=== PATIENT | male | born 1975 | race Caucasian/White ===

== ENCOUNTER 2017-06-15 19:20 | Emergency (ER) | payer MEDICARE, MEDICAID, SELFPAY ==
[2017-06-15 19:54] VITALS: BP 139/97; PULSE 128; RESP 20; TEMP 36.7; O2SAT 98; BMI 26.6
--- NOTE | 2017-06-15 20:10 | HMH.EDUTC ---
[facility] [place] Disposition Clinical Impression: Gastroenteritis Disposition: Home, Self-Care Condition on Discharge: Good Instructions: Viral Gastroenteritis, DI for Viral Gastroenteritis -- Adult Additional Instructions: Take prescribed medication for nausea Make sure to drink plenty of fluids Follow up with family doctor if symptoms persist Return if needed Prescriptions: Ondansetron [Zofran 4mg ODT] 4 mg PO Q8H PRN #20 tab.rapdis PRN Reason: Nausea Referrals: Angie Beach [Primary Care Provider] - Forms: Work/School Release Time of Disposition: 20:35 Medical Decision Making - Medical Records Medical records reviewed: Yes: I reviewed the patient's medical records. Vital Signs: 06/15/17 19:54 Temperature 98.1 F Temperature Source Temporal Artery Scan Pulse Rate [Right Brachial] 128 H Respiratory Rate 20 Blood Pressure [Right Arm] 139/97 Blood Pressure Mean [Right Arm] 111 Blood Pressure Source [Right Arm] Automatic Cuff Blood Pressure Position [Right Arm] Sitting 02 Sat by Pulse Oximetry 98 Oxygen Delivery Method Room Air - Dave Inquiry Pt receiving controlled substance: No Dave was queried for this patient: No - Reevaluation(s) Time: 20:32 (Patient state that he feel much better after zofran, no further vomiting and now sitting on exam table drinking water) [facility] [place] HPI - General Stated complaint: vomiting, chills, body aches Mode of Arrival: Ambulatory Source of Information: Patient Limitations: No Limitations Description of Symptoms (Recalled from Triage Doc. by RN): C/O possible flu HEENT Symptoms (Recalled from RN notes): No Resp Symptoms (Recalled from RN notes): Yes (possible flu) Skin Symptoms (Recalled from RN notes): No MS Symptoms (Recalled from RN notes): No Functional Status (Recalled from RN notes): n/a - History of Present Illness Provider Complaint: State that his son was sick the middle of the week with a stomach virus and he thinks he may have it now State that he has been having vomiting and diarrhea all day that has not improved State that he hasn't been able to keep much food or drink down State that tried to take nausea medication by mouth earlier today but was unable to keep it down so he came in to get checked out because he was told that he may have the flu - Related Data Previous Rx's Medication Instructions Recorded Ondansetron [Zofran 4mg ODT] 4 mg PO Q8H PRN #20 tab.rapdis 06/15/17 Allergies Allergy/AdvReac Type Severity Reaction Status Date / Time tree nut [TREE NUT] Allergy Intermediate Verified 06/15/17 20:31 latex [LATEX] Allergy Unknown Verified 06/15/17 20:31 - Worker's Comp Is this a Worker's Comp case?: No H History I have reviewed the patient's past medical history: Yes Medical History: Denies:: Cancer, Diabetes Mellitus Type 1, Diabetes Mellitus Type 2, MRSA Amputation: No Fractures: No - *Social History Smoking Status: Current every day smoker Tobacco Type: cigarettes Alcohol Intake: never - Psychiatric History Expresses thoughts of harming self/others: None Suicide Plan Description: No Plan ROS Obtained: Yes All systems reviewed & no additional complaints - Gastrointestinal Gastrointestingal: Reports: diarrhea, nausea, vomiting Physical Exam - General General appearance: alert, in no apparent distress - ENT ENT exam: Present: normal exam, normal oropharynx, mucous membranes moist, TM's normal bilaterally, normal external ear exam - Respiratory Respiratory exam: Present: normal lung sounds bilaterally. Absent: respiratory distress - Cardiovascular Cardiovascular exam: Present: regular rate, normal rhythm. Absent: JVD - Abdominal Exam Abdominal exam: Present: soft. Absent: distention, tenderness, guarding, rebound, rigidity Comment: Patient vomited x 1 in UTC and had one eppisode of diarrhea, denies abdominal pain state that he feels sick at his stomach - Neurological Exam Neurological exam:
--- NOTE | 2017-06-15 20:13 | ED_ITS ---
[facility] [place] Disposition Clinical Impression: Gastroenteritis Disposition: Home, Self-Care Condition on Discharge: Good Instructions: Viral Gastroenteritis, DI for Viral Gastroenteritis -- Adult Additional Instructions: Take prescribed medication for nausea Make sure to drink plenty of fluids Follow up with family doctor if symptoms persist Return if needed Prescriptions: Ondansetron [Zofran 4mg ODT] 4 mg PO Q8H PRN #20 tab.rapdis PRN Reason: Nausea Referrals: Angie Beach [Primary Care Provider] - Forms: Work/School Release Time of Disposition: 20:35 Medical Decision Making - Medical Records Medical records reviewed: Yes: I reviewed the patient's medical records. Vital Signs: 06/15/17 19:54 Temperature 98.1 F Temperature Source Temporal Artery Scan Pulse Rate [Right Brachial] 128 H Respiratory Rate 20 Blood Pressure [Right Arm] 139/97 Blood Pressure Mean [Right Arm] 111 Blood Pressure Source [Right Arm] Automatic Cuff Blood Pressure Position [Right Arm] Sitting 02 Sat by Pulse Oximetry 98 Oxygen Delivery Method Room Air - Dave Inquiry Pt receiving controlled substance: No Dave was queried for this patient: No - Reevaluation(s) Time: 20:32 (Patient state that he feel much better after zofran, no further vomiting and now sitting on exam table drinking water) [facility] [place] HPI - General Stated complaint: vomiting, chills, body aches Mode of Arrival: Ambulatory Source of Information: Patient Limitations: No Limitations Description of Symptoms (Recalled from Triage Doc. by RN): C/O possible flu HEENT Symptoms (Recalled from RN notes): No Resp Symptoms (Recalled from RN notes): Yes (possible flu) Skin Symptoms (Recalled from RN notes): No MS Symptoms (Recalled from RN notes): No Functional Status (Recalled from RN notes): n/a - History of Present Illness Provider Complaint: State that his son was sick the middle of the week with a stomach virus and he thinks he may have it now State that he has been having vomiting and diarrhea all day that has not improved State that he hasn't been able to keep much food or drink down State that tried to take nausea medication by mouth earlier today but was unable to keep it down so he came in to get checked out because he was told that he may have the flu - Related Data Previous Rx's Medication Instructions Recorded Ondansetron [Zofran 4mg ODT] 4 mg PO Q8H PRN #20 tab.rapdis 06/15/17 Allergies Allergy/AdvReac Type Severity Reaction Status Date / Time tree nut [TREE NUT] Allergy Intermediate Verified 06/15/17 20:31 latex [LATEX] Allergy Unknown Verified 06/15/17 20:31 - Worker's Comp Is this a Worker's Comp case?: No [facility] History I have reviewed the patient's past medical history: Yes Medical History: Denies:: Cancer, Diabetes Mellitus Type 1, Diabetes Mellitus Type 2, MRSA Amputation: No Fractures: No - *Social History Smoking Status: Current every day smoker Tobacco Type: cigarettes Alcohol Intake: never - Psychiatric History Expresses thoughts of harming self/others: None Suicide Plan Description: No Plan ROS Obtained: Yes All systems reviewed & no additional complaints - Gastrointestinal Gastrointestingal: Reports: diarrhea, nausea, vomiting Physical Exam - General General appearance: alert, in no apparent distress - E
[2017-06-15 20:17] LABS: UTC Influenza A Antigen Negative (Negative); UTC Influenza B Antigen Negative (Negative)
[2017-06-15 20:42] VITALS: BP 139/97; PULSE 128; RESP 20; TEMP 36.7; O2SAT 98
== END 2017-06-15 20:43 | disposition home or self-care (01) ==
PROVIDERS: Emergency Provider Nurse Practitioner; PCP Pediatrics
DX: K52.9 Noninfective gastroenteritis and colitis, unspecified (principal); Z91.040 Latex allergy status
CPT/HCPCS: G0463; 87804; 96372; 99203; J2405

== ENCOUNTER 2017-06-18 14:58 | Emergency (ER) | payer MEDICARE, MEDICAID, SELFPAY ==
[2017-06-18 15:13] VITALS: BP 147/98; PULSE 68; RESP 28; TEMP 37.1; O2SAT 98; BMI 26.6
[2017-06-18 15:23] LABS: UTC Strep Screen (Rapid) Negative (Negative)
--- NOTE | 2017-06-18 15:42 | HMH.EDUTC ---
[facility] [place] Disposition Clinical Impression: Upper respiratory infection Qualifiers: URI type: unspecified URI Qualified Code(s): J06.9 - Acute upper respiratory infection, unspecified Disposition: Home, Self-Care Condition on Discharge: Good Instructions: Sore Throat Additional Instructions: * Monitor Temp. Tylenol and/or Ibuprofen as needed. ER if fever is no less than 101 despite alternating Tylenol and Ibuprofen * Encourage fluids, water, Gatorade, powerade, pedialyte if /toddler/or child * Warm salt water gargles for throat irritation *Warm fluids *Sore throat lozenges *Sleep elevated *humidifier or vaporizer Lots of rest Increase fluids, water, Gatorade, powerade *Your throat swab was sent to lab for culture. Those results area typically sent to your primary care physician. Be sure to follow up in 2-3 days if no improvement so they can review those results and treat if necessary If you dont have primary care I recommend you get one, but in the mean time you will have to return to a walk in clinic Follow up IMMEDIATELY for new or worsening of symptoms OR no noticeable improvement over the next 48-72 hours. 911 immediately for any life threatening symptoms such as chest pain or difficulty breathing Prescriptions: Azithromycin [Zithromax 250mg tab] 250 mg PO DIRECTED #6 tab predniSONE [Prednisone 5mg Tab Dose-Pack] 5 mg PO UD DOSE PK #1 pack Referrals: Angie Beach [Primary Care Provider] - Time of Disposition: 15:56 Medical Decision Making - Medical Records Medical records reviewed: Yes: I reviewed the patient's medical records. Vital Signs: 06/18/17 15:13 Temperature 98.8 F Temperature Source Temporal Artery Scan Pulse Rate [Right] 68 Respiratory Rate 28 H Blood Pressure [Right Arm] 147/98 Blood Pressure Mean [Right Arm] 114 Blood Pressure Source [Right Arm] Automatic Cuff Blood Pressure Position [Right Arm] Sitting 02 Sat by Pulse Oximetry 98 Oxygen Delivery Method Room Air - Lab Data Lab Results 06/18/17 15:21: Strep Scn Rapid Clinic Negative Orders (Tests/Meds): ORDERS Category Date Time Status Strep Screen Confirmation Stat Micro 06/18/17 15:21 Received - Dave Inquiry Pt receiving controlled substance: No Dave was queried for this patient: No [facility] [place] HPI - General Stated complaint: sore throat Mode of Arrival: Ambulatory Source of Information: Patient Limitations: No Limitations Description of Symptoms (Recalled from Triage Doc. by RN): SORE THROAT 2 DAYS HEENT Symptoms (Recalled from RN notes): Yes Resp Symptoms (Recalled from RN notes): No Skin Symptoms (Recalled from RN notes): No MS Symptoms (Recalled from RN notes): No Functional Status (Recalled from RN notes): N - History of Present Illness Provider Complaint: Patient states that his child was diagnosed with strep throat yesterday State that his child was drinking from his cup States that now he is having sore throat cough and sinus congestion State that he was worried that he may have the strep throat too - Related Data Previous Rx's Medication Instructions Recorded Ondansetron [Zofran 4mg ODT] 4 mg PO Q8H PRN #20 tab.rapdis 06/15/17 Azithromycin [Zithromax 250mg 250 mg PO DIRECTED #6 tab 06/18/17 tab] predniSONE [Prednisone 5mg Tab 5 mg PO UD DOSE PK #1 pack 06/18/17 Dose-Pack] Allergies Allergy/AdvReac Type Severity Reaction Status Date / Time tree nut [TREE NUT] Allergy Intermediate Verified 06/15/17 20:31 latex [LATEX] Allergy Unknown Verified 06/15/17 20:31 - Worker's Comp Is this a Worker's Comp case?: No [facility] History I have reviewed the patient's past medical history: Yes Medical History: Denies:: Cancer, Diabetes Mellitus Type 1, Diabetes Mellitus Type 2, MRSA Amputation: No Fractures: No - *Social History Smoking Status: Current every day smoker Tobacco Type: cigarettes Alcohol Intake: never - Psychiatric History Expresses thoughts
--- NOTE | 2017-06-18 15:49 | ED_ITS ---
[facility] [place] Clinical Impression: Upper respiratory infection Qualifiers: URI type: unspecified URI Qualified Code(s): J06.9 - Acute upper respiratory infection, unspecified Disposition: Home, Self-Care Condition on Discharge: Good Instructions: Sore Throat Additional Instructions: * Monitor Temp. Tylenol and/or Ibuprofen as needed. ER if fever is no less than 101 despite alternating Tylenol and Ibuprofen * Encourage fluids, water, Gatorade, powerade, pedialyte if /toddler/or child * Warm salt water gargles for throat irritation *Warm fluids *Sore throat lozenges *Sleep elevated *humidifier or vaporizer Lots of rest Increase fluids, water, Gatorade, powerade *Your throat swab was sent to lab for culture. Those results area typically sent to your primary care physician. Be sure to follow up in 2-3 days if no improvement so they can review those results and treat if necessary If you don? t have primary care I recommend you get one, but in the mean time you will have to return to a walk in clinic Follow up IMMEDIATELY for new or worsening of symptoms OR no noticeable improvement over the next 48-72 hours. 911 immediately for any life threatening symptoms such as chest pain or difficulty breathing Prescriptions: Azithromycin [Zithromax 250mg tab] 250 mg PO DIRECTED #6 tab predniSONE [Prednisone 5mg Tab Dose-Pack] 5 mg PO UD DOSE PK #1 pack Referrals: Angie Beach [Primary Care Provider] - Time of Disposition: 15:56 Medical Decision Making - Medical Records Medical records reviewed: Yes: I reviewed the patient's medical records. Vital Signs: 06/18/17 15:13 Temperature 98.8 F Temperature Source Temporal Artery Scan Pulse Rate [Right] 68 Respiratory Rate 28 H Blood Pressure [Right Arm] 147/98 Blood Pressure Mean [Right Arm] 114 Blood Pressure Source [Right Arm] Automatic Cuff Blood Pressure Position [Right Arm] Sitting 02 Sat by Pulse Oximetry 98 Oxygen Delivery Method Room Air - Lab Data Lab Results 06/18/17 15:21: Strep Scn Rapid Clinic Negative Orders (Tests/Meds): ORDERS Category Date Time Status Strep Screen Confirmation Stat Micro 06/18/17 15:21 Received - Dave Inquiry Pt receiving controlled substance: No Dave was queried for this patient: No [facility] [place] HPI - General Stated complaint: sore throat Mode of Arrival: Ambulatory Source of Information: Patient Limitations: No Limitations Description of Symptoms (Recalled from Triage Doc. by RN): SORE THROAT 2 DAYS HEENT Symptoms (Recalled from RN notes): Yes Resp Symptoms (Recalled from RN notes): No Skin Symptoms (Recalled from RN notes): No MS Symptoms (Recalled from RN notes): No Functional Status (Recalled from RN notes): N - History of Present Illness Provider Complaint: Patient states that his child was diagnosed with strep throat yesterday State that his child was drinking from his cup States that now he is having sore throat cough and sinus congestion State that he was worried that he may have the strep throat too - Related Data Previous Rx's Medication Instructions Recorded Ondansetron [Zofran 4mg ODT] 4 mg PO Q8H PRN #20 tab.rapdis 06/15/17 Azithromycin [Zithromax 250mg 250 mg PO DIRECTED #6 tab 06/18/17 tab] predniSONE [Prednisone 5mg Tab 5 mg PO UD DOSE PK #1 pack 06/18/17 Dose-Pack]
== END 2017-06-18 16:01 | disposition home or self-care (01) ==
PROVIDERS: Emergency Provider Nurse Practitioner; PCP Pediatrics
DX: J06.9 Acute upper respiratory infection, unspecified (principal); Z91.040 Latex allergy status; F17.210 Nicotine dependence, cigarettes, uncomplicated
CPT/HCPCS: G0463; 87880; 99201

== ENCOUNTER 2017-08-07 11:24 | Emergency (ER) | payer MEDICARE, MEDICAID, SELFPAY ==
[2017-08-07 11:38] VITALS: BP 126/85; PULSE 85; RESP 20; TEMP 36.8; O2SAT 98; BMI 27.0
--- NOTE | 2017-08-07 11:45 | HMH.EDUTC ---
[facility] [place] Disposition Clinical Impression: Tobacco abuse, Acute sinusitis with symptoms > 10 days Acute bronchitis Qualifiers: Bronchitis organism: unspecified organism Qualified Code(s): J20.9 - Acute bronchitis, unspecified Disposition: Home, Self-Care Condition on Discharge: Good Instructions: DI for Sinusitis, DI for Acute Bronchitis Additional Instructions: * Start antibiotic and be sure to take as ordered for the FULL length of time even if you feel better. Sinus infections do not get better overnight. It may take 2-3 days to notice much improvement so be sure to use conservative measures as discussed for symptoms. * augmentin can cause GI side effects. Probiotics help prevent these symptoms * Continue your flonase, zyrtec D and singulair * Lots of fluids * Sleep elevated * STOP SMOKING!!!! * Monitor Temp. Follow up if fever develops * humidifier/vaporizer/hot steamy shower * Inhaler every 4-6 hours as needed like we discussed. Should help open airways and improve cough, wheezing, shortness of breath. * Mucinex during the day for your cough and cough suppressant only at night. Be sure to drink lots of water. Insurance may not cover a prescription of mucinex. Might be cheaper to get 400mg tablets and take 2 tablets morning, midday and evening all with lots of water. * Start steroid today. Helps with inflammation therefore, cough and wheezing. Follow directions on package. Rvwd side effects. Pt reports they have taken them before. Prescriptions: Amoxicillin/Potassium Clav [Augmentin 875-125 Tablet] 1 tab PO Q12H #20 tab predniSONE [Prednisone 10mg Tab Dose-Pack] 10 mg PO UD DOSE PK 6 Days #1 pack Referrals: Angie Beach [Primary Care Provider] - (Follow up IMMEDIATELY for new or worsening symptoms OR no noticeable improvement over the next 72 hours. You will need a CXR if not improving or getting worse. 911 for difficulty breathing) Time of Disposition: 12:01 Medical Decision Making - Dave Inquiry Pt receiving controlled substance: No Vital Signs: 08/07/17 11:38 Temperature 98.2 F Temperature Source Temporal Artery Scan Pulse Rate [Brachial] 85 Respiratory Rate 20 Blood Pressure [Right Arm] 126/85 Blood Pressure Mean [Right Arm] 98 Blood Pressure Position [Right Arm] Sitting 02 Sat by Pulse Oximetry 98 - Reevaluation(s) Reevaluation #1: Recommended CXR to rule out possible differentials. Pt declined. States he will if no improvement or getting worse but doesn't want one today. [facility] [place] HPI - General Stated complaint: cough X 2 weeks Time Seen by Provider: 08/07/17 11:45 Mode of Arrival: Ambulatory Source of Information: Patient Limitations: No Limitations Description of Symptoms (Recalled from Triage Doc. by RN): COUGH X 2 WEEKS HEENT Symptoms (Recalled from RN notes): No Resp Symptoms (Recalled from RN notes): Yes Skin Symptoms (Recalled from RN notes): No MS Symptoms (Recalled from RN notes): No Functional Status (Recalled from RN notes): NA - History of Present Illness Provider Complaint: c/o productive cough x 2 weeks. Started w/ head cold. Everyone in the house has had it recently . No fever, aches, chills. Sinus pressure and now pain limited to right cheek. Hx of allergies. singulair and flonase with PRN albuterol and zyrtec D. Albuterol inhaler and bromfed at bedtime seems to help throughout the night but not daytime symptoms. Doesn't want to take bromfed more because causes drowsiness and stays at home w/ 2 year old son. No SOA. Wheezing at times during night. + tobacco use - Related Data Home Medications Medication Instructions Recorded Confirmed Cetirizine HCl/Pseudoephedrine 1 mg PO DAILY 08/07/17 08/07/17 [Zyrtec-D Tablet] Citalopram Hydrobromide [Celexa 20 mg PO DAILY 08/07/17 08/07/17 20mg Tablet] Montelukast Sodium [Singulair 10mg 10 mg PO PM 08/07/17 08/07/17 tablet] Simvastatin [Simvastatin] 20 mg PO DAILY 08/07/17 08/07/17 Previous Rx's Medication Instructi
--- NOTE | 2017-08-07 11:57 | ED_ITS ---
[facility] [place] Disposition Clinical Impression: Tobacco abuse, Acute sinusitis with symptoms > 10 days Acute bronchitis Qualifiers: Bronchitis organism: unspecified organism Qualified Code(s): J20.9 - Acute bronchitis, unspecified Disposition: Home, Self-Care Condition on Discharge: Good Instructions: DI for Sinusitis, DI for Acute Bronchitis Additional Instructions: * Start antibiotic and be sure to take as ordered for the FULL length of time even if you feel better. Sinus infections do not get better overnight. It may take 2-3 days to notice much improvement so be sure to use conservative measures as discussed for symptoms. * augmentin can cause GI side effects. Probiotics help prevent these symptoms * Continue your flonase, zyrtec D and singulair * Lots of fluids * Sleep elevated * STOP SMOKING!!!! * Monitor Temp. Follow up if fever develops * humidifier/vaporizer/hot steamy shower * Inhaler every 4-6 hours as needed like we discussed. Should help open airways and improve cough, wheezing, shortness of breath. * Mucinex during the day for your cough and cough suppressant only at night. Be sure to drink lots of water. Insurance may not cover a prescription of mucinex. Might be cheaper to get 400mg tablets and take 2 tablets morning, midday and evening all with lots of water. * Start steroid today. Helps with inflammation therefore, cough and wheezing. Follow directions on package. Rvwd side effects. Pt reports they have taken them before. Prescriptions: Amoxicillin/Potassium Clav [Augmentin 875-125 Tablet] 1 tab PO Q12H #20 tab predniSONE [Prednisone 10mg Tab Dose-Pack] 10 mg PO UD DOSE PK 6 Days #1 pack Referrals: Angie Beach [Primary Care Provider] - (Follow up IMMEDIATELY for new or worsening symptoms OR no noticeable improvement over the next 72 hours. You will need a CXR if not improving or getting worse. 911 for difficulty breathing) Time of Disposition: 12:01 Medical Decision Making - Dave Inquiry Pt receiving controlled substance: No Vital Signs: 08/07/17 11:38 Temperature 98.2 F Temperature Source Temporal Artery Scan Pulse Rate [Brachial] 85 Respiratory Rate 20 Blood Pressure [Right Arm] 126/85 Blood Pressure Mean [Right Arm] 98 Blood Pressure Position [Right Arm] Sitting 02 Sat by Pulse Oximetry 98 - Reevaluation(s) Reevaluation #1: Recommended CXR to rule out possible differentials. Pt declined. States he will if no improvement or getting worse but doesn't want one today. [facility] [place] HPI - General Stated complaint: cough X 2 weeks Time Seen by Provider: 08/07/17 11:45 Mode of Arrival: Ambulatory Source of Information: Patient Limitations: No Limitations Description of Symptoms (Recalled from Triage Doc. by RN): COUGH X 2 WEEKS HEENT Symptoms (Recalled from RN notes): No Resp Symptoms (Recalled from RN notes): Yes Skin Symptoms (Recalled from RN notes): No MS Symptoms (Recalled from RN notes): No Functional Status (Recalled from RN notes): NA - History of Present Illness Provider Complaint: c/o productive cough x 2 weeks. Started w/ head cold. Everyone in the house has had it recently . No fever, aches, chills. Sinus pressure and now pain limited to right cheek. Hx of allergies. singulair and flonase with PRN albuterol and zyrtec D. Albuterol inhaler and bromfed at bedtime seems to help throughout the night but not daytime symptoms. Doesn't want to take bromfed more because causes drowsiness and stays at home w/ 2 year old son. No SOA. Wheezing at times during night. + tobacco use
[2017-08-07 12:08] VITALS: BP 126/85; PULSE 85; RESP 20; TEMP 36.8; O2SAT 98
== END 2017-08-07 12:09 | disposition home or self-care (01) ==
PROVIDERS: Emergency Provider Nurse Practitioner Family; PCP Pediatrics
DX: J20.9 Acute bronchitis, unspecified (principal); J01.90 Acute sinusitis, unspecified; E78.5 Hyperlipidemia, unspecified; F17.210 Nicotine dependence, cigarettes, uncomplicated
CPT/HCPCS: G0463; 99201

== ENCOUNTER 2018-10-31 14:19 | Emergency (ER) | payer MEDICARE, MEDICAID, SELFPAY ==
[2018-10-31 14:48] VITALS: BP 120/83; PULSE 90; RESP 16; TEMP 36.6; O2SAT 98; BMI 27.3
--- NOTE | 2018-10-31 15:35 | HMH.EDUTC ---
[facility] [place] Disposition Clinical Impression: Sinusitis Qualifiers: Sinusitis location: unspecified location Chronicity: unspecified Qualified Code(s): J32.9 - Chronic sinusitis, unspecified Disposition: Home, Self-Care Condition on Discharge: Good Instructions: Sinusitis, Sinus Headache, DI for Sinusitis Additional Instructions: Start antibiotic. Sinus infections may take 2-3 days to notice much improvement so be sure to use conservative measures as discussed for symptoms Flonase 2 spray in each nostril daily to help with nasal congestion, sinus an ear pressure/inflammation Lots of Fluids Sleep elevated Humidifer/vaporizer Augmentin can cause GI effects. Probiotics may help to prevent these symptoms Follow up with family doctor if no improvement or any worsening of symptoms Return if needed Prescriptions: Amoxicillin/Potassium Clav [Augmentin 875-125 Tablet] 1 tab PO Q12H #14 tab predniSONE [Prednisone 20mg Tab] 20 mg PO BID 5 Days #10 tab Referrals: Angie Beach [Primary Care Provider] - As needed Time of Disposition: 15:41 Medical Decision Making - Dave Inquiry Pt receiving controlled substance: No Dave was queried for this patient: No Vital Signs: 10/31/18 14:48 Temperature 97.9 F Temperature Source Oral Pulse Rate [Right Brachial] 90 Respiratory Rate 16 Blood Pressure [Right Arm] 120/83 Blood Pressure Mean [Right Arm] 95 Blood Pressure Source [Right Arm] Automatic Cuff Blood Pressure Position [Right Arm] Sitting 02 Sat by Pulse Oximetry 98 Oxygen Delivery Method Room Air [facility] [place] HPI - General Stated complaint: possibe sinus infection Time Seen by Provider: 10/31/18 15:36 Mode of Arrival: Family Vehicle Source of Information: Patient Limitations: No Limitations Description of Symptoms (Recalled from Triage Doc. by RN): C/O SINUS INFECTION SINCE YESTERDAY HEENT Symptoms (Recalled from RN notes): Yes Resp Symptoms (Recalled from RN notes): No Skin Symptoms (Recalled from RN notes): No MS Symptoms (Recalled from RN notes): No Functional Status (Recalled from RN notes): N/A - History of Present Illness Provider Complaint: Patient state that he gets sinus infections frequently this time of year States that he started about 2 weeks ago and has been trying to fight it off State that yesterday it got worse and then today he woke up and feeling the pressure under his eyes and having pain in his right upper teeth so he came in to get it checked out Location: face - Related Data Home Medications Medication Instructions Recorded Confirmed Citalopram Hydrobromide [Celexa 20 mg PO DAILY 08/07/17 08/07/17 20mg Tablet] Montelukast Sodium [Singulair 10mg 10 mg PO PM 08/07/17 08/07/17 tablet] Simvastatin 20 mg PO DAILY 08/07/17 08/07/17 atorvastatin 10 mg tablet 10 mg PO DAILY 10/06/18 10/06/18 fenofibrate nanocrystallized 48 mg 48 mg PO DAILY 10/06/18 10/06/18 tablet Previous Rx's Medication Instructions Recorded Amoxicillin/Potassium Clav 1 tab PO Q12H #14 tab 10/31/18 [Augmentin 875-125 Tablet] predniSONE [Prednisone 20mg 20 mg PO BID 5 Days #10 tab 10/31/18 Tab] Allergies Allergy/AdvReac Type Severity Reaction Status Date / Time tree nut [TREE NUT] Allergy Intermediate Verified 10/06/18 14:27 latex [LATEX] Allergy Unknown Verified 10/06/18 14:27 - Worker's Comp Is this a Worker's Comp case?: No [facility] History - Hepatitis A Screen Drug use history?: No High risk sexual behaviors?: No History of sexually transmitted infection?: No Currently employed?: No Childcare worker?: No Do you have indoor plumbing?: Yes Do you have electricity?: Yes Attestation statement:: This patient has been screened for Hepatitis A risk factors. I have reviewed the patient's past medical history: Yes Medical History: Reports:: Anxiety, Hyperlipidemia Denies:: Cancer, Diabetes Mellitus Type 1, Diabetes Mellitus Type 2, Hypertension, MRSA Other Medical History: Reports: Other L
--- NOTE | 2018-10-31 15:39 | ED_ITS ---
[facility] [place] Disposition Clinical Impression: Sinusitis Qualifiers: Sinusitis location: unspecified location Chronicity: unspecified Qualified Code(s): J32.9 - Chronic sinusitis, unspecified Disposition: Home, Self-Care Condition on Discharge: Good Instructions: Sinusitis, Sinus Headache, DI for Sinusitis Additional Instructions: Start antibiotic. Sinus infections may take 2-3 days to notice much improvement so be sure to use conservative measures as discussed for symptoms Flonase 2 spray in each nostril daily to help with nasal congestion, sinus an ear pressure/inflammation Lots of Fluids Sleep elevated Humidifer/vaporizer Augmentin can cause GI effects. Probiotics may help to prevent these symptoms Follow up with family doctor if no improvement or any worsening of symptoms Return if needed Prescriptions: Amoxicillin/Potassium Clav [Augmentin 875-125 Tablet] 1 tab PO Q12H #14 tab predniSONE [Prednisone 20mg Tab] 20 mg PO BID 5 Days #10 tab Referrals: Angie Beach [Primary Care Provider] - As needed Time of Disposition: 15:41 Medical Decision Making - Dave Inquiry Pt receiving controlled substance: No Dave was queried for this patient: No Vital Signs: 10/31/18 14:48 Temperature 97.9 F Temperature Source Oral Pulse Rate [Right Brachial] 90 Respiratory Rate 16 Blood Pressure [Right Arm] 120/83 Blood Pressure Mean [Right Arm] 95 Blood Pressure Source [Right Arm] Automatic Cuff Blood Pressure Position [Right Arm] Sitting 02 Sat by Pulse Oximetry 98 Oxygen Delivery Method Room Air [facility] [place] HPI - General Stated complaint: possibe sinus infection Time Seen by Provider: 10/31/18 15:36 Mode of Arrival: Family Vehicle Source of Information: Patient Limitations: No Limitations Description of Symptoms (Recalled from Triage Doc. by RN): C/O SINUS INFECTION SINCE YESTERDAY HEENT Symptoms (Recalled from RN notes): Yes Resp Symptoms (Recalled from RN notes): No Skin Symptoms (Recalled from RN notes): No MS Symptoms (Recalled from RN notes): No Functional Status (Recalled from RN notes): N/A - History of Present Illness Provider Complaint: Patient state that he gets sinus infections frequently this time of year States that he started about 2 weeks ago and has been trying to fight it off State that yesterday it got worse and then today he woke up and feeling the pressure under his eyes and having pain in his right upper teeth so he came in to get it checked out Location: face - Related Data Home Medications Medication Instructions Recorded Confirmed Citalopram Hydrobromide [Celexa 20 mg PO DAILY 08/07/17 08/07/17 20mg Tablet] Montelukast Sodium [Singulair 10mg 10 mg PO PM 08/07/17 08/07/17 tablet] Simvastatin 20 mg PO DAILY 08/07/17 08/07/17 atorvastatin 10 mg tablet 10 mg PO DAILY 10/06/18 10/06/18 fenofibrate nanocrystallized 48 mg 48 mg PO DAILY 10/06/18 10/06/18 tablet Previous Rx's Medication Instructions Recorded Amoxicillin/Potassium Clav 1 tab PO Q12H #14 tab 10/31/18 [Augmentin 875-125 Tablet] predniSONE [Prednisone 20mg 20 mg PO BID 5 Days #10 tab 10/31/18 Tab] Allergies Allergy/AdvReac Type Severity Reaction Status Date / Time
[2018-10-31 15:43] VITALS: BP 120/83; PULSE 90; RESP 16; TEMP 36.6; O2SAT 98
== END 2018-10-31 15:46 | disposition home or self-care (01) ==
PROVIDERS: Emergency Provider Nurse Practitioner; PCP Pediatrics
DX: J01.90 Acute sinusitis, unspecified (principal); F41.9 Anxiety disorder, unspecified; E78.5 Hyperlipidemia, unspecified; F17.210 Nicotine dependence, cigarettes, uncomplicated
CPT/HCPCS: G0463; 99201

== ENCOUNTER → 2019-12-13 11:20 | Outpatient (CLI) | payer MEDICARE, MEDICAID, SELFPAY ==
--- NOTE | 2019-12-13 11:33 | XR_ITS ---
PROCEDURE: XR LUMBAR SPINE MIN 4V CLINICAL INDICATION: Pain in mid back and left knee. No recent injury. COMPARISON: No exams were available for comparison FINDINGS: Alignment: Normal alignment. Bony structures: No fracture or dislocation. No lytic or blastic change. Disc spaces: No significant degenerative change. The disc spaces are preserved. Additional findings: No spondylolisthesis. Normal-appearing visualized sacrum. A small metallic clip is seen in the right upper quadrant. IMPRESSION: Unremarkable radiographs of the lumbosacral spine. Dictated by: Agueda Tabares 12/13/2019 12:26 Electronically signed by Agueda Tabares in [facility] 12/13/2019 12:26
== END ==
PROVIDERS: PCP Pediatrics; Visit Provider Pain Medicine Interventional Pain Medicine
DX: Z79.899 Other long term (current) drug therapy (principal)
CPT/HCPCS: 72110

== ENCOUNTER 2020-08-13 17:38 | Emergency (ER) | payer MEDICARE, MEDICAID, SELFPAY ==
--- NOTE | 2020-08-13 17:44 | XR_ITS ---
PROCEDURE: XR CHEST 2V CLINICAL HISTORY: FALL Anterior chest pain after fall COMPARISON: CR CXR1 CHEST-PORTABLE from 08/13/2016 FINDINGS: The cardiomediastinal silhouette and pulmonary vascularity are within normal limits. The lungs are clear without infiltrates, suspicious nodules, or pleural effusions. There is minimal right basilar atelectasis versus postinflammatory scarring. There is no obvious rib fracture and there is no pneumothorax. There has been previous anterior cervical fusion incompletely visualized but including C7 and T1. No acute bony abnormalities. IMPRESSION: Minimal right basilar atelectasis versus scarring otherwise centrally negative chest. Dictated by: Dr. Sterling Alejandro MD 08/13/2020 18:44 Dr. Sterling Alejandro MD in [facility] 08/13/2020 18:44
[2020-08-13 17:47] VITALS: BP 139/89; PULSE 76; RESP 14; TEMP 36.3; O2SAT 97; BMI 27.8
--- NOTE | 2020-08-13 18:11 | HMH.EDUTC ---
[facility] [place] Disposition Clinical Impression: Muscle strain Disposition: Home, Self-Care Condition on Discharge: Good Instructions: Muscle Strain Additional Instructions: if symptoms worsens return or be seen in ed follow up with pcp tylenol or motrin as needed for pain rest Referrals: Angie Beach [Primary Care Provider] - Time of Disposition: 18:17 Medical Decision Making - Dave Inquiry Pt receiving controlled substance: No Vital Signs: 08/13/20 17:47 Temperature 97.3 F L Temperature Source Tympanic Pulse Rate [Right] 76 Respiratory Rate 14 Blood Pressure [Right Arm] 139/89 Blood Pressure Mean [Right Arm] 105 Blood Pressure Source [Right Arm] Automatic Cuff Blood Pressure Position [Right Arm] Sitting 02 Sat by Pulse Oximetry 97 Orders (Tests/Meds): ORDERS Category Date Time Status XR chest 2V Stat Exams 08/13/20 17:44 Taken [facility] [place] HPI - General Chief complaint: Urgent [facility] Stated complaint: AO [id number]@1500 fell on ground,injured upper chest Time Seen by Provider: 08/13/20 18:11 Mode of Arrival: Ambulatory Source of Information: Patient Limitations: No Limitations Description of Symptoms (Recalled from Triage Doc. by RN): pt fell and landed on his chest hitting the ground. pt is now having center chest pain that worsens when he moves and breathes. pt is breathing shallow due to pain. HEENT Symptoms (Recalled from RN notes): No Resp Symptoms (Recalled from RN notes): No Skin Symptoms (Recalled from RN notes): No MS Symptoms (Recalled from RN notes): Yes (upper chest pain from fall) Functional Status (Recalled from RN notes): na - History of Present Illness Provider Complaint: 45-year-old male presented for pain in his chest with moving or taking a deep breath. Pt states he fell and landed on his chest hitting the ground while playing ball. pt is now having center chest pain that worsens when he moves and breathes. Patient states chest is tender to touch. - Related Data Home Medications Medication Instructions Recorded Confirmed Cetirizine HCl/Pseudoephedrine 1 tab PO DAILY 12/25/18 07/07/19 [Zyrtec-D Tablet] Citalopram Hydrobromide 30 mg PO DAILY 12/25/18 07/07/19 [Citalopram HBr] Montelukast Sodium [Singulair 10mg 10 mg PO PM 12/25/18 07/07/19 tablet] Simvastatin 40 mg PO HS 12/25/18 07/07/19 Tramadol HCl [Tramadol 50mg 1 tab PO TIDP PRN 07/07/19 07/07/19 Tab] Allergies Allergy/AdvReac Type Severity Reaction Status Date / Time tree nut [TREE NUT] Allergy Intermediate Verified 10/06/18 14:27 latex [LATEX] Allergy Unknown Verified 10/06/18 14:27 - Worker's Comp Is this a Worker's Comp case?: No [facility] History - Hepatitis A Screen Drug use history?: No High risk sexual behaviors?: No History of sexually transmitted infection?: No Currently employed?: No Childcare worker?: No Do you have indoor plumbing?: Yes Do you have electricity?: Yes Attestation statement:: This patient has been screened for Hepatitis A risk factors. I have reviewed the patient's past medical history: Yes Medical History: Reports:: Anxiety, Hyperlipidemia Denies:: Cancer, Diabetes Mellitus Type 1, Diabetes Mellitus Type 2, Hypertension, MRSA Other Medical History: Reports: Other Laterality Cases: Left: Other Other Surgeries: Yes: Other Amputation: No Fractures: No - Social History Smoking Status: Never smoker Tobacco Type: cigarettes # Packs/Day (cigarettes): 1 Alcohol Intake: never Substance Use Type: denies use Occupational Status: employed Household Members: family - Psychiatric History Pschychiatric History:: Reports:: Anxiety ROS Obtained: Yes Systems reviewed as appropriate & no additional complaints - Constitutional Constitutional: Reports system reviewed and no additional complaints, except as docu, Reports body ache, Denies daytime sleepiness - Eyes Eyes: Reports system reviewed and no additional complaints, except as docu, Denies dry eyes
[2020-08-13 18:26] VITALS: BP 133/90; PULSE 81; RESP 16; TEMP 36.6
== END 2020-08-13 18:26 | disposition home or self-care (01) ==
PROVIDERS: Emergency Provider Nurse Practitioner Family; PCP Pediatrics
DX: S23.41XA Sprain of ribs, initial encounter (principal); W01.0XXA Fall on same level from slipping, tripping and stumbling without subsequent striking against object, initial encounter; F41.9 Anxiety disorder, unspecified; E78.5 Hyperlipidemia, unspecified
CPT/HCPCS: G0463; 71046; 99202

== ENCOUNTER 2020-10-05 18:34 | Emergency (ER) | payer MEDICARE, MEDICAID, SELFPAY ==
[2020-10-05 18:56] VITALS: BP 111/70; PULSE 87; RESP 19; TEMP 37.2; O2SAT 100; BMI 31.6
--- NOTE | 2020-10-05 19:12 | HMH.EDUTC ---
[facility] [place] Disposition Clinical Impression: Sinusitis Qualifiers: Sinusitis location: unspecified location Chronicity: unspecified Qualified Code(s): J32.9 - Chronic sinusitis, unspecified Disposition: Home, Self-Care Condition on Discharge: Good Instructions: Sinusitis, DI for Sinusitis, Prednisone, Azithromycin Additional Instructions: *Monitor Temp, Over the counter Motrin or Tylenol as directed/as needed Tylenol every 4 hours and Motrin every 6 hours (as long as your family doctor has told you that you can take it) for fever or pain. and straight to ER if unable to lower temp less than 101.0 after medication given *Warm salt water gargles may help to soothe the throat *Throat Lozenges *Warm fluids like tea with honey may help to soothe the throat *Sleep elevated *Humidifier/Vaporizer Start antibiotic. Sinus infections may take 2-3 days to notice much improvement so be sure to use conservative measures as discussed for symptoms Lots of Fluids Follow up IMMEDIATELY for new or worsening symptoms or no Noticeable improvement over the next 48-72 hours. 911 for difficulty breathing or swallowing Prescriptions: predniSONE [Deltasone 10mg tablet] 10 mg PO BID 5 Days #10 tab Transmission Status: Pending to [id number] Azithromycin [Z-Emilio 250mg Tab] 250 mg PO DIRECTED #6 tab Transmission Status: Pending to [id number] Referrals: Angie Beach [Primary Care Provider] - As needed Time of Disposition: 19:20 Medical Decision Making - Dave Inquiry Pt receiving controlled substance: No Dave was queried for this patient: No Vital Signs: 10/05/20 18:56 Temperature 98.9 F Temperature Source Oral Pulse Rate [Right Brachial] 87 Respiratory Rate 19 Blood Pressure [Right Arm] 111/70 Blood Pressure Mean [Right Arm] 83 Blood Pressure Source [Right Arm] Automatic Cuff Blood Pressure Position [Right Arm] Sitting 02 Sat by Pulse Oximetry 100 Oxygen Delivery Method Room Air Medical Decision Narrative: patient states that he has taken azithromycin and prednisone in the past without reaction or complications [facility] [place] HPI - General Stated complaint: poss sinus inf Time Seen by Provider: 10/05/20 19:12 Mode of Arrival: Ambulatory Source of Information: Patient Limitations: No Limitations Description of Symptoms (Recalled from Triage Doc. by RN): PATIENT C/O POSSIBLE SINUS INFECTION X 2 WEEKS HEENT Symptoms (Recalled from RN notes): Yes Resp Symptoms (Recalled from RN notes): No Skin Symptoms (Recalled from RN notes): No MS Symptoms (Recalled from RN notes): No Functional Status (Recalled from RN notes): WNL - History of Present Illness Provider Complaint: Patient states that he has been fighting a sinus infection for about 2 weeks States that he has been having pressure behind his eyes and feels achy in his teeth States that he thought it was allergies at first but now he is having yellowish green drainage so he came in to get checked - Related Data Home Medications Medication Instructions Recorded Confirmed Cetirizine HCl/Pseudoephedrine 1 tab PO DAILY 12/25/18 10/05/20 [Zyrtec-D Tablet] Citalopram Hydrobromide 30 mg PO DAILY 12/25/18 10/05/20 [Citalopram HBr] Montelukast Sodium [Singulair 10mg 10 mg PO PM 12/25/18 10/05/20 tablet] Simvastatin 40 mg PO HS 12/25/18 10/05/20 Tramadol HCl [Tramadol 50mg 1 tab PO TIDP PRN 07/07/19 10/05/20 Tab] Previous Rx's Medication Instructions Recorded Azithromycin [Z-Emilio 250mg Tab] 250 mg PO DIRECTED #6 tab 10/05/20 predniSONE [Deltasone 10mg tablet] 10 mg PO BID 5 Days #10 tab 10/05/20 Allergies Allergy/AdvReac Type Severity Reaction Status Date / Time tree nut [TREE NUT] Allergy Intermediate Verified 10/06/18 14:27 latex [LATEX] Allergy Unknown Verified 10/06/18 14:27 - Worker's Comp Is this a Worker's Comp case?: No [facility] History - Hepatitis A Screen Drug use history?: No High risk sexual behaviors?: No H
[2020-10-05 19:21] VITALS: BP 111/70; PULSE 87; RESP 19; TEMP 37.2; O2SAT 100
== END 2020-10-05 19:25 | disposition home or self-care (01) ==
PROVIDERS: Emergency Provider Nurse Practitioner; PCP Pediatrics
DX: J32.9 Chronic sinusitis, unspecified (principal); E78.5 Hyperlipidemia, unspecified; F41.9 Anxiety disorder, unspecified; F17.210 Nicotine dependence, cigarettes, uncomplicated
CPT/HCPCS: G0463; 99202

== ENCOUNTER 2021-04-21 10:55 | Emergency (ER) | payer MEDICARE, MEDICAID, SELFPAY ==
[2021-04-21 11:32] VITALS: BP 126/86; PULSE 77; RESP 19; TEMP 36.6; O2SAT 97; BMI 26.1
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
[2021-04-21 12:23] VITALS: BP 126/86; PULSE 77; RESP 19; TEMP 36.6
== END 2021-04-21 12:37 | disposition home or self-care (01) ==
PROVIDERS: Emergency Provider Nurse Practitioner Family; PCP Pediatrics
DX: H66.002 Acute suppurative otitis media without spontaneous rupture of ear drum, left ear (principal); J01.90 Acute sinusitis, unspecified; E78.5 Hyperlipidemia, unspecified; F41.9 Anxiety disorder, unspecified; F17.210 Nicotine dependence, cigarettes, uncomplicated
CPT/HCPCS: 99202; G0463

== ENCOUNTER 2021-07-21 15:23 | Emergency (ER) | payer MEDICARE, MEDICAID, SELFPAY ==
[2021-07-21 15:30] VITALS: BP 129/88; PULSE 86; RESP 19; TEMP 36.9; O2SAT 97; BMI 26.1
--- NOTE | 2021-07-21 15:41 | HMH.EDUTC ---
[facility] [place] Clinical Impression: Sinusitis Qualifiers: Sinusitis location: maxillary Chronicity: acute Recurrence: non-recurrent Qualified Code(s): J01.00 - Acute maxillary sinusitis, unspecified Disposition: Home, Self-Care Condition on Discharge: Good Instructions: DI for Sinusitis Additional Instructions: Start antibiotic patient to take as ordered for a full length of time even if you feel better. Sinus infections do not get better overnight. It may take 2-3 days to notice much improvement so be sure to use conservative measures as discussed for symptoms. Increase fluids Humidifier/vaporizer as needed Tylenol and ibuprofen as needed for fever or pain. If symptoms do not improve or get worse return or be seen in the ER Follow-up with primary care this week Prescriptions: predniSONE [Prednisone 20mg Tab] 20 mg PO BID #10 tab Transmission Status: Pending to [facility] Azithromycin [Zithromax 250mg tab] 250 mg PO DIRECTED #6 tab Transmission Status: Pending to [facility] Referrals: Angie Beach [Primary Care Provider] - Time of Disposition: 16:01 Medical Decision Making - Dave Inquiry Pt receiving controlled substance: No [facility] [place] - General Chief complaint: Urgent [facility] Stated complaint: sinus pressure Time Seen by Provider: 07/21/21 15:41 Mode of Arrival: Ambulatory Source of Information: Patient Limitations: No Limitations - History of Present Illness Provider Complaint: 45 yr old male presents for sinus pressure,congestion, yellow drainage,sore throat and pain in behind eyes for 1 week - Related Data Home Medications Medication Instructions Recorded Confirmed Cetirizine HCl/Pseudoephedrine 1 tab PO DAILY 12/25/18 10/05/20 [Zyrtec-D Tablet] Citalopram Hydrobromide 30 mg PO DAILY 12/25/18 10/05/20 [Citalopram HBr] Montelukast Sodium [Singulair 10mg 10 mg PO PM 12/25/18 10/05/20 tablet] Simvastatin 40 mg PO HS 12/25/18 10/05/20 Tramadol HCl [Tramadol 50mg 1 tab PO TIDP PRN 07/07/19 10/05/20 Tab] Previous Rx's Medication Instructions Recorded Azithromycin [Z-Emilio 250mg Tab] 250 mg PO DIRECTED #6 tab 10/05/20 predniSONE [Deltasone 10mg tablet] 10 mg PO BID 5 Days #10 tab 10/05/20 Amoxicillin/Potassium Clav 1 tab PO Q12H 10 Days #20 tab 04/21/21 [Augmentin 875-125 Tablet] Benzonatate [Benzonatate 100mg 100 mg PO TIDP PRN #30 cap 04/21/21 cap] guaiFENesin [Mucinex 600mg tablet] 1 - 2 tab PO BIDP PRN #30 tab 04/21/21 methylPREDNISolone [Medrol] 4 mg PO DIRECTED 6 Days #21 04/21/21 packet Azithromycin [Zithromax 250mg 250 mg PO DIRECTED #6 tab 07/21/21 tab] predniSONE [Prednisone 20mg 20 mg PO BID #10 tab 07/21/21 Tab] Allergies Allergy/AdvReac Type Severity Reaction Status Date / Time tree nut [TREE NUT] Allergy Intermediate Verified 10/06/18 14:27 latex [LATEX] Allergy Unknown Verified 10/06/18 14:27 [facility] History - Hepatitis A Screen Attestation statement:: This patient has been screened for Hepatitis A risk factors. I have reviewed the patient's past medical history: Yes Medical History: Reports:: Anxiety, Hyperlipidemia Denies:: Cancer, Diabetes Mellitus Type 1, Diabetes Mellitus Type 2, Hypertension, MRSA Other Medical History: Reports: Other Laterality Cases: Left: Other Other Surgeries: Yes: Other Amputation: No Fractures: No - Social History Smoking Status: Current every day smoker Tobacco Type: cigarettes # Packs/Day (cigarettes): 1 Alcohol Intake: never Substance Use Type: denies use Occupational Status: other Household Members: family - Psychiatric History Pschychiatric History:: Reports:: Anxiety ROS Obtained: Yes Systems reviewed as appropriate & no additional complaints - Constitutional Constitutional: Reports system reviewed and no additional complaints, except as docu, Denies fever(s) - Eyes Eyes: Reports system reviewed and no additional comp
[2021-07-21 15:42] VITALS: BP 129/88; PULSE 86; RESP 19; TEMP 36.9; O2SAT 97
== END 2021-07-21 16:03 | disposition home or self-care (01) ==
PROVIDERS: Emergency Provider Nurse Practitioner Family; PCP Pediatrics
DX: J01.00 Acute maxillary sinusitis, unspecified (principal); E78.5 Hyperlipidemia, unspecified; F41.9 Anxiety disorder, unspecified; F17.210 Nicotine dependence, cigarettes, uncomplicated; Z79.52 Long term (current) use of systemic steroids; Z79.899 Other long term (current) drug therapy; Z91.040 Latex allergy status; Z91.018 Allergy to other foods
CPT/HCPCS: 99213; G0463

== ENCOUNTER 2021-08-04 19:23 | Emergency (ER) | payer MEDICARE, MEDICAID, SELFPAY ==
[2021-08-04 19:30] VITALS: BP 130/70; PULSE 89; RESP 19; TEMP 37.1; O2SAT 99; BMI 25.5
--- NOTE | 2021-08-04 19:34 | HMH.EDUTC ---
[facility] [place] Disposition Clinical Impression: Vomiting and diarrhea Disposition: Home, Self-Care Condition on Discharge: Good Instructions: Diarrhea, Nausea and Vomiting-Adult Additional Instructions: Drink extra fluids with and between meals. If you have difficulty drinking, try very small amounts of water or suck on ice chips. ? Avoid fruit juices, as these do not replace minerals and can actually increase diarrhea. ? Children and adults can use sports drinks to replenish electrolytes. Younger children and infants should use products formulated for children, like oral rehydration solutions. ? Eat food in small amounts and let your stomach recover. ? Get lots of rest. You may feel tired or weak. ? No greasy or fried foods for the next 24-48 hours BRAT diet Bananas Rice Apples and [place] ? Make sure to drink plenty of liquids ? Return if needed ? Straight to ER if any life threatening symptoms ? Zofran as prescribed ? Follow up with family doctor in the next 48-72 hours if no improvement or any worsening of symptoms Prescriptions: Dicyclomine HCl [Bentyl 10mg capsule] 10 mg PO TID PRN #15 cap PRN Reason: Cramping Transmission Status: Pending to [facility] Ondansetron [Zofran 4mg ODT] 4 mg PO TIDP PRN #6 tab PRN Reason: Vomiting Transmission Status: Pending to [facility] Referrals: Angie Beach [Primary Care Provider] - As needed Time of Disposition: 19:56 Medical Decision Making - Dave Inquiry Pt receiving controlled substance: No Dave was queried for this patient: No Vital Signs: 08/04/21 19:30 08/04/21 19:44 Temperature 98.8 F 98.8 F Temperature Source Oral Pulse Rate 89 Pulse Rate [Right Brachial] 89 Respiratory Rate 19 19 Blood Pressure 130/70 Blood Pressure [Right Arm] 130/70 Blood Pressure Mean [Right Arm] 90 Blood Pressure Source [Right Arm] Automatic Cuff Blood Pressure Position [Right Arm] Sitting 02 Sat by Pulse Oximetry 99 - Lab Data Lab results reviewed: Yes: I reviewed the patient's lab results. Lab Results 08/04/21 19:34: Influenza Type A Ag Negative, Influenza Type B Ag Negative Orders (Tests/Meds): ED MEDICATIONS Discontinued Medications Generic Name Dose Route Start Last Admin Trade Name Freq PRN Reason Stop Dose Admin Dicyclomine HCl 10 mg 08/04/21 19:40 08/04/21 19:42 Dicyclomine 10mg Capsule PO 08/04/21 19:41 10 mg ONCE ONE Administration Ondansetron HCl 4 mg 08/04/21 19:40 08/04/21 19:43 Ondansetron 4mg Odt SL 08/04/21 19:41 4 mg ONCE ONE Administration Medical Decision Narrative: Patient states that he has taken zofran in the past without reactions or complications No vomiting or diarrhea in UTC after medication patient reports that he is feeling much better [facility] [place] HPI - General Stated complaint: Stomach issues Time Seen by Provider: 08/04/21 19:34 Source of Information: Patient Description of Symptoms (Recalled from Triage Doc. by RN): PT STATES HE HAS HAD VOMITING, DIARRHEA, BODY ACHES, AND CHILLS X'S 3 DAYS HEENT Symptoms (Recalled from RN notes): No Resp Symptoms (Recalled from RN notes): Yes Skin Symptoms (Recalled from RN notes): No MS Symptoms (Recalled from RN notes): No Functional Status (Recalled from RN notes): WNL - History of Present Illness Provider Complaint: Patient states that he thinks he may have a bug States that he has been having vomiting and diarrhea for about 3 days States no vomiting since yesterday but still having cramping and nausea States that aunt told him he may have flu or something so he came in to get checked out - Related Data Home Medications Medication Instructions Recorded Confirmed Cetirizine HCl/Pseudoephedrine 1 tab PO DAILY 12/25/18 10/05/20 [Zyrtec-D Tablet] Citalopram Hydrobromide 30 mg PO DAILY 12/25/18 10/05/20 [Citalopram HBr] Montelukast Sodium [Singulair 10mg 10 mg PO PM 12/25/18 10/05/20 tablet] Simvastatin 40 mg PO HS 12/25/18 0
[2021-08-04 19:44] VITALS: BP 130/70; PULSE 89; RESP 19; TEMP 37.1; O2SAT 99
[2021-08-04 19:44] LABS: UTC Influenza A Antigen Negative (Negative); UTC Influenza B Antigen Negative (Negative)
[2021-08-04 20:28] LABS: Adenovirus F 40/41, stool Not Detected (NotDetected); Astrovirus Not Detected (NotDetected); Campylobacter Not Detected (NotDetected); Clostridium Difficile A/B, PCR Not Detected (NotDetected); Cryptosporidium Not Detected (NotDetected); Cyclospora Cayetanesis Not Detected (NotDetected); Entamoeba histolytica Not Detected (NotDetected); Enteroaggregative E coli Not Detected (NotDetected); Enteropathogenic E coli Not Detected (NotDetected); Enterotoxigenic E coli Not Detected (NotDetected); Giardia lamblia Not Detected (NotDetected); Norovirus Not Detected (NotDetected); Plesimonas Shigalloides, PCR Not Detected (NotDetected); Salmonella, PCR Not Detected (NotDetected); Sapovirus Not Detected (NotDetected); Shiga-like toxin E coli Not Detected (NotDetected); Shigella Enterovasive E coli Not Detected (NotDetected); Vibrio Cholerae Not Detected (NotDetected); Vibrio, PCR Not Detected (NotDetected); Yersinia Entercolitica, PCR Not Detected (NotDetected)
[2021-08-04 22:54] LABS: Rotavirus A Detected (NotDetected)
== END 2021-08-04 20:11 | disposition home or self-care (01) ==
PROVIDERS: Emergency Provider Nurse Practitioner; PCP Pediatrics
DX: R11.10 Vomiting, unspecified (principal); R19.7 Diarrhea, unspecified; F41.8 Other specified anxiety disorders; E78.5 Hyperlipidemia, unspecified
CPT/HCPCS: 87507; 87804; 99213; G0463

== ENCOUNTER 2021-09-10 14:30 | Emergency (ER) | payer MEDICARE, MEDICAID, SELFPAY ==
[2021-09-10 15:59] VITALS: BP 130/85; PULSE 81; RESP 20; TEMP 36.7; O2SAT 99; BMI 26.7
[2021-09-10 16:06] LABS: Adenovirus,PCR Not Detected (NotDetected); Bordetella Pertussis Not Detected (NotDetected); Chlamydophila Pneumoniae, PCR Not Detected (NotDetected); Coronavirus 19, PCR Not Detected (NotDetected); Coronavirus 229E Not Detected (NotDetected); Coronavirus NL63 Not Detected (NotDetected); Coronavirus OC43 Not Detected (NotDetected); Coronovirus HKU1,PCR Not Detected (NotDetected); Human Metapneumovirus Not Detected (NotDetected); Influenza A, PCR Not Detected (NotDetected); Influenza AH1, 2009 Not Detected (NotDetected); Influenza AH1, PCR Not Detected (NotDetected); Influenza AH3,PCR Not Detected (NotDetected); Influenza B, PCR Not Detected (NotDetected); Mycoplasma Pneumoniae, PCR Not Detected (NotDetected); Parainfluenza 1, PCR Not Detected (NotDetected); Parainfluenza 2, PCR Not Detected (NotDetected); Parainfluenza 3, PCR Not Detected (NotDetected); Parainfluenza 4, PCR Not Detected (NotDetected); Respiratory Syncytial Virus Not Detected (NotDetected); Rhinovirus/Enterovirus Not Detected (NotDetected)
--- NOTE | 2021-09-10 16:11 | HMH.EDUTC ---
[facility] [place]: Exposure to COVID-19 virus, Viral syndrome Disposition: Home, Self-Care Condition on Discharge: Good Instructions: DI for Viral Syndrome, DI for COVID-19 (Suspected or Confirmed ) Additional Instructions: Quarantine for at least 5 days Stay home Stay home and quarantine for at least 5 full days. Wear a well-fitting mask if you must be around others in your home. Do not travel. Get tested Even if you don?t develop symptoms, get tested at least 5 days after you last had close contact with someone with COVID-19. After quarantine Watch for symptoms Watch for symptoms until 10 days after you last had close contact with someone with COVID-19. Avoid travel It is best to avoid travel until a full 10 days after you last had close contact with someone with COVID-19. If you develop symptoms Isolate immediately and get tested. Continue to stay home until you know the results. Wear a well-fitting mask around others. Take precautions until day 10 Wear a well-fitting mask Wear a well-fitting mask for 10 full days any time you are around others inside your home or in public. Do not go to places where you are unable to wear a well-fitting mask. If you must travel during days 6-10, take precautions. Avoid being around people who are more likely to get very sick from COVID-19. You may check your results on the [facility] My Health Portal Return if needed Straight to ER if any life threatening symptoms Referrals: Angie Beach [Primary Care Provider] - As needed Forms: Work/School Release Time of Disposition: 16:19 Medical Decision Making - Dave Inquiry Pt receiving controlled substance: No Dave was queried for this patient: No Vital Signs: 09/10/21 15:59 Temperature 98.1 F Temperature Source Oral Pulse Rate [Right Radial] 81 Respiratory Rate 20 Blood Pressure [Right Arm] 130/85 Blood Pressure Mean [Right Arm] 100 Blood Pressure Source [Right Arm] Automatic Cuff Blood Pressure Position [Right Arm] Sitting 02 Sat by Pulse Oximetry 99 Oxygen Delivery Method Room Air Orders (Tests/Meds): ORDERS Category Date Time Status Full Resp Panel w/COVID ([facility]) Routine Lab 09/10/21 15:56 [place] [facility] [place] Stated complaint: fatigue, sore throat Time Seen by Provider: 09/10/21 16:11 Mode of Arrival: Ambulatory Source of Information: Patient Limitations: No Limitations Description of Symptoms (Recalled from Triage Doc. by RN): Pt has been exposed to covid. Pt stated sore throat, stomach, and sinus. HEENT Symptoms (Recalled from RN notes): Yes Resp Symptoms (Recalled from RN notes): No Skin Symptoms (Recalled from RN notes): No MS Symptoms (Recalled from RN notes): No Functional Status (Recalled from RN notes): n/a - History of Present Illness Provider Complaint: Patient states that son tested positive for COVID States that he has been having nasal congestion, drainage in he back of his throat, scratchy throat and upset stomach States that after his son tested positive today he came on in to get tested - Related Data Home Medications Medication Instructions Recorded Confirmed Citalopram Hydrobromide 30 mg PO DAILY 12/25/18 10/05/20 [Citalopram HBr] Montelukast Sodium [Singulair 10mg 10 mg PO PM 12/25/18 10/05/20 tablet] Simvastatin 40 mg PO HS 12/25/18 10/05/20 Tramadol HCl [Tramadol 50mg 1 tab PO TIDP PRN 07/07/19 10/05/20 Tab] Previous Rx's Medication Instructions Recorded Dicyclomine HCl [Bentyl 10mg 10 mg PO TID PRN #15 cap 08/04/21 capsule] Allergies Allergy/AdvReac Type Severity Reaction Status Date / Time tree nut [TREE NUT] Allergy Intermediate Verified 10/06/18 14:27 latex [LATEX] Allergy Unknown Verified 10/06/18 14:27 - Worker's Comp Is this a Worker's Comp case?: No [facility] History - Hepatitis A Screen Drug use history?: No High risk sexual behaviors?: No History of sexually transmitted infection?: No Currently emplo
[2021-09-10 16:31] VITALS: BP 130/85; PULSE 81; RESP 20; TEMP 36.7; O2SAT 99
== END 2021-09-10 16:31 | disposition home or self-care (01) ==
PROVIDERS: Emergency Provider Nurse Practitioner; PCP Pediatrics
DX: Z20.822 Contact with and (suspected) exposure to COVID-19 (principal); B34.9 Viral infection, unspecified; F41.9 Anxiety disorder, unspecified; E78.5 Hyperlipidemia, unspecified
CPT/HCPCS: 87581; 87632; 87798; 99212; C9803; G0463; U0003; U0005

== ENCOUNTER 2021-09-14 17:47 | Emergency (ER) | payer MEDICARE, MEDICAID, SELFPAY ==
[2021-09-14 17:50] VITALS: BP 134/86; PULSE 72; RESP 19; TEMP 36.8; O2SAT 97; BMI 22.8
[2021-09-14 18:07] LABS: UTC Influenza A Antigen Negative (Negative); UTC Influenza B Antigen Negative (Negative)
--- NOTE | 2021-09-14 18:13 | HMH.EDUTC ---
[facility] [place] Dis[place] Clinical Impression: Flu-like symptoms, Encounter for laboratory testing for COVID-19 virus Disposition: Home, Self-Care Condition on Discharge: Good Instructions: DI for COVID-19 (Suspected or Confirmed ), Preventing the Spread of Coronavirus Discharge Instructions Additional Instructions: *Monitor Temp, Over the counter Motrin or Tylenol as directed/as needed Tylenol every 4 hours and Motrin every 6 hours (as long as your family doctor has told you that you can take it) for fever or pain. and straight to ER if unable to lower temp less than 101.0 after medication given *Warm salt water gargles may help to soothe the throat *Throat Lozenges *Warm fluids like tea with honey may help to soothe the throat *Sleep elevated *Humidifier/Vaporizer Follow up IMMEDIATELY for new or worsening symptoms or no Noticeable improvement over the next 48-72 hours. 911 for difficulty breathing or swallowing Your Results from you COVID test should be back in the next 24-48 hours you must quarantine until your results are back and negative and per CDC guidelines You may check your results on the [facility] My Health Portal Referrals: Angie Beach [Primary Care Provider] - As needed Forms: Work/School Release Time of Disposition: 18:18 Medical Decision Making - Dave Inquiry Pt receiving controlled substance: No Dave was queried for this patient: No Vital Signs: 09/14/21 17:50 Temperature 98.3 F Temperature Source Oral Pulse Rate [Right Brachial] 72 Respiratory Rate 19 Blood Pressure [Right Arm] 134/86 Blood Pressure Mean [Right Arm] 102 Blood Pressure Source [Right Arm] Automatic Cuff Blood Pressure Position [Right Arm] Sitting 02 Sat by Pulse Oximetry 97 Oxygen Delivery Method Room Air - Lab Data Lab results reviewed: Yes: I reviewed the patient's lab results. Lab Results 09/14/21 17:58: Influenza Type A Ag Negative, Influenza Type B Ag Negative Orders (Tests/Meds): ORDERS Category Date Time Status Full Resp Panel w/COVID ([facility]) Routine Lab 09/14/21 18:07 Ordered [facility] [place] HPI - General Stated complaint: fever body pain, SOB Time Seen by Provider: 09/14/21 18:13 Mode of Arrival: Ambulatory Source of Information: Patient Limitations: No Limitations Description of Symptoms (Recalled from Triage Doc. by RN): PATIENT C/O FEVER AND BODY ACHES SINCE YESTERDAY. RECENTLY EXPOSED TO COVID HEENT Symptoms (Recalled from RN notes): No Resp Symptoms (Recalled from RN notes): No Skin Symptoms (Recalled from RN notes): No MS Symptoms (Recalled from RN notes): No Functional Status (Recalled from RN notes): WNL - History of Present Illness Provider Complaint: Patient states that he was recently around his son that was positive for COVID States that he has been having body aches, chills, fever and noticed he couldnt taste or smell his mountain dew so he came in to get tested again for COVID - Related Data Home Medications Medication Instructions Recorded Confirmed Citalopram Hydrobromide 30 mg PO DAILY 12/25/18 10/05/20 [Citalopram HBr] Montelukast Sodium [Singulair 10mg 10 mg PO PM 12/25/18 10/05/20 tablet] Simvastatin 40 mg PO HS 12/25/18 10/05/20 Tramadol HCl [Tramadol 50mg 1 tab PO TIDP PRN 07/07/19 10/05/20 Tab] Previous Rx's Medication Instructions Recorded Dicyclomine HCl [Bentyl 10mg 10 mg PO TID PRN #15 cap 08/04/21 capsule] Allergies Allergy/AdvReac Type Severity Reaction Status Date / Time tree nut [TREE NUT] Allergy Intermediate Verified 10/06/18 14:27 latex [LATEX] Allergy Unknown Verified 10/06/18 14:27 - Worker's Comp Is this a Worker's Comp case?: No [facility] History - Hepatitis A Screen Attestation statement:: This patient has been screened for Hepatitis A risk factors. I have reviewed the patient's past medical history: Yes Medical History: Reports:: Anxiety, Hyperlipidemia Denies:: Cancer, Diabetes Mellitus Type 1, Diabetes Melli
[2021-09-14 18:15] LABS: Adenovirus,PCR Not Detected (NotDetected); Bordetella Pertussis Not Detected (NotDetected); Chlamydophila Pneumoniae, PCR Not Detected (NotDetected); Coronavirus 229E Not Detected (NotDetected); Coronavirus NL63 Not Detected (NotDetected); Coronavirus OC43 Not Detected (NotDetected); Coronovirus HKU1,PCR Not Detected (NotDetected); Human Metapneumovirus Not Detected (NotDetected); Influenza A, PCR Not Detected (NotDetected); Influenza AH1, 2009 Not Detected (NotDetected); Influenza AH1, PCR Not Detected (NotDetected); Influenza AH3,PCR Not Detected (NotDetected); Influenza B, PCR Not Detected (NotDetected); Mycoplasma Pneumoniae, PCR Not Detected (NotDetected); Parainfluenza 1, PCR Not Detected (NotDetected); Parainfluenza 2, PCR Not Detected (NotDetected); Parainfluenza 3, PCR Not Detected (NotDetected); Parainfluenza 4, PCR Not Detected (NotDetected); Respiratory Syncytial Virus Not Detected (NotDetected); Rhinovirus/Enterovirus Not Detected (NotDetected)
[2021-09-14 18:21] VITALS: BP 134/86; PULSE 72; RESP 19; TEMP 36.8; O2SAT 97
[2021-09-14 19:40] LABS: Coronavirus 19, PCR Detected (NotDetected)
== END 2021-09-14 18:25 | disposition home or self-care (01) ==
PROVIDERS: Emergency Provider Nurse Practitioner; PCP Pediatrics
DX: U07.1 COVID-19 (principal)
CPT/HCPCS: 87581; 87632; 87798; 87804; 99213; C9803; G0463; U0003; U0005

== ENCOUNTER 2021-10-03 12:21 | Emergency (ER) | payer MEDICARE, MEDICAID, SELFPAY ==
[2021-10-03 12:50] VITALS: BP 117/87; PULSE 86; RESP 16; TEMP 36.7; O2SAT 98; BMI 25.8
[2021-10-03 13:19] VITALS: BP 117/87; PULSE 86; RESP 16; TEMP 36.7; O2SAT 98
--- NOTE | 2021-10-03 13:26 | HMH.EDUTC ---
[facility] [place] Impression: Sinusitis Qualifiers: Sinusitis location: unspecified location Chronicity: unspecified Qualified Code(s): J32.9 - Chronic sinusitis, unspecified Disposition: Home, Self-Care Condition on Discharge: Good Instructions: Sinusitis, DI for Sinusitis Additional Instructions: *Monitor Temp, Over the counter Motrin or Tylenol as directed/as needed Tylenol every 4 hours and Motrin every 6 hours (as long as your family doctor has told you that you can take it) for fever or pain. and straight to ER if unable to lower temp less than 101.0 after medication given *Warm salt water gargles may help to soothe the throat *Throat Lozenges *Warm fluids like tea with honey may help to soothe the throat *Sleep elevated *Humidifier/Vaporizer Take medication as prescribed Follow up IMMEDIATELY for new or worsening symptoms or no Noticeable improvement over the next 48-72 hours. 911 for difficulty breathing or swallowing Prescriptions: predniSONE [Prednisone 20mg Tab] 20 mg PO BID 5 Days #10 tab Transmission Status: Pending to [facility] Azithromycin [Z-Emilio 250mg Tab] 250 mg PO DIRECTED #6 tab Transmission Status: Pending to [facility] Referrals: Yemi Chappell [Primary Care Provider] - As needed Forms: Work/School Release Medical Decision Making - Dave Inquiry Pt receiving controlled substance: No Dave was queried for this patient: No Vital Signs: 10/03/21 12:50 10/03/21 13:19 Temperature 98.0 F 98.0 F Temperature Source Oral Pulse Rate 86 Pulse Rate [Right Brachial] 86 Respiratory Rate 16 16 Blood Pressure 117/87 Blood Pressure [Right Arm] 117/87 Blood Pressure Mean [Right Arm] 97 Blood Pressure Source [Right Arm] Automatic Cuff Blood Pressure Position [Right Arm] Sitting 02 Sat by Pulse Oximetry 98 Oxygen Delivery Method Room Air Medical Decision Narrative: Patient states he has taken azithromycin and prednisone in the past without complications [facility] [place] - General Stated complaint: sore throat, [place], fatigue Time Seen by Provider: 10/03/21 13:28 Mode of Arrival: Ambulatory Source of Information: Patient Limitations: No Limitations Description of Symptoms (Recalled from Triage Doc. by RN): PATIENT C/O SORE THROAT, SINUS PRESSURE AND HEADACHE X 3 DAYS HEENT Symptoms (Recalled from RN notes): Yes Resp Symptoms (Recalled from RN notes): No Skin Symptoms (Recalled from RN notes): No MS Symptoms (Recalled from RN notes): No Functional Status (Recalled from RN notes): WNL - History of Present Illness Provider Complaint: Patient states that he has been having sore throat and sinus congestion and pressure for several days State that today he was having pressure behind his eyes so he came in to get something to help clear it up - Related Data Home Medications Medication Instructions Recorded Confirmed Citalopram Hydrobromide 30 mg PO DAILY 12/25/18 10/05/20 [Citalopram HBr] Montelukast Sodium [Singulair 10mg 10 mg PO PM 12/25/18 10/05/20 tablet] Simvastatin 40 mg PO HS 12/25/18 10/05/20 Tramadol HCl [Tramadol 50mg 1 tab PO TIDP PRN 07/07/19 10/05/20 Tab] Previous Rx's Medication Instructions Recorded Dicyclomine HCl [Bentyl 10mg 10 mg PO TID PRN #15 cap 08/04/21 capsule] Azithromycin [Z-Emilio 250mg Tab] 250 mg PO DIRECTED #6 tab 10/03/21 predniSONE [Prednisone 20mg 20 mg PO BID 5 Days #10 tab 10/03/21 Tab] Allergies Allergy/AdvReac Type Severity Reaction Status Date / Time tree nut [TREE NUT] Allergy Intermediate Verified 10/06/18 14:27 latex [LATEX] Allergy Unknown Verified 10/06/18 14:27 - Worker's Comp Is this a Worker's Comp case?: No [facility] History - Hepatitis A Screen Attestation statement:: This patient has been screened for Hepatitis A risk factors. I have reviewed the patient's past medical history: Yes Medical History: Reports:: Anxiety, Hyperlipidemia Denies::
== END 2021-10-03 13:50 | disposition home or self-care (01) ==
PROVIDERS: Emergency Provider Nurse Practitioner; PCP Pediatrics
DX: J32.9 Chronic sinusitis, unspecified (principal); F41.9 Anxiety disorder, unspecified; E78.5 Hyperlipidemia, unspecified; F17.210 Nicotine dependence, cigarettes, uncomplicated
CPT/HCPCS: 99212; G0463

== ENCOUNTER 2021-11-25 18:53 | Emergency (ER) | payer MEDICARE, MEDICAID, SELFPAY ==
[2021-11-25 18:55] VITALS: BP 123/88; PULSE 87; RESP 19; TEMP 36.7; O2SAT 98; BMI 24.3
--- NOTE | 2021-11-25 19:05 | HMH.EDUTC ---
[facility] [place]: Sinusitis Qualifiers: Sinusitis location: maxillary Chronicity: acute Recurrence: non-recurrent Qualified Code(s): J01.00 - Acute maxillary sinusitis, unspecified Disposition: Home, Self-Care Condition on Discharge: Good Instructions: DI for Sinusitis Additional Instructions: Start antibiotic patient to take as ordered for a full length of time even if you feel better. Sinus infections do not get better overnight. It may take 2-3 days to notice much improvement so be sure to use conservative measures as discussed for symptoms. Flonase 1 spray each nostril daily to help with nasal congestion, sinus and ear pressure/information Increase fluids Humidifier/vaporizer as needed Tylenol and ibuprofen as needed for fever or pain. If symptoms do not improve or get worse return or be seen in the ER Follow-up with primary care this week Prescriptions: predniSONE [Prednisone 20mg Tab] 20 mg PO BID #10 tab Transmission Status: Pending to [facility] Azithromycin [Zithromax 250mg tab] 250 mg PO DIRECTED #4 tab Transmission Status: [facility] Referrals: Yemi Chappell [Primary Care Provider] - Time of Disposition: 19:08 Medical Decision Making - Dave Inquiry Pt receiving controlled substance: No [facility] [place] - General Chief complaint: Urgent [facility] Center Stated complaint: poss sinus inf Time Seen by Provider: 11/25/21 19:05 Mode of Arrival: Ambulatory Source of Information: Patient Limitations: No Limitations - History of Present Illness Provider Complaint: 46 yr old male presents for sinus congestion,sinus pressure and pain worse on the rt side, and dark yellow drainage. - Related Data Home Medications Medication Instructions Recorded Confirmed Citalopram Hydrobromide 30 mg PO DAILY 12/25/18 10/05/20 [Citalopram HBr] Montelukast Sodium [Singulair 10mg 10 mg PO PM 12/25/18 10/05/20 tablet] Simvastatin 40 mg PO HS 12/25/18 10/05/20 Tramadol HCl [Tramadol 50mg 1 tab PO TIDP PRN 07/07/19 10/05/20 Tab] Previous Rx's Medication Instructions Recorded Dicyclomine HCl [Bentyl 10mg 10 mg PO TID PRN #15 cap 08/04/21 capsule] Azithromycin [Z-Emilio 250mg Tab] 250 mg PO DIRECTED #6 tab 10/03/21 predniSONE [Prednisone 20mg 20 mg PO BID 5 Days #10 tab 10/03/21 Tab] Azithromycin [Zithromax 250mg 250 mg PO DIRECTED #4 tab 11/25/21 tab] predniSONE [Prednisone 20mg 20 mg PO BID #10 tab 11/25/21 Tab] Allergies Allergy/AdvReac Type Severity Reaction Status Date / Time tree nut [TREE NUT] Allergy Intermediate Verified 10/06/18 14:27 latex [LATEX] Allergy Unknown Verified 10/06/18 14:27 [facility] History - Hepatitis A Screen Attestation statement:: This patient has been screened for Hepatitis A risk factors. I have reviewed the patient's past medical history: Yes Medical History: Reports:: Anxiety, Hyperlipidemia Denies:: Cancer, Diabetes Mellitus Type 1, Diabetes Mellitus Type 2, Hypertension, MRSA Other Medical History: Reports: Other Laterality Cases: Left: Other Other Surgeries: Yes: Other Amputation: No Fractures: No - Social History Smoking Status: Current every day smoker Tobacco Type: cigarettes # Packs/Day (cigarettes): 1 Alcohol Intake: never Substance Use Type: denies use Occupational Status: other Household Members: family - Psychiatric History Pschychiatric History:: Reports:: Anxiety ROS Obtained: Yes Systems reviewed as appropriate & no additional complaints - Constitutional Constitutional: Reports system reviewed and no additional complaints, except as docu, Denies fever(s) - Eyes Eyes: Reports system reviewed and no additional complaints, except as docu, Denies dry eyes - ENT Ears, Nose, Mouth, and Throat: Reports system reviewed and no additional complaints, except as docu, Reports nasal congestion, Reports nasal discharge, Reports sinus pain, Reports sin
[2021-11-25 19:10] VITALS: BP 123/88; PULSE 87; RESP 19; TEMP 36.7; O2SAT 98
== END 2021-11-25 19:15 | disposition home or self-care (01) ==
PROVIDERS: Emergency Provider Nurse Practitioner Family; PCP Pediatrics
DX: J01.00 Acute maxillary sinusitis, unspecified (principal)
CPT/HCPCS: 99212; G0463

== ENCOUNTER 2021-12-29 18:56 | Emergency (ER) | payer MEDICARE, MEDICAID, SELFPAY ==
[2021-12-29 19:27] VITALS: BP 117/77; PULSE 77; RESP 19; TEMP 36.4; O2SAT 99; BMI 23.6
--- NOTE | 2021-12-29 19:28 | HMH.EDUTC ---
[facility] – [place], [place] Disposition Clinical Impression: Left arm cellulitis Disposition: Home, Self-Care Condition on Discharge: Good Instructions: Cellulitis Additional Instructions: Keep the affected area clean and dry. Follow up with your regular doctor. Take the antibiotics as directed. Apply warm wet compresses to the affected area three or four times per day. GO TO THE ER FOR ANY WORSENING SYMPTOMS Prescriptions: Sulfamethoxazole/Trimethoprim [Bactrim DS tablet] 1 each PO BID 10 Days #20 tab Transmission Status: Received by [id number] cephALEXin [cephALEXin 500mg capsule] 500 mg PO Q6H 10 Days #40 cap [facility]: [id number] Triamcinolone Acetonide 1 applicatio TP TIDP PRN 7 Days #1 gm PRN Reason: Itching Transmission Status: Received by [id number] Referrals: Yemi Chappell [Primary Care Provider] - Forms: Work/School Release Time of Disposition: 20:00 Medical Decision Making - Medical Records Medical records reviewed: No: I reviewed the patient's medical records. - Dave Inquiry Pt receiving controlled substance: No Vital Signs: 12/29/21 19:27 12/29/21 20:06 Temperature 97.6 F 97.6 F Temperature Source Oral Pulse Rate 77 Pulse Rate [Left] 77 Respiratory Rate 19 19 Blood Pressure 117/77 Blood Pressure [Right Arm] 117/77 Blood Pressure Mean [Right Arm] 90 02 Sat by Pulse Oximetry 99 [facility] – [place], [place] HPI - General Stated complaint: Spider bite left arm Time Seen by Provider: 12/29/21 19:28 - History of Present Illness Provider Complaint: He has a tender area that is warm to the touch and red that has been present on his left forearm for the past 2 days. - Related Data Previous Rx's Medication Instructions Recorded Sulfamethoxazole/Trimethoprim 1 each PO BID 10 Days #20 tab 12/29/21 [Bactrim DS tablet] Triamcinolone Acetonide 1 applicatio TP TIDP PRN 7 Days #1 12/29/21 gm cephALEXin [cephALEXin 500mg 500 mg PO Q6H 10 Days #40 cap 12/29/21 capsule] Allergies Allergy/AdvReac Type Severity Reaction Status Date / Time tree nut [TREE NUT] Allergy Intermediate Verified 12/29/21 19:29 latex [LATEX] Allergy Unknown Verified 12/29/21 19:29 [facility] History - Hepatitis A Screen Attestation statement:: This patient has been screened for Hepatitis A risk factors. I have reviewed the patient's past medical history: Yes Medical History: Reports:: Anxiety, Hyperlipidemia Denies:: Cancer, Diabetes Mellitus Type 1, Diabetes Mellitus Type 2, Hypertension, MRSA Other Medical History: Reports: Other Laterality Cases: Left: Other Other Surgeries: Yes: Other Amputation: No Fractures: No - Social History Smoking Status: Current every day smoker Tobacco Type: cigarettes # Packs/Day (cigarettes): 1 Alcohol Intake: never Substance Use Type: denies use Occupational Status: other Household Members: family - Psychiatric History Pschychiatric History:: Reports:: Anxiety ROS Obtained: Yes All systems reviewed & no additional complaints - Constitutional Constitutional: Reports as per HPI, Denies chills, Denies fever(s) - Eyes Eyes: Denies eye discharge - ENT Ears, Nose, Mouth, and Throat: Denies dizziness, Denies otalgia, Denies sore throat - Cardiovascular Cardiovascular: Denies chest pain - Musculoskeletal Musculoskeletal: Denies joint pain - Integumentary/Breasts Skin/Breast: Reports redness Physical Exam - General General appearance: alert, in no apparent distress - Head Head exam: atraumatic, normocephalic, normal inspection - Eye Eye exam: Present: normal appearance, PERRL, EOMI - ENT ENT exam: Present: normal exam, normal oropharynx, mucous membranes moist, TM's normal bilaterally, normal external ear exam - Neck Neck exam: Present: normal inspection, full ROM, trachea midline. Absent: meningismus, lymphadenopathy - Chest Chest inspection: Present: normal inspection, symmetric chest wall ris
[2021-12-29 20:06] VITALS: BP 117/77; PULSE 77; RESP 19; TEMP 36.4
== END 2021-12-29 20:13 | disposition home or self-care (01) ==
PROVIDERS: Emergency Provider Nurse Practitioner Family; PCP Pediatrics
DX: L03.114 Cellulitis of left upper limb (principal)
CPT/HCPCS: 99212; G0463

== ENCOUNTER 2022-04-30 16:25 | Emergency (ER) | payer MEDICARE, MEDICAID, SELFPAY ==
[2022-04-30 17:57] VITALS: BP 118/78; PULSE 65; RESP 16; TEMP 36.7; O2SAT 99; BMI 25.1
--- NOTE | 2022-04-30 17:57 | EXP.UTC ---
Discharge Plan Disposition Patient Disposition: Home, Self-Care Condition: Good Prescriptions Prescriptions: No Action sulfamethoxazole-trimethoprim 1 EACH tablet 1 each PO BID 10 Days Qty: 20 0RF cephalexin 500 MG capsule 500 mg PO Q6H 10 Days Qty: 40 0RF triamcinolone acetonide 15 GM cream 1 applicatio TP TIDP PRN (Reason: Itching) 7 Days Qty: 1 0RF Rx Instructions: 0.025% Referrals Follow up/Referrals: Yemi Chappell [Primary Care Provider] - See instructions Activity Restrictions/Add. Instructions Additional Instructions/Restrictions: flu/ covid swab was sent to lab, call tomorrow for results. self isolate until test results are known to be negative No sign of a bacterial infection. Likely viral. Viruses can take 7-14 days to run their course. Nasal saline and bulb syringe or nose Marilee to remove nasal drainage to help with nasal congestion. Hard to eat, drink, sleep with nasal congestion so important to keep this cleaned out. Monitor temp. Tylenol or Motrin as needed for pain or fever Encourage fluids, water, Gatorade, Powerade, Pedialyte if infant/toddler/child Warm salt water gargles Warm fluids Sore throat lozenges Sleep elevated Humidifier/vaporizer Follow-up immediately for new or worsening symptoms or no noticeable improvement over the next 48-72 hours. Clinical Impressions Clinical Impression: Upper respiratory infection Stand Alone Forms Stand Alone Forms: Work/School Release Instructions Patient Instructions: DI for Viral Upper Respiratory Infection -- Adult Discharge ED Provider: Christina ([facility])Vini [facility] [place] HPI General Stated complaint: fatigue, NA,sore throat, A[place], Body aches Mode of Arrival: Ambulatory Source of Information: Patient Limitations: No Limitations Time Seen by Provider: 04/30/22 17:57 HEENT Symptoms (Recalled from RN notes): Yes Resp Symptoms (Recalled from RN notes): Yes Skin Symptoms (Recalled from RN notes): No GI/ Symptoms (Recalled from RN notes): No MS Symptoms (Recalled from RN notes): No Card Symptoms (Recalled from RN notes): No Other (Recalled from RN notes): No History of Present Illness Provider Complaint: 46 yr old male presents for cough, body aches, chills, fever and fatigue for 2 days. lucas has covid Related Data Previous Rx's Medication Instructions Recorded cephalexin 500 mg capsule 500 mg PO Q6H 10 days #40 caps 12/29/21 sulfamethoxazole 800 1 each PO BID 10 days #20 tabs 12/29/21 mg-trimethoprim 160 mg tablet triamcinolone acetonide 0.025 % 1 applicatio topical TIDP PRN 12/29/21 topical cream Itching 7 days #1 g Allergies Allergy/AdvReac Type Severity Reaction Status Date / Time tree nut [TREE NUT] Allergy Intermediate Verified 04/30/22 17:59 latex [LATEX] Allergy Unknown Verified 04/30/22 17:59 [facility] Disclaimer: The information contained in this section may have been updated after the patient was seen, as this information can be updated by other users. Social History , [employer]) Smoking Status: Current every day smoker tobacco type: cigarettes packs per day: 1 alcohol intake: never substance use type: denies use current occupational status: other Travel in the last 8 weeks: None household members: family ROS Obtained: Yes All systems reviewed & no additional complaints except as documented Constitutional Constitutional: Reports system reviewed and no additional complaints, except as documented, Reports as per HPI, Reports chills, Reports fever(s) and Reports weakness Eyes Eyes: Reports system reviewed and no additional complaints, except as documented and Reports as per HPI ENT Ears, Nose, Mouth, and Throat: Reports system reviewed and no additional complaints, except as documented, Reports as per HPI, Reports otalgia, Reports nasal congestion and Reports sore throat Cardiovascular Cardiovascular: Reports system reviewed and no additional compla
[2022-04-30 18:01] VITALS: BP 118/78; PULSE 65; RESP 16; TEMP 36.7
[2022-04-30 18:02] LABS: Coronavirus 19, PCR Not Detected (NotDetected); Influenza A, PCR Not Detected (NotDetected); Influenza B, PCR Not Detected (NotDetected)
== END 2022-04-30 18:03 | disposition home or self-care (01) ==
PROVIDERS: Emergency Provider Nurse Practitioner Family; PCP Pediatrics
DX: J06.9 Acute upper respiratory infection, unspecified (principal)
CPT/HCPCS: 99212; C9803; G0463; U0003; U0005

== ENCOUNTER 2022-05-13 10:45 | Emergency (ER) | payer MEDICARE, MEDICAID, SELFPAY ==
[2022-05-13 12:16] VITALS: BP 0/0; PULSE 0; RESP 0; TEMP -17.7; TEMP 0
== END 2022-05-13 12:17 | disposition left against medical advice (07) ==
LOC: UTC 10:50
PROVIDERS: Emergency Provider Nurse Practitioner Family; PCP Pediatrics
DX: Z53.21 Procedure and treatment not carried out due to patient leaving prior to being seen by health care provider (principal)
CPT/HCPCS: 99212; G0463

== ENCOUNTER 2022-05-26 12:25 | Emergency (ER) | payer MEDICARE, MEDICAID, SELFPAY ==
[2022-05-26 12:50] VITALS: BP 121/81; PULSE 91; RESP 18; TEMP 36.9; O2SAT 99; BMI 28.5
[2022-05-26 13:10] VITALS: BP 121/81; PULSE 91; RESP 18; TEMP 36.9; O2SAT 99
--- NOTE | 2022-05-26 13:17 | EXP.UTC ---
Discharge Plan Disposition Patient Disposition: Home, Self-Care Condition: Good Prescriptions Prescriptions: New azithromycin [Zithromax Z-Emilio] 250 mg tablet See Rx Instructions .ROUTE .COMPLEX 5 Days Qty: 6 0RF Rx Instructions: For 250 mg dose pack: take 500 mg today (day 1), then 250 mg for 4 days (days 2-5) prednisone [prednisone] 20 mg tablet 20 mg PO BID 5 Days Qty: 10 0RF guaifenesin [Mucinex] 600 mg tablet extended release 12hr 1,200 mg PO BID PRN (Reason: cough/congestion) Qty: 20 0RF No Action [id number]-[id number] [Bromfed DM] 2-30-10 mg/5 mL syrup 7.5 ml PO Q4-6H PRN (Reason: cold symptoms) Qty: 200 0RF oseltamivir 75 mg capsule 75 mg PO BID 5 Days Qty: 10 0RF Referrals Follow up/Referrals: Paula Bustillo PA [Primary Care Provider] - See instructions Activity Restrictions/Add. Instructions Additional Instructions/Restrictions: Start antibiotic today. Be sure to complete entire prescription even if feeling better Monitor temp. Tylenol every 4 hours as needed and / or ibuprofen every 6 hours as needed ( As long as your primary care physician has told you that it ok to take both. For fever/aches/pains ER if no less than 101 despite Tylenol or Motrin Humidifier/vaporizer or hot steamy shower Mucinex for your cough and congestion. Be sure to drink lots of water. *Start steroid today. Helps with inflammation therefore, cough and wheezing. Follow directions on the package. Reviewed side effects. Patient reports taking them before. Follow up IMMEDIATELY for new or worsening of symptoms OR no noticeable improvement over the next 48-72 hours. 911 immediately for any life threatening symptoms such as chest pain or difficulty breathing Clinical Impressions Clinical Impression: Sinusitis Stand Alone Forms Stand Alone Forms: Work/School Release Instructions Patient Instructions: DI for Sinusitis, Sinusitis, Acute Bronchitis Discharge ED Provider: Ann Dia [facility] [place] HPI General Stated complaint: Congestion, drainage, sore throat, headache Mode of Arrival: Ambulatory Source of Information: Patient Limitations: No Limitations Time Seen by Provider: 05/26/22 13:17 Description of Symptoms (Recalled from Triage Doc. by RN): PATIENT C/O SINUS PRESSURE, HEADACHE, AND PRODUCTIVE COUGH WITH DARK GREEN SPUTUM X 3 DAYS HEENT Symptoms (Recalled from RN notes): Yes Resp Symptoms (Recalled from RN notes): Yes Skin Symptoms (Recalled from RN notes): No MS Symptoms (Recalled from RN notes): No Functional Status (Recalled from RN notes): WNL History of Present Illness Provider Complaint: Patient states that he had the flu a couple weeks ago and now thinks he may have a sinus infection trying to turn into bronchitis States he has been having sinus pain and pressure with drainage in the back of his throat and coughing up the drainage at times and it is a dark greenish yellow color States that today the pressure behind his eyes was getting worse so he came in to get something to help Related Data Previous Rx's Medication Instructions Recorded hcdfscxrltwfujx-yiyympcgwmiyhiv-BT 7.5 ml PO Q4-6H PRN cold symptoms 05/13/22 2 mg-30 mg-10 mg/5 mL oral syrup #200 mL (Bromfed DM) oseltamivir 75 mg capsule 75 mg PO BID 5 days #10 caps 05/13/22 azithromycin 250 mg tablet See Rx Instructions PO .COMPLEX 5 05/26/22 (Zithromax Z-Emilio) days #6 tabs guaifenesin 600 mg tablet, 1,200 mg PO BID PRN 05/26/22 extended release 12 hr (Mucinex) cough/congestion #20 tabs prednisone 20 mg tablet 20 mg PO BID 5 days #10 tabs 05/26/22 Allergies Allergy/AdvReac Type Severity Reaction Status Date / Time tree nut [TREE NUT] Allergy Intermediate Verified 05/13/22 11:43 latex [LATEX] Allergy Unknown Verified 05/13/22 11:43 Worker's Comp Is this a Worker's Comp case?: No [facility] Disclaimer: The information contained in this section may have been update
== END 2022-05-26 13:33 | disposition home or self-care (01) ==
PROVIDERS: Emergency Provider Nurse Practitioner; PCP Student in an Organized Health Care Education/Training Program
DX: J32.9 Chronic sinusitis, unspecified (principal)
CPT/HCPCS: 99212; 99213; G0463

== ENCOUNTER → 2022-06-04 08:49 | Outpatient (CLI) | payer MEDICARE, MEDICAID, SELFPAY | PROVIDERS: PCP Student in an Organized Health Care Education/Training Program; Visit Provider Student in an Organized Health Care Education/Training Program | DX: J02.9 Acute pharyngitis, unspecified (principal) | CPT/HCPCS: 87070; C9803; U0003; U0005 ==

== ENCOUNTER → 2022-06-28 21:39 | Outpatient (CLI) | payer MEDICARE, MEDICAID, SELFPAY | PROVIDERS: PCP Student in an Organized Health Care Education/Training Program; Visit Provider Student in an Organized Health Care Education/Training Program | DX: J02.9 Acute pharyngitis, unspecified (principal); B95.7 Other staphylococcus as the cause of diseases classified elsewhere | CPT/HCPCS: 87070; 87077; 87186 ==

== ENCOUNTER → 2022-07-29 23:40 | Outpatient (CLI) | payer MEDICARE, MEDICAID, SELFPAY | PROVIDERS: PCP Student in an Organized Health Care Education/Training Program; Visit Provider Student in an Organized Health Care Education/Training Program | DX: J02.9 Acute pharyngitis, unspecified (principal) | CPT/HCPCS: 87070 ==

== ENCOUNTER 2023-04-26 13:46 | Emergency (ER) | payer MEDICARE, MEDICAID, SELFPAY ==
[2023-04-26 14:05] VITALS: BP 134/91; PULSE 80; RESP 20; TEMP 37; O2SAT 97; BMI 26.6
[2023-04-26 14:20] VITALS: BP 134/91; PULSE 80; RESP 20; TEMP 37; O2SAT 97
--- NOTE | 2023-04-26 14:38 | EXP.UTC ---
Discharge Plan Disposition Patient Disposition: Home, Self-Care Condition: Good Prescriptions Prescriptions: New methylprednisolone [Medrol (Emilio)] 4 mg tablets,dose pack 4 mg PO DIRECTED 6 Days Qty: 6 0RF Rx Instructions: 4 mg orally ;Medrol dose taper emilio amoxicillin 875 mg tablet 875 mg PO BID 10 Days Qty: 20 0RF No Action citalopram [Celexa] 20 mg tablet 20 mg PO DAILY simvastatin [Zocor] 40 mg tablet 40 mg PO DAILY fenofibrate nanocrystallized [Tricor] 145 mg tablet 145 mg PO DAILY montelukast [Singulair] 10 mg tablet 10 mg PO DAILY cetirizine-pseudoephedrine [Zyrtec-D] 5-120 mg Tablet Extended Release 12 Hr 1 tab PO BID Referrals Follow up/Referrals: Yemi Chappell [Primary Care Provider] - See instructions Clinical Impressions Clinical Impression: Sinusitis Qualifiers: Sinusitis location: maxillary Chronicity: acute Recurrence: not specified as recurrent Qualified Code(s): J01.00 - Acute maxillary sinusitis, unspecified Instructions Patient Instructions: DI for Sinusitis Discharge ED Provider: [facility] General Stated complaint: sinus pressure, munoz, congestion Mode of Arrival: Ambulatory Source of Information: Patient Limitations: No Limitations Time Seen by Provider: 04/26/23 14:38 Description of Symptoms (Recalled from Triage Doc. by RN): PATIENT C/O SINUS PRESSURE AND HEADACHE SINCE YESTERDAY HEENT Symptoms (Recalled from RN notes): Yes Resp Symptoms (Recalled from RN notes): No Skin Symptoms (Recalled from RN notes): No MS Symptoms (Recalled from RN notes): No Functional Status (Recalled from RN notes): WNL History of Present Illness Provider Complaint: Pt relates that he has a metal plate in his face and when he starts getting sinus issues he will get a sinus infection. He reports that he has not been able to get anything of of his nose, but his face and teeth hurt. He states that he had drainage come out of the other side and that was ok, but the right side is hurting. He reports taking Zyrtec D and steroid nasal spray daily. Related Data Home Medications Medication Instructions Recorded Confirmed citalopram 20 mg tablet (Celexa) 20 mg PO DAILY 06/04/22 04/26/23 fenofibrate nanocrystallized 145 145 mg PO DAILY 06/04/22 04/26/23 mg tablet (Tricor) montelukast 10 mg tablet 10 mg PO DAILY 06/04/22 04/26/23 (Singulair) simvastatin 40 mg tablet (Zocor) 40 mg PO DAILY 06/04/22 04/26/23 cetirizine 5 mg-pseudoephedrine ER 1 tab PO BID 04/26/23 04/26/23 120 mg tablet,extended release,12hr (Zyrtec-D) Previous Rx's Medication Instructions Recorded amoxicillin 875 mg tablet 875 mg PO BID 10 days #20 tabs 04/26/23 methylprednisolone 4 mg tablets in 4 mg PO DIRECTED 6 days #6 tabs 04/26/23 a dose pack (Medrol (Emilio)) Allergies Allergy/AdvReac Type Severity Reaction Status Date / Time tree nut [TREE NUT] Allergy Intermediate Verified 12/12/22 11:54 latex [LATEX] Allergy Unknown Verified 12/12/22 11:54 Worker's Comp Is this a Worker's Comp case?: No [facility] Disclaimer: The information contained in this section may have been updated after the patient was seen, as this information can be updated by other users. Medical History Anxiety Hyperlipidemia Social History Smoking Status: Current every day smoker tobacco type: cigarettes packs per day: 1 alcohol intake: never substance use type: denies use current occupational status: other Travel in the last 8 weeks: None household members: family ROS Obtained: Yes All systems reviewed & no additional complaints except as documented Constitutional Constitutional: Reports system reviewed and no additional complaints, except as documented and Reports headache(s) Eyes Eyes: Reports system reviewed and no additional complaints, exce
== END 2023-04-26 14:55 | disposition home or self-care (01) ==
PROVIDERS: Emergency Provider Nurse Practitioner Family; PCP Pediatrics
DX: J01.00 Acute maxillary sinusitis, unspecified (principal); R51.9 Headache, unspecified; R09.81 Nasal congestion; F17.210 Nicotine dependence, cigarettes, uncomplicated; E78.5 Hyperlipidemia, unspecified
CPT/HCPCS: 99212; 99214; G0463

== ENCOUNTER 2023-07-03 12:02 | Outpatient (CLI) | payer MEDICARE, MEDICAID, SELFPAY ==
--- NOTE | 2023-07-03 12:10 | XR_ITS ---
FINAL REPORT CLINICAL HISTORY: Right foot Pain COMPARISON: None FINDINGS: RIGHT FOOT: Three views of the right foot were obtained. There is no acute fracture or dislocation. The joint spaces are intact. There is a small posterior calcaneal spur. There is no soft tissue abnormality. IMPRESSION: No acute bony abnormality. Reviewed, Interpreted and Dictated by Cortez Guy III, MD Transcribed by Arpita Rowland Authenticated and [facility]
--- NOTE | 2023-07-03 12:10 | XR_ITS ---
FINAL REPORT CLINICAL HISTORY: L foot pain COMPARISON: None FINDINGS: LEFT FOOT: Three views of the left foot were obtained. There is no acute fracture or dislocation. The joint spaces are intact. There is a small posterior calcaneal spur. There is no soft tissue abnormality. IMPRESSION: No acute bony abnormality. Reviewed, Interpreted and Dictated by Cortez Guy III, MD Transcribed by Arpita Rowland Authenticated and . [facility]
== END 2023-07-03 23:59 ==
LOC: RAD 12:03
PROVIDERS: PCP Pediatrics; Visit Provider Student in an Organized Health Care Education/Training Program
DX: M79.672 Pain in left foot (principal); M79.671 Pain in right foot
CPT/HCPCS: 73630

== ENCOUNTER 2023-11-13 09:58 | Outpatient (CLI) | payer MEDICARE, MEDICAID, SELFPAY | END 2023-11-13 23:59 | disposition home or self-care (01) | LOC: LAB.DROPOF 11-14 09:59 | PROVIDERS: PCP Student in an Organized Health Care Education/Training Program; Visit Provider Student in an Organized Health Care Education/Training Program | DX: J02.9 Acute pharyngitis, unspecified (principal) | CPT/HCPCS: 87070 ==

== ENCOUNTER 2023-12-16 09:45 | Outpatient (CLI) | payer MEDICARE, MEDICAID, SELFPAY ==
--- NOTE | 2023-12-16 09:48 | XR_ITS ---
FINAL REPORT CLINICAL HISTORY: Foot pain COMPARISON: 07/03/2023 FINDINGS: LEFT FOOT Three views of the left foot demonstrate no acute fracture or dislocation. The visualized joint spaces are normally aligned. The soft tissues are unremarkable. IMPRESSION: No acute bony abnormality. Reviewed, Interpreted and Dictated by Ritchie Hobbs MD Transcribed by Arpita Rowland Authenticated and [facility]
--- NOTE | 2023-12-16 09:48 | XR_ITS ---
FINAL REPORT CLINICAL HISTORY: Foot pain COMPARISON: 07/03/2023 FINDINGS: RIGHT FOOT 3 views of the right foot were obtained. There is no acute fracture or dislocation. Visualized joint spaces are normally aligned. Soft tissues are unremarkable. IMPRESSION: No acute bony abnormality. Reviewed, Interpreted and Dictated by Ritchie Hobbs MD Transcribed by Arpita Rowland Authenticated and [facility]
== END 2023-12-16 23:59 | disposition home or self-care (01) ==
LOC: RAD 09:46
PROVIDERS: PCP Pediatrics; Visit Provider Nurse Practitioner
DX: M79.671 Pain in right foot (principal); M79.672 Pain in left foot
CPT/HCPCS: 73630

== ENCOUNTER 2024-02-27 18:01 | Emergency (ER) | payer MEDICARE, MEDICAID, SELFPAY ==
[2024-02-27 18:30] VITALS: BP 146/98; PULSE 79; RESP 19; TEMP 36.6; O2SAT 97; BMI 27.2
--- NOTE | 2024-02-27 18:46 | ED_ITS ---
Discharge Plan Disposition Patient Disposition: Home, Self-Care Condition: Good Prescriptions Prescriptions: New methylprednisolone [Medrol (Emilio)] 4 mg tablets,dose pack See Rx Instructions .Route .COMPLEX 6 Days Qty: 21 0RF Rx Instructions: taper pack; amoxicillin-pot clavulanate 875-125 mg Tablet 1 tab PO Q12H Qty: 20 0RF No Action simvastatin 40 mg tablet 40 mg PO DAILY Patient Comments: TAKE ONE TABLET BY MOUTH EVERY DAY meloxicam 7.5 mg tablet 7.5 mg PO DAILY Patient Comments: TAKE ONE TABLET BY MOUTH EVERY DAY --TAKE WITH FOOD-- citalopram 20 mg tablet 30 mg PO DAILY Patient Comments: TAKE 1 & 1/2 (ONE & ONE-HALF) TABLETS BY MOUTH ONCE DAILY cyanocobalamin (vitamin B-12) 1,000 mcg/mL solution 1,000 mcg IM WEEKLY Patient Comments: INJECT 1 ML INTRAMUSCULARLY EVERY TWO WEEKS DIRECTED montelukast 10 mg tablet 10 mg PO DAILY Patient Comments: TAKE 1 TABLET BY MOUTH ONCE DAILY AT NIGHT azelastine 137 mcg (0.1 %) spray,non-aerosol 1 - 2 spray INTRANASAL BID Patient Comments: USE 1 TO 2 SPRAY(S) IN EACH NOSTRIL TWICE DAILY timolol maleate 0.5 % drops 1 drp Eye-Both AM Patient Comments: instill 1 DROP IN EACH EYE EVERY MORNING fluticasone propionate 50 mcg/actuation spray,suspension 2 spray INTRANASAL DAILY Patient Comments: USE 2 SPRAY(S) IN EACH NOSTRIL ONCE DAILY tadalafil 5 mg tablet 5 mg PO DAILY Patient Comments: TAKE 1 TABLET BY MOUTH ONCE DAILY fenofibrate nanocrystallized 145 mg tablet 145 mg PO DAILY Patient Comments: TAKE ONE TABLET BY MOUTH EVERY DAY Referrals Follow up/Referrals: Yemi Chappell [Primary Care Provider] - See instructions Activity Restrictions/Add. Instructions Additional Instructions/Restrictions: *Monitor Temp, Over the counter Motrin or Tylenol as directed/as needed Tylenol every 4 hours and Motrin every 6 hours (as long as your family doctor has told you that you can take it) for fever or pain. and straight to ER if unable to lower temp less than 101.0 after medication given *Warm salt water gargles may help to soothe the throat *Throat Lozenges? *Warm fluids like tea with honey may help to soothe the throat? *Sleep elevated *Humidifier/Vaporizer Take medication as prescribed Follow up IMMEDIATELY for new or worsening symptoms or no Noticeable improvement over the next 48-72 hours. 911 for difficulty breathing or swallowing Clinical Impressions Clinical Impression: Sinusitis Instructions Patient Instructions: DI for Sinusitis, Sinusitis Print Language Print Language: Citizen Of [place] Discharge ED Provider[place] D[place] [facility] [place] General Stated complaint: face hurting,sore throat,fever Mode of Arrival: Ambulatory Source of Information: Patient Limitations: No Limitations Time Seen by Provider: 02/27/24 18:46 Description of Symptoms (Recalled from Triage Doc. by RN): PATIENT C/O SINUS PRESSURE/PAIN X 2 DAYS HEENT Symptoms (Recalled from RN notes): Yes Resp Symptoms (Recalled from RN notes): No Skin Symptoms (Recalled from RN notes): No MS Symptoms (Recalled from RN notes): No Functional Status (Recalled from RN notes): WNL History of Present Illness Provider Complaint: Patient states that he has been having sinus pain and pressure, pain in his right ear that has got worse over the last 3-4 days states today his sinus pain and pressure was worse so he came in to get it checked Related Data Home Medications ?Medication ?Instructions ?Recorded ?Confirmed azelastine 137 mcg (0.1 %) nasal 1 - 2 spray intranasal BID 02/27/24 02/27/24 spray citalopram 20 mg tablet 30 mg PO DAILY 02/27/24 02/27/24 cyanocobalamin (vitamin B-12) 1,000 mcg IM WEEKLY 02/27/24 02/27/24 1,000 mcg/mL injection solution fenofibrate nanocrystallized 145 145 mg PO DAILY 02/27/24 02/27/24 mg tablet fluticasone propionate 50 2 spray intranasal DAILY 02/27/24 02/27/24 mcg/actuation nasal spray,suspension meloxicam 7.5 mg tablet 7.5 mg PO DAILY 02/27/24 02/27/24 montelukast 10 mg tablet 10 mg PO DAILY 02/27/24 02/27/24 simvastatin 40 mg tablet 40 mg PO DAILY 02/27/24 02/27/24 tadalafil 5 mg tablet 5 mg PO DAILY 02/27/24 02/27/24 timolol maleate 0.5 % eye drops 1 drp Eye-Both AM 02/27/24 02/27/24 Previous Rx's ?Medication ?Instructions ?Recorded amoxicillin 875 mg-potassium 1 tab PO Q12H #20 tabs 02/27/24 clavulanate 125 mg tablet methylprednisolone 4 mg tablets in See Rx Instructions .Route 02/27/24 a dose pack (Medrol (Emilio)) .COMPLEX 6 days #21 tabs Allergies Allergy/AdvReac Type Severity Reaction Status Date / Time tree nut [TREE NUT] Allergy Intermediate Verified 12/16/23 10:21 latex [LATEX] Allergy Unknown Verified 12/16/23 10:21 Worker's Comp Is this a Worker's Comp case?: No [facility] Disclaimer: The information contained in this section may have been updated after the patient was seen, as this information can be updated by other users. Medical History Allergic rhinitis Anxiety Hyperlipidemia Tobacco abuse Surgical History No significant past surgical history Family History Other No significant family history Social History Smoking Status: Current every day smoker tobacco type: cigarettes packs per day: 1 alcohol intake: never substance use type: denies use current occupational status: other Travel in the last 8 weeks: None household members: family ROS Obtained: Yes All systems reviewed & no additional complaints except as documented and Yes Systems reviewed as appropriate & no additional complaints except as documented Constitutional Constitutional: Reports system reviewed and no additional complaints, except as documented and Reports as per HPI ENT Ears, Nose, Mouth, and Throat: Reports system reviewed and no additional complaints, except as documented, Reports as per HPI, Reports otalgia, Reports sinus pain and Reports sinus pressure Cardiovascular Cardiovascular: Reports system reviewed and no additional complaints, except as documented and Reports as per HPI Respiratory Respiratory: Reports system reviewed and no additional complaints, except as documented and Reports as per HPI Gastrointestinal Gastrointestingal: Reports system reviewed and no additional complaints, except as documented and as per HPI Physical Exam General General appearance: alert and in no apparent distress ENT ENT exam: Present mucous membranes moist Expanded ENT Exam TM/Canal exam: Right TM: erythema and bulging Nose exam: Present sinus tenderness Respiratory Respiratory exam: Present normal lung sounds bilaterally; Absent respiratory distress or wheezes Cardiovascular Cardiovascular exam: Present regular rate, normal rhythm and normal heart sounds Neurological Exam Neurological exam: Present alert, oriented X3 and normal gait Medical Decision Making Medical Records Screening: Per USPSTF and CDC recommendations, given the prevalence of disease in our region, it is our hospital?s policy to screen for HIV and viral Hepatitis for all patients aged 18 and over and those with ongoing risk factors. Dave Inquiry Pt receiving controlled substance: No Dave was queried for this patient: No Vital Signs: 02/27/24 18:30 Temperature 97.9 F Temperature Source Oral Pulse Rate [Left Brachial] 79 Respiratory Rate 19 Blood Pressure [Left Arm] 146/98 H Blood Pressure Mean [Left Arm] 114 Blood Pressure Source [Left Arm] Automatic Cuff Blood Pressure Position [Left Arm] Sitting 02 Sat by Pulse Oximetry 97 Oxygen Delivery Method Room Air
[2024-02-27 18:59] VITALS: BP 146/98; PULSE 79; RESP 19; TEMP 36.6; O2SAT 97
== END 2024-02-27 19:03 | disposition home or self-care (01) ==
PROVIDERS: Emergency Provider Nurse Practitioner; PCP Pediatrics
DX: J01.90 Acute sinusitis, unspecified (principal)
CPT/HCPCS: 99213; G0381

== ENCOUNTER 2024-04-05 17:25 | Emergency (ER) | payer MEDICARE, MEDICAID, SELFPAY ==
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
[2024-04-05 17:41] VITALS: BP 142/92; PULSE 75; RESP 18; TEMP 36.9; O2SAT 99; BMI 27.3
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
--- NOTE | 2024-04-05 17:47 | XR_ITS ---
PROCEDURE INFORMATION: Exam: XR Left Elbow Exam date and time: 04/05/2024 5:53 PM Age: 48 years old Clinical indication: Injury or trauma; Fall; Blunt trauma (contusions or hematomas); Elbow; Left; Additional info: Fall off of a 4 cid TECHNIQUE: Imaging protocol: Radiologic exam of the left elbow. Views: 3 or more views. COMPARISON: CR Forearm L 04/05/2024 5:52 PM FINDINGS: Bones/joints: No acute fracture. Old fracture fragment probably within the anterior joint recess. Soft tissues: Normal. IMPRESSION: 1. No evidence for acute fracture. 2. Old fracture fragment probably within the anterior joint recess. 3. Old posttraumatic ossicle near the lateral epicondylar region near the expected location of the radial collateral ligament origin.
--- NOTE | 2024-04-05 17:47 | XR_ITS ---
PROCEDURE INFORMATION: Exam: XR Left Hand Exam date and time: 04/05/2024 5:48 PM Age: 48 years old Clinical indication: Injury or trauma; Fall; Blunt trauma (contusions or hematomas); Hand; Left; Additional info: Fall off of a 4 cid TECHNIQUE: Imaging protocol: Radiologic exam of the left hand. Views: 3 or more views. COMPARISON: CR XR WRIST LT MIN 3V 07/07/2019 11:58 PM FINDINGS: Bones/joints: Old posttraumatic ossicle ulnar styloid tip region. No acute fracture. Soft tissues: Normal. IMPRESSION: No evidence for acute fracture.
--- NOTE | 2024-04-05 17:47 | XR_ITS ---
PROCEDURE INFORMATION: Exam: XR Left Forearm Exam date and time: 04/05/2024 5:52 PM Age: 48 years old Clinical indication: Injury or trauma; Fall; Blunt trauma (contusions or hematomas); Arm, lower; Left; Additional info: Fall off of a 4 cid TECHNIQUE: Imaging protocol: Radiologic exam of the left forearm. Views: 2 views. COMPARISON: CR XR HAND LT MIN 3V 04/05/2024 5:48 PM FINDINGS: Bones/joints: Old healed fracture deformity distal radius with volar plate and screws. No definite acute fracture. Old posttraumatic ossicle within the coronoid fossa region. Soft tissues: Normal. IMPRESSION: No definite acute fracture.
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
--- OUTSIDE RECORDS SUMMARY | 2024-04-05 17:47 | XMS_ITS | Encounter Summary ---
Author Organization [facility] Address [address] [place] [address] Care Team Providers Care Pit Furnace Melter Name Role Phone Angie Beach MD Primary Care Provider [phone] Reason for Visit * Reason Comments Med Refill Encounter Details Date Type Department Care Team (Late st Contact Info) Description 12/29/2021 Refill [facility] [address] [place] [address] Jennifer Young MD [address] [address] Social History Tobacco Use Types Packs/Day Years Used Date Smoking Tobacco: Every Day Sex and Gender Information Value Date Recorded Sex Assigned at Not on file Legal Sex Male 8:41 PM EDT Gender Identity Not on file Sexual Orientation Not on file documented as of this encounter Plan of Treatment Not on file documented as of this encounter Visit Diagnoses Not on filedocumented in this encounter Care Teams Pit Furnace Melter Relationship Specialty Start Date End Date Angie Beach MD [address] [place] [address] PCP - General 09/29/20 documented as of this encounter
--- OUTSIDE RECORDS SUMMARY | 2024-04-05 17:47 | XMS_ITS | Encounter Summary ---
Author Organization [facility] Address [address] [place] [address] Care Team Providers Care Offal Trimmer Name Role Phone Angie Beach MD Primary Care Provider [phone] Encounter Details Date Type Department Care Team (Late st Contact Info) Description 10/26/2020 [facility] [address] [place] [address] Dental, Provider, DDS [address] [place] [address] Social History Tobacco Use Types Packs/Day Years [...] Procedure Name Priority Date/Time Associated Diagnosis Comments 11 MIFL COMP-4/MORE SURFACE ANTERIOR Routine 07/05/1999 12:00 AM EST 11 ROOT CANAL-ANTERIOR Routine 0 12:00 AM EST 8 ROOT CANAL-ANTERIOR Routine 05/25/1999 12:00 AM EST 8 DIFL COMP-4/MORE SURFACE ANTERIOR Routine 05/25/1999 12:00 AM EST 11 ADDITIONAL X-RAY Routine 03/27/1999 1 2:00 AM EST 7 SINGLE X-RAY Routine 03/27/1999 12:00 AM EST COMPREHENSIVE ORAL EVALUATION - NEW OR ESTABLISHED PATIENT IN PROCESS A Routine 03/27/1999 12:00 AM EST PANORAMIC RADIOGRAPHIC IMAGE IN PROCESS A Routine 03/27/1999 12:00 AM EST [facility] CALL Routine 03/09/1999 12:00 AM EDT documented in this encounter Visit Diagnoses Not on filedocumented in this encounter Care Teams Offal Trimmer Relationship Specialty Start Date End Date Angie Beach MD [address] [place] [address] PCP - General 09/29/20 documented as of this encounter
--- OUTSIDE RECORDS SUMMARY | 2024-04-05 17:47 | XMS_ITS | Encounter Summary ---
Author Organization [facility] Address [address] [place] [address] Care Team Providers Care Mechanical Oxidizer Name Role Phone Angie Beach MD Primary Care Provider [phone] Reason for Visit * Reason Comments Med Refill Encounter Details Date Type Department Care Team (Late st Contact Info) Description 11/18/2020 Refill [facility] [address] [place] [address] Jennifer Young MD [address] [address] Social History Tobacco Use Types Packs/Day Years Used Date Smoking Tobacco: Every Day Sex and Gender Information Value Date Recorded Sex Assigned at Not on file Legal Sex Male 8:41 PM EDT Gender Identity Not on file Sexual Orientation Not on file documented as of this encounter Miscellaneous Notes * Telephone Encounter - Jennifer Young MD - 11/24/2020 5:31 AM EDT It's okay. I've taken care of him since he's a teenager. He comes in if there's an issue. documented in this encounter Plan of Treatment Not on file documented as of this encounter Visit Diagnoses Not on filedocumented in this encounter Care Teams Mechanical Oxidizer Relationship Specialty Start Date End Date Angie Beach MD [address] [place] [address] PCP - General 09/29/20 documented as of this encounter
--- OUTSIDE RECORDS SUMMARY | 2024-04-05 17:47 | XMS_ITS | Encounter Summary ---
Author Organization [facility] Address [address] [place] [address] Care Team Providers Care Medical Apparatus Model Maker Name Role Phone Angie Beach MD Primary Care Provider [phone] Encounter Details Date Type Department Care Team (Latest Contact Info) Description 02/04/2022 Travel Social History Tobacco Use Types Packs/Day Years Used Date Smoking Tobacco: Every Day Cigarettes 0.5 34 Smokeless Tobacco: Never Sex and Gender Information Value Date Recorded [...] PM EDT documented as of this encounter Plan of Treatment Not on file documented as of this encounter Visit Diagnoses Not on filedocumented in this encounter Additional Health Concerns Assessment Noted Time A fall risk assessment has been complete d for the patient 02/04/2022 3:53 PM EDT documented as of this encounter Care Teams Medical Apparatus Model Maker Relationship Specialty Start Date End Date Angie Beach MD [address] [place] [id number] PCP - General 09/29/20 documented as of this encounter
--- OUTSIDE RECORDS SUMMARY | 2024-04-05 17:47 | XMS_ITS | Clinical Summary ---
Author Organization [facility] Address [address] [place] [address] Care Team Providers Care Mutual Funds Agent Name Role Phone Angie Beach MD Primary Care Provider [phone] Allergies Active Allergy Reactions Criticality Noted Date Comments Latex Rash Low 02/04/2022 Tree Nuts Unknown - Patient st ates they do not know rxn details Low 06/01/2015 Medications aspirin 81 MG EC tablet 1 (one) time each day. Active azelastine (Astelin) 0.1 % nasal spray 09/03/19 18 Active cetirizine (ZyrTEC) 10 MG tablet Take 10 mg by mouth 1 (one) time each day. 10/01/19 22 Active citalopram (CeleXA) 20 MG tablet TAKE 1 AND 1/2 TABLETS DAILY. 11/28/19 16 Active cyanocobalamin (Vitamin B-12) 1000 MCG/ML injection INJECT 1 ML INTRAMUSCULARLY TWICE A MONTH 01/26/20 16 Active cyclobenzaprine (Flexeril) 5 MG tablet cyclobenzaprine 5 mg tablet 1 to 2 tabs q8hr, prn Active fenofibrate (Tricor) 145 MG tablet Take 145 mg by mouth 1 (one) time each day. 01/02/20 22 Active fluticasone (Flonase) 50 MCG/ACT nasal spray 02/24/20 15 Active ketoconazole (NIZOral) 2 % shampoo APPLY 3 TIMES A WEEK TO BODY A WASH IN THE SHOWER. LET SIT FOR 5 MINUTES THEN RINSE. 12/13/19 22 Active montelukast (Singulair) 10 MG tablet TAKE 1 TABLET BY MOUTH ONCE DAILY AT NIGHT 11/21/19 22 Active ondansetron ODT (Zofran-ODT) 4 MG disintegrating tablet DISSOLVE 1 TABLET IN MOUTH THREE TIMES DAILY NEEDED FOR VOMITING 08/06/19 Active simvastatin (Zocor) 40 MG tablet Take 40 mg by mouth 1 (one) time each day. 01/19/20 22 Active tadalafil (Cialis) 5 MG tablet Take 5 mg by mouth 1 (one) time each day. 11/04/19 22 Active traMADol (Ultram) 50 MG tablet TAKE ONE TABLET BY MOUTH FOUR TIMES DAILY MAY CAUSE DROWSINESS 01/24/20 22 Active timolol (Timoptic) 0.5 % ophthalmic solution instill 1 DROP IN THE RIGHT EYE EVERY MORNING 5 mL 11 01/05/20 23 Active Active Problems No known active problems Family History Medical History Relation Name Comments Cataracts Maternal Grandfather Heart disease Maternal Grandfather Heart disease Maternal Grandmother Relation Name Status Comments Maternal Grandfather Maternal Grandmother Social History Tobacco Use Types Packs/Day Years Used Date Smoking Tobacco: Every Day Cigarettes 0.5 34 Smokeless Tobacco: Never Tobacco Cessation:Ready to Q uit: Not Asked; Counseling Given: Not Answered Sex and Gender Information Value Date Recorded Sex Assigned at Not on file Legal Sex Male 8:41 PM EDT Gender Identity Not on file Sexual Orientation Not on file Plan of Treatment Health Maintenance Due Date Last Done Comments Dental Oral Exam 1975 Dental Prophylaxis 1975 Dental X-Ray: Bitewings 1975 Dental X-Ray: Full Mouth 1975 [facility]-Depression Screening 1975 [facility]-HIV Screening 1975 [facility]-Hepatitis C Screening 1975 [facility]-Medicare Annual Wellness (AWV) 1975 [facility]-/Child/Adol SDOH Screenings 1975 [facility]- SDOH Screenings 08/05/1993 [facility]-Adult SDOH Screenings 08/05/1993 [facility]-Hepatitis B Vaccines (1 of 3 - 19+ 3-dose series) 08/05/1994 CT Colonography 08/05/2020 Colonoscopy 08/05/2020 FIT-DNA 08/05/2020 FIT 08/05/2020 FOBT 08/05/2020 Sigmoidoscopy 08/05/2020 [facility]-Colorectal Cancer Screening 08/05/2020 [id number] Vaccine ( - season) 2024 04/18/2021, 08/30/2020, 08/03/2020, Additional history exists [facility]-Influenza Vaccine (#1) 01/18/202403/06, 02/10/2021, 02/17/2020, Additional history exists [facility]-Zoster Vaccines (1 of 2) 08/05/2025 [facility]-DTaP,Tdap,and Td Vaccines (2 - Td or Tdap) 02/16/2030 02/17/2020 [facility]-RSV Vaccine: 60+ Years or (1 - 1-dose 75+ series) 08/05/2050 [facility]-HIB Vaccines Aged Out No longer e ligible based on patient's age to complete this topic [facility]-HPV Vaccines Aged Out No longer e ligible based on patient's age to complete this topic [facility]-Hepatitis A Vaccines Aged Out No longer eligible based on patient's age to complete this topic [facility]-IPV Vaccines Aged Out No longer e ligible based on patient's age to complete this topic [facility]-Pneumococcal Vaccine: Pediatrics (0 to 5 Years) and At-Risk Patients (6 to 64 Years) Aged Out No longer eligible based on patient's age to complete this topic [facility]-Rotavirus Vaccines Aged Out No lo nger eligible based on patient's age to complete this topic Insurance [facility] MEDICARE MEDICAID-[place] Care Teams Mutual Funds Agent Relationship Specialty Start Date End Date Angie Beach MD [address] [place] [address] PCP - General 09/29/20
--- OUTSIDE RECORDS SUMMARY | 2024-04-05 17:47 | XMS_ITS | Encounter Summary ---
Author Organization [facility] Address [address] [place] [address] Care Team Providers Care Process Safety Engineer Name Role Phone Angie Beach MD Primary Care Provider Reason for Visit * Reason Onset Date Comments HCN - Patient Message 01/01/2022 Encounter Details Date Type Department Care Team (Late st Contact Info) Description 01/01/2022 Telephone [facility] [address] [place] [address] None, None [address] [place] [address] HCN - Patient Message Social History Tobacco Use Types Packs/Day Years Used Date Smoking Tobacco: Every Day Sex and Gender Information Value Date Recorded Sex Assigned at Not on file Legal Sex Male 8:41 PM EDT Gender Identity Not on file Sexual Orientation Not on file documented as of this encounter Miscellaneous Notes * Telephone Encounter - Christy Gilliladn - 01/01/2022 10:33 AM EDT Medication Refill Request Medication Name & Dosage: timalol Preferred Pharmacy & Location: [facility] [place] Days of medication remaining (if under 3 days please lit as urgent): 0 Best contact number and optimal time of day to reach caller: [phone] Additional comments/information from caller: Note: Please do not reply to this message. Follow-up communication and further actions as a result of this message need to be communicated with the patient directly, if the patient is not active onMyChart. If the patient is active on MyChart, they will receive notification of the communication/outcome via MyChart. documented in this encounter Plan of Treatment Not on file documented as of this encounter Visit Diagnoses Not on filedocumented in this encounter Care Teams Process Safety Engineer Relationship Specialty Start Date End Date Angie Beach MD [address] [place] [id number] PCP - General 09/29/20 documented as of this encounter
--- OUTSIDE RECORDS SUMMARY | 2024-04-05 17:47 | XMS_ITS | Encounter Summary ---
Author Organization [facility] Address [address] [place] [address] Care Team Providers Care Sales Agent Fire Insurance Name Role Phone Angie Beach MD Primary Care Provider Reason for Visit * Reason Comments Med Refill Encounter Details Date Type Department Care Team (Late st Contact Info) Description 01/04/2023 Refill [facility] [address] [place] [address] Jennifer Young MD [address] [address] Social History Tobacco Use Types [...] documented as of this encounter Care Teams Sales Agent Fire Insurance Relationship Specialty Start Date End Date Angie Beach MD [address] [place] [address] PCP - General 09/29/20 documented as of this encounter
--- OUTSIDE RECORDS SUMMARY | 2024-04-05 17:47 | XMS_ITS | Encounter Summary ---
Author Organization [facility] Address [address] [place] [address] Care Team Providers Care Building Equipment Operator Name Role Phone Angie Beach MD Primary Care Provider [phone] Reason for Visit * Reason Onset Date Comments HCN - Patient Message 01/24/2022 Encounter Details Date Type Department Care Team (Late st Contact Info) Description 01/24/2022 Telephone [facility] [address] [place] [address] Jennifer Young MD [address] [address] HCN - Patient Message Social History Tobacco [...] encounter Miscellaneous Notes * Telephone Encounter - Che Prado - 01/25/2022 2:25 PM EDT Tried to return phone call to patient but voicemail is full and cant receive messages at this time * Telephone Encounter - Christy Gilliland - 01/24/2022 3:01 PM EDT Patient Phone Message Reason for Call: Danyel Young patient Patient calling to schedule appointment. Was told to call when he needed to. Best contact number and optimal time of day to reach caller: [phone] Note: Please do not reply to this message. Follow-up communication and further actions as a result of this message need to be communicated with the patient directly, if the patient is not active onMyChart. If the patient is active on MyChart, they will receive notification of the communication/outcome via [employer]. documented in this encounter Plan of Treatment Not on file documented as of this encounter Visit Diagnoses Not on filedocumented in this encounter Care Teams Building Equipment Operator Relationship Specialty Start Date End Date Angie Beach MD [address] [place] [address] PCP - General 09/29/20 documented as of this encounter
--- NOTE | 2024-04-05 18:45 | PC.NURSE ---
Called [facility] to speak with [facility] about this Left wrist fracture and [facility] said they would call us back
[2024-04-05] MEDS: ACETAMINOPHEN 500MG TAB 1000 MG PO (18:50)
[2024-04-05] MEDS: IBUPROFEN 400 MG TABLET 800 MG PO (18:50)
[2024-04-05] MEDS: OXYCODONE 5MG IMMEDIATE RELEASE TABLET 5 MG PO (18:51)
[2024-04-05 19:46] VITALS: BP 128/74; PULSE 80; RESP 16; TEMP 36.8; O2SAT 99
== END 2024-04-05 19:48 | disposition short-term general hospital (02) ==
PROVIDERS: Emergency Provider Emergency Medicine; PCP Pediatrics
DX: S69.92XA Unspecified injury of left wrist, hand and finger(s), initial encounter (principal); M25.532 Pain in left wrist; W17.89XA Other fall from one level to another, initial encounter; Y93.89 Activity, other specified; Y92.89 Other specified places as the place of occurrence of the external cause
CPT/HCPCS: 73080; 73090; 73110; 73130; 99283

== ENCOUNTER 2024-04-12 12:27 | Emergency (ER) | payer MEDICARE, MEDICAID, SELFPAY ==
[2024-04-12 12:39] VITALS: BP 136/95; PULSE 75; RESP 18; TEMP 36.6; O2SAT 96; BMI 27.3
--- OUTSIDE RECORDS SUMMARY | 2024-04-12 12:45 | XMS_ITS | Encounter Summary ---
Author Organization Healthcare Address [address] [place] [address] Care Team Providers Care Doll Repairer Name Role Phone Angie Beach MD Primary Care Provider [phone] Encounter Details Date Type Department Care Team (Late Contact Info) Description 04/06/2024 Orders Only [facility] [address] [place] [address] Yogesh Noyola MD [address] [place] [phone] Social History Tobacco Use Types Packs/Day Years Used Date Smoking Tobacco: Every Day Cigarettes 0.5 35.9 Started: 1988 Smokeless Tobacco: Never Alcohol Use Standard Drinks/Week Comments Never 0 (1 standard drink = 0.6 oz pur e alcohol) Sex and Gender Information Value Date Recorded Sex Assigned at Not on file Legal Sex Male 8:41 PM EDT Gender Identity Not on file Sexual Orientation Not on file documented as of this encounter Plan of Treatment Upcoming Encounters Date Type Department Care Team (Late st Contact Info) Description 04/14/2024 8:00 AM [facility] Hospital Encounter [facility] Operating Room [address] [place] [address] Yogesh Noyola MD [address] [place] [phone] 04/14/2024 8:00 AM EST - 04/14/2024 10:55 AM EST Surgery [facility] Operating Room [address] [place] [address] Yogesh Noyola MD [address] [place] [phone] HARDWARE REMOVAL AND ORIF DISTAL RADIUS [96415 (CPT??) +1 more] 04/29/2024 8:30 AM EST Office Visit [facility] [address] [place] [phone] Yogesh Noyola MD [address] [place] [phone] Scheduled Procedures Name Priority Associated Diagnoses Date/Ti me ORIF, FRACTURE, RADIUS, DISTAL Other closed intra-articular fracture of distal end of left radius, initial encounter Presence of retained hardware 04/14/2024 8:00 AM EST documented as of this encounter Visit Diagnoses Not on filedocumented in this encounter Additional Health Concerns Assessment Noted Time A fall risk assessment has been complete d for the patient 02/04/2022 3:53 PM EDT documented as of this encounter Care Teams Doll Repairer Relationship Specialty Start Date End Date Angie Beach MD [address] [place] [address] PCP - General 09/29/20 documented as of this encounter
--- OUTSIDE RECORDS SUMMARY | 2024-04-12 12:45 | XMS_ITS | Encounter Summary ---
Author Organization Healthcare Address [address] [place] [address] Care Team Providers Care Nurses Medical Assistants Phlebotomists Name Role Phone Angie Beach MD Primary Care Provider [phone] Encounter Details Date Type Department Care Team (Latest Contact Info) Description 04/05/2024 Travel Social History Tobacco Use Types Packs/Day [...] st Contact Info) Description 04/14/2024 8:00 AM [facility] Hospital Encounter [facility] S Operating Room [address] [place] [phone] Yogesh Noyola MD [address] [place] [phone] 04/14/2024 8:00 AM EST - 04/14/2024 10:55 AM EST Surgery [facility] Operating Room [address] [place] [address] Yogesh Noyola MD [address] [place] [phone] HARDWARE REMOVAL AND ORIF DISTAL RADIUS [ (CPT??) +1 more] 04/29/2024 8:30 AM EST Office Visit [facility] [address] [place] [phone] Yogesh Noyola MD [address] [place] [phone] Scheduled Procedures Name Priority Associated Diagnoses Date/Ti [...] documented as of this encounter Care Teams Nurses Medical Assistants Phlebotomists Relationship Specialty Start Date End Date Angie Beach MD [address] [place] [address] PCP - General 09/29/20 documented as of this encounter
--- OUTSIDE RECORDS SUMMARY | 2024-04-12 12:45 | XMS_ITS | Encounter Summary ---
Author Organization Healthcare Address [address] [place] [address] Care Team Providers Care Rn Mds Name Role Phone Angie Beach MD Primary Care Provider [phone] Encounter Details Date Type Department Care Team (Late st Contact Info) Description 04/05/2024 Orders Only External Location [address] [place] [address] Provider, External Social History Tobacco Use Types Packs/Day Years [...] Encounters Date Type Department Care Team (Late Contact Info) Description 04/14/2024 8:00 AM [facility] Hospital Encounter [facility] S Operating Room [address] [place] [phone] Yogesh Noyola MD [address] [place] [phone] 04/14/2024 8:00 AM EST - 04/14/2024 10:55 AM EST Surgery [facility] Operating Room [address] [place] [phone] Yogesh Noyola MD [address] [place] [phone] HARDWARE REMOVAL AND ORIF DISTAL RADIUS [76120 (CPT??) +1 more] 04/29/2024 8:30 AM EST Office Visit [facility] [address] [place] [phone] Yogesh Noyola MD [address] [phone] Scheduled Procedures Name Priority Associated Diagnoses Date/Ti me ORIF, FRACTURE, RADIUS, DISTAL Other closed intra-articular fracture of distal end of left radius, initial encounter Presence of retained hardware 04/14/2024 8:00 AM EST documented as of this encounter Procedures Procedure Name Priority Date/Time Associated Diagnosis Comments XR OUTSIDE IMAGES 04/05/2024 5:52 PM EST documented in this encounter Results * XR OUTSIDE IMAGES (04/05/2024 5:52 PM EST) Anatomical Region Laterality Modality Radiographic Cherry ging 04/05/2024 5:52 PM EST us External Provider IMG XR PROCEDURES Final Result documented in this encounter Visit Diagnoses Not on filedocumented in this encounter Additional Health Concerns Assessment Noted Time A fall risk assessment has been complete d for the patient 02/04/2022 3:53 PM EDT documented as of this encounter Care Teams Rn Mds Relationship Specialty Start Date End Date Angie Beach MD [address] [place] [address] PCP - General 09/29/20 documented as of this encounter
--- OUTSIDE RECORDS SUMMARY | 2024-04-12 12:45 | XMS_ITS | Encounter Summary ---
Author Organization [facility] Address [address] [place] [address] Care Team Providers Care Maintenance Mechanic Telephone Name Role Phone Angie Beach MD Primary Care Provider [phone] Reason for Visit * Reason Onset Date Comments Med Refill 04/09/2024 Encounter Details Date Type Department Care Team (Late Contact Info) Description 04/09/2024 Refill [facility] [address] [place] [address] Yogesh Noyola MD [address] [place] [phone] Social History Tobacco Use Types Packs/Day [...] (Late Contact Info) Description 04/14/2024 8:00 AM EST Hospital Encounter [facility] Operating Room [address] [place] [address] Yogesh Noyola MD [address] [place] [phone] 04/14/2024 8:00 AM EST - 04/14/2024 10:55 AM EST Surgery [facility] Operating Room [address] [place] [phone] Yogesh Noyola MD [address] [phone] HARDWARE REMOVAL AND ORIF DISTAL RADIUS [27075 (CPT??) +1 more] 04/29/2024 8:30 AM EST Office Visit [facility] [address] [place] [address] Yogesh Noyola MD [address] [phone] Scheduled Procedures Name Priority Associated [...] documented as of this encounter Care Teams Maintenance Mechanic Telephone Relationship Specialty Start Date End Date Angie Beach MD [address] [facility] [place] [address] PCP - General 09/29/20 documented as of this encounter
--- OUTSIDE RECORDS SUMMARY | 2024-04-12 12:45 | XMS_ITS | Encounter Summary ---
Author Organization Healthcare Address [address] [place] [address] Care Team Providers Care Planner/Scheduler Name Role Phone Angie Beach MD Primary Care Provider [phone] Encounter Details Date Type Department Care Team [...] st Contact Info) Description 04/14/2024 8:00 AM [facility] Hospital Encounter [facility] Operating Room [address] [place] [address] Yogesh Noyola MD [address] [phone] 04/14/2024 8:00 AM EST - 04/14/2024 10:55 AM EST Surgery [facility] Operating Room [address] [place] [phone] Yogesh Noyola MD [address] [place] [phone] HARDWARE REMOVAL AND ORIF DISTAL RADIUS [02966 (CPT??) +1 more] 04/29/2024 8:30 AM EST Office Visit [facility] [address] [place] [phone] Yogesh Noyola MD [address] [place] [phone] Scheduled Procedures Name Priority Associated Diagnoses Date/Ti [...] documented as of this encounter Care Teams Planner/Scheduler Relationship Specialty Start Date End Date Angie Beach MD [address] [place] [address] PCP - General 09/29/20 documented as of this encounter
--- OUTSIDE RECORDS SUMMARY | 2024-04-12 12:45 | XMS_ITS | Encounter Summary ---
Author Organization Healthcare Address [address] [place] [address] Care Team Providers Care Director Of Operations Support Name Role Phone Angie Beach MD Primary Care Provider [phone] Encounter Details Date Type Department Care Team (Latest Contact Info) Description 04/06/2024 Travel Social History Tobacco Use Types Packs/Day [...] st Contact Info) Description 04/14/2024 8:[address] [facility] Hospital Encounter [facility] Operating Room [address] [place] [phone] Yogesh Noyola MD [address] [place] [phone] 04/14/2024 8:00 AM EST - 04/14/2024 10:55 AM EST Surgery [facility] Operating Room [address] [place] [phone] Yogesh Noyola MD [address] [place] [phone] HARDWARE REMOVAL AND ORIF DISTAL RADIUS [49693 (CPT??) +1 more] 04/29/2024 8:30 AM EST Office Visit [facility] [address] [place] [address] Yogesh Noyola MD [address] [phone] Scheduled Procedures Name Priority Associated [...] documented as of this encounter Care Teams Director Of Operations Support Relationship Specialty Start Date End Date Angie Beach MD [address] [place] [address] PCP - General 09/29/20 documented as of this encounter
--- OUTSIDE RECORDS SUMMARY | 2024-04-12 12:45 | XMS_ITS | Encounter Summary ---
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 04/06/2024 2:48 AM Final report signed by Cyril Mireles MD on 04/06/2024 2:57 AM Narrative 04/06/2024 2:57 AM EST CLINICAL INDICATION: L wrist fx TECHNIQUE: XR ELBOW LEFT 3+ VIEWS COMPARISON: None. FINDINGS: No fracture or dislocation Procedure Note Cyril Mireles MD - 04/06/2024 CLINICAL INDICATION: L wrist fx TECHNIQUE: XR ELBOW LEFT 3+ VIEWS COMPARISON: None. FINDINGS: No fracture or dislocation IMPRESSION: No fracture or dislocation CRITICAL RESULT: No. COMMUNICATION: Per this written report. Preliminary report signed by Nestor Francis MD on 04/06/2024 2:49 AM By electronically signing this report, I, the attending physician, attestthat I have personally reviewed the images/data for the aboveexamination(s) and agree with the final edited report. Drafted by Nestor Francis MD on 04/06/2024 2:48 AM Final report signed by Cyril Mireles MD on 04/06/2024 2:57 AM Daniel Parsons MD IMG XR PROCEDURES Final Result * XR Hand Left 3+ Views (04/05/2024 10:45 PM EST) Anatomical Region Laterality Modality Upper Extremities, Hand Left Digital Radiography Impressions 04/05/2024 11:12 PM EST Prior plate and screw ORIF of distal radius. Acute displaced intra-articular periprosthetic fracture of the distal radius. CRITICAL RESULT: ?? No. COMMUNICATION: Per this written report. Preliminary report signed by Nestor Francis MD on 04/05/2024 11:08 PM By electronically signing this report, I, the attending physician, attest that I have personally reviewed the images/data for the above examination(s) and agree with the final edited report. Drafted by Nestor Francis MD on 04/05/2024 11:06 PM Final report signed by Danuta Brewster MD on 04/05/2024 11:12 PM Narrative 04/05/2024 11:12 PM EST CLINICAL INDICATION: trauma TECHNIQUE: XR FOREARM LEFT 2 VIEWS, XR HAND LEFT 3+ VIEWS, XR WRIST LEFT 3+ VIEWS COMPARISON: None. FINDINGS: Left forearm: Plate and screw fixation of the distal radius, with cortical irregularity extending into the intra-articular surface, compatible with minimally displaced fracture. Overlying soft tissue edema compatible with clinical history trauma. Left wrist: Cortical irregularity of the distal radial metadiaphysis, with intra-articular involvement described above, compatible with acute fracture. No evidence of hardware failure or loosening. Scapholunate is intact. Left hand: Carpal rows are intact. Scapholunate interval is within normal limits. No acute fracture or malalignment. Procedure Note Danuta Brewster MD - 04/05/2024 CLINICAL INDICATION: trauma TECHNIQUE: XR FOREARM LEFT 2 VIEWS, XR HAND LEFT 3+ VIEWS, XR WRIST LEFT 3+ VIEWS COMPARISON: None. FINDINGS: Left forearm: Plate and screw fixation of the distal radius, with corticalirregularity extending into the intra-articular surface, compatible withminimally displaced fracture. Overlying soft tissue edema compatible withclinical history trauma. Left wrist: Cortical irregularity of the distal radial metadiaphysis, withintra-articular involvement described above, compatible with acutefracture. No evidence of hardware failure or loosening. Scapholunate isintact. Left hand: Carpal rows are intact. Scapholunate interval is within normallimits. No acute fracture or malalignment. IMPRESSION: Prior plate and screw ORIF of distal radius. Acute displacedintra-articular periprosthetic fracture of the distal radius. CRITICAL RESULT: No. COMMUNICATION: Per this written report. Preliminary report signed by Nestor Francis MD on 04/05/2024 11:08 PM By electronically signing this report, I, the attending physician, attestthat I have personally reviewed the images/data for the aboveexamination(s) and agree with the final edited report. Drafted by Nestor Francis MD on 04/05/2024 11:06 PM Final report signed by Danuta Brewster MD on 04/05/2024 11:12 PM us Shane Gilbert MD IMG XR PROCEDURES Final Resul t * XR Wrist Left 3+ Views (04/05/2024 10:45 PM EST) Anatomical Region Laterality Modality Upper Extremities, Wrist Left Digital Radiography Impressions 04/05/2024 11:12 PM EST Prior plate and screw ORIF of distal radius. Acute displaced intra-articular periprosthetic fracture of the distal radius. CRITICAL RESULT: ?? No. COMMUNICATION: Per this written report. Preliminary report signed by Nestor Francis MD on 04/05/2024 11:08 PM By electronically signing this report, I, the attending physician, attest that I have personally reviewed the images/data for the above examination(s) and agree with the final edited report. Drafted by Nestor Francis MD on 04/05/2024 11:06 PM Final report signed by Danuta Brewster MD on 04/05/2024 11:12 PM Narrative 04/05/2024 11:12 PM EST CLINICAL INDICATION: trauma TECHNIQUE: XR FOREARM LEFT 2 VIEWS, XR HAND LEFT 3+ VIEWS, XR WRIST LEFT 3+ VIEWS COMPARISON: None. FINDINGS: Left forearm: Plate and screw fixation of the distal radius, with cortical irregularity extending into the intra-articular surface, compatible with minimally displaced fracture. Overlying soft tissue edema compatible with clinical history trauma. Left wrist: Cortical irregularity of the distal radial metadiaphysis, with intra-articular involvement described above, compatible with acute fracture. No evidence of hardware failure or loosening. Scapholunate is intact. Left hand: Carpal rows are intact. Scapholunate interval is within normal limits. No acute fracture or malalignment. Procedure Note Danuta Brewster MD - 04/05/2024 CLINICAL INDICATION: trauma TECHNIQUE: XR FOREARM LEFT 2 VIEWS, XR HAND LEFT 3+ VIEWS, XR WRIST LEFT 3+ VIEWS COMPARISON: None. FINDINGS: Left forearm: Plate and screw fixation of the distal radius, with corticalirregularity extending into the intra-articular surface, compatible withminimally displaced fracture. Overlying soft tissue edema compatible withclinical history trauma. Left wrist: Cortical irregularity of the distal radial metadiaphysis, withintra-articular involvement described above, compatible with acutefracture. No evidence of hardware failure or loosening. Scapholunate isintact. Left hand: Carpal rows are intact. Scapholunate interval is within normallimits. No acute fracture or malalignment. IMPRESSION: Prior plate and screw ORIF of distal radius. Acute displacedintra-articular periprosthetic fracture of the distal radius. CRITICAL RESULT: No. COMMUNICATION: Per this written report. Preliminary report signed by Nestor Francis MD on 04/05/2024 11:08 PM By electronically signing this report, I, the attending physician, attestthat I have personally reviewed the images/data for the aboveexamination(s) and agree with the final edited report. Drafted by Nestor Francis MD on 04/05/2024 11:06 PM Final report signed by Danuta Brewster MD on 04/05/2024 11:12 PM us Shane Gilbert MD IMG XR PROCEDURES Final Resul t * XR Forearm Left 2 Views (04/05/2024 10:45 PM EST) Anatomical Region Laterality Modality Upper Extremities, Forearm Left Digit al Radiography Impressions 04/05/2024 11:12 PM EST Prior plate and screw ORIF of distal radius. Acute displaced intra-articular periprosthetic fracture of the distal radius. CRITICAL RESULT: ?? No. COMMUNICATION: Per this written report. Preliminary report signed by Nestor Francis MD on 04/05/2024 11:08 PM By electronically signing this report, I, the attending physician, attest that I have personally reviewed the images/data for the above examination(s) and agree with the final edited report. Drafted by Nestor Francis MD on 04/05/2024 11:06 PM Final report signed by Danuta Brewster MD on 04/05/2024 11:12 PM Narrative 04/05/2024 11:12 PM EST CLINICAL INDICATION: trauma TECHNIQUE: XR FOREARM LEFT 2 VIEWS, XR HAND LEFT 3+ VIEWS, XR WRIST LEFT 3+ VIEWS COMPARISON: None. FINDINGS: Left forearm: Plate and screw fixation of the distal radius, with cortical irregularity extending into the intra-articular surface, compatible with minimally displaced fracture. Overlying soft tissue edema compatible with clinical history trauma. Left wrist: Cortical irregularity of the distal radial metadiaphysis, with intra-articular involvement described above, compatible with acute fracture. No evidence of hardware failure or loosening. Scapholunate is intact. Left hand: Carpal rows are intact. Scapholunate interval is within normal limits. No acute fracture or malalignment. Procedure Note Danuta Brewster MD - 04/05/2024 CLINICAL INDICATION: trauma TECHNIQUE: XR FOREARM LEFT 2 VIEWS, XR HAND LEFT 3+ VIEWS, XR WRIST LEFT 3+ VIEWS COMPARISON: None. FINDINGS: Left forearm: Plate and screw fixation of the distal radius, with corticalirregularity extending into the intra-articular surface, compatible withminimally displaced fracture. Overlying soft tissue edema compatible withclinical history trauma. Left wrist: Cortical irregularity of the distal radial metadiaphysis, withintra-articular involvement described above, compatible with acutefracture. No evidence of hardware failure or loosening. Scapholunate isintact. Left hand: Carpal rows are intact. Scapholunate interval is within normallimits. No acute fracture or malalignment. IMPRESSION: Prior plate and screw ORIF of distal radius. Acute displacedintra-articular periprosthetic fracture of the distal radius. CRITICAL RESULT: No. COMMUNICATION: Per this written report. Preliminary report signed by Nesotr Francis MD on 04/05/2024 11:08 PM By electronically signing this report, I, the attending physician, danay I have personally reviewed the images/data for the aboveexamination(s) and agree with the final edited report. Drafted by Nestor Francis MD on 04/05/2024 11:06 PM Final report signed by Danuta Brewster MD on 04/05/2024 11:12 PM Shane Gilbert MD IMG XR PROCEDURES Final Resul t documented in this encounter Visit Diagnoses Diagnosis Other closed intra-articular fracture of distal end of left radius, initial encounter- Primary Acute pain due to injury Acute pain due to trauma Other closed intra-articular fracture of distal end of left radius, initial encounter Presence of retained hardware documented in this encounter Administered Medications Inactive Administered Medications - up to 3 most recent administrations Medication Order MAR Action Action Date Dose Rate Site acetaminophen (Tylenol) tablet 650 mg 650 mg, Oral, Every 4 hours PRN, Starting on Fri04/05/24 at 2209, Until Fri04/06/24 at 1004, Routine, mild pain, moderate pain fentaNYL (Sublimaze) injection 50 mcg 50 mcg, Intravenous, Once, 1 dose, On Fri04/06/24 at 0305, Routine Given 04/06/2024 4:30 AM EST 50 mcg ibuprofen tablet 600 mg 600 mg, Oral, Every 6 hours PRN, Starting on Fri04/05/24 at 2209, Until Fri04/06/24 at 1004, Routine, mild pain ondansetron ODT (Zofran-ODT) disintegrating tablet 4 mg 4 mg, Oral, Once, 1 dose, On Fri04/05/24 at 2340, STAT Given 04/05/2024 11:45 PM EST 4 mg oxyCODONE (Roxicodone) immediate release tablet 5 mg 5 mg, Oral, Once, 1 dose, On Fri04/05/24 at 2340, STAT Given 04/05/2024 11:46 PM EST 5 mg documented in this encounter Active and Recently Administered Medications Times are shown in EST. Scheduled Medication Order 04/04/2024 04/05/2024 04/06/2024 fentaNYL (Sublimaze) injection 50 mcg (COMPLETED) 50 mcg, Intravenous, Once, 1 dose, On Fri04/06/24 at 0305, Routine 0430 (Given - Provid er: Nano Leong RN) ondansetron ODT (Zofran-ODT) disintegrating tablet 4 mg (COMPLETED) 4 mg, Oral, Once, 1 dose, On Fri04/05/24 at 2340, STAT 2345 (Given - Provider: Nano Leong RN) oxyCODONE (Roxicodone) immediate release tablet 5 mg (COMPLETED) 5 mg, Oral, Once, 1 dose, On Fri04/05/24 at 2340, STAT 2346 (Given - Provider: Nano Leong RN) PRN Medication Order 04/04/2024 04/05/2024 04/06/2024 acetaminophen (Tylenol) tablet 650 mg 650 mg, Oral, Every 4 hours PRN, Starting on Fri04/05/24 at 2209, Until Fri04/06/24 at 1004, Routine, mild pain, moderate pain ibuprofen tablet 600 mg 600 mg, Oral, Every 6 hours PRN, Starting on Fri04/05/24 at 2209, Until Fri04/06/24 at 1004, Routine, mild pain documented in this encounter Additional Health Concerns Assessment Noted Time A fall risk assessment has been complete d for the patient 02/04/2022 3:53 PM EDT documented as of this encounter Care Teams Sql Developer Relationship Specialty Start Date End Date Angie Beach MD [address] [place] [address] PCP - General 09/29/20 documented as of this encounter
--- OUTSIDE RECORDS SUMMARY | 2024-04-12 12:45 | XMS_ITS | Encounter Summary ---
Author Organization [facility] Address [address] [place] [address] Care Team Providers Care Manufacturing Planner Name Role Phone Angie Beach MD Primary Care Provider [phone] Reason for Visit * Reason Comments Med Refill Encounter Details Date Type Department Care Team (Late st Contact Info) Description 01/04/2023 Refill [facility] [address] [place] [address] Jennifer Young MD [address] [address] Social History Tobacco Use Types [...] Hospital Encounter [facility] Operating Room [address] [place] [phone] Yogesh Noyola MD [address] [place] [phone] 04/14/2024 8:00 AM EST - 04/14/2024 10:55 AM EST Surgery [facility] Operating Room [address] [place] [address] Yogesh Noyola MD [address] [place] [phone] HARDWARE REMOVAL AND ORIF DISTAL RADIUS [30791 (CPT??) +1 more] 04/29/2024 8:30 AM EST Office Visit [facility] [address] [place] [address] Yogesh Noyola MD [address] [place] [phone] Scheduled Procedures Name Priority Associated Diagnoses [...] documented as of this encounter Care Teams Manufacturing Planner Relationship Specialty Start Date End Date Angie Beach MD [address] [place] [address] PCP - General 09/29/20 documented as of this encounter
--- OUTSIDE RECORDS SUMMARY | 2024-04-12 12:45 | XMS_ITS | Clinical Summary ---
Author Organization [facility] Address [address] [place] [address] Care Team Providers Care Truck Switcher Name Role Phone Angie Beach MD Primary Care Provider [phone] Allergies Active Allergy Reactions Criticality Noted Date Comments Latex Rash Low 02/04/2022 Tree Nuts Unknown - Patient st ates they do not know rxn details Low 06/01/2015 Medications aspirin 81 MG EC tablet 1 (one) time each day. Active azelastine (Astelin) 0.1 % nasal spray Administer 2 sprays into each nostril 1 (one) time each day. 09/03/19 18 Active cetirizine (ZyrTEC) 10 MG tablet Take 1 tablet (10 mg) by mouth 1 (one) time each day. 10/01/19 22 Active citalopram (CeleXA) 20 MG tablet Take 1.5 tablets (30 mg) by mouth every night. 11/28/19 16 Active cyanocobalamin (Vitamin B-12) 1000 MCG/ML injection INJECT 1 ML INTRAMUSCULARLY TWICE A MONTH 01/26/20 16 Active cyclobenzaprine (Flexeril) 5 MG tablet Take by mouth every 8 (eight) hours if needed. Active fenofibrate (Tricor) 145 MG tablet Take 1 tablet (145 mg) by mouth 1 (one) time each day. 01/02/20 22 Active fluticasone (Flonase) 50 MCG/ACT nasal spray Administer 2 sprays into each nostril 1 (one) time each day. 02/24/20 15 Active ketoconazole (NIZOral) 2 % [...] THREE TIMES DAILY NEEDED FOR VOMITING 08/06/19 22 Active simvastatin (Zocor) 40 MG tablet Take 1 tablet (40 mg) by mouth 1 (one) time each day. 01/19/20 22 Active tadalafil (Cialis) 5 MG tablet Take 1 tablet (5 mg) by mouth every night. 11/04/19 22 Active traMADol (Ultram) 50 MG tablet TAKE ONE TABLET BY MOUTH FOUR TIMES DAILY MAY CAUSE DROWSINESS 01/24/20 22 Active timolol (Timoptic) 0.5 % ophthalmic solution instill 1 DROP IN THE RIGHT EYE EVERY MORNING 5 mL 11 01/05/20 23 Active naloxone (Narcan) 4 mg/0.1 mL nasal spray 1. Give 1 spray in nostril for no/slow breathing or cannot wake after opioid use 2. Call 911 3. Repeat in other nostril if symptoms continue 1 each 04/06/20 24 Active lisinopril 10 MG tablet Take 1 tablet (10 mg) by mouth 1 (one) time each day. Active oxyCODONE (Roxicodone) 5 MG immediate release tablet Take 1 tablet (5 mg) by mouth every 6 (six) hours if needed (pain) for up to 3 days. 12 tablet 04/09/20 24 2023 Active oxyCODONE (Roxicodone) 5 MG immediate release tablet Take 1 tablet (5 mg) by mouth every 6 (six) hours if needed (pain) for up to 3 days. 12 tablet 04/06/20 24 2023 Disconti nued(Reo rder) Active Problems Problem Noted Date Diagnosed Date Closed fracture of left distal radius 04/06/2024 Presence of retained hardware 04/06/2024 Encounters Date Type Department Care Team Description 04/09/2024 Refill [facility] [address] [place] [address] Yogesh Noyola MD 04/06/2024 Orders Only [facility] [address] [address] Yogesh Noyola MD 04/06/2024 Travel 04/05/2024 10:22 PM EST - 04/06/2024 8:03 AM EST Emergency [facility] [address] [place] [phone] Melquiades Gilbert MD Sweeney, Michael T, MD Other closed intra-articular fracture of distal end of left radius, initial encounter (Primary Dx); Acute pain due to injury Discharge Disposition: Home or Self Care 04/05/2024 Orders Only External Location [address] [place] [address] Provider, External 04/05/2024 Travel from Last 3 Months Family History Medical History Relation Name Comments Cataracts Maternal Grandfather Heart disease Maternal Grandfather Heart disease Maternal Grandmother Relation Name Status Comments Maternal Grandfather Maternal Grandmother Social History Tobacco Use Types Packs/Day Years Used Date Smoking Tobacco: Every Day Cigarettes 0.5 35.9 Started: 1988 Smokeless Tobacco: Never Tobacco Cessation:Ready to Q uit: Not Asked; Counseling Given: Not Answered Alcohol Use Standard Drinks/Week Comments Never 0 (1 standard drink = 0.6 oz pur e alcohol) Sex and Gender Information Value Date Recorded Sex Assigned at Not on file Legal Sex Male 8:41 PM EDT Gender Identity Not on file Sexual Orientation Not on file Last Filed Vital Signs Vital Sign Reading [...] Mass Index 27.32 04/05/2024 9:11 PM EST Plan of Treatment Upcoming Encounters Date Type Department Care Team (Late st Contact Info) Description 04/14/2024 8:00 AM EST Hospital Encounter [facility] Room [address] [place] [address] Yogesh Noyola MD [address] [address] 04/14/2024 8:00 AM EST - 04/14/2024 10:55 AM EST Surgery [facility] Operating Room [address] [place] [address] Yogesh Noyola MD [address] [place] [phone] HARDWARE REMOVAL AND ORIF DISTAL RADIUS [42443 (CPT??) +1 more] 04/29/2024 8:30 AM EST Office Visit [facility] [address] [place] [phone] Yogesh Noyola MD [address] [place] [phone] Scheduled Procedures Name Priority Associated Diagnoses Date/Ti me ORIF, FRACTURE, RADIUS, DISTAL Other closed intra-articular fracture of distal end of left radius, initial encounter Presence of retained hardware 04/14/2024 8:00 AM EST Health Maintenance Due Date Last Done Comments Dental Oral Exam 1975 Dental Prophylaxis 1975 Dental X-Ray: Bitewings 1975 Dental X-Ray: Full Mouth 1975 [facility]-Depression Screening 1975 [facility]-HIV Screening 1975 [facility]-Hepatitis C Screening 1975 [facility]-Medicare Annual Wellness (AWV) 1975 [facility]-Infant/Child/Adol SDOH Screenings 1975 [facility]-Obesity Intervention 08/05/1981 [facility]-Pneumococcal Vaccine: Pediatrics (0 to 5 Years) and At-Risk Patients (6 to 64 Years) (1 of 2 - PCV) 08/05/1981 [facility]- SDOH Screenings 08/05/1993 [facility]-Adult SDOH Screenings 08/05/1993 [facility]-Hepatitis B Vaccines (1 of 3 - 19+ 3-dose series) 08/05/1994 CT Colonography 08/05/2020 Colonoscopy 08/05/2020 FIT-DNA 08/05/2020 FIT 08/05/2020 FOBT 08/05/2020 Sigmoidoscopy 08/05/2020 [facility]-Colorectal Cancer Screening 08/05/2020 [id number] Vaccine ( season) 2024 03/20/2022, 04/18/2021, 08/30/2020, Additional history exists [facility]-Influenza Vaccine (#1) 01/18/202403/26, 03/20/2022, 03/06/2022, Additional history exists [facility]-Zoster Vaccines (1 of 2) 08/05/2025 [facility]-DTaP,Tdap,and Td Vaccines (3 - Td or Tdap) 07/16/2032 07/16/2022, 02/17/2020 [facility]-RSV Vaccine: 60+ Years or (1 [...] on patient's age to complete this topic Procedures Procedure Name Priority Date/Time Associated Diagnosis [...] 2 VIEWS STAT 04/05/2024 10:45 PM EST XR OUTSIDE IMAGES 04/05/2024 5:5 2 PM EST from Last 3 Months Results * XR Wrist Left 3+ Views (04/06/2024 4:53 AM EST) Only the most recent of3 resultswithin the time period is included. Anatomical Region Laterality Modality Upper Extremities, Wrist [...] Brewster MD on 04/05/2024 11:12 PM us Melquiades Gilbert MD IMG XR PROCEDURES Final Resul [...] Brewster MD on 04/05/2024 11:12 PM us Melquiades Gilbert MD IMG XR PROCEDURES Final Resul t * XR OUTSIDE IMAGES (04/05/2024 5:52 PM EST) Anatomical Region Laterality Modality Radiographic Cherry ging 04/05/2024 5:52 PM EST External Provider IMG XR PROCEDURES Final Result from Last 3 Months Insurance [employer] MEDICARE [place] Care Teams Truck Switcher Relationship Specialty Start Date End Date Angie Beach MD [facility] [place] [address] [place] [address] PCP - General 09/29/20
--- OUTSIDE RECORDS SUMMARY | 2024-04-12 12:46 | XMS_ITS | Encounter Summary ---
Author Organization [facility] Address [address] [place] [address] Care Team Providers Care Denture Contour Wire Specialist Name Role Phone Angie Beach MD Primary Care Provider [phone] Reason for Visit * Reason Onset Date Comments HCN - Patient Message 01/01/2022 Encounter Details Date Type Department Care Team (Late st Contact Info) Description 01/01/2022 Telephone [facility] [address] [place] [address] None, None [address] [place] [address] HCN - Patient Message Social History Tobacco Use Types Packs/Day Years Used Date Smoking Tobacco: Every Day Sex and Gender Information Value Date Recorded Sex Assigned at Not on file Legal Sex Male 8:41 PM EDT Gender Identity Not on file Sexual Orientation Not on file documented as of this encounter Miscellaneous Notes * Telephone Encounter - Christy Gillliand - 01/01/2022 10:33 AM EDT Medication Refill Request Medication Name & Dosage: timalol Preferred Pharmacy & Location: [facility] [place] Days of medication remaining (if under 3 days please lit as urgent): 0 Best contact number and optimal time of day to reach caller: [phone] Additional comments/information from caller: Note: Please do [...] Description 04/14/2024 8:00 AM EST Hospital Encounter [facility] S Operating Room [address] [place] [address] Yogesh Noyola MD [address] [phone] 04/14/2024 8:00 AM EST - 04/14/2024 10:55 AM EST Surgery [facility] S Operating Room [address] [place] [address] Yogesh Noyola MD [address] [phone] HARDWARE REMOVAL AND ORIF DISTAL RADIUS [93500 (CPT??) +1 more] 04/29/2024 8:30 AM EST Office Visit Tre Gilliland [address] [place] [phone] Yogesh Noyola MD [address] [phone] Scheduled Procedures Name Priority Associated Diagnoses Date/Ti me ORIF, FRACTURE, RADIUS, DISTAL Other closed intra-articular fracture of distal end of left radius, initial encounter Presence of retained hardware 04/14/2024 8:00 AM EST documented as of this encounter Visit Diagnoses Not on filedocumented in this encounter Care Teams Denture Contour Wire Specialist Relationship Specialty Start Date End Date Angie Beach MD [address] [facility] [place] [address] PCP - General 09/29/20 documented as of this encounter
--- OUTSIDE RECORDS SUMMARY | 2024-04-12 12:46 | XMS_ITS | Encounter Summary ---
Author Organization [facility] Address [address] [place] [address] Care Team Providers Care Retanner Name Role Phone Angie Beach MD Primary Care Provider [phone] Reason for Visit * Reason Comments Med Refill Encounter Details Date Type Department Care Team (Late st Contact Info) Description 12/29/2021 Refill [facility] [address] [place] [address] Jennifer Young MD [address] [address] Social History Tobacco Use Types [...] Hospital Encounter [facility] Operating [address] [place] [address] Yogesh Noyola MD [address] [phone] 04/14/2024 8:00 AM EST - 04/14/2024 10:55 AM EST Surgery [facility] Operating [facility] [address] [place] [address] Yogesh Noyola MD [address] [phone] HARDWARE REMOVAL AND ORIF DISTAL RADIUS [88996 (CPT??) +1 more] 04/29/2024 8:30 AM EST Office Visit [facility] [address] [place] [phone] Yogesh Noyola MD [address] [phone] Scheduled Procedures Name Priority Associated Diagnoses Date/Ti me ORIF, FRACTURE, RADIUS, DISTAL Other closed intra-articular fracture of distal end of left radius, initial encounter Presence of retained hardware 04/14/2024 8:00 AM EST documented as of this encounter Visit Diagnoses Not on filedocumented in this encounter Care Teams Retanner Relationship Specialty Start Date End Date Angie Beach MD [address] [place] [address] PCP - General 09/29/20 documented as of this encounter
--- OUTSIDE RECORDS SUMMARY | 2024-04-12 12:46 | XMS_ITS | Encounter Summary ---
Author Organization [facility] Address [address] [place] [address] Care Team Providers Care Rn Intensive Care Unit Name Role Phone Angie Beach MD Primary Care Provider [phone] Reason for Visit * Reason Onset Date Comments HCN - Patient Message 01/24/2022 Encounter Details Date Type Department Care Team (Late st Contact Info) Description 01/24/2022 Telephone [facility] [address] [place] [address] Jennifer Young MD [address] [address] HCN - Patient Message Social [...] optimal time of day to reach caller: [phone] Note: Please do not reply to this message. Follow-up communication and further actions as a result of this message need to be communicated with the patient directly, if the patient is not active onMyChart. If the patient is active on MyChart, they will receive notification of the communication/outcome via [employer]. documented in this encounter Plan of Treatment Upcoming Encounters Date Type Department Care Team (Late st Contact Info) Description 04/14/2024 8:00 AM EST Hospital Encounter [facility] S Operating Room [address] [place] [address] Yogesh Noyola MD [address] [place] [phone] 04/14/2024 8:00 AM EST - 04/14/2024 10:55 AM EST Surgery [facility] Operating Room [address] [place] [address] Yogesh Noyola MD [address] [place] [phone] HARDWARE REMOVAL AND ORIF DISTAL RADIUS [54932 (CPT??) +1 more] 04/29/2024 8:30 AM EST Office Visit [facility] [address] [place] [phone] Yogesh Noyola MD [address] [place] [phone] Scheduled Procedures Name Priority Associated Diagnoses Date/Ti me ORIF, FRACTURE, RADIUS, DISTAL Other closed intra-articular fracture of distal end of left radius, initial encounter Presence of retained hardware 04/14/2024 8:00 AM EST documented as of this encounter Visit Diagnoses Not on filedocumented in this encounter Care Teams Rn Intensive Care Unit Relationship Specialty Start Date End Date Angie Beach MD [address] [place] [address] PCP - General 09/29/20 documented as of this encounter
--- OUTSIDE RECORDS SUMMARY | 2024-04-12 12:46 | XMS_ITS | Encounter Summary ---
Author Organization [facility] Address [address] [place] [address] Care Team Providers Care Printing Plate Clerk Name Role Phone Angie Beach MD Primary Care Provider [phone] Reason for Visit * Reason Comments Med Refill Encounter Details Date Type Department Care Team (Late st Contact Info) Description [facility] [address] [place] [address] Jennifer Young MD [address] [address] Social History Tobacco Use Types [...] st Contact Info) Description 04/14/2024 8:00 AM [facility] Hospital Encounter [facility] Operating Room [address] [place] [address] Yogesh Noyola MD [address] [phone] 04/14/2024 8:00 AM EST - 04/14/2024 10:55 AM EST Surgery [facility] Operating Room [address] [place] [address] Yogesh Noyola MD [address] [phone] HARDWARE REMOVAL AND ORIF DISTAL RADIUS [84100 (CPT??) +1 more] 04/29/2024 8:30 AM EST Office Visit [facility] [address] [place] [phone] Yogesh Noyola MD [address] [phone] Scheduled Procedures Name Priority Associated Diagnoses Date/Ti me ORIF, FRACTURE, RADIUS, DISTAL Other closed intra-articular fracture of distal end of left radius, initial encounter Presence of retained hardware 04/14/2024 8:00 AM EST documented as of this encounter Visit Diagnoses Not on filedocumented in this encounter Care Teams Printing Plate Clerk Relationship Specialty Start Date End Date Angie Beach MD [address] [place] [address] PCP - General 09/29/20 documented as of this encounter
--- OUTSIDE RECORDS SUMMARY | 2024-04-12 12:46 | XMS_ITS | Data Portability ---
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 Assessment Encounter Date Assessment Date Assessment LastModified by Organization Details LastModified Time 11/13/2022 11/13/2022 PERSONALIZED HEALTH PLAN (COPY PROVIDED TO PATIENT) 1) Vaccines: (a) Pneumococcal Vaccine - Type: Last Service: Plan: not needed yet (b) Influenza vaccine - Last Service: Plan: Recommended: yearly (c) Hepatitis B vaccine - Last Service: Plan: Not Applicable to patient (d) Shingrix Vaccine - Last Service: Plan: Not Applicable to patient (e) COVID - Last Service: Plan: completed (f) COVID vaccine booster - Last Service: Plan: completed (g) Tetanus Vaccine - Last Service: Plan: Recommended:to d/w pharmacy 2) Colorectal Cancer Screening for aged 45 ? 75 years: Last service: Finding: Plan: cologuard today 3) Bone Mass Measurements: Last Service: Recommendation: Not Applicable to Patient Many older people benefit from taking calcium and vitamin D supplements. Talk to your doctor about supplements. 4) Glaucoma screening Last service: Plan: Routine eye exams yearly 5) Cardiovascular Disease Screening Tests (Lipid Panel): Last service: Plan: LDL today Cholesterol, serum, total: HDL: Triglycerides: LDL: 6) Lung Screening & Counseling w/low dose CT Last service: Recommendation: not needed Plan: 7) Pre-diabetes screening: Recommendation: CMP today Last service: Finding: Plan: 8) Diabetes self-management training (diagnosed with diabetes) Last service: Recommendation: Plan: FEMALE ONLY 9) Breast cancer screening Last service: Recommendation: Plan: FEMALE ONLY 10) Screening Pap Tests Last service: Recommendation: Plan: FEMALE ONLY 11) Screening Pelvic Exam (include clinical breast exam Last service: Recommendation: Plan: 12) Medical Nutritional therapy Diet recommendations may include: -Lots of vegetables and fruits -Fewer simple carbohydrates, fats and cholesterol -A moderate amount of protein and dairy Avoid: Artificial sweeteners, Soda, & Processed food. 13) Exercise counseling You should do 30 minutes of aerobic exercise for at least 5 days per week. Regular exercise can help: -Lower heart disease risk -Delay the onset of diabetes -Improve blood pressure, functional status and performance -Reduce the risk of falls and osteoporosis -Enhance mental health and cognitive function 14) Abdominal Aortic Aneurysm screening: not indicated. MALE ONLY 15) Prostate Cancer Screening Last service: Recommendation: Aged 55-69 years, once per year (based on patient? s preference for screening) Plan: 16) Hepatitis C Screening Last service: Recommendation: ordered today Plan: 17) Advance Directive discussed with patient. Patient verbalizes understanding and questions answered Plan: This exam was performed under the supervision of: Further consultation: All recommendations have been discussed thoroughly with the patient. Next Medicare Annual Wellness Visit will be due in 1 year. [email or web address] Not available 11/13/2022 21:35:51 11/14/2023 11/14/2023 PERSONALIZED HEALTH PLAN (COPY PROVIDED TO PATIENT) 1) Vaccines: (a) Pneumococcal Vaccine - not needed (b) Influenza vaccine - Get yearly flu shot (c) Hepatitis B vaccine - Not needed (d) Shingrix Vaccine - Not needed until ge 50 (e) COVID -Recommended yearly (f) Tetanus Vaccine - Every 10 years 2) Colorectal Cancer Screening for aged 45 ? 75 years: Last service: Due 2025 Plan: Cologuard every 1 - 3 years 3) Bone Mass Measurements: NA Many older people benefit from taking calcium and vitamin D supplements. Talk to your doctor about supplements. 4) Glaucoma screening Last service: Known glaucoma and seen every 6 mos 5) Cardiovascular Disease Screening Tests (Lipid Panel): Last service: LDL Today Cholesterol, serum, total: HDL: Triglycerides: LDL: 6) Lung Screening & Counseling w/low dose CT Last service: NA Plan: 7) Pre-diabetes screening: Recommendation: Aged 35- 70 years who have been diagnosed with overweight or obesity, once every 3 years Last service: CMP Today 8) Medical Nutritional therapy Diet recommendations may include: -Lots of vegetables and fruits -Fewer simple carbohydrates, fats and cholesterol -A moderate amount of protein and dairy Avoid: Artificial sweeteners, Soda, & Processed food. 9) Exercise counseling You should do 30 minutes of aerobic exercise for at least 5 days per week. Regular exercise can help: -Lower heart disease risk -Delay the onset of diabetes -Improve blood pressure, functional status and performance -Reduce the risk of falls and osteoporosis -Enhance mental health and cognitive function 10) Abdominal Aortic Aneurysm screening: not indicated. MALE ONLY 11) Prostate Cancer Screening Last service: Due today known BPH 12) Hepatitis C Screening Recommendation: Pt had screening for HCV and is no longer eligible for this benefit. 13) Advance Directive discussed with patient. Patient verbalizes understanding and questions answered Plan: This exam was performed under the supervision of: Ta Further consultation: All recommendations have been discussed thoroughly with the patient. Next Medicare Annual Wellness Visit will be due in 1 year. [email or web address] Not available 11/14/2023 13:41:23 Plan of Treatment Reminders Order Date Submit Date Provider Last Modified By Organization Details Last Modified Time Details Appointments None recorded. Lab lipid panel, serum 2022 023 [facility], [address], [address], [place], [address], 3 09:39:14 CMP, serum or plasma 2022 023 [facility], [address], [address], [place], [address], 3 09:39:13 CBC w/ auto diff 2022 023 [facility], [address], [address], [place], [address], 3 09:39:12 noninvasive colorectal cancer DNA + occult blood screening, QL, stool 2022 023 [facility] (Cologuard Orders Only), [address], [address], [place], [address], 3 14:36:53 Hepatitis C IgG Ab, qual, serum 2022 023 [facility], [address], [address], [place], [address], 3 09:39:17 PSA, total, serum or plasma 2022 023 [facility], [address], [address], [place], [address], 3 09:39:18 vitamin B12 + folate, serum or blood 2022 023 [facility], [address], [address], [place], [address], 3 09:39:16 HIV 1 + 2, meaningful use set 2022 023 [facility], [address], [address], [place], [address], 3 09:39:19 lipid panel, serum 2023 024 [facility], [address], [address], [place], [address], 4 16:11:19 CMP, serum or plasma 2023 024 [facility], [address], [address], [place], [address], 4 16:11:18 CBC w/ auto diff 2023 024 [facility], [address], [address], [place], [address], 4 16:11:18 PSA, serum or plasma 2023 024 [facility], [address], [address], [place], [address], 4 16:11:20 vitamin B12 + folate, serum or blood 2023 024 [facility], [address], [address], [place], [address], 4 16:11:19 CBC w/ auto diff 2023 024 [facility], [address], [address], [place], [address], 4 06:38:09 Referral None recorded. Procedures None recorded. Surgeries None recorded. Imaging None recorded. Medication Orders Augmentin 875 mg-125 mg tablet 2022 023 [email or web address] Not available 13:08:22 amoxicillin 875 mg-potassiu m clavulanate 125 mg tablet 2023 024 [email or web address] 7 [facility], [address], [address], 13:48:05 Patient TargetsNo targets recorded. Patient Instructions Encounter Date Encounter Id Patient Instructions Last Modified By Organization Details Last Modified Time 07/16/2022 [id number] Patients hand wa s copiously irrigated with hibiclens and sterile water. antibiotic ointmnet was applied and nonstick dressing. patient educated on aftercare and signs/symptoms of infection. If condition worsens will return to clinic for further eval. Patient given tetanus shot today in clinic. [email or web address] Not available 07/16/2022 15:27:33 11/13/2022 [id number] advance directives: care instructions [email or web address] Not available 11/13/2022 21:35:52 well visit, over 65: care instructions Not available 11/13/2022 21:35:52 Health Maintenance Recommendations: (5-10 year screening/prevent ion plan) [email or web address] Not available 11/13/2022 14:06:30 11/14/2023 [id number] advance directives: care instructions [email or web address] Not available 11/14/2023 13:48:06 well visit, over 65: care instructions [email or web address] Not available 11/14/2023 13:48:05 Health Maintenance Recommendations: (5-10 year screening/prevent ion plan) [email or web address] Not available 11/14/2023 13:07:58 Reason for Referral None Reported. Results Created Date Observation Date Name Description Value Unit Range Abnormal Flag Note LastModifiedBy Organization Detail LastModifiedTime 11/14/1911/14/2022 CBC WITH DIFFE RENTI AL/PL ATELE T WBC 11.3 x10e3 /uL 3.4-10 .8 above high normal Not Available [facility] ([facility]) [address] [place], [address], 11/14/2022 09:39:11 11/14/1911/14/2022 CBC WITH DIFFE RENTI AL/PL ATELE T RBC 4.86 x10e6 /uL 4.14-5 .80 Not Available [facility] ([facility]) [address] [place], [address], 11/14/2022 09:39:11 11/14/1911/14/2022 CBC WITH DIFFE RENTI AL/PL ATELE T hemoglobin 14.8 g/dL 13.0-1 7.7 Not Available [facility] ([facility]) [address] [place], [address], 11/14/2022 09:39:11 11/14/1911/14/2022 CBC WITH DIFFE RENTI AL/PL ATELE T hematocrit 44.9 % 37.5-5 1.0 Not Available [facility] ([facility]) [address] [place], [address], 11/14/2022 09:39:11 11/14/19 23 11/14/2022 CBC WITH DIFFE RENTI AL/PL ATELE T MCV 92 fL 79-97 Not Available [facility] ([facility]) [address] [facility], [place], [address], 11/14/2022 09:39:11 11/14/1911/14/2022 CBC WITH DIFFE RENTI AL/PL ATELE T MCH 30.5 pg 26.6-3 3.0 Not Available [facility] ([facility]) [address] [facility], [place], [address], 11/14/2022 09:39:11 11/14/19 23 11/14/2022 CBC WITH DIFFE RENTI AL/PL ATELE T MCHC 33.0 g/dL 31.5-3 5.7 Not Available [facility] ([facility]) [address] [facility], [place], [address], 11/14/2022 09:39:11 11/14/19 23 11/14/2022 CBC WITH DIFFE RENTI AL/PL ATELE T RDW 13.9 % 11.6-1 5.4 Not Available [facility] ([facility]) [address] [facility], [place], [address], 11/14/2022 09:39:11 11/14/1911/14/2022 CBC WITH DIFFE RENTI AL/PL ATELE T platelets 410 x10e3 /uL 150-45 0 Not Available [facility] ([facility]) [address] [facility], [place], [address], 11/14/2022 09:39:11 11/14/1911/14/2022 CBC WITH DIFFE RENTI AL/PL ATELE T neutrophils 52 % not estab. Not Available [facility] ([facility]) [address] [facility], [place], [address], 11/14/2022 09:39:11 11/14/19 23 11/14/2022 CBC WITH DIFFE RENTI AL/PL ATELE T lymphs 34 % not estab. Not Available [facility] ([facility]) [address] [facility], [place], [address], 11/14/2022 09:39:11 11/14/19 23 11/14/2022 CBC WITH DIFFE RENTI AL/PL ATELE T monocytes 10 % not estab. Not Available [facility] ([facility]) [address] [facility], [place], [address], 11/14/2022 09:39:11 11/14/19 23 11/14/2022 CBC WITH DIFFE RENTI AL/PL ATELE T eos 3 % not estab. Not Available [facility] ([facility]) [address] [place], [address], 11/14/2022 09:39:11 11/14/19 23 11/14/2022 CBC WITH DIFFE RENTI AL/PL ATELE T basos 1 % not estab. Not Available [facility] ([facility]) [address] [place], [address], 11/14/2022 09:39:11 11/14/19 23 11/14/2022 CBC WITH DIFFE RENTI AL/PL ATELE T immature cells CLASS B DRIVER Not Available [facility] ([facility]) [address] [place], [address], 11/14/2022 09:39:11 11/14/19 23 11/14/2022 CBC WITH DIFFE RENTI AL/PL ATELE T neutrophils (absolute) 6.0 x10e3 /uL 1.4-7. 0 Not Available [facility] ([facility]) [address] [place], [address], 11/14/2022 09:39:11 11/14/1911/14/2022 CBC WITH DIFFE RENTI AL/PL ATELE T lymphs (absolute) 3.8 x10e3 /uL 0.7-3. 1 above high normal Not Available [facility] ([facility]) [address] [place], [address], 11/14/2022 09:39:11 11/14/1911/14/2022 CBC WITH DIFFE RENTI AL/PL ATELE T monocytes(ab solute) 1.1 x10e3 /uL 0.1-0. 9 above high normal Not Available [facility] ([facility]) [address] [facility], [place], [address], 11/14/2022 09:39:11 11/14/1911/14/2022 CBC WITH DIFFE RENTI AL/PL ATELE T eos (absolute) 0.3 x10e3 /uL 0.0-0. 4 Not Available [facility] ([facility]) [address] [facility], [place], [address], 11/14/2022 09:39:11 11/14/1911/14/2022 CBC WITH DIFFE RENTI AL/PL ATELE T baso (absolute) 0.1 x10e3 /uL 0.0-0. 2 Not Available [facility] ([facility]) [address] [facility], [place], [address], 11/14/2022 09:39:11 11/14/1911/14/2022 CBC WITH DIFFE RENTI AL/PL ATELE T immature granulocytes 0 % not estab. Not Available [facility] ([facility]) [address] [facility], [place], [address], 11/14/2022 09:39:11 11/14/1911/14/2022 CBC WITH DIFFE RENTI AL/PL ATELE T immature grans (abs) 0.0 x10e3 /uL 0.0-0. 1 Not Available [facility] ([facility]) [address] [place], [address], 11/14/2022 09:39:11 11/14/1911/14/2022 CBC WITH DIFFE RENTI AL/PL ATELE T NRBC CLASS B DRIVER Not Available [facility] ([facility]) [address] [place], [address], 11/14/2022 09:39:11 11/14/19 23 11/14/2022 CBC WITH DIFFE LULU AL/FARNAZ [facility] hematology comments: CLASS B DRIVER Not Available [facility] ([facility]) [address] [facility], [place], [address], 11/14/2022 09:39:11 11/14/19 23 11/14/2022 COMP. METAB OLIC PANEL (14) glucose 80 mg/dL 70-99 Not Available [facility] ([facility]) [address] [facility], [place], [address], 11/14/2022 09:39:13 11/14/19 23 11/14/2022 COMP. METAB OLIC PANEL (14) BUN 10 mg/dL 6-24 Not Available [facility] ([facility]) [address] [facility], [place], [address], 11/14/2022 09:39:13 11/14/19 23 11/14/2022 COMP. METAB OLIC PANEL (14) creatinine 0.91 mg/dL 0.76-1 .27 Not Available [facility] ([facility]) [address] [facility], [place], [address], 11/14/2022 09:39:13 11/14/19 23 11/14/2022 COMP. METAB OLIC PANEL (14) BUN/creatini ne ratio 11 9-20 Not Available [facility] ([facility]) [address] [facility], [place], [address], 11/14/2022 09:39:13 11/14/19 23 11/14/2022 COMP. METAB OLIC PANEL (14) sodium 141 mmol/ L 134-14 4 Not Available [facility] ([facility]) [address] [facility], [place], [address], 11/14/2022 09:39:13 11/14/19 23 11/14/2022 COMP. METAB OLIC PANEL (14) potassium 4.1 mmol/ L 3.5-5. 2 Not Available [facility] ([facility]) [address] [place], [address], 11/14/2022 09:39:13 11/14/19 23 11/14/2022 COMP. METAB OLIC PANEL (14) chloride 107 mmol/ L 96-106 above high normal Not Available [facility] ([facility]) [address] [place], [address], 11/14/2022 09:39:13 11/14/19 23 11/14/2022 COMP. METAB OLIC PANEL (14) carbon dioxide, total 22 mmol/ L Not Available [facility] ([facility]) [address] [place], [address], 11/14/2022 09:39:13 11/14/19 23 11/14/2022 COMP. METAB OLIC PANEL (14) calcium 9.6 mg/dL 8.7-10 .2 Not Available [facility] ([facility]) [address] [place], [address], 11/14/2022 09:39:13 11/14/19 23 11/14/2022 COMP. METAB OLIC PANEL (14) protein, total 7.6 g/dL 6.0-8. 5 Not Available [facility] ([facility]) [address] [place], [address], 11/14/2022 09:39:13 11/14/19 23 11/14/2022 COMP. METAB OLIC PANEL (14) albumin 4.8 g/dL 4.0-5. 0 Eff ectiv e November 25, 2022 Album in refer ence inter ni will be moore ing to: Age Male Femal e 0 - 7 days 3.6 - 4.9 3.6 - 4.9 8 - 30 days 3.5 - 4.6 3.5 - 4.6 1 - 6 month s 3.7 - 4.8 3.7 - 4.8 7 month s - 2 years 4.0 - 5.0 4.0 - 5.0 3 - 5 years 4.1 - 5.0 4.1 - 5.0 6 - 12 years 4.2 - 5.0 4.2 - 5.0 13 - 30 years 4.3 - 5.2 4.0 - 5.0 31 - 50 years 4.1 - 5.1 3.9 - 4.9 51 - 60 years 3.8 - 4.9 3.8 - 4.9 61 - 70 years 3.9 - 4.9 3.9 - 4.9 71 - 80 years 3.8 - 4.8 3.8 - 4.8 81 - 89 years 3.7 - 4.7 3.7 - 4.7 90 - 199 years 3.6 - 4.6 3.6 - 4.6 Not Available [facility] ([facility]) [address] [place], [address], 11/14/2022 09:39:13 11/14/19 23 11/14/2022 COMP. METAB OLIC PANEL (14) globulin, total 2.8 g/dL 1.5-4. 5 Not Available [facility] ([facility]) [address] [place], [address], 11/14/2022 09:39:13 11/14/19 23 11/14/2022 COMP. METAB OLIC PANEL (14) A/G ratio 1.7 1.2-2. 2 Not Available [facility] ([facility]) [address] [place], [address], 11/14/2022 09:39:13 11/14/19 23 11/14/2022 COMP. METAB OLIC PANEL (14) bilirubin, total 0.4 mg/dL 0.0-1. 2 Not Available [facility] ([facility]) [address] [place], [address], 11/14/2022 09:39:13 11/14/19 23 11/14/2022 COMP. METAB OLIC PANEL (14) alkaline phosphatase 80 IU/L 44-121 Not Available [facility] ([facility]) [address] [facility] [place], [address], 11/14/2022 09:39:13 11/14/19 23 11/14/2022 COMP. METAB OLIC PANEL (14) AST (SGOT) 25 IU/L 0-40 Not Available [facility] ([facility]) [address] [place] [place], [address], 11/14/2022 09:39:13 11/14/19 23 11/14/2022 COMP. METAB OLIC PANEL (14) ALT (SGPT) 22 IU/L 0-44 Not Available [facility] ([facility]) [address] [place] [place], [address], 11/14/2022 09:39:13 11/14/19 23 11/14/2022 LIPID PANEL cholesterol, total 127 mg/dL 100-19 9 Not Available [facility] ([facility]) [address] [place], [address], 11/14/2022 09:39:14 11/14/19 23 11/14/2022 LIPID PANEL triglyceride s 173 mg/dL 0-149 above high normal Not Available [facility] ([facility]) [address] [place] [place], [address], 11/14/2022 09:39:14 11/14/19 23 11/14/2022 LIPID PANEL HDL cholesterol 33 mg/dL >39 below low normal Not Available [facility] ([facility]) [address] [place], [address], 11/14/2022 09:39:14 11/14/19 23 11/14/2022 LIPID PANEL VLDL cholesterol saranya 29 mg/dL 5-40 Not Available [facility] ([facility]) [address] [place], [address], 11/14/2022 09:39:14 11/14/19 23 11/14/2022 LIPID PANEL LDL chol calc ([facility]) 65 mg/dL 0-99 Not Available [facility] ([facility]) [address] [facility], [place], [address], 11/14/2022 09:39:14 11/14/19 23 11/14/2022 LIPID PANEL comment: CLASS B DRIVER Not Available [facility] ([facility]) [address] [facility], [place], [address], 11/14/2022 09:39:14 11/14/19 23 11/14/2022 VITAM IN B12 AND FOLAT E vitamin B12 896 pg/mL 232-12 45 Not Available [facility] ([facility]) [address] [facility], [place], [address], 11/14/2022 09:39:15 11/14/1911/14/2022 VITAM IN B12 AND FOLAT E folate (folic acid), serum 14.5 NG/mL >3.0 A serum folat e bridgette ntrat ion of less than 3.1 ng/mL is consi dered to repre sent clini saranya defic iency . Not Available [facility] ([facility]) [address] [facility], [place], [address], 11/14/2022 09:39:15 11/14/19 23 11/14/2022 HCV ANTIB JUAN RFX TO QUANT PCR HCV Ab NON REACTI VE non reacti ve Not Available [facility] ([facility]) [address] [place], [address], 11/14/2022 09:39:17 11/14/1911/14/2022 HCV ANTIB JUAN RFX TO QUANT PCR interpretati on: COMMEN T Not infec altagracia with HCV unles s early or acute infec tion is suspe cted (whic h may be delay ed in an immun ocomp romis ed indiv idual ), or other evide nce exist s to indic ate HCV infec tion. Not Available [facility] ([facility]) [address] [facility], [place], [address], 11/14/2022 09:39:17 11/14/1911/14/2022 PROST ATE-S PECIF IC AG prostate specific Ag 0.3 NG/mL 0.0-4. 0 Justo ECLIA metho dolog y. Accor ding to the Ameri can [employer] g[employer] iatio n, Serum PSA shoul d decre ase and remai n at undet ectab le level s after radic al prost atect carlos a. The AUA defin es bioch emica l recur rence as an initi al PSA value 0.2 ng/mL or great er follo wed by a subse quent confi rmato ry PSA value 0.2 ng/mL or great er. Value s obtai sari with diffe rent assay metho ds or kits canno t be used inter moore eably . Resul ts canno t be inter prete d as absol [facility] evide nce of the prese nce or absen ce of [facility] se. Not Available [facility] ([facility]) [address] [facility], [place], [address], 11/14/2022 09:39:18 11/14/1911/14/2022 HIV AB/P2 4 AG WITH REFLE X HIV Ab/P24 Ag screen NON REACTI VE non reacti ve HIV Negat tomasa HIV-1 /HIV- 2 antib odies and HIV-1 p24 antig en were NOT detec altagracia. There is no labor atory evide nce of HIV infec tion. Not Available [facility] ([facility]) [address] [facility], [place], [address], 11/14/2022 09:39:19 11/23/1911/22/2022 nonin vasiv e color ectal cance r DNA + occul t blood scree leticia, QL, stool cologuard negative Not Available [facility] (Cologuard Orders Only) [address], [place], [address], 11/28/2022 14:06:30 11/14/19 24 11/15/2023 CBC WITH DIFFE RENTI AL/PL ATELE T WBC 20.9 x10e3 /uL 3.4-10 .8 alert high Not Available [facility] ([facility]) [address] [facility], [place], [address], 11/15/2023 16:11:18 11/14/19 24 11/15/2023 CBC WITH DIFFE RENTI AL/PL ATELE T RBC 4.69 x10e6 /uL 4.14-5 .80 Not Available [facility] ([facility]) [address] [place], [address], 11/15/2023 16:11:18 11/14/19 24 11/15/2023 CBC WITH DIFFE RENTI AL/PL ATELE T hemoglobin 14.8 g/dL 13.0-1 7.7 Not Available [facility] ([facility]) [address] [facility], [place], [address], 11/15/2023 16:11:18 11/14/19 24 11/15/2023 CBC WITH DIFFE RENTI AL/PL ATELE T hematocrit 43.3 % 37.5-5 1.0 Not Available [facility] ([facility]) [address] [place], [address], 11/15/2023 16:11:18 11/14/19 24 11/15/2023 CBC WITH DIFFE RENTI AL/PL ATELE T MCV 92 fL 79-97 Not Available [facility] ([facility]) [address] [place], [address], 11/15/2023 16:11:18 11/14/19 24 11/15/2023 CBC WITH DIFFE RENTI AL/PL ATELE T MCH 31.6 pg 26.6-3 3.0 Not Available [facility] ([facility]) [address] [place], [address], 11/15/2023 16:11:18 11/14/19 24 11/15/2023 CBC WITH DIFFE RENTI AL/PL ATELE T MCHC 34.2 g/dL 31.5-3 5.7 Not Available [facility] ([facility]) [address] [facility], [place], [address], 11/15/2023 16:11:18 11/14/19 24 11/15/2023 CBC WITH DIFFE RENTI AL/PL ATELE T RDW 13.6 % 11.6-1 5.4 Not Available [facility] ([facility]) [address] [facility], [place], [address], 11/15/2023 16:11:18 11/14/19 24 11/15/2023 CBC WITH DIFFE RENTI AL/PL ATELE T platelets 407 x10e3 /uL 150-45 0 Not Available [facility] ([facility]) [address] [facility], [place], [address], 11/15/2023 16:11:18 11/14/19 24 11/15/2023 CBC WITH DIFFE RENTI AL/PL ATELE T neutrophils 73 % not estab. Not Available [facility] ([facility]) [address] [facility], [place], [address], 11/15/2023 16:11:18 11/14/19 24 11/15/2023 CBC WITH DIFFE RENTI AL/PL ATELE T lymphs 17 % not estab. Not Available [facility] ([facility]) [address] [facility], [place], [address], 11/15/2023 16:11:18 11/14/19 24 11/15/2023 CBC WITH DIFFE RENTI AL/PL ATELE T monocytes 9 % not estab. Not Available [facility] ([facility]) [address] [facility], [place], [address], 11/15/2023 16:11:18 11/14/19 24 11/15/2023 CBC WITH DIFFE RENTI AL/PL ATELE T eos 0 % not estab. Not Available [facility] ([facility]) [address] [place], [address], 11/15/2023 16:11:18 11/14/19 24 11/15/2023 CBC WITH DIFFE RENTI AL/PL ATELE T basos 0 % not estab. Not Available [facility] ([facility]) [address] [facility], [place], [address], 11/15/2023 16:11:18 11/14/19 24 11/15/2023 CBC WITH DIFFE RENTI AL/PL ATELE T immature cells CLASS B DRIVER Not Available [facility] ([facility]) [address] [place], [address], 11/15/2023 16:11:18 11/14/19 24 11/15/2023 CBC WITH DIFFE RENTI AL/PL ATELE T neutrophils (absolute) 15.3 x10e3 /uL 1.4-7. 0 above high normal Not Available [facility] ([facility]) [address] [place], [address], 11/15/2023 16:11:18 11/14/19 24 11/15/2023 CBC WITH DIFFE RENTI AL/PL ATELE T lymphs (absolute) 3.6 x10e3 /uL 0.7-3. 1 above high normal Not Available [facility] ([facility]) [address] [place], [address], 11/15/2023 16:11:18 11/14/19 24 11/15/2023 CBC WITH DIFFE RENTI AL/PL ATELE T monocytes(ab solute) 1.9 x10e3 /uL 0.1-0. 9 above high normal Not Available [facility] ([facility]) [address] [place], [address], 11/15/2023 16:11:18 11/14/19 24 11/15/2023 CBC WITH DIFFE RENTI AL/PL ATELE T eos (absolute) 0.0 x10e3 /uL 0.0-0. 4 Not Available [facility] ([facility]) [address] [facility], [place], [address], 11/15/2023 16:11:18 11/14/19 24 11/15/2023 CBC WITH DIFFE RENTI AL/PL ATELE T baso (absolute) 0.0 x10e3 /uL 0.0-0. 2 Not Available [facility] ([facility]) [address] [facility], [place], [address], 11/15/2023 16:11:18 11/14/19 24 11/15/2023 CBC WITH DIFFE RENTI AL/PL ATELE T immature granulocytes 1 % not estab. Not Available [facility] ([facility]) [address] [facility], [place], [address], 11/15/2023 16:11:18 11/14/19 24 11/15/2023 CBC WITH DIFFE RENTI AL/PL ATELE T immature grans (abs) 0.1 x10e3 /uL 0.0-0. 1 Not Available [facility] ([facility]) [address] [facility], [place], [address], 11/15/2023 16:11:18 11/14/19 24 11/15/2023 CBC WITH DIFFE RENTI AL/PL ATELE T NRBC CLASS B DRIVER Not Available [facility] ([facility]) [address] [facility], [place], [address], 11/15/2023 16:11:18 11/14/19 24 11/15/2023 CBC WITH DIFFE RENTI AL/PL ATELE T hematology comments: CLASS B DRIVER Not Available [facility] ([facility]) [address] [facility], [place], [address], 11/15/2023 16:11:18 11/14/19 24 11/15/2023 COMP. METAB OLIC PANEL (14) glucose 86 mg/dL 70-99 Not Available [facility] ([facility]) [address] [place], [address], 11/15/2023 16:11:18 11/14/19 24 11/15/2023 COMP. METAB OLIC PANEL (14) BUN 9 mg/dL 6-24 Not Available [facility] ([facility]) [address] [place], [address], 11/15/2023 16:11:18 11/14/19 24 11/15/2023 COMP. METAB OLIC PANEL (14) creatinine 1.00 mg/dL 0.76-1 .27 Not Available [facility] ([facility]) [address] [facility], [place], [address], 11/15/2023 16:11:18 11/14/19 24 11/15/2023 COMP. METAB OLIC PANEL (14) BUN/creatini ne ratio 9 9-20 Not Available [facility] ([facility]) [address] [place], [address], 11/15/2023 16:11:18 11/14/19 24 11/15/2023 COMP. METAB OLIC PANEL (14) sodium 144 mmol/ L 134-14 4 Not Available [facility] ([facility]) [address] [place], [address], 11/15/2023 16:11:18 11/14/19 24 11/15/2023 COMP. METAB OLIC PANEL (14) potassium 4.1 mmol/ L 3.5-5. 2 Not Available [facility] ([facility]) [address] [place], [address], 11/15/2023 16:11:18 11/14/19 24 11/15/2023 COMP. METAB OLIC PANEL (14) chloride 107 mmol/ L 96-106 above high normal Not Available [facility] ([facility]) [address], [place], [address], 11/15/2023 16:11:18 11/14/19 24 11/15/2023 COMP. METAB OLIC PANEL (14) carbon dioxide, total 20 mmol/ L Not Available [facility] ([facility]) [address] [place], [address], 11/15/2023 16:11:18 11/14/19 24 11/15/2023 COMP. METAB OLIC PANEL (14) calcium 9.7 mg/dL 8.7-10 .2 Not Available [facility] ([facility]) [address] [place], [address], 11/15/2023 16:11:18 11/14/19 24 11/15/2023 COMP. METAB OLIC PANEL (14) protein, total 7.7 g/dL 6.0-8. 5 Not Available [facility] ([facility]) [address] [place], [address], 11/15/2023 16:11:18 11/14/19 24 11/15/2023 COMP. METAB OLIC PANEL (14) albumin 4.6 g/dL 4.1-5. 1 Not Available [facility] ([facility]) [address] [place], [address], 11/15/2023 16:11:18 11/14/19 24 11/15/2023 COMP. METAB OLIC PANEL (14) globulin, total 3.1 g/dL 1.5-4. 5 Not Available [facility] ([facility]) [address] [place], [address], 11/15/2023 16:11:18 11/14/19 24 11/15/2023 COMP. METAB OLIC PANEL (14) bilirubin, total 0.3 mg/dL 0.0-1. 2 Not Available [facility] ([facility] [facility] [address] [place], [address], 11/15/2023 16:11:18 11/14/19 24 11/15/2023 COMP. METAB OLIC PANEL (14) alkaline phosphatase 92 IU/L 44-121 Not Available [facility] ([facility]) [address] [place], [address], 11/15/2023 16:11:18 11/14/19 24 11/15/2023 COMP. METAB OLIC PANEL (14) AST (SGOT) 35 IU/L 0-40 Not Available [facility] ([facility] [address] [place] [place], [address], 11/15/2023 16:11:18 11/14/19 24 11/15/2023 COMP. METAB OLIC PANEL (14) ALT (SGPT) 41 IU/L 0-44 Not Available [facility] ([facility]) [address] [place] [place], [address], 11/15/2023 16:11:18 11/14/19 24 11/15/2023 LIPID PANEL cholesterol, total 136 mg/dL 100-19 9 Not Available [facility] ([facility]) [address] [facility] [place], [address], 11/15/2023 16:11:19 11/14/19 24 11/15/2023 LIPID PANEL triglyceride s 173 mg/dL 0-149 above high normal Not Available [facility] ([facility]) [address] [place] [place], [address], 11/15/2023 16:11:19 11/14/19 24 11/15/2023 LIPID PANEL HDL cholesterol 34 mg/dL >39 below low normal Not Available [facility] ([facility]) [address] [facility] [place], [address], 11/15/2023 16:11:19 11/14/19 24 11/15/2023 LIPID PANEL VLDL cholesterol saranya 30 mg/dL 5-40 Not Available [facility] ([facility]) [address] [facility] [place], [address], 11/15/2023 16:11:19 11/14/19 24 11/15/2023 LIPID PANEL LDL chol calc ([facility]) 72 mg/dL 0-99 Not Available [facility] ([facility]) [address] [place] [place], [address], 11/15/2023 16:11:19 11/14/19 24 11/15/2023 LIPID PANEL LDL calc comment: CLASS B DRIVER Not Available [facility] ([facility]) [address] [facility] [place], [address], 11/15/2023 16:11:19 11/14/19 24 11/15/2023 VITAM IN B12 AND FOLAT E vitamin B12 775 pg/mL 232-12 45 Not Available [facility] ([facility]) [address] [facility], [place], [address], 11/15/2023 16:11:19 11/14/19 24 11/15/2023 VITAM IN B12 AND FOLAT E folate (folic acid), serum 9.7 NG/mL >3.0 A serum folat e bridgette ntrat ion of less than 3.1 ng/mL is consi dered to repre sent clini saranya defic iency . Not Available [facility] ([facility]) [address] [facility], [place], [address], 11/15/2023 16:11:19 11/14/19 24 11/14/2023 PSA TOTAL (REFL EX TO FREE) reflex criteria COMMEN T The perce nt free PSA is perfo rmed on a refle x basis only when the total PSA is betwe en 4.0 and 10.0 ng/mL . Not Available [facility] ([facility]) [address] [place] [place], [address], 11/15/2023 16:11:20 06/28/11/15/2023 PSA TOTAL (REFL EX TO FREE) prostate specific Ag 0.2 NG/mL 0.0-4. 0 Justo ECLIA metho dolog y. Accor roberto to the Ameri can [employer] i[employer] n, Serum PSA shoul d decre ase and remai n at undet ectab le level s after radic al prost atect carlos a. The AUA defin es bioch emica l recur rence as an initi al PSA value 0.2 ng/mL or great er follo wed by a subse quent confi rmato ry PSA value 0.2 ng/mL or great er. Value s obtai sari with diffe rent assay metho ds or kits canno t be used inter moore eajulio . Resul ts canno t be inter prete d as absol [facility] [place] evide nce of the prese nce or absen ce of ebony gonzalez se. Not Available [facility] ([facility]) [address] [place], [address], 11/15/2023 16:11:20 11/14/19 24 11/14/2023 PLEAS E NOTE please note Commen t The date and/o r time of colle ction was not indic ated on the requi sitio n as requi red by state and [place] al law. The date of recei pt of the speci men was used as the colle ction date if not suppl ied. Not Available [facility] ([facility]) [address] [place], [address], 11/15/2023 16:11:20 12/09/19 24 12/10/2023 CBC WITH DIFFE RENTI AL/PL ATELE T WBC 10.1 x10e3 /uL 3.4-10 .8 normal Not Available [facility] ([facility]) [address] [place], [address], 12/10/2023 06:38:09 12/09/19 24 12/10/2023 CBC WITH DIFFE RENTI AL/PL ATELE T RBC 4.63 x10e6 /uL 4.14-5 .80 normal Not Available [facility] ([facility]) [address] [place], [address], 12/10/2023 06:38:09 12/09/19 24 12/10/2023 CBC WITH DIFFE RENTI AL/PL ATELE T hemoglobin 14.1 g/dL 13.0-1 7.7 normal Not Available [facility] ([facility]) [address] [place], [address], 12/10/2023 06:38:09 12/09/19 24 12/10/2023 CBC WITH DIFFE RENTI AL/PL ATELE T hematocrit 43.2 % 37.5-5 1.0 normal Not Available [facility] ([facility]) [address] [place], [address], 12/10/2023 06:38:09 12/09/19 24 12/10/2023 CBC WITH DIFFE RENTI AL/PL ATELE T MCV 93 fL 79-97 normal Not Available [facility] ([facility]) [address] [place], [address], 12/10/2023 06:38:09 12/09/19 24 12/10/2023 CBC WITH DIFFE RENTI AL/PL ATELE T MCH 30.5 pg 26.6-3 3.0 normal Not Available [facility] ([facility]) [address] [place], [address], 12/10/2023 06:38:09 12/09/19 24 12/10/2023 CBC WITH DIFFE RENTI AL/PL ATELE T MCHC 32.6 g/dL 31.5-3 5.7 normal Not Available [facility] ([facility]) [address] [place], [address], 12/10/2023 06:38:09 12/09/19 24 12/10/2023 CBC WITH DIFFE RENTI AL/PL ATELE T RDW 13.7 % 11.6-1 5.4 Not Available [facility] ([facility]) [address] [facility], [place], [address], 12/10/2023 06:38:09 12/09/19 24 12/10/2023 CBC WITH DIFFE RENTI AL/PL ATELE T platelets 384 x10e3 /uL 150-45 0 normal Not Available [facility] ([facility]) [address] [facility], [place], [address], 12/10/2023 06:38:09 12/09/19 24 12/10/2023 CBC WITH DIFFE RENTI AL/PL ATELE T neutrophils 38 % not estab. normal Not Available [facility] ([facility]) [address] [facility], [place], [address], 12/10/2023 06:38:09 12/09/19 24 12/10/2023 CBC WITH DIFFE RENTI AL/PL ATELE T lymphs 44 % not estab. normal Not Available [facility] ([facility]) [address] [facility], [place], [address], 12/10/2023 06:38:09 12/09/19 24 12/10/2023 CBC WITH DIFFE RENTI AL/PL ATELE T monocytes 13 % not estab. normal Not Available [facility] ([facility]) [address] [facility], [place], [address], 12/10/2023 06:38:09 12/09/19 24 12/10/2023 CBC WITH DIFFE RENTI AL/PL ATELE T eos 4 % not estab. normal Not Available [facility] ([facility]) [address] [facility], [place], [address], 12/10/2023 06:38:09 12/09/19 24 12/10/2023 CBC WITH DIFFE RENTI AL/PL ATELE T basos 1 % not estab. normal Not Available [facility] ([facility]) [address] [facility], [place], [address], 12/10/2023 06:38:09 12/09/19 24 12/10/2023 CBC WITH DIFFE RENTI AL/PL ATELE T immature cells CLASS B DRIVER Not Available [facility] ([facility]) [address] [place], [address], 12/10/2023 06:38:09 12/09/19 24 12/10/2023 CBC WITH DIFFE RENTI AL/PL ATELE T neutrophils (absolute) 3.8 x10e3 /uL 1.4-7. 0 normal Not Available [facility] ([facility]) [address] [place], [address], 12/10/2023 06:38:09 12/09/19 24 12/10/2023 CBC WITH DIFFE RENTI AL/PL ATELE T lymphs (absolute) 4.5 x10e3 /uL 0.7-3. 1 above high normal Not Available [facility] ([facility]) [address] [place], [address], 12/10/2023 06:38:09 12/09/19 24 12/10/2023 CBC WITH DIFFE RENTI AL/PL ATELE T monocytes(ab solute) 1.3 x10e3 /uL 0.1-0. 9 above high normal Not Available [facility] ([facility]) [address] [place], [address], 12/10/2023 06:38:09 12/09/19 24 12/10/2023 CBC WITH DIFFE RENTI AL/PL ATELE T eos (absolute) 0.4 x10e3 /uL 0.0-0. 4 normal Not Available [facility] ([facility]) [address] [place], [address], 12/10/2023 06:38:09 12/09/19 24 12/10/2023 CBC WITH DIFFE RENTI AL/PL ATELE T baso (absolute) 0.1 x10e3 /uL 0.0-0. 2 normal Not Available [facility] ([facility]) [address] [facility], [place], [address], 12/10/2023 06:38:09 12/09/19 24 12/10/2023 CBC WITH DIFFE RENTI AL/PL ATELE T immature granulocytes 0 % not estab. Not Available [facility] ([facility]) [address] [facility], [place], [address], 12/10/2023 06:38:09 12/09/19 24 12/10/2023 CBC WITH DIFFE RENTI AL/PL ATELE T immature grans (abs) 0.0 x10e3 /uL 0.0-0. 1 Not Available [facility] ([facility]) [address] [facility], [place], [address], 12/10/2023 06:38:09 12/09/19 24 12/10/2023 CBC WITH DIFFE RENTI AL/PL ATELE T NRBC CLASS B DRIVER Not Available [facility] ([facility]) [address] [facility], [place], [address], 12/10/2023 06:38:09 12/09/1912/10/2023 CBC WITH DIFFE RENTI AL/PL ATELE T hematology comments: CLASS B DRIVER Not Available [facility] ([facility]) [address] [facility], [place], [address], 12/10/2023 06:38:09 07/03/19 24 07/03/2023 XR, foot No observ ation record ed. [email or web address] [facility] [address], [place], [address], 07/04/2023 12:03:14 07/03/19 24 07/03/2023 XR, foot, 3 or more view No observ ation record ed. [email or web address] [facility] [address], [place], [address], 07/04/2023 12:04:44 12/16/19 24 12/16/2023 XR, foot, 3 or more view No observ ation record ed. [address], [place], [address], 12/20/2023 11:46:27 12/17/19 24 12/16/2023 XR, foot, 3 or more view No observ ation record ed. [address], [place], [address], 12/20/2023 11:44:11 04/05/20 24 04/05/2024 XR, wrist + hand No observ ation record ed. [place] [address], [place], [address], 04/06/2024 08:20:15 04/05/20 24 04/05/2024 XR, forea rm, 2 view No observ ation record ed. [address], [place], [address], 04/06/2024 08:20:37 04/05/20 24 04/05/2024 XR, wrist + hand No observ ation record ed. [place] [address], [place], [address], 04/06/2024 08:21:20 04/05/20 24 04/05/2024 imagi ng/di agnos tic resul t No observ ation record ed. [place] [address], [place], [address], 04/06/2024 08:18:07 04/05/20 24 04/05/2024 imagi ng/di agnos tic resul t No observ ation record ed. [address], [place], [address], 04/06/2024 08:17:32 Result Notes None recorded. 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 [id number] Michoacano Chappell MD [address], [facility] [address] , [facility] & [place] 3 13:56:32 Allergic dispositio n [id number] Michoacano Chappell MD [address] [place], [address] , [facility] - [facility] & [place] 3 13:56:32 Muscle spasm of cervical muscle of neck [id number] Michoacano [facility]appell [facility] [address] [facility] [address] , [facility] & [place] 3 13:56:32 Cervical disc disorder [id number] Michoacano Chappell MD [address] [facility] [address] , [facility] - [facility] & [place] 3 13:56:32 Myofascial pain [id number] MD Michael Gloria [facility] [address] , [facility] - [facility] & [place] 3 13:56:32 Chronic pain syndrome [id number] MD Michael Gloria [facility] [address] , [place] 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 35245935 Active Yemi Chappell MD [address] [facility], [place], [address] , [place] - [facility] & [place] 3 13:56:32 Cervical radiculopa thy 09735238 Active Yemi Chappell MD [address] , [place], [address] , [place] - [facility] & [place] 3 13:56:32 Opioid dependence 05893141 Active Yemi Chappell MD [address] , [place], [address] , [place] - [facility] & [place] 3 13:56:32 Hyperlipid emia 12550920 Active Yemi Chappell MD [address] , [place], [address] , [place] - [facility] & [place] 3 13:56:32 Cobalamin deficiency 964138435 Active Yemi Chappell MD [address] , [place], [address] , [place] - [facility] & [place] 3 13:56:32 History of drug dependency 671886944 Active Yemi Chappell MD [address] , [place], [address] , [place] - [facility] & [place] 3 13:56:32 Seasonal allergy 932931248 Active 2022 Yemi Chappell MD [address], [place], [address] , [place] - [facility] - [place] & [place] 14:03:26 Benign prostatic hyperplasi a 881465174 Active 2022 Yemi Chappell MD [address], [place], [address] , [place] - [facility] - [place] & [place] 14:03:21 Problem Notes None recorded. Procedures Surgical History Date Name Laterality Status Provider Name and Address Organization Details Recorded Time 09/17/19 19 Head or Neck Surgery completed Alexia Rothamer [place] - [facility] - [place] & [place] 06/16/2023 16:42:55 08/30/19 16 Vasectomy completed Alexia Rothamer [place] - [facility] [place] & [place] 06/16/2023 16:42:45 05/19/19 11 Colonoscopy completed Alexia Rothamer [place] - [facility] [place] & [place] 06/16/2023 16:41:00 05/19/19 08 ENT Surgery completed Sary Michael [place] - [facility] [place] & [place] 10/21/2022 18:27:38 05/19/19 08 Sinus Surgery completed Sary Michael [place] - [facility] [place] & [place] 10/21/2022 18:27:38 05/19/18 99 Splenectomy completed Sary Michael [place] - [facility] [place] & [place] 10/21/2022 18:27:38 immunological therapy completed Alexia Rothamer [place] - [facility] [place] & [place] 06/16/2023 16:34:00 operation for glaucoma completed Alexia [place]amer [place] [facility] [place] & [place] 06/16/2023 16:41:32 procedure on wrist completed Alexia Rothamer [place] - [facility] [place] & [place] 06/16/2023 16:41:49 excision of lesion of skin completed Alexia [place]amer [place] - [facility] [place] & [place] 06/16/2023 16:42:08 manipulation of displaced nasal septum completed Alexia Rothamer [place] - [facility] [place] & [place] 06/16/2023 16:42:30 Imaging Results Imaging Date Name Status [facility]Modified [facility] Details LastModified Time 07/03/2023 XR, foot completed [address], [place], [address], 07/04/2023 12:03:14 07/03/2023 XR, foot, 3 or more view completed [email or web address] [place] [address], [place], [address], 07/04/2023 12:04:44 12/16/2023 XR, foot, 3 or more view completed [address], [place], [address], 12/20/2023 11:46:27 12/16/2023 XR, foot, 3 or more view completed [address], [place], [address], 12/20/2023 11:44:11 04/05/2024 XR, wrist + hand completed [address], [place], [address], 04/06/2024 08:20:15 04/05/2024 XR, forearm, 2 view completed [place] [address], [place], [address], 04/06/2024 08:20:37 04/05/2024 XR, wrist + hand completed [address], [place], [address], 04/06/2024 08:21:20 04/05/2024 imaging/diag nostic result completed [address], [place], [address], 04/06/2024 08:18:07 04/05/2024 imaging/diag nostic result completed [email or web address] [facility] [address], [place], [address], 04/06/2024 08:17:32 Procedure Notes None recorded. Medical Equipment None Reported. 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 [place] 3 18:02:51 Medications Name Sig Start Date Stop Date Status Note LastModified by Organization Details LastModified Time allergy relf d 12 5-120mg tab TAKE 1 TABLET BY MOUTH TWICE DAILY active Not Available Not Available No t Available Prescriptio n - Change 11/13 completed Not Available Not Available Not Available Prescriptio n - Prior Authorizati on Request 11/13 completed Not Available Not Available Not Available prednisone 10 mg tablet TAKE ONE TABLET BY MOUTH TWICE DAILY FOR FOUR DAYS -- FINISH ALL MEDICINE -- --TAKE WITH FOOD-- 07/01 completed Not Available Not Available Not Available doxycycline hyclate 100 mg capsule TAKE ONE CAPSULE BY MOUTH TWICE DAILY FOR 7 DAYS -- FINISH ALL MEDICINE -- 11/12 completed Not Available Not Available Not Available ketoconazol e 2 % shampoo APPLY 3 TIMES A WEEK TO BODY A WASH IN THE SHOWER. LET SIT FOR 5 MINUTES THEN RINSE. 11/12 completed Not Available Not Available Not Available Zyrtec-D 5 mg-120 mg tablet,exte nded release TAKE 1 TABLET BY MOUTH TWICE DAILY DIRECTED active Not Available Not Available No t Available cetirizine 10 mg tablet TAKE 1 TABLET BY MOUTH ONCE DAILY 11/12 completed Not Available Not Available Not Available azithromyci n 250 mg tablet TAKE 2 TABLETS BY MOUTH ON DAY 1, AND THEN TAKE 1 TABLET BY MOUTH ONCE A DAY ON DAY 2 THROUGH DAY 5 02/26 completed Not Available Not Available Not Available prednisone 20 mg tablet TAKE 1 TABLET BY MOUTH TWICE DAILY FOR 5 DAYS 11/10 completed Not Available Not Available Not Available sulfamethox azole 800 mg-trimetho prim 160 mg tablet TAKE ONE TABLET BY MOUTH TWICE DAILY FOR 10 DAYS -- FINISH ALL MEDICINE -- 11/13 completed Not Available Not Available Not Available tramadol 50 mg tablet TAKE ONE TABLET BY MOUTH FOUR TIMES DAILY MAY CAUSE DROWSINES S 06/28 completed Not Available Not Available Not Available simvastatin 40 mg tablet TAKE ONE TABLET BY MOUTH EVERY DAY active Not Available Not Available No t Available amoxicillin 875 mg tablet TAKE 1 TABLET BY MOUTH TWICE DAILY FOR 10 DAYS 07/01 completed Not Available Not Available Not Available citalopram 20 mg tablet TAKE 1 & 1/2 (ONE & ONE-HALF) TABLETS BY MOUTH ONCE DAILY active Not Available Not Available No t Available triamcinolo ne acetonide 0.025 % topical cream APPLY CREAM TOPICALLY THREE TIMES DAILY FOR 7 DAYS NEEDED FOR ITCHING 11/13 completed Not Available Not Available Not Available imiquimod 5 % topical cream packet Apply A SMALL AMOUNT TO each individua l wart EVERY MORNING 11/13 completed Not Available Not Available Not Available cephalexin 500 mg capsule TAKE 1 CAPSULE BY MOUTH EVERY 6 HOURS FOR 10 DAYS 02/26 completed Not Available Not Available Not Available timolol 0.5 % eye drops 11/13 completed Not Available Not Available Not Available cyanocobala min (vit B-12) 1,000 mcg/mL injection solution INJECT 1 ML EVERY TWO WEEKS DIRECTED 2023 active Not Available Not Available Not Avai lable oseltamivir 75 mg capsule TAKE 1 CAPSULE BY MOUTH TWICE DAILY FOR 5 DAYS 11/12 completed Not Available Not Available Not Available montelukast 10 mg tablet TAKE 1 TABLET BY MOUTH ONCE DAILY active Not Available Not Available No t Available azelastine 137 mcg (0.1 %) nasal spray USE 1 TO 2 SPRAY(S) IN EACH NOSTRIL TWICE DAILY active Not Available Not Available No t Available epinephrine 0.3 mg/0.3 mL injection, auto-inject or INJECT 1 PEN INJECTOR INTRAMUSC ULARLY NEEDED INJECT INTRAMUSC ULARLY INTO OUTER THIGH FOR SEVERE ALLERGIC REACTION, CALL 911 AFTER USE active Not Available Not Available No t Available methylpredn isolone 4 mg tablets in a dose pack TAKE BY MOUTH DIRECTED ON INSIDE OF PACKAGE 07/01 completed Not Available Not Available Not Available albuterol sulfate HFA 90 mcg/actuati on aerosol inhaler INHALE 2 PUFFS BY MOUTH EVERY 4 TO 6 HOURS NEEDED active Not Available Not Available No t Available timolol maleate 0.5 % eye drops instill 1 DROP IN THE RIGHT EYE EVERY MORNING active Not Available Not Available No t Available ondansetron 4 mg disintegrat ing tablet DISSOLVE 1 TABLET IN MOUTH THREE TIMES DAILY NEEDED FOR VOMITING 02/26 completed Not Available Not Available Not Available fluticasone propionate 50 mcg/actuati on nasal spray,suspe nsion USE 2 SPRAY(S) IN EACH NOSTRIL ONCE DAILY active Not Available Not Available No t Available lisinopril 2.5 mg tablet TAKE 1 TABLET BY MOUTH ONCE DAILY 11/10 completed Not Available Not Available Not Available doxycycline hyclate 100 mg tablet 11/10 completed Not Available Not Available Not Available dicyclomine 10 mg capsule TAKE 1 CAPSULE BY MOUTH THREE TIMES DAILY NEEDED FOR CRAMPING 02/26 completed Not Available Not Available Not Available amoxicillin 875 mg-potassiu m clavulanate 125 mg tablet Take 1 tablet every 12 hours by oral route. 2023 active Not Available Not Available Not Avai lable tadalafil 5 mg tablet TAKE 1 TABLET BY MOUTH ONCE DAILY active Not Available Not Available No t Available fenofibrate nanocrystal lized 145 mg tablet TAKE ONE TABLET BY MOUTH EVERY DAY active Not Available Not Available No t Available Gavilyte-C 240 gram-22.72 gram-6.72 gram-5.84 gram oral solution mix DIRECTED AND drink BY MOUTH 8 ounces EVERY 15 minutes UNTIL EMPTY PER office direction s 11/12 completed Not Available Not Available Not Available cyanocobala min (vit B-12) 1,000 mcg/mL injection kit Inject 1 {ml} by injection route. 11/13 completed Not Available Not Available Not Available Vitals Date Recorded Body weight Body temperature Provider N ole and Address Organization Details Last Updated DateTime 07/16/2022 41261.44 g 97.8 [degF] Tanya Cruz [facility] & [place] 07/16/2022 15:02:26 Date Recorded Body weight Body temperature Heart rate Systolic blood pressure Diastolic blood pressure Provider Name and Address Organization Details Last Updated DateTime 11/13/2022 53348.4 2 g 98.1 [degF] 67 /min 139 mm[Hg] 91 mm[Hg] [facility] & [place] 3 13:43:34 Date Recorded Body weight Body temperature Heart rate Systolic blood pressure Diastolic blood pressure Provider Name and Address Organization Details Last Updated DateTime 4 89156.2 9 g 97.4 [degF] 81 /min 129 mm[Hg] 83 mm[Hg] Robyn ISLAS [facility] & [place] 4 14:35:44 Date Recorded Body weight Body temperature Heart rate Oxygen saturation Oxygen saturation in Arterial blood by Pulse oximetry Systolic blood pressure Diastolic blood pressure Provider Name and Address Organization Details Last Updated DateTime 4 91358.8 4 g 98.1 [degF] 80 /min 97 % 97 % 134 mm[Hg] 85 mm[Hg] Sary ISLAS [facility] & [place] 4 13:20:55 Social History Question Answer Notes LastModified by Organizat ion Details LastModified Time Tobacco Smoking Status Current Every Day Smoker Sary Rodriguez [facility], [place] [facility] & [place] 10/21/2022 18:27:31 Do You Have An Advance Directive? No [email or web address] Information not available 10/21/2022 What Is Your Level Of Alcohol Consumption? None [email or web address] Information not available

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
[2024-04-12] MEDS: OXYCODONE 5MG IMMEDIATE RELEASE TABLET 5 MG PO (13:12)
[2024-04-12 13:45] VITALS: BP 130/89; PULSE 68; RESP 18; TEMP 36.6
== END 2024-04-12 13:46 | disposition home or self-care (01) ==
PROVIDERS: Emergency Provider Student in an Organized Health Care Education/Training Program; PCP Pediatrics
DX: S20.219A Contusion of unspecified front wall of thorax, initial encounter (principal); R07.89 Other chest pain; M79.651 Pain in right thigh; R07.82 Intercostal pain; M25.512 Pain in left shoulder; V86.99XA Unspecified occupant of other special all-terrain or other off-road motor vehicle injured in nontraffic accident, initial encounter
CPT/HCPCS: 71250; 99284

== ENCOUNTER 2024-06-02 10:13 | Outpatient (CLI) | payer MEDICARE, MEDICAID, SELFPAY ==
[2024-06-02 11:56] LABS: 25-OH Vitamin D, Total 50.3 ng/mL (30-100)
[2024-06-05 15:18] LABS: Immunoglobulin E, Total 276 IU/mL (6-495)
== END 2024-06-02 23:59 | disposition home or self-care (01) ==
LOC: LAB 10:14
PROVIDERS: PCP Pediatrics; Visit Provider Allergy & Immunology
DX: J45.20 Mild intermittent asthma, uncomplicated (principal); E55.9 Vitamin D deficiency, unspecified; Z91.018 Allergy to other foods
CPT/HCPCS: 36415; 82306; 82785

== ENCOUNTER 2024-06-05 14:20 | Emergency (ER) | payer MEDICARE, MEDICAID, SELFPAY ==
[2024-06-05 14:30] VITALS: BP 118/88; PULSE 78; RESP 19; TEMP 36.7; O2SAT 98; BMI 27.6
--- NOTE | 2024-06-05 15:31 | EXP.UTC ---
Discharge Plan Disposition Patient Disposition: Home, Self-Care Condition: Good Prescriptions Prescriptions: New dicyclomine 20 mg tablet 20 mg PO QID PRN (Reason: abdominal pain) Qty: 40 0RF No Action simvastatin 40 mg tablet 40 mg PO DAILY Patient Comments: TAKE ONE TABLET BY MOUTH EVERY DAY montelukast 10 mg tablet 10 mg PO DAILY Patient Comments: TAKE 1 TABLET BY MOUTH ONCE DAILY AT NIGHT timolol maleate 0.5 % drops 1 drp Eye-Both AM Patient Comments: instill 1 DROP IN EACH EYE EVERY MORNING tadalafil 5 mg tablet 5 mg PO DAILY Patient Comments: TAKE 1 TABLET BY MOUTH ONCE DAILY fenofibrate nanocrystallized 145 mg tablet 145 mg PO DAILY Patient Comments: TAKE ONE TABLET BY MOUTH EVERY DAY amoxicillin-pot clavulanate 875-125 mg Tablet 1 tab PO Q12H Qty: 20 0RF citalopram 20 mg tablet 30 mg PO DAILY Patient Comments: TAKE 1 & 1/2 (ONE & ONE-HALF) TABLETS BY MOUTH ONCE DAILY lisinopril 10 mg tablet 10 mg PO DAILY Patient Comments: TAKE 1 TABLET BY MOUTH ONCE DAILY Referrals Follow up/Referrals: Yemi Chappell [Primary Care Provider] - See instructions Activity Restrictions/Add. Instructions Additional Instructions/Restrictions: Bring back stool sample and order sheet for Diarrhea 23 pane, C-diff PCR with next bowel movement. Increase fluids with a bottle a day of electrolyte drink. If symptoms persist or worsen, go to PCP/clinic. Clinical Impressions Clinical Impression: Diarrhea in adult patient Instructions Patient Instructions: Diarrhea, Clostridium difficile Infection Print Language Print Language: Spanish Discharge ED Provider: Corina Bedolla [facility] General Stated complaint: abd pain, diarrhea - exposure to Cdiff Mode of Arrival: Ambulatory Source of Information: Patient Limitations: No Limitations Time Seen by Provider: 06/05/24 15:30 Description of Symptoms (Recalled from Triage Doc. by RN): PATIENT C/O STOMACH CRAMPS X 3 DAYS HEENT Symptoms (Recalled from RN notes): No Resp Symptoms (Recalled from RN notes): No Skin Symptoms (Recalled from RN notes): No MS Symptoms (Recalled from RN notes): No Functional Status (Recalled from RN notes): WNL History of Present Illness Provider Complaint: Pt reports that he has had stomach cramps with watery diarrhea 3-4 times a day for the past 3 days. He states that his mother has had c-diff and he is concerned that he may have gotten that from her. Related Data Home Medications ?Medication ?Instructions ?Recorded ?Confirmed fenofibrate nanocrystallized 145 145 mg PO DAILY 02/27/24 06/05/24 mg tablet montelukast 10 mg tablet 10 mg PO DAILY 02/27/24 06/05/24 simvastatin 40 mg tablet 40 mg PO DAILY 02/27/24 06/05/24 tadalafil 5 mg tablet 5 mg PO DAILY 02/27/24 02/27/24 timolol maleate 0.5 % eye drops 1 drp Eye-Both AM 02/27/24 06/05/24 citalopram 20 mg tablet 30 mg PO DAILY 06/05/24 06/05/24 lisinopril 10 mg tablet 10 mg PO DAILY 06/05/24 06/05/24 Previous Rx's ?Medication ?Instructions ?Recorded amoxicillin 875 mg-potassium 1 tab PO Q12H #20 tabs 02/27/24 clavulanate 125 mg tablet dicyclomine 20 mg tablet 20 mg PO QID PRN abdominal pain 06/05/24 #40 tabs Allergies Allergy/AdvReac Type Severity Reaction Status Date / Time tree nut (TREE NUT) Allergy Intermediate Verified 12/16/23 10:21 latex (LATEX) Allergy Unknown Verified 12/16/23 10:21 Worker's Comp Is this a Worker's Comp case?: No [facility] Disclaimer: The information contained in this section may have been updated after the patient was seen, as this information can be updated by other users. Medical History Allergic rhinitis Anxiety Hyperlipidemia Tobacco abuse Surgical History No significant past surgical history Family History Other No significant family history Social History (Updated 04/12/24 @ 13:45 by Layla Sahu MD) Smoking Status: Current every day smoker tobacco type: cigarettes packs per day: 1 alcohol intake: never substance use type: denies use current occupational status: other Travel in the last 8 weeks: None household members: family Have you lived/traveled outside US in past 30 days?: No Contact w/someone who lives/traveled outside US past 30 days?: No Exposure to someone with infectious disease in past 14 days?: No Do you have a fever (greater than 100.4 F or 38 C)?: No Have you tested positive for COVID-19: No Exposed to someone with COVID-19 in past 14 days?: No Do you have a sore throat?: No Do you have a cough?: No Do you have any weakness?: No Do you have any diarrhea?: No Are you experiencing any unusual bleeding?: No Do you have any muscle aches/pain?: No Do you have any abdominal pain?: No Are you experiencing loss of taste or smell?: No ROS Obtained: Yes All systems reviewed & no additional complaints except as documented Constitutional Constitutional: Reports system reviewed and no additional complaints, except as documented Eyes Eyes: Reports system reviewed and no additional complaints, except as documented ENT Ears, Nose, Mouth, and Throat: Reports system reviewed and no additional complaints, except as documented Cardiovascular Cardiovascular: Reports system reviewed and no additional complaints, except as documented Respiratory Respiratory: Reports system reviewed and no additional complaints, except as documented Gastrointestinal Gastrointestingal: Reports system reviewed and no additional complaints, except as documented, abdominal pain, cramping and diarrhea Genitourinary Male Genitourinary: Reports system reviewed and no additional complaints, except as documented Musculoskeletal Musculoskeletal: Reports system reviewed and no additional complaints, except as documented Integumentary/Breasts Skin/Breast: Reports system reviewed and no additional complaints, except as documented Neurologic Neurologic: Reports system reviewed and no additional complaints, except as documented Endocrine Endocrine: Reports system reviewed and no additional complaints, except as documented Hematologic/Lymphatic Henatologic/Lymphatic: Reports system reviewed and no additional complaints, except as documented Allergic/Immunologic Allergic/Immunologic: Reports system reviewed and no additional complaints, except as documented Physical Exam General General appearance: alert and in no apparent distress Head Head exam: atraumatic and normocephalic Eye Eye exam: Present normal appearance ENT ENT exam: Present normal exam, normal oropharynx and mucous membranes moist Neck Neck exam: Present normal inspection Chest Chest inspection: Present normal inspection and symmetric chest wall rise Respiratory Respiratory exam: Present normal lung sounds bilaterally Cardiovascular Cardiovascular exam: Present regular rate, normal rhythm and normal heart sounds Abdominal Exam Abdominal exam: Present soft and normal bowel sounds; Absent distention, tenderness or guarding Extremities Exam Extremities exam: Present normal inspection Back Exam Back exam: Present normal inspection Neurological Exam Neurological exam: Present alert and oriented X3 Psychiatric Psychiatric exam: Present normal affect and normal mood Skin Skin exam: Present warm, dry and intact Lymphatic Lymphatic Findings: no adenopathy Medical Decision Making Medical Records Screening: Per USPSTF and CDC recommendations, given the prevalence of disease in our region, it is our hospital?s policy to screen for HIV and viral Hepatitis for all patients aged 18 and over and those with ongoing risk factors. Dave Inquiry Pt receiving controlled substance: No Dave was queried for this patient: No Vital Signs: 06/05/24 14:30 Temperature 98.0 F Temperature Source Oral Pulse Rate [Left Brachial] 78 Respiratory Rate 19 Blood Pressure [Left Arm] 118/88 Blood Pressure Mean [Left Arm] 98 Blood Pressure Source [Left Arm] Automatic Cuff Blood Pressure Position [Left Arm] Sitting 02 Sat by Pulse Oximetry 98 Oxygen Delivery Method Room Air
[2024-06-05 15:42] VITALS: BP 118/88; PULSE 78; RESP 19; TEMP 36.7; O2SAT 98
== END 2024-06-05 15:50 | disposition home or self-care (01) ==
PROVIDERS: Emergency Provider Nurse Practitioner Family; PCP Pediatrics
DX: R19.7 Diarrhea, unspecified (principal)
CPT/HCPCS: 99213; G0381

== ENCOUNTER 2024-06-06 14:28 | Outpatient (CLI) | payer MEDICARE, MEDICAID, SELFPAY ==
[2024-06-06 14:43] LABS: Adenovirus F 40/41, stool Not Detected (NotDetected); Astrovirus Not Detected (NotDetected); Campylobacter Not Detected (NotDetected); Clostridium Difficile A/B, PCR Not Detected (NotDetected); Cryptosporidium Not Detected (NotDetected); Cyclospora Cayetanesis Not Detected (NotDetected); Entamoeba histolytica Not Detected (NotDetected); Enteroaggregative E coli Not Detected (NotDetected); Enterotoxigenic E coli Not Detected (NotDetected); Giardia lamblia Not Detected (NotDetected); Norovirus Not Detected (NotDetected); Plesimonas Shigalloides, PCR Not Detected (NotDetected); Rotavirus A Not Detected (NotDetected); Salmonella, PCR Not Detected (NotDetected); Sapovirus Not Detected (NotDetected); Shiga-like toxin E coli Not Detected (NotDetected); Shigella Enterovasive E coli Not Detected (NotDetected); Vibrio Cholerae Not Detected (NotDetected); Vibrio, PCR Not Detected (NotDetected); Yersinia Entercolitica, PCR Not Detected (NotDetected)
[2024-06-06 18:39] LABS: Enteropathogenic E coli Detected (NotDetected)
--- NOTE | 2024-06-06 20:00 | PC.NURSE ---
PATIENT NOTIFIED OF DIARRHEA PANEL RESULTS BY Florencio GAMA APRN AT THIS TIME
== END 2024-06-06 23:59 | disposition home or self-care (01) ==
LOC: LAB 14:29
PROVIDERS: PCP Pediatrics; Visit Provider Nurse Practitioner Family
DX: R19.7 Diarrhea, unspecified (principal)
CPT/HCPCS: 87507

== ENCOUNTER 2024-09-02 11:37 | Outpatient (CLI) | payer MEDICARE, MEDICAID, SELFPAY ==
[2024-09-02 15:32] LABS: Coronavirus 19, PCR Not Detected (NotDetected); Human Rhinovirus Not Detected (NotDetected); Influenza A, PCR Not Detected (NotDetected); Influenza B, PCR Not Detected (NotDetected); Respiratory Syncytial Virus Not Detected (NotDetected)
--- OUTSIDE RECORDS SUMMARY | 2024-09-03 11:38 | XMS_ITS | Data Portability ---
Author Organization JANEL YANY [facility]OS[facility] Address [address] [place] [address] Care Team Providers Care Detective Lieutenant Name Role Phone FANNY ROBERTS Primary Care Provider Assessment No assessment recorded. Plan of Treatment Reminders Order Date Submit Date Provider Last Modified By Organization Details Last Modified Time Details Appointments RECHECK 2025 01:15P M DORINA BURROUGHS MD Not available Not available Not available Lab PSA, serum or plasma 2024 025 [email or web address] [facility], [address], [address], [place], [address], 06/12/2024 14:30:14 urinalysi s panel, auto 2021 022 [email or web address] [facility], [address], [address], [place], [address], 03/25/2022 11:31:37 urinalysi s panel, auto 2020 021 [email or web address] [facility], [address], [address], [place], [address], 02/27/2021 15:08:07 urinalysi s panel, auto 2020 021 [facility], [address], [address], [place], [address], 12/11/2020 11:57:27 PSA, serum or plasma 2020 021 [email or web address] [facility], [address], [address], [place], [address], 12/11/2020 11:57:27 Referral None recorded. Procedures None recorded. Surgeries None recorded. Imaging None recorded. Medication Orders tadalafil 5 mg tablet 2024 025 [facility], [address], [address], 06/09/2024 14:47:40 tadalafil 5 mg tablet 2022 023 [facility], [address], [address], 05/01/2023 23:04:49 tadalafil 5 mg tablet 2021 022 [facility], [address], [address], 03/25/2022 11:31:45 Bactrim DS 800 mg-160 mg tablet [address] [facility], [address], [address], 02/27/2021 14:28:31 tadalafil 5 mg tablet 2020 021 [facility], [address], [address], 12/11/2020 11:57:37 Patient TargetsNo targets recorded. Patient Instructions Encounter Date Encounter Id Patient Instructions Last Modified By Organization Details Last Modified Time 02/27/2021 [id number] learning about healthy weight [email or web address] Not available 02/27/2021 15:08:07 Reason for Referral None Reported. Results Created Date Observation Date Name Description Value Unit Range Abnormal Flag Note LastModifiedBy Organization Detail LastModifiedTime 02/28/2002/27/2021 urina lysis panel , auto Unknown Analyte Clean Catch Not Available [facility] [address], [place], [address], 02/27/2021 14:29:00 02/28/2002/27/2021 urina lysis panel , auto Unknown Analyte Yellow Not Available [facility] [address], [place], [address], 02/27/2021 14:29:00 02/28/2002/27/2021 urina lysis panel , auto Unknown Analyte Slight ly Hazy Not Available [facility] [address], [place], [address], 02/27/2021 14:29:00 02/28/2002/27/2021 urina lysis panel , auto Unknown Analyte 1.010 Not Available [facility] [address], [place], [address], 02/27/2021 14:29:00 02/28/20 21 02/27/2021 urina lysis panel , auto Unknown Analyte 1.003- 1.035 Not Available [facility] [address], [place], [address], 02/27/2021 14:29:00 02/28/20 21 02/27/2021 urina lysis panel , auto Unknown Analyte 7.0 Not Available [facility] [address], [place], [address], 02/27/2021 14:29:00 02/28/20 21 02/27/2021 urina lysis panel , auto Unknown Analyte 5.0-8. 0 Not Available [facility] [address], [place], [address], 02/27/2021 14:29:00 02/28/2002/27/2021 urina lysis panel , auto Unknown Analyte 75 Christianne/ul (+) Not Available [facility] [address], [place], [address], 02/27/2021 14:29:00 02/28/20 21 02/27/2021 urina lysis panel , auto Unknown Analyte Negati ve Not Available [facility] [address], [place], [address], 02/27/2021 14:29:00 02/28/2002/27/2021 urina lysis panel , auto Unknown Analyte Negati ve Not Available [facility] [address], [place], [address], 02/27/2021 14:29:00 02/28/2002/27/2021 urina lysis panel , auto Unknown Analyte Negati ve Not Available [facility] [address], [place], [address], 02/27/2021 14:29:00 02/28/20 21 02/27/2021 urina lysis panel , auto Unknown Analyte Negati ve Not Available [facility] [address], [place], [address], 02/27/2021 14:29:00 02/28/20 21 02/27/2021 urina lysis panel , auto Unknown Analyte Negati ve Not Available [facility] [address], [place], [address], 02/27/2021 14:29:00 02/28/2002/27/2021 urina lysis panel , auto Unknown Analyte Normal Not Available [facility] [address], [place], [address], 02/27/2021 14:29:00 02/28/20 21 02/27/2021 urina lysis panel , auto Unknown Analyte Normal Not Available [facility] [address], [place], [address], 02/27/2021 14:29:00 02/28/2002/27/2021 urina lysis panel , auto Unknown Analyte 15 mg/dl (Sm) Not Available [facility] [address], [place], [address], 02/27/2021 14:29:00 02/28/2002/27/2021 urina lysis panel , auto Unknown Analyte Negati ve Not Available [facility] [address], [place], [address], 02/27/2021 14:29:00 02/28/2002/27/2021 urina lysis panel , auto Unknown Analyte 1 mg/dl Not Available [facility] [address], [place], [address], 02/27/2021 14:29:00 02/28/20 21 02/27/2021 urina lysis panel , auto Unknown Analyte Normal 1 mg/dl Not Available [facility] [address], [place], [address], 02/27/2021 14:29:00 02/28/20 21 02/27/2021 urina lysis panel , auto Unknown Analyte Negati ve Not Available [facility] [address], [place], [address], 02/27/2021 14:29:00 02/28/20 21 02/27/2021 urina lysis panel , auto Unknown Analyte Negati ve Not Available [facility] [address], [place], [address], 02/27/2021 14:29:00 02/28/2002/27/2021 urina lysis panel , auto Unknown Analyte Negati ve Not Available [facility] [address], [place], [address], 02/27/2021 14:29:00 02/28/20 21 02/27/2021 urina lysis panel , auto Unknown Analyte Negati ve Not Available [facility] [address], [place], [address], 02/27/2021 14:29:00 12/12/19 21 12/11/2020 urina lysis panel , auto Unknown Analyte Clean Catch Not Available [facility] [address], [place], [address], 12/11/2020 11:04:19 12/12/19 21 12/11/2020 urina lysis panel , auto Unknown Analyte Yellow Not Available [facility] [address], [place], [address], 12/11/2020 11:04:19 12/12/19 21 12/11/2020 urina lysis panel , auto Unknown Analyte Clear Not Available [facility] [address], [place], [address], 12/11/2020 11:04:19 12/12/19 21 12/11/2020 urina lysis panel , auto Unknown Analyte 1.015 Not Available [facility] [address], [place], [address], 12/11/2020 11:04:19 12/12/19 21 12/11/2020 urina lysis panel , auto Unknown Analyte 1.003- 1.035 Not Available [facility] [address], [place], [address], 12/11/2020 11:04:19 12/12/1912/11/2020 urina lysis panel , auto Unknown Analyte 6.0 Not Available [facility] [address], [place], [address], 12/11/2020 11:04:19 12/12/19 21 12/11/2020 urina lysis panel , auto Unknown Analyte 5.0-8. 0 Not Available [facility] [address], [place], [address], 12/11/2020 11:04:19 12/12/19 21 12/11/2020 urina lysis panel , auto Unknown Analyte 25 Christianne/ul Trace Not Available [facility] [address], [place], [address], 12/11/2020 11:04:19 12/12/19 21 12/11/2020 urina lysis panel , auto Unknown Analyte Negati ve Not Available [facility] [address], [place], [address], 12/11/2020 11:04:19 12/12/19 21 12/11/2020 urina lysis panel , auto Unknown Analyte Negati ve Not Available [facility] [address], [place], [address], 12/11/2020 11:04:19 12/12/19 21 12/11/2020 urina lysis panel , auto Unknown Analyte Negati ve Not Available [facility] [address], [place], [address], 12/11/2020 11:04:19 12/12/1912/11/2020 urina lysis panel , auto Unknown Analyte Negati ve Not Available [facility] [address], [place], [address], 12/11/2020 11:04:19 12/12/19 21 12/11/2020 urina lysis panel , auto Unknown Analyte Negati ve Not Available [facility] [address], [place], [address], 12/11/2020 11:04:19 12/12/19 21 12/11/2020 urina lysis panel , auto Unknown Analyte Normal Not Available [facility] [address], [place], [address], 12/11/2020 11:04:19 12/12/19 21 12/11/2020 urina lysis panel , auto Unknown Analyte Normal Not Available [facility] [address], [place], [address], 12/11/2020 11:04:19 12/12/19 21 12/11/2020 urina lysis panel , auto Unknown Analyte 15 mg/dl (Sm) Not Available [facility] [address], [place], [address], 12/11/2020 11:04:19 12/12/19 21 12/11/2020 urina lysis panel , auto Unknown Analyte Negati ve Not Available [facility] [address], [place], [address], 12/11/2020 11:04:19 12/12/19 21 12/11/2020 urina lysis panel , auto Unknown Analyte 4 mg/dl Not Available [facility] [address], [place], [address], 12/11/2020 11:04:19 12/12/19 21 12/11/2020 urina lysis panel , auto Unknown Analyte Normal 1 mg/dl Not Available [facility] [address], [place], [address], 12/11/2020 11:04:19 12/12/19 21 12/11/2020 urina lysis panel , auto Unknown Analyte 1 mg/dl (+) Not Available [facility] [address], [place], [address], 12/11/2020 11:04:19 12/12/19 21 12/11/2020 urina lysis panel , auto Unknown Analyte Negati ve Not Available [facility] [address], [place], [address], 12/11/2020 11:04:19 12/12/19 21 12/11/2020 urina lysis panel , auto Unknown Analyte Negati ve Not Available [facility] [address], [place], [address], 12/11/2020 11:04:19 12/12/19 21 12/11/2020 urina lysis panel , auto Unknown Analyte Negati ve Not Available [facility] [address], [place], [address], 12/11/2020 11:04:19 12/12/19 21 12/11/2020 PSA, serum or plasm a PSA 0.15 NG/mL 0.0 - 4.0 Not Available [facility] [address], [place], [address], 12/11/2020 11:54:23 03/25/20 22 03/25/2022 urina lysis panel , auto Unknown Analyte Clean Catch Not Available [facility] [address], [place], [address], 03/25/2022 11:15:32 03/25/20 22 03/25/2022 urina lysis panel , auto Unknown Analyte Yellow Not Available [facility] [address], [place], [address], 03/25/2022 11:15:32 03/25/20 22 03/25/2022 urina lysis panel , auto Unknown Analyte Clear Not Available [facility] [address], [place], [address], 03/25/2022 11:15:32 03/25/20 22 03/25/2022 urina lysis panel , auto Unknown Analyte 1.020 Not Available [facility] [address], [place], [address], 03/25/2022 11:15:32 03/25/20 22 03/25/2022 urina lysis panel , auto Unknown Analyte 6.5 Not Available [facility] [address], [place], [address], 03/25/2022 11:15:32 03/25/20 22 03/25/2022 urina lysis panel , auto Unknown Analyte 25 Christianne/ul Trace Not Available [facility] [address], [place], [address], 03/25/2022 11:15:32 03/25/2003/25/2022 urina lysis panel , auto Unknown Analyte Negati ve Not Available [facility] [address], [place], [address], 03/25/2022 11:15:32 11/07/20 22 03/25/2022 urina lysis panel , auto Unknown Analyte Negati ve Not Available [facility] [address], [place], [address], 03/25/2022 11:15:32 03/25/20 22 03/25/2022 urina lysis panel , auto Unknown Analyte Normal Not Available [facility] [address], [place], [address], 03/25/2022 11:15:32 03/25/2003/25/2022 urina lysis panel , auto Unknown Analyte Negati ve Not Available [facility] [address], [place], [address], 03/25/2022 11:15:32 03/25/20 22 03/25/2022 urina lysis panel , auto Unknown Analyte 4 mg/dl Not Available [facility] [address], [place], [address], 03/25/2022 11:15:32 03/25/20 22 03/25/2022 urina lysis panel , auto Unknown Analyte 1 mg/dl (+) Not Available [facility] [address], [place], [address], 03/25/2022 11:15:32 03/25/2003/25/2022 urina lysis panel , auto Unknown Analyte Negati ve Not Available [facility] [address], [place], [address], 03/25/2022 11:15:32 03/26/20 22 03/26/2022 PSA, serum or plasm a PSA 0.16 NG/mL 0.0 - 4.0 Not Available [facility] [address], [place], [address], 03/26/2022 08:18:10 06/09/19 25 06/09/2024 PSA, serum or plasm a PSA 0.38 NG/mL 0.0 - 4.0 Not Available [facility] [address], [place], [address], 06/09/2024 14:59:13 Result Notes None recorded. Procedures Surgical History Date Name Laterality Status Provider Name and Address Organization Details Recorded Time 12/31/19 19 Interpretation completed JUAN VELÁSQUEZ PA-C [address] [place] [address], [address], [facility] 12/30/2018 15:20:01 operation for glaucoma completed [facility] 07/24/2018 10:16:38 Other completed [facility] 07/24/2018 10:16:57 Other completed [facility] 07/24/2018 10:17:24 Imaging Results None recorded. Procedure Notes None recorded. Medical Equipment None Reported. Allergies Allergen ID Allergen Name Allergen Category Reaction Reaction Severity Criticality Documentation Date Start Date Code Code System Note Provider Name and Address Organization Details Recorded Time [id number] latex environme nt,medica tion Not available Not available Not available 07/24/2018 84789 [id number] [facility] 10:[facility]:05 Medications Name Sig Start Date Stop Date Status Note LastModified by Organization Details LastModified Time aspirin 81 mg tablet,evans yed release Take 1 tablet every day by oral route. active Not Available Not Available No t Available Viagra 100 mg tablet As needed 03/25 completed Instruc tions: 1/2 to 1 tab as needed for ED;Freq uency: prn;Med ication Descrip tion: sildena charisma; Dosage: 1; Route:o ral; refills :11; Quantit y:10 tablet Not Available Not Available Not Available Knox 7.5 mg-325 mg tablet Take 1 tablet every 6 hours by oral route. 12/11 completed Not Available Not Available Not Available Knox 5 mg-325 mg tablet Take 1 tablet every 6 hours by oral route. 12/11 completed Not Available Not Available Not Available Bactrim DS 800 mg-160 mg tablet Take 1 tablet every 12 hours by oral route. 02/27 completed Not Available Not Available Not Available cyclobenzap rine 5 mg tablet 1 to 2 tabs q8hr, prn 2018 active Not Available Not Available Not Avai lable tadalafil 5 mg tablet Take 1 tablet by mouth once daily 2024 active Not Available Not Available Not Avai lable Zocor active Not Available Not Availa ble Not Available Singulair active Not Available Not Cici ilable Not Available Nasacort active Not Available Not Avai lable Not Available Celexa active Not Available Not Availa ble Not Available timolol active Not Available Not Avail able Not Available Zyrtec-D active Not Available Not Avai lable Not Available Vitals Date Recorded Body height Body mass index (BMI) Body weight Provider Name and Address Organization Details Last Updated DateTime 12/11/2020 175.26 cm 29.1 kg/m2 89894.7 g [facility] 12/11/2020 11:03:22 Date Recorded Body height Body mass index (BMI) Body weight Provider Name and Address Organization Details Last Updated DateTime 02/27/2021 175.26 cm 29.1 kg/m2 01566.7 g Bryanjuancarlos [facility] 02/27/2021 14:28:26 Date Recorded Body height Body mass index (BMI) Body weight Provider Name and Address Organization Details Last Updated DateTime 03/25/2022 175.26 cm 24.4 kg/m2 51484.74 g Jesus Crisostomo [facility] 03/25/2022 11:26:46 Date Recorded Body height Body mass index (BMI) Body weight Provider Name and Address Organization Details Last Updated DateTime 04/30/2023 175.26 cm 24.4 kg/m2 11952.74 g Akila Jesse [facility] 04/30/2023 13:56:47 Date Recorded Body height Body mass index (BMI) Body weight Provider Name and Address Organization Details Last Updated DateTime 06/09/2024 175.26 cm 24.4 kg/m2 17863.74 g Paula Charles [facility] 06/09/2024 14:19:49 Social History Question Answer Notes LastModified by Organizat ion Details LastModified Time Tobacco Smoking Status Current Every Day Sm[facility] 07/24/2018 10:15:53 What Is Your Level Of Alcohol Consumption? None Information not available 07/24/2018 How Much Tobacco Do You Chew? None Information not available 07/24/2018 What Is Your Occupation? Disabled Information not available 07/24/2018 Marital Status Single Informatio n not available 07/24/2018 What Was The Date Of Your Most Recent Tobacco Screening? 03/25/2022 [email or web address] Information not available 03/25/2022 Has Tobacco Cessation Counseling Been Provided? Yes Information not available 07/24/2018 On What Date Was Tobacco Cessation Counseling Provided? 12/11/2020 [email or web address] Information not available 12/11/2020 Sex: Male Functional Status None recorded. Mental Status None recorded. Family History Relationship Description Onset Age of this Age Resolved Age Notes LastModified by Organization Details LastModified Time Mother Family history of malignant neoplasm Breast Not available 2018 10:15:40 Maternal Aunt Family history of malignant neoplasm Liver Not available 2018 10:15:40 Medical History Condition Response Glaucoma Y Depression Y Arthritis Y Past Encounters Encounter ID Performer Location Encounter Start Date Encounter Closed Date Diagnosis/Indication Diagnosis SNOMED-CT Code Diagnosis ICD10 Code Diagnosis Note [id number] DORINA BURROUGHS MD [facility] [address] [place] [address] 07/24/2018 09:13:31 07/24/2018 10:11:57 Human papilloma virus infection 914870000 B97.7 we will arrange for CO2 laser fulguratio n of multiple genital condyloma [id number] CASTRO BOYD [facility] [address] [place] [address] 07/29/2018 08:43:01 07/30/2018 10:47:11 Cervical spondylosis without myelopathy [id number] M47.812 -The patient presents with gradual onset of numbness and tingling in his fingers and his toes. No significan t pain component. Underlying right-side d weakness which is unchanged. The MRI of the cervical spine will be reviewed , he forgot imaging and will bring it to us later today. At which time, we will offer a more definitive recommenda tion. History of B12 deficiency . May need an MRI of the lumbar spine for evaluation of these complaints as well. [id number] CASTRO BOYD MD NEUROSURG [facility] [address] [facility] [place] [id number] 08/04/2018 13:24:18 08/10/2018 09:53:13 Spinal stenosis in cervical region with myelopathy [id number] 105 M48.02 -The patient presents for evaluation for cervical stenosis. Severe spinal stenosis at C5-6, 6? 7. C6-7 is more pronounced . Flattening of the spinal cord as a result. The patient has progressiv e numbness and tingling in his hands as well as myelopathi c signs on exam. I have recommende d a two-level ACDF. Discussed, risks, benefits, indication s for this procedure. All questions were answered to his satisfacti on. Plan to proceed in the next couple of weeks. Christiane was present for the conversati on ACDF C5-6,6-7 [id number] DORINA BURROUGHS MD SURGERY SCHEDULE [address] [place] [address] 08/26/2018 09:51:03 08/26/2018 09:53:46 [id number] CASTRO BOYD MD SURGERY SCHEDULE [address] [place] [address] 1 09/07/2018 07:34:23 09/07/2018 07:38:27 [id number] CASTRO BOYD MD NEUROSURG [facility] [address] [place] [id number] 09/30/2018 15:25:42 10/01/2018 12:00:32 Postoperative care [id number] Z48.89 -1 month status post 2 level ACDF. Making expected progress. X-rays are stable. Increase activity as tolerates over the next 4 weeks. Plan repeat x-ray in 3 months. All questions regarding his care were answered. He is happy with his early response to the surgery. [id number] CASTRO BOYD MD NEUROSURG [facility] [address] [place] [id number] 12/30/2018 14:47:26 01/04/2019 16:02:43 Postoperative care [id number] Z48.89 Doing great 4 months postop from an uncomplica altagracia C5-7 ACDF for right radicular arm pain. His incision has healed nicely. Films show a stable fusion and gave him copies of the AP and lateral images to take with him. Very pleased with his progress to surgery. Discussed that he may resume activity as tolerated this point. We'll see him on an as-needed basis going forward. He knows to call with any questions, concerns, new or recurrent symptoms. He is happy with this plan. This been a pleasure participat ing the care of Mr. Gallo. [id number] DORINA BURROUGHS MD [facility] [address] [place] [id number] 12/11/2020 10:42:42 12/11/2020 11:59:24 Benign prostatic hyperplasia with outflow obstruction [id number] N40.1 follow-up 2 months Chronic prostatitis 1990 5009 N41.1 [id number] DORINA BURROUGHS MD [facility] [address] [place] [address] 02/27/2021 14:12:01 02/27/2021 14:53:59 Benign prostatic hyperplasia with outflow obstruction [id number] N40.1 continue above. Follow-up 1 year [id number] MD [facility] [address] [place] [address] 03/25/2022 11:06:38 03/28/2022 10:50:55 Benign prostatic hyperplasia with outflow obstruction [id number] N40.1 continue above. Follow-up 1 year Primary er ectile dysfunction [id number] N52.9 [id number] MD [facility] [address] [place] [address] 04/30/2023 13:18:02 04/30/2023 14:40:24 Benign prostatic hyperplasia with outflow obstruction [id number] N40.1 continue above. Follow-up 1 year [id number] MD [facility] [address] [place] [address] 06/09/2024 14:15:14 06/10/2024 05:29:41 Benign prostatic hyperplasia with outflow obstruction [id number] N40.1 continue above. Follow-up 1 year Health Concerns Section Related Observation LastModified by Organization Detai ls LastModified Time None Recorded Concern Status LastModified by Organization Details LastModified Time None Recorded Advance Directives Directive None Recorded Payers Encounter Date Sequence Insurance Name Policy Number Policy Conteh Covered Member ID Conteh Member ID Guarantor Name 12/11/2020 1 [place] H[place] [id number] Yonathan Gallo [id number] Yonathan Gallo 02/27/2021 1 [place] [id number] Yonathan Gallo [id number] Yonathan Gallo 03/25/2022 2 MEDICAID-[facility] - FFS/TRADITIONA L Yonathan Gallo [id number] Yonathan Gallo 03/25/2022 1 [place] [id number] Yonathan Gallo [id number] Yonathan Gallo 04/30/2023 2 MEDICAID-[facility] - FFS/TRADITIONA L Yonathan Rich Sabino [id number] Yonathan Rich Sabino 04/30/2023 1 [place] [facility] [id number] Yonathan Burrwoslan [id number] Yonathan Rich Sabino 06/09/2024 2 MEDICAID-[facility] - FFS/TRADITIONA L Yonathan Rich Sabino [id number] Yonathan Rich Sabino 06/09/2024 1 [place] [id number] Yonathan Rich Sabino [id number] Michael Sabino Notes Date Note Type Note Provider Name and Address Organization Details Recorded Time 12/11/2020 text/html patient is here noted recent issues with obstructive urinary symptoms. He's had slow urination. He has noted however that he has marked improvement if he has taken some older Cialis. His flow seems to resolve. We checked a PSA on him today and it was 0.15. DORINA BURROUGHS MD [address] [place] [address], [phone], [facility] 12/11/2020 11:57:59 02/27/2021 text/html patient is here for 3 month follow-up after starting tadalafil 5 mg daily for obstructive urinary symptoms. He also took Bactrim for 1 month. He has history of BPH as well as chronic prostatitis. he really has no urologic complaints at this time. DORINA BURROUGHS MD [address] [place] [address], [phone], [facility] 02/27/2021 15:08:51 03/25/2022 text/html patient is here follow-up of BPH with lower urinary tract symptoms as well as erectile dysfunction. He takes tadalafil 5 mg nightly with good response on both accounts. He drinks copious fluids in the evening still having nocturia ? 3 but is very satisfied. He has remote history of chronic prostatitis present no flareups in several years. I suggest we obtain a PSA today and continue on current therapy. DORINA BURROUGHS MD [facility] [place], [phone], [facility] 03/25/2022 11:32:30 04/30/2023 text/html Patient is here for yearly follow-up. He has previous history of chronic prostatitis. He also has some obstructive symptoms and has done excellent on tadalafil 5 mg daily. He has PSA at his PCPs office in October of this year was 0.3. DORINA BURROUGHS MD [facility] [place], [phone], [facility] 05/01/2023 23:05:23 06/09/2024 text/html Patient continue s to do well so long as he takes tadalafil daily. He has nocturia x 2. He typically voids with a good stream so long as he takes tadalafil. PSA at last visit was 0.3. PSA today is pending. He would like to continue on current therapy. DORINA BURROUGHS MD [facility] [place], [phone], [facility] 06/12/2024 14:30:17
--- OUTSIDE RECORDS SUMMARY | 2024-09-03 11:38 | XMS_ITS | Data Portability ---
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 [email or web address] Not available 11/13/2022 21:35:51 11/14/2023 11/14/2023 PERSONALIZED [...] Visit will be due in 1 year. [email or web address] Not available 11/14/2023 13:41:23 Plan of Treatment Reminders Order Date Submit Date Provider Last Modified By Organization Details Last Modified Time Details Appointments OV EST 20 2024 01:30P M Yemi Chappell MD Not available Not available Not available Lab CBC w/ auto diff 2023 024 [facility], [address], [address], [place], [address], 12/10/2023 06:38:09 lipid panel, serum 2023 024 [facility], [address], [address], [place], [address], 11/15/2023 16:11:19 CMP, serum or plasma 2023 024 [facility], [address], [address], [place], [address], 11/15/2023 16:11:18 CBC w/ auto diff 2023 024 [facility], [address], [address], [place], [address], 11/15/2023 16:11:18 PSA, serum or plasma 2023 024 [facility], [address], [address], [place], [address], 11/15/2023 16:11:20 vitamin B12 + folate, serum or blood 2023 024 [place], [address], [address], [place], [address], 11/15/2023 16:11:19 lipid panel, serum 2022 023 [facility], [address], [address], [place], [address], 11/14/2022 09:39:14 CMP, serum or plasma 2022 023 [facility], [address], [address], [place], [address], 11/14/2022 09:39:13 CBC w/ auto diff 2022 023 [facility], [address], [address], [place], [address], 11/14/2022 09:39:12 noninvasi ve colorecta l cancer DNA + occult blood screening , QL, stool 2022 023 [place] [email or web address] (Cologuard Orders Only), [address], [address], [place], [address], 11/28/2022 14:36:53 Hepatitis C IgG Ab, qual, serum 2022 023 [facility], [address], [address], [place], [address], 11/14/2022 09:39:17 PSA, total, serum or plasma 2022 023 [facility], [address], [address], [place], [address], 11/14/2022 09:39:18 vitamin B12 + folate, serum or blood 2022 023 [facility], [address], [address], [place], [address], 11/14/2022 09:39:16 HIV 1 + 2, meaningfu l use set 2022 023 [facility], [address], [address], [place], [address], 11/14/2022 09:39:19 Referral None recorded. Procedures None recorded. Surgeries None recorded. Imaging None recorded. Medication Orders lisinopri l 10 mg tablet 2024 025 [facility], [address], [address], 06/30/2024 08:41:14 amoxicill in 875 mg-potass ium clavulana te 125 mg tablet [email or web address] [facility], [address], [address], 05/21/2024 10:19:03 Patient TargetsNo targets recorded. Patient Instructions Encounter Date Encounter Id Patient Instructions Last Modified By Organization Details Last Modified Time 11/13/2022 [id number] advance directives: care instructions [email or web address] Not available 11/13/2022 21:35:52 well visit, over 65: care instructions Not available 11/13/2022 21:35:52 Health Maintenance Recommendations: (5-10 year screening/prevent ion plan) [email or web address] Not available 11/13/2022 14:06:30 11/14/2023 [id number] advance directives: care instructions [email or web address] Not available 11/14/2023 13:48:06 well visit, over 65: care instructions Not available 11/14/2023 13:48:05 Health Maintenance Recommendations: (5-10 year screening/prevent ion plan) [email or web address] Not available 11/14/2023 13:07:58 Reason for Referral None Reported. Results Created Date Observation Date Name Description Value Unit Range Abnormal Flag Note LastModifiedBy Organization Detail LastModifiedTime 11/14/1911/14/2022 CBC WITH DIFFE RENTI AL/PL ATELE T WBC 11.3 x10e3 /uL 3.4-10 .8 above high normal Not Available [facility] ([facility]) [address] [place], [address], 11/14/2022 09:39:11 11/14/1911/14/2022 CBC WITH DIFFE RENTI AL/PL ATELE T RBC 4.86 x10e6 /uL 4.14-5 .80 Not Available [facility] ([facility]) [address] [place], [address], 11/14/2022 09:39:11 11/14/1911/14/2022 CBC WITH DIFFE RENTI AL/PL ATELE T hemoglobin 14.8 g/dL 13.0-1 7.7 Not Available [facility] ([facility]) [address] [place], [address], 11/14/2022 09:39:11 11/14/1911/14/2022 CBC WITH DIFFE RENTI AL/PL ATELE T hematocrit 44.9 % 37.5-5 1.0 Not Available [facility] ([facility]) [address] [place], [address], 11/14/2022 09:39:11 11/14/1911/14/2022 CBC WITH DIFFE RENTI AL/PL ATELE T MCV 92 fL 79-97 Not Available [facility] ([facility]) [address] [place], [address], 11/14/2022 09:39:11 11/14/1911/14/2022 CBC WITH DIFFE RENTI AL/PL ATELE T MCH 30.5 pg 26.6-3 3.0 Not Available [facility] ([facility]) [address] [facility], [place], [address], 11/14/2022 09:39:11 11/14/19 23 11/14/2022 CBC WITH DIFFE RENTI AL/PL ATELE T MCHC 33.0 g/dL 31.5-3 5.7 Not Available [facility] ([facility]) [address] [facility], [place], [address], 11/14/2022 09:39:11 11/14/1911/14/2022 CBC WITH DIFFE RENTI AL/PL ATELE T RDW 13.9 % 11.6-1 5.4 Not Available [facility] ([facility]) [address] [facility], [place], [address], 11/14/2022 09:39:11 11/14/1911/14/2022 CBC WITH DIFFE RENTI AL/PL ATELE T platelets 410 x10e3 /uL 150-45 0 Not Available [facility] ([facility]) [address] [facility], [place], [address], 11/14/2022 09:39:11 11/14/1911/14/2022 CBC WITH DIFFE RENTI AL/PL ATELE T neutrophils 52 % not estab. Not Available [facility] ([facility]) [address] [facility], [place], [address], 11/14/2022 09:39:11 11/14/1911/14/2022 CBC WITH DIFFE RENTI AL/PL ATELE T lymphs 34 % not estab. Not Available [facility] ([facility]) [address] [facility], [place], [address], 11/14/2022 09:39:11 11/14/19 23 11/14/2022 CBC WITH DIFFE RENTI AL/PL ATELE T monocytes 10 % not estab. Not Available [facility] ([facility]) [address] [facility], [place], [address], 11/14/2022 09:39:11 11/14/19 23 11/14/2022 CBC WITH DIFFE RENTI AL/PL ATELE T eos 3 % not estab. Not Available [facility] ([facility]) [address] [facility], [place], [address], 11/14/2022 09:39:11 11/14/1911/14/2022 CBC WITH DIFFE RENTI AL/PL ATELE T basos 1 % not estab. Not Available [facility] ([facility]) [address] [facility], [place], [address], 11/14/2022 09:39:11 11/14/1911/14/2022 CBC WITH DIFFE RENTI AL/PL ATELE T immature cells INTERVENTION MANAGER Not Available [facility] ([facility]) [address] [place], [address], 11/14/2022 09:39:11 11/14/1911/14/2022 CBC WITH DIFFE RENTI AL/PL ATELE T neutrophils (absolute) 6.0 x10e3 /uL 1.4-7. 0 Not Available [facility] ([facility]) [address] [place], [address], 11/14/2022 09:39:11 11/14/1911/14/2022 CBC WITH DIFFE RENTI AL/PL ATELE T lymphs (absolute) 3.8 x10e3 /uL 0.7-3. 1 above high normal Not Available [facility] ([facility]) [address] [place], [address], 11/14/2022 09:39:11 11/14/19 23 11/14/2022 CBC WITH DIFFE RENTI AL/PL ATELE T monocytes(ab solute) 1.1 x10e3 /uL 0.1-0. 9 above high normal Not Available [facility] ([facility]) [address] [facility], [place], [address], 11/14/2022 09:39:11 11/14/1911/14/2022 CBC WITH DIFFE RENTI AL/PL ATELE T eos (absolute) 0.3 x10e3 /uL 0.0-0. 4 Not Available [facility] ([facility]) [address] [facility], [place], [address], 11/14/2022 09:39:11 11/14/1911/14/2022 CBC WITH DIFFE RENTI AL/PL ATELE T baso (absolute) 0.1 x10e3 /uL 0.0-0. 2 Not Available [facility] ([facility]) [address] [facility], [place], [address], 11/14/2022 09:39:11 11/14/19 23 11/14/2022 CBC WITH DIFFE RENTI AL/PL ATELE T immature granulocytes 0 % not estab. Not Available [facility] ([facility]) [address] [facility], [place], [address], 11/14/2022 09:39:11 11/14/1911/14/2022 CBC WITH DIFFE RENTI AL/PL ATELE T immature grans (abs) 0.0 x10e3 /uL 0.0-0. 1 Not Available [facility] ([facility]) [address] [facility], [place], [address], 11/14/2022 09:39:11 11/14/1911/14/2022 CBC WITH DIFFE RENTI AL/PL ATELE T NRBC INTERVENTION MANAGER Not Available [facility] ([facility]) [address] [facility], [place], [address], 11/14/2022 09:39:11 11/14/1911/14/2022 CBC WITH DIFFE RENTI AL/PL ATELE T hematology comments: INTERVENTION MANAGER Not Available [facility] ([facility]) [address] [facility] [place], [address], 11/14/2022 09:39:11 11/14/19 23 11/14/2022 COMP. METAB OLIC PANEL (14) glucose 80 mg/dL 70-99 Not Available [facility] ([facility]) [address] [facility] [place], [address], 11/14/2022 09:39:13 11/14/19 23 11/14/2022 COMP. METAB OLIC PANEL (14) BUN 10 mg/dL 6-24 Not Available [facility] ([facility]) [address] [facility] [place], [address], 11/14/2022 09:39:13 11/14/19 23 11/14/2022 COMP. METAB OLIC PANEL (14) creatinine 0.91 mg/dL 0.76-1 .27 Not Available [facility] ([facility]) [address] [facility] [place], [address], 11/14/2022 09:39:13 11/14/19 23 11/14/2022 COMP. METAB OLIC PANEL (14) BUN/creatini ne ratio 11 9-20 Not Available [facility] ([facility]) [address] [facility] [place], [address], 11/14/2022 09:39:13 11/14/19 23 11/14/2022 COMP. METAB OLIC PANEL (14) sodium 141 mmol/ L 134-14 4 Not Available [facility] ([facility]) [address] [facility] [place], [address], 11/14/2022 09:39:13 11/14/19 23 11/14/2022 COMP. METAB OLIC PANEL (14) potassium 4.1 mmol/ L 3.5-5. 2 Not Available [facility] ([facility]) [address] [facility] [place], [address], 11/14/2022 09:39:13 11/14/19 23 11/14/2022 COMP. METAB OLIC PANEL (14) chloride 107 mmol/ L 96-106 above high normal Not Available [facility] ([facility]) [address] [place], [address], 11/14/2022 09:39:13 11/14/19 23 11/14/2022 COMP. METAB OLIC PANEL (14) carbon dioxide, total 22 mmol/ L Not Available [facility] ([facility]) [address] [place], [address], 11/14/2022 09:39:13 11/14/19 23 11/14/2022 COMP. METAB OLIC PANEL (14) calcium 9.6 mg/dL 8.7-10 .2 Not Available [facility] ([facility]) [address] [place], [address], 11/14/2022 09:39:13 11/14/19 23 11/14/2022 COMP. METAB OLIC PANEL (14) protein, total 7.6 g/dL 6.0-8. 5 Not Available [facility] ([facility]) [address] [place], [address], 11/14/2022 09:39:13 11/14/19 23 11/14/2022 COMP. METAB [...] 4.6 3.6 - 4.6 Not Available [facility] ([facility]) [address] [place], [address], 11/14/2022 09:39:13 11/14/19 23 11/14/2022 COMP. METAB OLIC PANEL (14) globulin, total 2.8 g/dL 1.5-4. 5 Not Available [facility] ([facility]) [address] [place], [address], 11/14/2022 09:39:13 11/14/19 23 11/14/2022 COMP. METAB OLIC PANEL (14) A/G ratio 1.7 1.2-2. 2 Not Available [facility] ([facility]) [address] [place], [address], 11/14/2022 09:39:13 11/14/19 23 11/14/2022 COMP. METAB OLIC PANEL (14) bilirubin, total 0.4 mg/dL 0.0-1. 2 Not Available [facility] ([facility]) [address] [place], [address], 11/14/2022 09:39:13 11/14/19 23 11/14/2022 COMP. METAB OLIC PANEL (14) alkaline phosphatase 80 IU/L 44-121 Not Available [facility] ([facility]) [address] [place], [address], 11/14/2022 09:39:13 11/14/19 23 11/14/2022 COMP. METAB OLIC PANEL (14) AST (SGOT) 25 IU/L 0-40 Not Available [facility] ([facility]) [address] [facility] [place], [address], 11/14/2022 09:39:13 11/14/19 23 11/14/2022 COMP. METAB OLIC PANEL (14) ALT (SGPT) 22 IU/L 0-44 Not Available [facility] ([facility]) [address] [facility] [place], [address], 11/14/2022 09:39:13 11/14/19 23 11/14/2022 LIPID PANEL cholesterol, total 127 mg/dL 100-19 9 Not Available [facility] ([facility]) [address] [place], [address], 11/14/2022 09:39:14 11/14/19 23 11/14/2022 LIPID PANEL triglyceride s 173 mg/dL 0-149 above high normal Not Available [facility] ([facility]) [address] [place], [address], 11/14/2022 09:39:14 11/14/19 23 11/14/2022 LIPID PANEL HDL cholesterol 33 mg/dL >39 below low normal Not Available [facility] ([facility]) [address] [place], [address], 11/14/2022 09:39:14 11/14/19 23 11/14/2022 LIPID PANEL VLDL cholesterol saranya 29 mg/dL 5-40 Not Available [facility] ([facility]) [address] [place], [address], 11/14/2022 09:39:14 11/14/19 23 11/14/2022 LIPID PANEL LDL chol calc ([facility]) 65 mg/dL 0-99 Not Available [facility] ([facility]) [address] [facility], [address], 11/14/2022 09:39:14 11/14/1911/14/2022 LIPID PANEL comment: INTERVENTION MANAGER Not Available [facility] ([facility]) [address] [facility], [place], [address], 11/14/2022 09:39:14 11/14/1911/14/2022 VITAM IN B12 AND FOLAT E vitamin B12 896 pg/mL 232-12 45 Not Available [facility] ([facility]) [address] [facility] [place], [address], 11/14/2022 09:39:15 11/14/1911/14/2022 VITAM IN B12 AND FOLAT E folate (folic acid), serum 14.5 NG/mL >3.0 A serum folat e bridgette ntrat ion of less than 3.1 ng/mL is consi dered to repre sent clini saranya defic iency . Not Available [facility] ([facility]) [address] [facility], [place], [address], 11/14/2022 09:39:15 11/14/1911/14/2022 HCV ANTIB JUAN RFX TO QUANT PCR HCV Ab NON REACTI VE non reacti ve Not Available [facility] ([facility]) [address] [facility], [place], [address], 11/14/2022 09:39:17 11/14/1911/14/2022 HCV ANTIB JUAN RFX TO QUANT PCR interpretati on: COMMEN T Not infec altagracia with HCV unles s early or acute infec tion is suspe cted (whic h may be delay ed in an immun ocomp romis ed indiv idual ), or other evide nce exist s to indic ate HCV infec tion. Not Available [facility] ([facility]) [address] [facility], [place], [address], 11/14/2022 09:39:17 11/14/19 11/14/2022 PROST ATE-S PECIF IC AG prostate specific [...] t be inter prete d as absol tatyana evide nce of the prese nce or absen ce of [facility] se. Not Available [facility] ([facility]) [address] [facility], [place], [address], 11/14/2022 09:39:18 11/14/19 23 11/14/2022 HIV AB/P2 4 AG WITH REFLE X HIV Ab/P24 Ag screen NON REACTI VE non reacti ve HIV Negat tomasa HIV-1 /HIV- 2 antib odies and HIV-1 p24 antig en were NOT detec altagracia. There is no labor atory evide nce of HIV infec tion. Not Available [facility] ([facility]) [address] [facility], [place], [address], 11/14/2022 09:39:19 11/23/19 23 11/22/2022 nonin vasiv e color ectal cance r DNA + occul t blood scree leticia, QL, stool cologuard negative Not Available [facility] (Cologuard Orders Only) [address], [place], [address], 11/28/2022 14:06:30 11/14/19 24 11/15/2023 CBC WITH DIFFE RENTI AL/PL ATELE T WBC 20.9 x10e3 /uL 3.4-10 .8 alert high Not Available [facility] ([facility]) [address] [place], [address], 11/15/2023 16:11:18 11/14/19 24 11/15/2023 CBC WITH DIFFE RENTI AL/PL ATELE T RBC 4.69 x10e6 /uL 4.14-5 .80 Not Available [facility] ([facility]) [address] [place], [address], 11/15/2023 16:11:18 11/14/19 24 11/15/2023 CBC WITH DIFFE RENTI AL/PL ATELE T hemoglobin 14.8 g/dL 13.0-1 7.7 Not Available [facility] ([facility]) [address] [place], [address], 11/15/2023 16:11:18 11/14/19 24 11/15/2023 CBC WITH DIFFE RENTI AL/PL ATELE T hematocrit 43.3 % 37.5-5 1.0 Not Available [facility] ([facility]) [address] [place], [address], 11/15/2023 16:11:18 11/14/19 24 11/15/2023 CBC WITH DIFFE RENTI AL/PL ATELE T MCV 92 fL 79-97 Not Available [facility] ([facility]) [address] [place], [address], 11/15/2023 16:11:18 11/14/19 24 11/15/2023 CBC WITH DIFFE RENTI AL/PL ATELE T MCH 31.6 pg 26.6-3 3.0 Not Available [facility] ([facility]) [address] [place], [address], 11/15/2023 16:11:18 11/14/19 24 11/15/2023 CBC WITH DIFFE RENTI AL/PL ATELE T MCHC 34.2 g/dL 31.5-3 5.7 Not Available [facility] ([facility]) [address] [facility], [place], [address], 11/15/2023 16:11:18 11/14/19 24 11/15/2023 CBC WITH DIFFE RENTI AL/PL ATELE T RDW 13.6 % 11.6-1 5.4 Not Available [facility] ([facility]) [address] [facility], [place], [address], 11/15/2023 16:11:18 11/14/19 24 11/15/2023 CBC WITH DIFFE RENTI AL/PL ATELE T platelets 407 x10e3 /uL 150-45 0 Not Available [facility] ([facility]) [address] [facility], [place], [address], 11/15/2023 16:11:18 11/14/19 24 11/15/2023 CBC WITH DIFFE RENTI AL/PL ATELE T neutrophils 73 % not estab. Not Available [facility] ([facility]) [address] [facility], [place], [address], 11/15/2023 16:11:18 11/14/19 24 11/15/2023 CBC WITH DIFFE RENTI AL/PL ATELE T lymphs 17 % not estab. Not Available [facility] ([facility]) [address] [facility], [place], [address], 11/15/2023 16:11:18 11/14/19 24 11/15/2023 CBC WITH DIFFE RENTI AL/PL ATELE T monocytes 9 % not estab. Not Available [facility] ([facility]) [address] [place], [address], 11/15/2023 16:11:18 11/14/19 24 11/15/2023 CBC WITH DIFFE RENTI AL/PL ATELE T eos 0 % not estab. Not Available [facility] ([facility]) [address] [place], [address], 11/15/2023 16:11:18 11/14/19 24 11/15/2023 CBC WITH DIFFE RENTI AL/PL ATELE T basos 0 % not estab. Not Available [facility] ([facility]) [address] [facility], [place], [address], 11/15/2023 16:11:18 11/14/19 24 11/15/2023 CBC WITH DIFFE RENTI AL/PL ATELE T immature cells INTERVENTION MANAGER Not Available [facility] ([facility]) [address] [facility], [place], [address], 11/15/2023 16:11:18 11/14/19 24 11/15/2023 CBC WITH DIFFE RENTI AL/PL ATELE T neutrophils (absolute) 15.3 x10e3 /uL 1.4-7. 0 above high normal Not Available [facility] ([facility]) [address] [facility], [place], [address], 11/15/2023 16:11:18 11/14/19 24 11/15/2023 CBC WITH DIFFE RENTI AL/PL ATELE T lymphs (absolute) 3.6 x10e3 /uL 0.7-3. 1 above high normal Not Available [facility] ([facility]) [address] [place], [address], 11/15/2023 16:11:18 11/14/19 24 11/15/2023 CBC WITH DIFFE RENTI AL/PL ATELE T monocytes(ab solute) 1.9 x10e3 /uL 0.1-0. 9 above high normal Not Available [facility] ([facility]) [address] [place], [address], 11/15/2023 16:11:18 11/14/19 24 11/15/2023 CBC WITH DIFFE RENTI AL/PL ATELE T eos (absolute) 0.0 x10e3 /uL 0.0-0. 4 Not Available [facility] ([facility]) [address] [facility], [place], [address], 11/15/2023 16:11:18 11/14/19 24 11/15/2023 CBC WITH DIFFE RENTI AL/PL ATELE T baso (absolute) 0.0 x10e3 /uL 0.0-0. 2 Not Available [facility] ([facility]) [address] [facility], [place], [address], 11/15/2023 16:11:18 11/14/19 24 11/15/2023 CBC WITH DIFFE RENTI AL/PL ATELE T immature granulocytes 1 % not estab. Not Available [facility] ([facility]) [address] [facility], [place], [address], 11/15/2023 16:11:18 11/14/19 24 11/15/2023 CBC WITH DIFFE RENTI AL/PL ATELE T immature grans (abs) 0.1 x10e3 /uL 0.0-0. 1 Not Available [facility] ([facility]) [address] [facility], [place], [address], 11/15/2023 16:11:18 11/14/19 24 11/15/2023 CBC WITH DIFFE RENTI AL/PL ATELE T NRBC INTERVENTION MANAGER Not Available [facility] ([facility]) [address] [facility], [place], [address], 11/15/2023 16:11:18 11/14/19 24 11/15/2023 CBC WITH DIFFE RENTI AL/PL ATELE T hematology comments: INTERVENTION MANAGER Not Available [facility] ([facility]) [address] [place], [address], 11/15/2023 16:11:18 11/14/19 24 11/15/2023 COMP. METAB OLIC PANEL (14) glucose 86 mg/dL 70-99 Not Available [facility] ([facility]) [address] [place], [address], 11/15/2023 16:11:18 11/14/19 24 11/15/2023 COMP. METAB OLIC PANEL (14) BUN 9 mg/dL 6-24 Not Available [facility] ([facility]) [address] [place], [address], 11/15/2023 16:11:18 11/14/19 24 11/15/2023 COMP. METAB OLIC PANEL (14) creatinine 1.00 mg/dL 0.76-1 .27 Not Available [facility] ([facility]) [address] [place], [address], 11/15/2023 16:11:18 11/14/19 24 11/15/2023 COMP. METAB OLIC PANEL (14) BUN/creatini ne ratio 9 9-20 Not Available [facility] ([facility]) [address] [place], [address], 11/15/2023 16:11:18 11/14/19 24 11/15/2023 COMP. METAB OLIC PANEL (14) sodium 144 mmol/ L 134-14 4 Not Available [facility] ([facility]) [address] [place], [address], 11/15/2023 16:11:18 11/14/19 24 11/15/2023 COMP. METAB OLIC PANEL (14) potassium 4.1 mmol/ L 3.5-5. 2 Not Available [facility] ([facility]) [address] [place], [address], 11/15/2023 16:11:18 11/14/19 24 11/15/2023 COMP. METAB OLIC PANEL (14) chloride 107 mmol/ L 96-106 above high normal Not Available [facility] ([facility]) [address] [place], [address], 11/15/2023 16:11:18 11/14/19 24 11/15/2023 COMP. METAB OLIC PANEL (14) carbon dioxide, total 20 mmol/ L Not Available [facility] ([facility]) [address], [place], [address], 11/15/2023 16:11:18 11/14/19 24 11/15/2023 COMP. METAB OLIC PANEL (14) calcium 9.7 mg/dL 8.7-10 .2 Not Available [facility] ([facility]) [address] [facility], [place], [address], 11/15/2023 16:11:18 11/14/19 24 11/15/2023 COMP. METAB OLIC PANEL (14) protein, total 7.7 g/dL 6.0-8. 5 Not Available [facility] ([facility]) [address] [facility], [place], [address], 11/15/2023 16:11:18 11/14/19 24 11/15/2023 COMP. METAB OLIC PANEL (14) albumin 4.6 g/dL 4.1-5. 1 Not Available [facility] ([facility]) [address] [facility], [place], [address], 11/15/2023 16:11:18 11/14/19 24 11/15/2023 COMP. METAB OLIC PANEL (14) globulin, total 3.1 g/dL 1.5-4. 5 Not Available [facility] ([facility]) [address] [facility], [place], [address], 11/15/2023 16:11:18 11/14/19 24 11/15/2023 COMP. METAB OLIC PANEL (14) bilirubin, total 0.3 mg/dL 0.0-1. 2 Not Available [facility] ([facility]) [address] [facility], [place], [address], 11/15/2023 16:11:18 11/14/19 24 11/15/2023 COMP. METAB OLIC PANEL (14) alkaline phosphatase 92 IU/L 44-121 Not Available [facility] ([facility]) [address] [facility] [place], [address], 11/15/2023 16:11:18 11/14/19 24 11/15/2023 COMP. METAB OLIC PANEL (14) AST (SGOT) 35 IU/L 0-40 Not Available [facility] ([facility]) [address] [facility] [place], [address], 11/15/2023 16:11:18 11/14/19 24 11/15/2023 COMP. METAB OLIC PANEL (14) ALT (SGPT) 41 IU/L 0-44 Not Available [facility] ([facility]) [address] [facility] [place], [address], 11/15/2023 16:11:18 11/14/19 24 11/15/2023 LIPID PANEL cholesterol, total 136 mg/dL 100-19 9 Not Available [facility] ([facility]) [address] [facility] [place], [address], 11/15/2023 16:11:19 11/14/19 24 11/15/2023 LIPID PANEL triglyceride s 173 mg/dL 0-149 above high normal Not Available [facility] ([facility]) [address] [facility] [place], [address], 11/15/2023 16:11:19 11/14/19 24 11/15/2023 LIPID PANEL HDL cholesterol 34 mg/dL >39 below low normal Not Available [facility]) [address] [facility] [place], [address], 11/15/2023 16:11:19 11/14/19 24 11/15/2023 LIPID PANEL VLDL cholesterol saranya 30 mg/dL 5-40 Not Available [facility]) [address] [facility] [place], [address], 11/15/2023 16:11:19 11/14/19 24 11/15/2023 LIPID PANEL LDL chol calc ([facility]) 72 mg/dL 0-99 Not Available [facility]) [address] [place], [address], 11/15/2023 16:11:19 11/14/19 24 11/15/2023 LIPID PANEL LDL calc comment: INTERVENTION MANAGER Not Available [facility]) [address] [facility], [place], [address], 11/15/2023 16:11:19 11/14/19 24 11/15/2023 VITAM IN B12 AND FOLAT E vitamin B12 775 pg/mL 232-12 45 Not Available [facility] ([facility]) [address] [place], [address], 11/15/2023 16:11:19 11/14/19 24 11/15/2023 VITAM IN B12 AND FOLAT E folate (folic acid), serum 9.7 NG/mL >3.0 A serum folat e bridgette ntrat ion of less than 3.1 ng/mL is consi dered to repre sent clini saranya defic iency . Not Available [facility] ([facility]) [address] [place], [address], 11/15/2023 16:11:19 11/14/19 24 11/14/2023 PSA TOTAL (REFL EX TO FREE) reflex criteria COMMEN T The perce nt free PSA is perfo rmed on a refle x basis only when the total PSA is betwe en 4.0 and 10.0 ng/mL . Not Available [facility] ([facility]) [address] [place], [address], 11/15/2023 16:11:20 11/14/19 24 11/15/2023 PSA TOTAL (REFL EX TO FREE) prostate [...] t be inter prete d as absol tatyana evide nce of the prese nce or absen ce of ebony welcha se. Not Available [facility] ([facility]) [address] [place], [address], 11/15/2023 16:11:20 11/14/19 24 11/14/2023 PLEAS E NOTE please note Commen t The date and/o r time of colle ction was not indic ated on the requi sitio n as requi red by state and [place] law. The date of recei pt of the speci men was used as the colle ction date if not suppl ied. Not Available [facility] ([facility]) [address] [place], [address], 11/15/2023 16:11:20 12/09/19 24 12/10/2023 CBC WITH DIFFE RENTI AL/PL ATELE T WBC 10.1 x10e3 /uL 3.4-10 .8 normal Not Available [facility] ([facility]) [address] [place], [address], 12/10/2023 06:38:09 12/09/19 24 12/10/2023 CBC WITH DIFFE RENTI AL/PL ATELE T RBC 4.63 x10e6 /uL 4.14-5 .80 normal Not Available [facility]) [address] [place], [address], 12/10/2023 06:38:09 12/09/19 24 12/10/2023 CBC WITH DIFFE RENTI AL/PL ATELE T hemoglobin 14.1 g/dL 13.0-1 7.7 normal Not Available [facility] ([facility]) [address] [place], [address], 12/10/2023 06:38:09 12/09/1912/10/2023 CBC WITH DIFFE RENTI AL/PL ATELE T hematocrit 43.2 % 37.5-5 1.0 normal Not Available [facility] ([facility]) [address] [place], [address], 12/10/2023 06:38:09 12/09/1912/10/2023 CBC WITH DIFFE RENTI AL/PL ATELE T MCV 93 fL 79-97 normal Not Available [facility]) [address] [place], [address], 12/10/2023 06:38:09 12/09/19 24 12/10/2023 CBC WITH DIFFE RENTI AL/PL ATELE T MCH 30.5 pg 26.6-3 3.0 normal Not Available [facility] ([facility]) [address] [place], [address], 12/10/2023 06:38:09 12/09/1912/10/2023 CBC WITH DIFFE RENTI AL/PL ATELE T MCHC 32.6 g/dL 31.5-3 5.7 normal Not Available [facility] ([facility]) [address] [place], [address], 12/10/2023 06:38:09 12/09/1912/10/2023 CBC WITH DIFFE RENTI AL/PL ATELE T RDW 13.7 % 11.6-1 5.4 Not Available [facility] ([facility]) [address] [place], [address], 12/10/2023 06:38:09 12/09/19 24 12/10/2023 CBC WITH DIFFE RENTI AL/PL ATELE T platelets 384 x10e3 /uL 150-45 0 normal Not Available [facility]) [address] [facility], [place], [address], 12/10/2023 06:38:09 12/09/19 24 12/10/2023 CBC WITH DIFFE RENTI AL/PL ATELE T neutrophils 38 % not estab. normal Not Available [facility]) [address] [facility], [place], [address], 12/10/2023 06:38:09 12/09/19 24 12/10/2023 CBC WITH DIFFE RENTI AL/PL ATELE T lymphs 44 % not estab. normal Not Available [facility]) [address] [facility], [place], [address], 12/10/2023 06:38:09 12/09/19 24 12/10/2023 CBC WITH DIFFE RENTI AL/PL ATELE T monocytes 13 % not estab. normal Not Available [facility]) [address] [facility], [place], [address], 12/10/2023 06:38:09 12/09/19 24 12/10/2023 CBC WITH DIFFE RENTI AL/PL ATELE T eos 4 % not estab. normal Not Available [facility]) [address] [facility], [place], [address], 12/10/2023 06:38:09 12/09/19 24 12/10/2023 CBC WITH DIFFE RENTI AL/PL ATELE T basos 1 % not estab. normal Not Available [facility]) [address] [facility], [place], [address], 12/10/2023 06:38:09 12/09/19 24 12/10/2023 CBC WITH DIFFE RENTI AL/PL ATELE T immature cells INTERVENTION MANAGER Not Available [facility]) [address] [place], [address], 12/10/2023 06:38:09 12/09/19 24 12/10/2023 CBC WITH DIFFE RENTI AL/PL ATELE T neutrophils (absolute) 3.8 x10e3 /uL 1.4-7. 0 normal Not Available [facility] ([facility]) [address] [place], [address], 12/10/2023 06:38:09 12/09/19 24 12/10/2023 CBC WITH DIFFE RENTI AL/PL ATELE T lymphs (absolute) 4.5 x10e3 /uL 0.7-3. 1 above high normal Not Available [facility] ([facility]) [address] [place], [address], 12/10/2023 06:38:09 12/09/19 24 12/10/2023 CBC WITH DIFFE RENTI AL/PL ATELE T monocytes(ab solute) 1.3 x10e3 /uL 0.1-0. 9 above high normal Not Available [facility] ([facility]) [address] [place], [address], 12/10/2023 06:38:09 12/09/19 24 12/10/2023 CBC WITH DIFFE RENTI AL/PL ATELE T eos (absolute) 0.4 x10e3 /uL 0.0-0. 4 normal Not Available [facility] ([facility]) [address] [place], [address], 12/10/2023 06:38:09 12/09/19 24 12/10/2023 CBC WITH DIFFE RENTI AL/PL ATELE T baso (absolute) 0.1 x10e3 /uL 0.0-0. 2 normal Not Available [facility] ([facility]) [address] [place], [address], 12/10/2023 06:38:09 12/09/19 24 12/10/2023 CBC WITH DIFFE RENTI AL/PL ATELE T immature granulocytes 0 % not estab. Not Available [facility]) [address] [facility], [place], [address], 12/10/2023 06:38:09 12/09/19 24 12/10/2023 CBC WITH DIFFE RENTI AL/PL ATELE T immature grans (abs) 0.0 x10e3 /uL 0.0-0. 1 Not Available [facility] ([facility]) [address] [facility], [place], [address], 12/10/2023 06:38:09 12/09/19 24 12/10/2023 CBC WITH DIFFE RENTI AL/PL ATELE T NRBC INTERVENTION MANAGER Not Available [facility]) [address] [facility], [place], [address], 12/10/2023 06:38:09 12/09/19 24 12/10/2023 CBC WITH DIFFE RENTI AL/PL ATELE T hematology comments: INTERVENTION MANAGER Not Available [facility]) [address] [facility], [place], [address], 12/10/2023 06:38:09 07/03/19 24 07/03/2023 XR, foot No observ ation record ed. [email or web address] [address], [place], [address], 07/04/2023 12:03:14 07/03/19 24 07/03/2023 XR, foot, 3 or more view No observ ation record ed. [email or web address] [facility] [address], [place], [place], [address], 07/04/2023 12:04:44 12/16/19 24 12/16/2023 XR, foot, 3 or more view No observ ation record ed. [email or web address], [place], [address], 12/20/2023 11:46:27 12/17/19 24 12/16/2023 XR, foot, 3 or more view No observ ation record ed. [place] [address], [place], [address], 12/20/2023 11:44:11 04/05/20 24 04/05/2024 XR, wrist + hand No observ ation record ed. [place] [address], [place], [address], 04/06/2024 08:20:15 04/05/2004/05/2024 XR, forea rm, 2 view No observ ation record ed. [place] [address], [place], [address], 04/06/2024 08:20:37 04/05/20 24 04/05/2024 XR, wrist + hand No observ ation record ed. [place] [address], [place], [address], 04/06/2024 08:21:20 04/05/20 24 04/05/2024 imagi ng/di agnos tic resul t No observ ation record ed. [address], [place], [address], 04/06/2024 08:18:07 04/05/20 24 04/05/2024 imagi ng/di agnos tic resul t No observ ation record ed. [address], [place], [address], 04/06/2024 08:17:32 04/12/20 24 04/12/2024 CT, chest , w/o contr ast No observ ation record ed. [email or web address] [facility] [address], [place], [address], 04/13/2024 15:05:25 Result Notes None recorded. 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 92605294 Active Yemi Chappell MD [address], [facility] [address] , [place] [facility] [place] 3 13:56:32 Allergic dispositio n 514305612 Active Yemi Chappell MD [address], [facility] [address] [facility] [place] [facility] [place] 3 13:56:32 Muscle spasm of cervical muscle of neck 451400388405 Active Yemi Chappell MD [address], [facility] [address] [facility] [place] [facility] [place] 3 13:56:32 Cervical disc disorder 692003386 [facility]oacano [facility]appell [facility] [address] [facility] [address] [facility] [place] [facility] [place] 3 13:56:32 Myofascial pain 925586820 Michoacano Chappell MD [address], [facility] [address] , [place] [facility] [facility] [place] 3 13:56:32 Chronic pain syndrome 491628563 Michoacano Chappell MD [address] , [place], [address] , [place] [facility] [facility] [place] 3 13:56:32 Lumbosacra l spondylosi s without myelopathy [id number] [facility] [place], [address] , [place] [facility] [facility] [place] 3 13:56:32 Chronic pain [id number] MD Michael Gloria , [place], [address] , [place] [facility] [facility] [place] 3 13:56:32 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 10884575 Michoacano Chappell MD [address], [place], [address] , [place] [facility] [facility] [place] 3 13:56:32 Cervical radiculopa thy 23136269 [facility] [place], [address] , [place] [facility] [place] 3 13:56:32 Opioid dependence [id number] MD Michael Gloria , [place], [address] , [place] [facility] [place] 3 13:56:32 Hyperlipid emia [id number] MD Michael Gloria , [place], [address] , [place] [facility] [facility] [place] 3 13:56:32 Cobalamin deficiency [id number] MD Michael Gloria , [place], [address] , [place] [facility] [facility] [place] 3 13:56:32 History of drug dependency 468846679 MD Michael Gloria , [place], [address] , [place] [facility] [facility] [place] 3 13:56:32 Seasonal allergy 940381251 Active 2022 Yemi Chappell MD [address], [place], [address] , [place] [facility] [place] 3 14:03:26 Benign prostatic hyperplasi a 763828398 Active 2022 Yemi Chappell MD [address], [place], [address] , [place] [facility] [place] 3 14:03:21 Problem Notes None recorded. Procedures Surgical History Date Name Laterality Status Provider Name and Address Organization Details Recorded Time 09/17/19 19 Head or Neck Surgery completed Alexia [place] [facility] [place] 06/16/2023 16:42:55 08/30/19 16 Vasectomy completed Alexia [place] [facility] [place] 06/16/2023 16:42:45 05/19/19 11 Colonoscopy completed Alexia [place] [facility] [place] 06/16/2023 16:41:00 05/19/19 08 ENT Surgery [place] Sary Michael [place] [facility] [place] 10/21/2022 18:27:38 05/19/19 08 Sinus Surgery completed Sary Michael [place] [facility] [place] 10/21/2022 18:27:38 05/19/18 99 Splenectomy completed Sary Michael [place] [facility] [place] 10/21/2022 18:27:38 immunological therapy completed Alexia [place] [facility] [place] 06/16/2023 16:34:00 operation for glaucoma completed Alexia [place] [facility] [place] 06/16/2023 16:41:32 procedure on wrist completed Alexia [place] [facility] [place] 06/16/2023 16:41:49 excision of lesion of skin completed Alexia [place] [facility] [place] 06/16/2023 16:42:08 manipulation of displaced nasal septum completed Alexia [place] [facility] [place] 06/16/2023 16:42:30 Imaging Results Imaging Date Name Status LastModified by Ynes sanches Details LastModified Time 07/03/2023 XR, foot completed [address], [place], [address], 07/04/2023 12:03:14 07/03/2023 XR, foot, 3 or more view completed [address], [place], [address], 07/04/2023 12:04:44 12/16/2023 XR, foot, 3 or more view completed [place] [address], [place], [address], 12/20/2023 11:46:27 12/16/2023 XR, foot, 3 or more view completed [address], [place], [address], 12/20/2023 11:44:11 04/05/2024 XR, wrist + hand completed [address], [place], [address], 04/06/2024 08:20:15 04/05/2024 XR, forearm, 2 view completed [address], [place], [address], 04/06/2024 08:20:37 04/05/2024 XR, wrist + hand completed [address], [place], [address], 04/06/2024 08:21:20 04/05/2024 imaging/diagn ostic result completed [address], [place], [address], 04/06/2024 08:18:07 04/05/2024 imaging/diagn ostic result completed [email or web address] [facility] [address], [place], [address], 04/06/2024 08:17:32 04/12/2024 CT, chest, w/o contrast completed [email or web address] [facility] [address], [place], [address], 04/13/2024 15:05:25 Procedure Notes None recorded. Medical Equipment None Reported. 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 Not available 10/21/2022 57944 UNK SaryWADE Rodas Christine ZHANG [facility] [place] 18:27:13 02324 latex environme nt,medica tion rash Not available low 10/23/20222021 95372 91 RxNorm Hoang conde [place] Christine ZHANG [facility] [place] 18:02:51 Medications Name Sig Start Date Stop [...] completed Not Available Not Available Not Available cetirizine 5 mg-pseudoep hedrine ER 120 mg tablet,exte nded release,12h r TAKE 1 TABLET BY MOUTH TWICE DAILY active Not Available Not Available No t Available prednisone 10 mg tablet TAKE ONE [...] completed Not Available Not Available Not Available cetirizine 10 mg tablet TAKE 1 TABLET BY MOUTH ONCE DAILY 11/12 completed Not Available Not Available Not Available azithromyci n 250 mg tablet TAKE 2 TABLETS BY MOUTH ON DAY 1, AND THEN TAKE 1 TABLET BY MOUTH ONCE A DAY ON DAY 2 THROUGH DAY 5 02/26 completed Not Available Not Available Not Available lisinopril 20 mg tablet TAKE 1 TABLET BY MOUTH ONCE DAILY active Not Available Not Available No t Available prednisone 20 mg tablet TAKE 1 TABLET BY MOUTH TWICE DAILY FOR 5 DAYS 11/10 completed Not Available Not Available Not Available sulfamethox azole 800 mg-trimetho prim 160 mg tablet TAKE 1 TABLET BY MOUTH TWICE DAILY FOR 5 DAYS 05/21 completed Not Available Not Available Not Available tramadol 50 mg tablet TAKE ONE TABLET BY MOUTH FOUR TIMES DAILY MAY CAUSE DROWSINES S 06/28 completed Not Available Not Available Not Available simvastatin 40 mg tablet TAKE ONE TABLET BY MOUTH EVERY DAY active Not Available Not Available No t Available meloxicam 7.5 mg tablet TAKE ONE TABLET BY MOUTH EVERY DAY --TAKE WITH FOOD-- active Not Available Not Available No t [...] Not Available Not Available Not Available dicyclomine 20 mg tablet active Not Available Not Available Not Available imiquimod [...] 1,000 mcg/mL injection solution INJECT 1 ML INTRAMUSC ULARLY EVERY TWO WEEKS DIRECTED active Not Available Not Available No t Available oseltamivir 75 mg capsule TAKE 1 CAPSULE BY MOUTH TWICE DAILY FOR 5 DAYS 11/12 completed Not Available Not Available Not Available lisinopril 10 mg tablet Take 1 tablet every day by oral route for 90 days. 06/30 completed Not Available Not Available Not Available montelukast 10 mg tablet TAKE 1 TABLET BY MOUTH ONCE DAILY AT NIGHT active Not Available Not Available No t [...] mg tablets in a dose pack TAKE ACCORDING TO PACKAGE INSTRUCTI ONS FOR pain AND swelling --TAKE WITH FOOD-- -- FINISH ALL MEDICINE -- 05/21 completed Not Available Not Available Not Available albuterol sulfate HFA 90 mcg/actuati on aerosol inhaler INHALE 2 PUFFS BY MOUTH EVERY 4 TO 6 HOURS NEEDED active Not Available Not Available No t Available timolol maleate 0.5 % eye drops instill 1 DROP IN EACH EYE EVERY MORNING active Not Available Not [...] No t Available lisinopril 2.5 mg tablet Take 1 tablet every day by oral route for 90 days. 06/30 completed Not Available Not Available Not Available doxycycline hyclate 100 mg tablet 11/10 completed Not Available Not Available Not Available dicyclomine 10 mg capsule TAKE 1 CAPSULE BY MOUTH THREE TIMES DAILY NEEDED FOR CRAMPING 02/26 completed Not Available Not Available Not Available amoxicillin 875 mg-potevangelistiu m clavulanate 125 mg tablet Take 1 tablet every 12 hours by oral route. 05/21 completed Not Available Not Available Not Available oxycodone 5 mg tablet TAKE 1 TABLET BY MOUTH EVERY 6 HOURS NEEDED FOR SEVERE PAIN active Not Available Not Available No t Available tadalafil 5 mg tablet TAKE 1 TABLET BY MOUTH ONCE DAILY active Not Available Not Available No t Available fenofibrate nanocrystal lized 145 mg tablet TAKE ONE TABLET BY MOUTH EVERY DAY 2024 active Not Available Not Available Not Avai lable Gavilyte-C 240 gram-22.72 gram-6.72 gram-5.84 gram oral solution mix DIRECTED AND drink BY MOUTH 8 ounces EVERY 15 minutes UNTIL EMPTY PER office direction s 11/12 completed Not Available Not Available Not Available cyanocobala min (vit B-12) 1,000 mcg/mL injection kit Inject 1 {ml} by injection route. 11/13 completed Not Available Not Available Not Available Vitals Date Recorded Body weight Body temperature Heart rate Systolic blood pressure Diastolic blood pressure Provider Name and Address Organization Details Last Updated DateTime 11/13/2022 24288.4 2 g 98.1 [degF] 67 /min 139 mm[Hg] 91 mm[Hg] Sary Rodriguez [facility] [place] 3 13:43:34 Date Recorded Body weight Body temperature Heart rate Systolic blood pressure Diastolic blood pressure Provider Name and Address Organization Details Last Updated DateTime 4 12465.2 9 g 97.4 [degF] 81 /min 129 mm[Hg] 83 mm[Hg] Robyn Younger [facility] [place] 4 14:35:44 Date Recorded Body weight Body temperature Heart rate Oxygen saturation Oxygen saturation in Arterial blood by Pulse oximetry Systolic blood pressure Diastolic blood pressure Provider Name and Address Organization Details Last Updated DateTime 4 79714.8 4 g 98.1 [degF] 80 /min 97 % 97 % 134 mm[Hg] 85 mm[Hg] Sary Rodriguez [facility] [place] 4 13:20:55 Date Recorded Body weight Body temperature Oxygen saturation Oxygen saturation in Arterial blood by Pulse oximetry Heart rate Systolic blood pressure Diastolic blood pressure Provider Name and Address Organization Details Last Updated DateTime 5 73789.7 7 g 96.8 [degF] 98 % 98 % 73 /min 140 mm[Hg] 99 mm[Hg] Ivy Burrell [facility] [place] 09:54:30 Social History Question Answer Notes LastModified by Organizat ion Details LastModified Time Tobacco Smoking Status Current Every Day Smoker Sary Rodriguez [facility], [facility] [place] 10/21/2022 18:27:31 Do You Have An Advance Directive? No [email or web address] Information not available 10/21/2022 What Is Your Level Of Alcohol Consumption? None [email or web address] Information not available 10/21/2022 Do You Wear A Helmet When Biking? Yes [email or web address] Information not available 11/14/2023 Are You Blind Or Do You Have Difficulty Seeing? No [email or web address] Information not available 10/21/2022 Is Blood Transfusion Acceptable In An Emergency? Yes [email or web address] Information not available 11/14/2023 In The 14 Days Before Symptom Onset, Have You Had Close Contact With A Laboratory-confir med COVID-19 While That Case Was Ill? No Information not available 11/14/2023 In The 14 Days Before Symptom Onset, Have You Had Close Contact With A Person Who Is Under Investigation For COVID-19 While That Person Was Ill? No [email or web address] Information not available 11/14/2023 Have You Been To An Area Known To Be High Risk For COVID-19? No [email or web address] Information not available 11/14/2023 Are You Deaf Or Do You Have Serious Difficulty Hearing? No [email or web address] Information not available 11/14/2023 Have You Processed Blood Or Body Fluids From An Ebola Virus Disease Patient Without Appropriate PPE? No [email or web address] Information not available 11/14/2023 Do You Reside In Or Have You Traveled To An Area Where Ebola Virus Transmission Is Active? No Information not available 11/14/2023 Have There Been Any Changes To Your Family Or Social Situation? No [email or web address] Information no t available 11/14/2023 What Is The Fluoride Status Of Your Home? Fluoridated [email or web address] Information not available 11/14/2023 Are There Any Guns Present In Your Home? No [email or web address] Information not available 11/14/2023 Have You Recently Or Are You Planning To Travel To An Area With Zika Virus? No [email or web address] Information not available 11/14/2023 Do You Use Insect Repellent Routinely? No [email or web address] Information not available 11/14/2023 In General, Would You Say Your Health Is Good Information not available 11/14/2023 How Would You Describe The Condition Of Your Mouth And Teeth? including False Teeth Or Dentures? Good [email or web address] Information not available 11/14/2023 In The Past 7 Days, How Many Servings Of Fruits And Vegetables Did You Typically Eat Each Day? (1 Serving = 1 Cup Of Fresh Vegetables, 1? 2 Cup Of Cooked Vegetables, Or 1 Medium Piece Of Fruit. 1 Cup = Size Of A Baseball.) 1-2 Servings Per Day [email or web address] Information not available 11/14/2023 In The Past 7 Days, How Many Servings Of High Fiber Or Whole Grain Foods Did You Typically Eat Each Day? (1 Serving = 1 Slice Of 100% Whole Wheat Bread, 1 Cup Of Whole-grain Or High-fiber [id number] Cereal, 1? 2 Cup Of Cooked Cereal Such As Oatmeal, Or 1? 2 Cup Of Cooked Brown Rice Or Whole Wheat Pasta.) 1-2 Servings Per Day [email or web address] Information not available 11/14/2023 In The Past 7 Days, How Many Servings Of Fried Or High-fat Foods Did You Typically Eat Each Day? (Examples Include Fried Chicken, Fried Fish, [place], [place], Potato Chips, [place] Chips, Doughnuts, Creamy Salad Dressings, And Foods Made With Whole Milk, Cream, Cheese, Or Mayonnaise.) 3-4 Servings Per Day [email or web address] Information not available 11/14/2023 In The Past 7 Days, How Many Sugar-sweetened (not Diet) Beverages Did You Typically Consume Each Day 7 Or More Drinks Per Day [email or web address] Information not available 11/14/2023 Each Night, How Many Hours Of Sleep Do You Usually Get? 5-6 Hours [email or web address] Information not available 11/14/2023 Do You Snore Or Has Anyone Told You That You Snore? Yes [email or web address] Information not available 11/14/2023 In The Past 7 Days, How Often Have You [place] Sleepy During The Daytime? Usually [email or web address] Information not available 11/14/2023 Do You Have Chronic Pain? Yes [email or web address] Information not available 11/14/2023 If Yes, Location Of Pain Feet [email or web address] Information not available 11/14/2023 In The Past 7 Days, How Would You Rate Your Pain? Moderate Pain(4-6) Information not available 11/14/2023 Are You In A Pain Management Program? No [email or web address] Information not available 11/14/2023 Do You Take Opioids For Your Pain? No [email or web address] Information not available 11/14/2023 How Often Is Stress A Problem For You In Handling Such Things As: Your Health, Your Finances, Your Family And Social Relationships, Your Work? Never Or Rarely lkvurlefx92 Information not available 11/14/2023 How Often Do You Get The Social And Emotional Support You Need: Always [email or web address] Information no t available 11/14/2023 In The Past 7 Days, Did You Need Help From Others To Take Care Of Things Such As Laundry And Housekeep- Ing, Banking, Shopping, Using The Telephone, Food Preparation, Transportation, Or Taking Your Own Medications? No [email or web address] Information not available 11/14/2023 Do You Live Alone? No jfzbheqpv34 Information not available 11/14/2023 Does Your Home Have Any Fall Risks (un-level Floors, Unfastened Rugs, Poor Lighting, Etc)? No duvdqzfql66 Information not available 11/14/2023 Do You Feel Safe At Home? Yes [email or web address] Information not available 11/14/2023 Do You Have A Medical Power Of Chief Deputy Coroner? No [email or web address] Information not available 11/14/2023 What Was The Date Of Your Most Recent Tobacco Screening? 11/14/2023 [email or web address] Information not available 11/14/2023 What Is Your Current Pack Years? 30ormorepackyea rs nrpqgry697 Information not available 11/14/2023 Do You Have Any Pets? Yes mqxqaopjw09 Information not available 11/14/2023 Do You Use Your Seat Belt Or Car Seat Routinely? Yes [email or web address] Information not available 11/14/2023 Do You Have Smoke And Carbon Monoxide Detectors In Your Home? Yes ikdxshsaq16 Information not available 11/14/2023 At What Age Did You Start Smoking Tobacco? 13 [email or web address] Information not available 11/14/2023 Are You Passively Exposed To Smoke? Yes habljrkjz18 Information no t available 10/21/2022 Do You Or Have You Ever Used Smokeless Tobacco? Never Used Smokeless Tobacco evlvrhsnz05 Information not available 10/21/2022 How Much Tobacco Do You Smoke? 1 PPD [email or web address] Information not available 11/14/2023 Do You Feel Stressed (tense, Restless, Nervous, Or Anxious, Or Unable To Sleep At Night)? [id number] ymyqyysgl62 Information not available 10/21/2022 Do You Use Any Illicit Or Recreational Drugs? No nndrepxrg75 Information not available 10/21/2022 Do You Use Sunscreen Routinely? No nsyomzbso44 Information not available 11/14/2023 Has Tobacco Cessation Counseling Been Provided? Yes [email or web address] Information not available 11/14/2023 On What Date Was Tobacco Cessation Counseling Provided? 11/14/2023 [email or web address] Information not available 11/14/2023 How Many Years Have You Smoked Tobacco? 34 fpfjuxagb41 Information not available 10/21/2022 Are You Currently In School? No qkctehlja93 Information not available 11/14/2023 Do You Or Have You Ever Used Any Other Forms Of Tobacco Or Nicotine? No [email or web address] Information not available 11/14/2023 Sex: Unknown Functional Status Question Answer Note LastModified by Organizat ion Details LastModified Time Do you have difficulty walking or climbing stairs? No [email or web address] Information not available 11/14/2023 Do you have transportation difficulties? No [email or web address] Information not available 11/14/2023 Are you able to walk? YESWOREST ripzhgtbs98 Information not available 11/14/2023 Do you have difficulty doing errands alone? No ahlaqiyvd80 Information not available 11/14/2023 Are you able to care for yourself? Yes Information n ot available 11/14/2023 Do you have difficulty dressing or bathing? No [email or web address] Information not available 11/14/2023 What is your exercise level? Occasional [email or web address] Information not available 10/21/2022 Mental Status Question Answer Note LastModified by Organization D etails LastModified Time Do you have difficulty concentrating, remembering or making decisions? No [email or web address] Information no t available 11/14/2023 Family History Relationship Description Onset Age of this Age Resolved Age Notes LastModified by Organization Details LastModified Time Maternal Grandfather Bilateral cataracts [email or web address] Not available 07/2024 09:46:02 Maternal Grandfather Heart disease [email or web address] Not available 2022 18:03:18 Maternal Grandmother Heart disease [email or web address] Not available 2022 18:03:23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
== END 2024-09-02 23:59 | disposition home or self-care (01) ==
LOC: LAB.DROPOF 09-03 11:36
PROVIDERS: PCP Nurse Practitioner; Visit Provider Nurse Practitioner
DX: B34.9 Viral infection, unspecified (principal); H81.10 Benign paroxysmal vertigo, unspecified ear; R51.9 Headache, unspecified; R68.83 Chills (without fever); R43.8 Other disturbances of smell and taste
CPT/HCPCS: 87631

== ENCOUNTER 2024-09-05 12:06 | Emergency (ER) | payer MEDICARE, MEDICAID, SELFPAY ==
[2024-09-05 12:15] VITALS: BP 134/85; PULSE 65; RESP 18; TEMP 37; O2SAT 99; BMI 27.3
--- OUTSIDE RECORDS SUMMARY | 2024-09-05 12:22 | XMS_ITS | Data Portability ---
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 [email or web address] Not available 11/13/2022 21:35:51 11/14/2023 11/14/2023 PERSONALIZED [...] Visit will be due in 1 year. [email or web address] Not available 11/14/2023 13:41:23 Plan of Treatment Reminders Order Date Submit Date Provider Last Modified By Organization Details Last Modified Time Details Appointments OV EST 20 2024 01:30P M Yemi Chappell MD Not available Not available Not available Lab CBC w/ auto diff 2023 024 [facility], [address], [address], [place], [address], 12/10/2023 06:38:09 lipid panel, serum 2023 024 [facility], [address], [address], [place], [address], 11/15/2023 16:11:19 CMP, serum or plasma 2023 024 [facility], [address], [address], [place], [address], 11/15/2023 16:11:18 CBC w/ auto diff 2023 024 [facility], [address], [address], [place], [address], 11/15/2023 16:11:18 PSA, serum or plasma 2023 024 [facility], [address], [address], [place], [address], 11/15/2023 16:11:20 vitamin B12 + folate, serum or blood 2023 024 [facility], [address], [address], [place], [address], 11/15/2023 16:11:19 lipid panel, serum 2022 023 [facility], [address], [address], [place], [address], 11/14/2022 09:39:14 CMP, serum or plasma 2022 023 [facility], [address], [address], [place], [address], 11/14/2022 09:39:13 CBC w/ auto diff 2022 023 [facility], [address], [address], [place], [address], 11/14/2022 09:39:12 noninvasi ve colorecta l cancer DNA + occult blood screening , QL, stool 2022 023 [facility] (Cologuard Orders Only), [address], [address], [place], [address], 11/28/2022 14:36:53 Hepatitis C IgG Ab, qual, serum 2022 023 [facility], [address], [address], [place], [address], 11/14/2022 09:39:17 PSA, total, serum or plasma 2022 023 [facility], [address], [address], [place], [address], 11/14/2022 09:39:18 vitamin B12 + folate, serum or blood 2022 023 [facility], [address], [address], [place], [address], 11/14/2022 09:39:16 HIV 1 + 2, meaningfu l use set 2022 023 [facility], [address], [address], [place], [address], 11/14/2022 09:39:19 Referral None recorded. Procedures None recorded. Surgeries None recorded. Imaging None recorded. Medication Orders lisinopri l 10 mg tablet 2024 025 [facility], [address], [address], 06/30/2024 08:41:14 amoxicill in 875 mg-potass ium clavulana te 125 mg tablet [email or web address] [facility], [address], [address], 05/21/2024 10:19:03 Patient TargetsNo targets recorded. Patient Instructions Encounter Date Encounter Id Patient Instructions Last Modified By Organization Details Last Modified Time 11/13/2022 [id number] advance directives: care instructions [email or web address] Not available 11/13/2022 21:35:52 well visit, over 65: care instructions [email or web address] Not available 11/13/2022 21:35:52 Health Maintenance Recommendations: (5-10 year screening/prevent ion plan) [email or web address] Not available 11/13/2022 14:06:30 11/14/2023 [id number] advance directives: care instructions [email or web address] Not available 11/14/2023 13:48:06 well visit, over 65: care instructions [email or web address] Not available 11/14/2023 13:48:05 Health Maintenance Recommendations: (5-10 year screening/prevent ion plan) [email or web address] Not available 11/14/2023 13:07:58 Reason for Referral None Reported. Results Created Date Observation Date Name Description Value Unit Range Abnormal Flag Note LastModifiedBy Organization Detail LastModifiedTime 11/14/1911/14/2022 CBC WITH DIFFE RENTI AL/PL ATELE T WBC 11.3 x10e3 /uL 3.4-10 .8 above high normal Not Available [facility] ([facility]) [address] [place], [address], 11/14/2022 09:39:11 11/14/1911/14/2022 CBC WITH DIFFE RENTI AL/PL ATELE T RBC 4.86 x10e6 /uL 4.14-5 .80 Not Available [facility] ([facility]) [address] [place], [address], 11/14/2022 09:39:11 11/14/1911/14/2022 CBC WITH DIFFE RENTI AL/PL ATELE T hemoglobin 14.8 g/dL 13.0-1 7.7 Not Available [facility] ([facility]) [address] [place], [address], 11/14/2022 09:39:11 11/14/1911/14/2022 CBC WITH DIFFE RENTI AL/PL ATELE T hematocrit 44.9 % 37.5-5 1.0 Not Available [facility] ([facility]) [address] [place], [address], 11/14/2022 09:39:11 11/14/1911/14/2022 CBC WITH DIFFE RENTI AL/PL ATELE T MCV 92 fL 79-97 Not Available [facility] ([facility]) [address] [place], [address], 11/14/2022 09:39:11 11/14/1911/14/2022 CBC WITH DIFFE RENTI AL/PL ATELE T MCH 30.5 pg 26.6-3 3.0 Not Available [facility] ([facility]) [address] [facility], [place], [address], 11/14/2022 09:39:11 11/14/19 23 11/14/2022 CBC WITH DIFFE RENTI AL/PL ATELE T MCHC 33.0 g/dL 31.5-3 5.7 Not Available [facility] ([facility]) [address] [facility], [place], [address], 11/14/2022 09:39:11 11/14/1911/14/2022 CBC WITH DIFFE RENTI AL/PL ATELE T RDW 13.9 % 11.6-1 5.4 Not Available [facility] ([facility]) [address] [facility], [place], [address], 11/14/2022 09:39:11 11/14/1911/14/2022 CBC WITH DIFFE RENTI AL/PL ATELE T platelets 410 x10e3 /uL 150-45 0 Not Available [facility] ([facility]) [address] [facility], [place], [address], 11/14/2022 09:39:11 11/14/1911/14/2022 CBC WITH DIFFE RENTI AL/PL ATELE T neutrophils 52 % not estab. Not Available [facility] ([facility]) [address] [facility], [place], [address], 11/14/2022 09:39:11 11/14/1911/14/2022 CBC WITH DIFFE RENTI AL/PL ATELE T lymphs 34 % not estab. Not Available [facility] ([facility]) [address] [facility], [place], [address], 11/14/2022 09:39:11 11/14/19 23 11/14/2022 CBC WITH DIFFE RENTI AL/PL ATELE T monocytes 10 % not estab. Not Available [facility] ([facility]) [address] [facility], [place], [address], 11/14/2022 09:39:11 11/14/19 23 11/14/2022 CBC WITH DIFFE RENTI AL/PL ATELE T eos 3 % not estab. Not Available [facility] ([facility]) [address] [facility], [place], [address], 11/14/2022 09:39:11 11/14/1911/14/2022 CBC WITH DIFFE RENTI AL/PL ATELE T basos 1 % not estab. Not Available [facility] ([facility]) [address] [facility], [place], [address], 11/14/2022 09:39:11 11/14/1911/14/2022 CBC WITH DIFFE RENTI AL/PL ATELE T immature cells HVAC TECHNICIAN RESIDENTIAL Not Available [facility] ([facility]) [address] [place], [address], 11/14/2022 09:39:11 11/14/1911/14/2022 CBC WITH DIFFE RENTI AL/PL ATELE T neutrophils (absolute) 6.0 x10e3 /uL 1.4-7. 0 Not Available [facility] ([facility]) [address] [place], [address], 11/14/2022 09:39:11 11/14/1911/14/2022 CBC WITH DIFFE RENTI AL/PL ATELE T lymphs (absolute) 3.8 x10e3 /uL 0.7-3. 1 above high normal Not Available [facility] ([facility]) [address] [place], [address], 11/14/2022 09:39:11 11/14/19 23 11/14/2022 CBC WITH DIFFE RENTI AL/PL ATELE T monocytes(ab solute) 1.1 x10e3 /uL 0.1-0. 9 above high normal Not Available [facility] ([facility]) [address] [facility], [place], [address], 11/14/2022 09:39:11 11/14/1911/14/2022 CBC WITH DIFFE RENTI AL/PL ATELE T eos (absolute) 0.3 x10e3 /uL 0.0-0. 4 Not Available [facility] ([facility]) [address] [facility], [place], [address], 11/14/2022 09:39:11 11/14/1911/14/2022 CBC WITH DIFFE RENTI AL/PL ATELE T baso (absolute) 0.1 x10e3 /uL 0.0-0. 2 Not Available [facility] ([facility]) [address] [facility], [place], [address], 11/14/2022 09:39:11 11/14/19 23 11/14/2022 CBC WITH DIFFE RENTI AL/PL ATELE T immature granulocytes 0 % not estab. Not Available [facility] ([facility]) [address] [facility], [place], [address], 11/14/2022 09:39:11 11/14/1911/14/2022 CBC WITH DIFFE RENTI AL/PL ATELE T immature grans (abs) 0.0 x10e3 /uL 0.0-0. 1 Not Available [facility] ([facility]) [address] [facility], [place], [address], 11/14/2022 09:39:11 11/14/1911/14/2022 CBC WITH DIFFE RENTI AL/PL ATELE T NRBC HVAC TECHNICIAN RESIDENTIAL Not Available [facility] ([facility]) [address] [facility], [place], [address], 11/14/2022 09:39:11 11/14/1911/14/2022 CBC WITH DIFFE RENTI AL/PL ATELE T hematology comments: HVAC TECHNICIAN RESIDENTIAL Not Available [facility] ([facility]) [address] [facility], [address], 11/14/2022 09:39:11 11/14/19 23 11/14/2022 COMP. METAB OLIC PANEL (14) glucose 80 mg/dL 70-99 Not Available [facility] ([facility]) [address] [facility], [address], 11/14/2022 09:39:13 11/14/19 23 11/14/2022 COMP. METAB OLIC PANEL (14) BUN 10 mg/dL 6-24 Not Available [facility] ([facility]) [address] [facility] [place], [address], 11/14/2022 09:39:13 11/14/19 23 11/14/2022 COMP. METAB OLIC PANEL (14) creatinine 0.91 mg/dL 0.76-1 .27 Not Available [facility] ([facility]) [address] [facility] [place], [address], 11/14/2022 09:39:13 11/14/19 23 11/14/2022 COMP. METAB OLIC PANEL (14) BUN/creatini ne ratio 11 9-20 Not Available [facility] ([facility]) [address] [facility] [place], [address], 11/14/2022 09:39:13 11/14/19 23 11/14/2022 COMP. METAB OLIC PANEL (14) sodium 141 mmol/ L 134-14 4 Not Available [facility] ([facility]) [address] [facility] [place], [address], 11/14/2022 09:39:13 11/14/19 23 11/14/2022 COMP. METAB OLIC PANEL (14) potassium 4.1 mmol/ L 3.5-5. 2 Not Available [facility] ([facility]) [address] [facility] [place], [address], 11/14/2022 09:39:13 11/14/19 23 11/14/2022 COMP. METAB OLIC PANEL (14) chloride 107 mmol/ L 96-106 above high normal Not Available [facility] ([facility]) [address] [place], [address], 11/14/2022 09:39:13 11/14/19 23 11/14/2022 COMP. METAB OLIC PANEL (14) carbon dioxide, total 22 mmol/ L Not Available [facility] ([facility]) [address] [place], [address], 11/14/2022 09:39:13 11/14/19 23 11/14/2022 COMP. METAB OLIC PANEL (14) calcium 9.6 mg/dL 8.7-10 .2 Not Available [facility] ([facility]) [address] [place], [address], 11/14/2022 09:39:13 11/14/19 23 11/14/2022 COMP. METAB OLIC PANEL (14) protein, total 7.6 g/dL 6.0-8. 5 Not Available [facility] ([facility]) [address] [place], [address], 11/14/2022 09:39:13 11/14/19 23 11/14/2022 COMP. METAB [...] 4.6 3.6 - 4.6 Not Available [facility] ([facility]) [address] [place], [address], 11/14/2022 09:39:13 11/14/19 23 11/14/2022 COMP. METAB OLIC PANEL (14) globulin, total 2.8 g/dL 1.5-4. 5 Not Available [facility] ([facility]) [address] [place], [address], 11/14/2022 09:39:13 11/14/19 23 11/14/2022 COMP. METAB OLIC PANEL (14) A/G ratio 1.7 1.2-2. 2 Not Available [facility] ([facility]) [address] [place], [address], 11/14/2022 09:39:13 11/14/19 23 11/14/2022 COMP. METAB OLIC PANEL (14) bilirubin, total 0.4 mg/dL 0.0-1. 2 Not Available [facility] ([facility]) [address] [place], [address], 11/14/2022 09:39:13 11/14/19 23 11/14/2022 COMP. METAB OLIC PANEL (14) alkaline phosphatase 80 IU/L 44-121 Not Available [facility] ([facility]) [address] [place], [address], 11/14/2022 09:39:13 11/14/19 23 11/14/2022 COMP. METAB OLIC PANEL (14) AST (SGOT) 25 IU/L 0-40 Not Available [facility] ([facility]) [address] [facility] [place], [address], 11/14/2022 09:39:13 11/14/19 23 11/14/2022 COMP. METAB OLIC PANEL (14) ALT (SGPT) 22 IU/L 0-44 Not Available [facility] ([facility]) [address] [facility] [place], [address], 11/14/2022 09:39:13 11/14/19 23 11/14/2022 LIPID PANEL cholesterol, total 127 mg/dL 100-19 9 Not Available [facility] ([facility]) [address] [place], [address], 11/14/2022 09:39:14 11/14/19 23 11/14/2022 LIPID PANEL triglyceride s 173 mg/dL 0-149 above high normal Not Available [facility] ([facility]) [address] [place], [address], 11/14/2022 09:39:14 11/14/19 23 11/14/2022 LIPID PANEL HDL cholesterol 33 mg/dL >39 below low normal Not Available [facility] ([facility]) [address] [place], [address], 11/14/2022 09:39:14 11/14/19 23 11/14/2022 LIPID PANEL VLDL cholesterol saranya 29 mg/dL 5-40 Not Available [facility] ([facility]) [address] [place], [address], 11/14/2022 09:39:14 11/14/19 23 11/14/2022 LIPID PANEL LDL chol calc ([facility]) 65 mg/dL 0-99 Not Available [facility] ([facility]) [address] [place], [address], 11/14/2022 09:39:14 11/14/1911/14/2022 LIPID PANEL comment: HVAC TECHNICIAN RESIDENTIAL Not Available [facility] ([facility]) [address] [facility], [place], [address], 11/14/2022 09:39:14 11/14/1911/14/2022 VITAM IN B12 AND FOLAT E vitamin B12 896 pg/mL 232-12 45 Not Available [facility] ([facility]) [address] [facility] [place], [address], 11/14/2022 09:39:15 11/14/1911/14/2022 VITAM IN B12 AND FOLAT E folate (folic acid), serum 14.5 NG/mL >3.0 A serum folat e bridgette ntrat ion of less than 3.1 ng/mL is consi dered to repre sent clini saranya defic iency . Not Available [facility] ([facility]) [address] [facility], [place], [address], 11/14/2022 09:39:15 11/14/1911/14/2022 HCV ANTIB JUAN RFX TO QUANT PCR HCV Ab NON REACTI VE non reacti ve Not Available [facility] ([facility]) [address] [facility], [place], [address], 11/14/2022 09:39:17 11/14/1911/14/2022 HCV ANTIB JUAN RFX TO QUANT PCR interpretati on: COMMEN T Not infec altagracia with HCV unles s early or acute infec tion is suspe cted (whic h may be delay ed in an immun ocomp romis ed indiv idual ), or other evide nce exist s to indic ate HCV infec tion. Not Available [facility] ([facility]) [address] [facility], [place], [address], 11/14/2022 09:39:17 11/14/19 11/14/2022 PROST ATE-S PECIF [...] the prese nce or absen ce of [facility] se. Not Available [facility] ([facility]) [address] [facility], [place], [address], 11/14/2022 09:39:18 11/14/19 23 11/14/2022 HIV AB/P2 4 AG WITH REFLE X HIV Ab/P24 Ag screen NON REACTI VE non reacti ve HIV Negat tomasa HIV-1 /HIV- 2 antib odies and HIV-1 p24 antig en were NOT detec altagracia. There is no labor atory evide nce of HIV infec tion. Not Available [facility] ([facility]) [address] [facility], [place], [address], 11/14/2022 09:39:19 11/23/19 23 11/22/2022 nonin vasiv e color ectal cance r DNA + occul t blood scree leticia, QL, stool cologuard negative Not Available [facility] ([facility]ologuard Orders Only) [address], [place], [address], 11/28/2022 14:06:30 11/14/19 24 11/15/2023 CBC WITH DIFFE RENTI AL/PL ATELE T WBC 20.9 x10e3 /uL 3.4-10 .8 alert high Not Available [facility] ([facility]) [address] [place], [address], 11/15/2023 16:11:18 11/14/19 24 11/15/2023 CBC WITH DIFFE RENTI AL/PL ATELE T RBC 4.69 x10e6 /uL 4.14-5 .80 Not Available [facility] ([facility]) [address] [place], [address], 11/15/2023 16:11:18 11/14/19 24 11/15/2023 CBC WITH DIFFE RENTI AL/PL ATELE T hemoglobin 14.8 g/dL 13.0-1 7.7 Not Available [facility] ([facility]) [address] [place], [address], 11/15/2023 16:11:18 11/14/19 24 11/15/2023 CBC WITH DIFFE RENTI AL/PL ATELE T hematocrit 43.3 % 37.5-5 1.0 Not Available [facility] ([facility]) [address] [place], [address], 11/15/2023 16:11:18 11/14/19 24 11/15/2023 CBC WITH DIFFE RENTI AL/PL ATELE T MCV 92 fL 79-97 Not Available [facility] ([facility]) [address] [place], [address], 11/15/2023 16:11:18 11/14/19 24 11/15/2023 CBC WITH DIFFE RENTI AL/PL ATELE T MCH 31.6 pg 26.6-3 3.0 Not Available [facility] ([facility]) [address] [place], [address], 11/15/2023 16:11:18 11/14/19 24 11/15/2023 CBC WITH DIFFE RENTI AL/PL ATELE T MCHC 34.2 g/dL 31.5-3 5.7 Not Available [facility] ([facility]) [address] [facility], [place], [address], 11/15/2023 16:11:18 11/14/19 24 11/15/2023 CBC WITH DIFFE RENTI AL/PL ATELE T RDW 13.6 % 11.6-1 5.4 Not Available [facility] ([facility]) [address] [facility], [place], [address], 11/15/2023 16:11:18 11/14/19 24 11/15/2023 CBC WITH DIFFE RENTI AL/PL ATELE T platelets 407 x10e3 /uL 150-45 0 Not Available [facility] ([facility]) [address] [facility], [place], [address], 11/15/2023 16:11:18 11/14/19 24 11/15/2023 CBC WITH DIFFE RENTI AL/PL ATELE T neutrophils 73 % not estab. Not Available [facility] ([facility]) [address] [facility], [place], [address], 11/15/2023 16:11:18 11/14/19 24 11/15/2023 CBC WITH DIFFE RENTI AL/PL ATELE T lymphs 17 % not estab. Not Available [facility] ([facility]) [address] [facility], [place], [address], 11/15/2023 16:11:18 11/14/19 24 11/15/2023 CBC WITH DIFFE RENTI AL/PL ATELE T monocytes 9 % not estab. Not Available [facility] ([facility]) [address] [place], [address], 11/15/2023 16:11:18 11/14/19 24 11/15/2023 CBC WITH DIFFE RENTI AL/PL ATELE T eos 0 % not estab. Not Available [facility] ([facility]) [address] [facility] [place], [address], 11/15/2023 16:11:18 11/14/19 24 11/15/2023 CBC WITH DIFFE RENTI AL/PL ATELE T basos 0 % not estab. Not Available [facility] ([facility]) [address] [facility], [place], [address], 11/15/2023 16:11:18 11/14/19 24 11/15/2023 CBC WITH DIFFE RENTI AL/PL ATELE T immature cells HVAC TECHNICIAN RESIDENTIAL Not Available [facility] ([facility]) [address] [facility], [place], [address], 11/15/2023 16:11:18 11/14/19 24 11/15/2023 CBC WITH DIFFE RENTI AL/PL ATELE T neutrophils (absolute) 15.3 x10e3 /uL 1.4-7. 0 above high normal Not Available [facility] ([facility]) [address] [facility], [place], [address], 11/15/2023 16:11:18 11/14/19 24 11/15/2023 CBC WITH DIFFE RENTI AL/PL ATELE T lymphs (absolute) 3.6 x10e3 /uL 0.7-3. 1 above high normal Not Available [facility] ([facility]) [address] [place], [address], 11/15/2023 16:11:18 11/14/19 24 11/15/2023 CBC WITH DIFFE RENTI AL/PL ATELE T monocytes(ab solute) 1.9 x10e3 /uL 0.1-0. 9 above high normal Not Available [facility] ([facility]) [address] [place], [address], 11/15/2023 16:11:18 11/14/19 24 11/15/2023 CBC WITH DIFFE RENTI AL/PL ATELE T eos (absolute) 0.0 x10e3 /uL 0.0-0. 4 Not Available [facility] ([facility]) [address] [facility], [place], [address], 11/15/2023 16:11:18 11/14/19 24 11/15/2023 CBC WITH DIFFE RENTI AL/PL ATELE T baso (absolute) 0.0 x10e3 /uL 0.0-0. 2 Not Available [facility] ([facility]) [address] [facility], [place], [address], 11/15/2023 16:11:18 11/14/19 24 11/15/2023 CBC WITH DIFFE RENTI AL/PL ATELE T immature granulocytes 1 % not estab. Not Available [facility] ([facility]) [address] [facility], [place], [address], 11/15/2023 16:11:18 11/14/19 24 11/15/2023 CBC WITH DIFFE RENTI AL/PL ATELE T immature grans (abs) 0.1 x10e3 /uL 0.0-0. 1 Not Available [facility] ([facility]) [address] [facility], [place], [address], 11/15/2023 16:11:18 11/14/19 24 11/15/2023 CBC WITH DIFFE RENTI AL/PL ATELE T NRBC HVAC TECHNICIAN RESIDENTIAL Not Available [facility] ([facility]) [address] [facility], [place], [address], 11/15/2023 16:11:18 11/14/19 24 11/15/2023 CBC WITH DIFFE RENTI AL/PL ATELE T hematology comments: HVAC TECHNICIAN RESIDENTIAL Not Available [facility] ([facility]) [address] [place], [address], 11/15/2023 16:11:18 11/14/19 24 11/15/2023 COMP. METAB OLIC PANEL (14) glucose 86 mg/dL 70-99 Not Available [facility] ([facility]) [address] [facility] [place], [address], 11/15/2023 16:11:18 11/14/19 24 11/15/2023 COMP. METAB OLIC PANEL (14) BUN 9 mg/dL 6-24 Not Available [facility] ([facility]) [address] [place], [address], 11/15/2023 16:11:18 11/14/19 24 11/15/2023 COMP. METAB OLIC PANEL (14) creatinine 1.00 mg/dL 0.76-1 .27 Not Available [facility] ([facility]) [address] [place], [address], 11/15/2023 16:11:18 11/14/19 24 11/15/2023 COMP. METAB OLIC PANEL (14) BUN/creatini ne ratio 9 9-20 Not Available [facility] ([facility]) [address] [place], [address], 11/15/2023 16:11:18 11/14/19 24 11/15/2023 COMP. METAB OLIC PANEL (14) sodium 144 mmol/ L 134-14 4 Not Available [facility] ([facility]) [address] [place], [address], 11/15/2023 16:11:18 11/14/19 24 11/15/2023 COMP. METAB OLIC PANEL (14) potassium 4.1 mmol/ L 3.5-5. 2 Not Available [facility] ([facility]) [address] [place], [address], 11/15/2023 16:11:18 11/14/19 24 11/15/2023 COMP. METAB OLIC PANEL (14) chloride 107 mmol/ L 96-106 above high normal Not Available [facility] ([facility]) [address] [place], [address], 11/15/2023 16:11:18 11/14/19 24 11/15/2023 COMP. METAB OLIC PANEL (14) carbon dioxide, total 20 mmol/ L Not Available [facility] ([facility]) [address], [place], [address], 11/15/2023 16:11:18 11/14/19 24 11/15/2023 COMP. METAB OLIC PANEL (14) calcium 9.7 mg/dL 8.7-10 .2 Not Available [facility] ([facility]) [address] [facility], [place], [address], 11/15/2023 16:11:18 11/14/19 24 11/15/2023 COMP. METAB OLIC PANEL (14) protein, total 7.7 g/dL 6.0-8. 5 Not Available [facility] ([facility]) [address] [facility], [place], [address], 11/15/2023 16:11:18 11/14/19 24 11/15/2023 COMP. METAB OLIC PANEL (14) albumin 4.6 g/dL 4.1-5. 1 Not Available [facility] ([facility]) [address] [facility], [place], [address], 11/15/2023 16:11:18 11/14/19 24 11/15/2023 COMP. METAB OLIC PANEL (14) globulin, total 3.1 g/dL 1.5-4. 5 Not Available [facility] ([facility]) [address] [facility], [place], [address], 11/15/2023 16:11:18 11/14/19 24 11/15/2023 COMP. METAB OLIC PANEL (14) bilirubin, total 0.3 mg/dL 0.0-1. 2 Not Available [facility] ([facility]) [address] [facility], [place], [id number], 11/15/2023 16:11:18 11/14/19 24 11/15/2023 COMP. METAB OLIC PANEL (14) alkaline phosphatase 92 IU/L 44-121 Not Available [facility] ([facility]) [address] [facility] [place], [address], 11/15/2023 16:11:18 11/14/19 24 11/15/2023 COMP. METAB OLIC PANEL (14) AST (SGOT) 35 IU/L 0-40 Not Available [facility] ([facility]) [address] [facility] [place], [id number], 11/15/2023 16:11:18 11/14/19 24 11/15/2023 COMP. METAB OLIC PANEL (14) ALT (SGPT) 41 IU/L 0-44 Not Available [facility] ([facility]) [address] [facility] [place], [address], 11/15/2023 16:11:18 11/14/19 24 11/15/2023 LIPID PANEL cholesterol, total 136 mg/dL 100-19 9 Not Available [facility] ([facility]) [address] [facility] [place], [address], 11/15/2023 16:11:19 11/14/19 24 11/15/2023 LIPID PANEL triglyceride s 173 mg/dL 0-149 above high normal Not Available [facility] ([facility]) [address] [facility] [place], [address], 11/15/2023 16:11:19 11/14/19 24 11/15/2023 LIPID PANEL HDL cholesterol 34 mg/dL >39 below low normal Not Available [facility] ([facility]) [address] [facility] [place], [address], 11/15/2023 16:11:19 11/14/19 24 11/15/2023 LIPID PANEL VLDL cholesterol saranya 30 mg/dL 5-40 Not Available [facility] ([facility]) [address] [facility] [place], [address], 11/15/2023 16:11:19 11/14/19 24 11/15/2023 LIPID PANEL LDL chol calc ([facility]) 72 mg/dL 0-99 Not Available [facility] ([facility]) [address] [place], [address], 11/15/2023 16:11:19 11/14/19 24 11/15/2023 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 Not Available [facility] ([facility]) [address] [place], [address], 11/15/2023 16:11:19 11/14/19 24 11/14/2023 PSA TOTAL (REFL EX TO FREE) reflex criteria COMMEN T The perce nt free PSA is perfo rmed on a refle x basis only when the total PSA is betwe en 4.0 and 10.0 ng/mL . Not Available [facility] ([facility]) [address] [place], [address], 11/15/2023 16:11:20 11/14/19 24 11/15/2023 PSA TOTAL [...] of ebony welcha se. Not Available [facility] ([facility]) [address] [place], [address], 11/15/2023 16:11:20 11/14/19 24 11/14/2023 PLEAS E NOTE please note Commen t The date and/o r time of colle ction was not indic ated on the requi sitio n as requi red by state and [place] law. The date of recei pt of the speci men was used as the colle ction date if not suppl ied. Not Available [facility] ([facility]) [address] [place], [address], 11/15/2023 16:11:20 12/09/19 24 12/10/2023 CBC WITH DIFFE RENTI AL/PL ATELE T WBC 10.1 x10e3 /uL 3.4-10 .8 normal Not Available [facility] ([facility]) [address] [place], [address], 12/10/2023 06:38:09 12/09/19 24 12/10/2023 CBC WITH DIFFE RENTI AL/PL ATELE T RBC 4.63 x10e6 /uL 4.14-5 .80 normal Not Available [facility] ([facility]) [address] [place], [address], 12/10/2023 06:38:09 12/09/19 24 12/10/2023 CBC WITH DIFFE RENTI AL/PL ATELE T hemoglobin 14.1 g/dL 13.0-1 7.7 normal Not Available [facility] ([facility]) [address] [place], [address], 12/10/2023 06:38:09 12/09/1912/10/2023 CBC WITH DIFFE RENTI AL/PL ATELE T hematocrit 43.2 % 37.5-5 1.0 normal Not Available [facility] ([facility]) [address] [place], [address], 12/10/2023 06:38:09 12/09/1912/10/2023 CBC WITH DIFFE RENTI AL/PL ATELE T MCV 93 fL 79-97 normal Not Available [facility] ([facility]) [address] [place], [address], 12/10/2023 06:38:09 12/09/19 24 12/10/2023 CBC WITH DIFFE RENTI AL/PL ATELE T MCH 30.5 pg 26.6-3 3.0 normal Not Available [facility] ([facility]) [address] [place], [address], 12/10/2023 06:38:09 12/09/1912/10/2023 CBC WITH DIFFE RENTI AL/PL ATELE T MCHC 32.6 g/dL 31.5-3 5.7 normal Not Available [facility] ([facility]) [address] [place], [address], 12/10/2023 06:38:09 12/09/1912/10/2023 CBC WITH DIFFE RENTI AL/PL ATELE T RDW 13.7 % 11.6-1 5.4 Not Available [facility] ([facility]) [address] [place], [address], 12/10/2023 06:38:09 12/09/19 24 12/10/2023 CBC WITH DIFFE RENTI AL/PL ATELE T platelets 384 x10e3 /uL 150-45 0 normal Not Available [facility] ([facility]) [address] [facility], [place], [address], 12/10/2023 06:38:09 12/09/19 24 12/10/2023 CBC WITH DIFFE RENTI AL/PL ATELE T neutrophils 38 % not estab. normal Not Available [facility] ([facility]) [address] [facility], [place], [address], 12/10/2023 06:38:09 12/09/19 24 12/10/2023 CBC WITH DIFFE RENTI AL/PL ATELE T lymphs 44 % not estab. normal Not Available [facility] ([facility]) [address] [facility], [place], [address], 12/10/2023 06:38:09 12/09/19 24 12/10/2023 CBC WITH DIFFE RENTI AL/PL ATELE T monocytes 13 % not estab. normal Not Available [facility] ([facility]) [address] [facility], [place], [address], 12/10/2023 06:38:09 12/09/19 24 12/10/2023 CBC WITH DIFFE RENTI AL/PL ATELE T eos 4 % not estab. normal Not Available [facility] ([facility]) [address] [facility], [place], [address], 12/10/2023 06:38:09 12/09/19 24 12/10/2023 CBC WITH DIFFE RENTI AL/PL ATELE T basos 1 % not estab. normal Not Available [facility] ([facility]) [address] [facility], [place], [address], 12/10/2023 06:38:09 12/09/19 24 12/10/2023 CBC WITH DIFFE RENTI AL/PL ATELE T immature cells HVAC TECHNICIAN RESIDENTIAL Not Available [facility] ([facility]) [address] [place], [address], 12/10/2023 06:38:09 12/09/19 24 12/10/2023 CBC WITH DIFFE RENTI AL/PL ATELE T neutrophils (absolute) 3.8 x10e3 /uL 1.4-7. 0 normal Not Available [facility] ([facility]) [address] [place], [address], 12/10/2023 06:38:09 12/09/19 24 12/10/2023 CBC WITH DIFFE RENTI AL/PL ATELE T lymphs (absolute) 4.5 x10e3 /uL 0.7-3. 1 above high normal Not Available [facility] ([facility]) [address] [place], [address], 12/10/2023 06:38:09 12/09/19 24 12/10/2023 CBC WITH DIFFE RENTI AL/PL ATELE T monocytes(ab solute) 1.3 x10e3 /uL 0.1-0. 9 above high normal Not Available [facility] ([facility]) [address] [place], [address], 12/10/2023 06:38:09 12/09/19 24 12/10/2023 CBC WITH DIFFE RENTI AL/PL ATELE T eos (absolute) 0.4 x10e3 /uL 0.0-0. 4 normal Not Available [facility] ([facility]) [address] [place], [address], 12/10/2023 06:38:09 12/09/19 24 12/10/2023 CBC WITH DIFFE RENTI AL/PL ATELE T baso (absolute) 0.1 x10e3 /uL 0.0-0. 2 normal Not Available [facility] ([facility]) [address] [place], [address], 12/10/2023 06:38:09 12/09/19 24 12/10/2023 CBC WITH DIFFE RENTI AL/PL ATELE T immature granulocytes 0 % not estab. Not Available [facility] ([facility]) [address] [facility], [place], [address], 12/10/2023 06:38:09 12/09/19 24 12/10/2023 CBC WITH DIFFE RENTI AL/PL ATELE T immature grans (abs) 0.0 x10e3 /uL 0.0-0. 1 Not Available [facility] ([facility]) [address] [facility], [place], [address], 12/10/2023 06:38:09 12/09/19 24 12/10/2023 CBC WITH DIFFE RENTI AL/PL ATELE T NRBC HVAC TECHNICIAN RESIDENTIAL Not Available [facility] ([facility]) [address] [facility], [place], [address], 12/10/2023 06:38:09 12/09/19 24 12/10/2023 CBC WITH DIFFE RENTI AL/PL ATELE T hematology comments: HVAC TECHNICIAN RESIDENTIAL Not Available [facility] ([facility]) [address] [facility], [place], [address], 12/10/2023 06:38:09 07/03/19 24 07/03/2023 XR, foot No observ ation record ed. [email or web address] [address], [place], [address], 07/04/2023 12:03:14 07/03/19 24 07/03/2023 XR, foot, 3 or more view No observ ation record ed. [facility] [address], [place], [place], [address], 07/04/2023 12:04:44 12/16/19 24 12/16/2023 XR, foot, 3 or more view No observ ation record ed. [email or web address], [place], [address], 12/20/2023 11:46:27 12/17/19 24 12/16/2023 XR, foot, 3 or more view No observ ation record ed. [place] [address], [place], [address], 12/20/2023 11:44:11 04/05/20 24 04/05/2024 XR, wrist + hand No observ ation record ed. [place] [address], [place], [address], 04/06/2024 08:20:15 04/05/2004/05/2024 XR, forea rm, 2 view No observ ation record ed. [place] [address], [place], [address], 04/06/2024 08:20:37 04/05/20 24 04/05/2024 XR, wrist + hand No observ ation record ed. [place] [address], [place], [address], 04/06/2024 08:21:20 04/05/20 24 04/05/2024 imagi ng/di agnos tic resul t No observ ation record ed. [address], [place], [address], 04/06/2024 08:18:07 04/05/20 24 04/05/2024 imagi ng/di agnos tic resul t No observ ation record ed. [address], [place], [address], 04/06/2024 08:17:32 04/12/20 24 04/12/2024 CT, chest , w/o contr ast No observ ation record ed. [email or web address] [facility] [address], [place], [address], 04/13/2024 15:05:25 Result Notes None recorded. 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 45249532 Active Yemi Chappell MD [address], [facility] [address] , [place] [facility] & [place] 3 13:56:32 Allergic dispositio n 321563178 Active Yemi Chappell MD [address], [facility] [address] [facility] [place] [facility] & [place] 3 13:56:32 Muscle spasm of cervical muscle of neck 554615419419 Active Yemi Chappell MD [address], [facility] [address] [facility] [place] [facility] & [place] 3 13:56:32 Cervical disc disorder 735780300 Michoacano [facility]appell [facility] [address] [facility] [address] [facility] [place] [facility] & [place] 3 13:56:32 Myofascial pain 677249476 Michoacano Chappell MD [address], [facility] [address] , [place] [facility] [facility] & [place] 3 13:56:32 Chronic pain syndrome [id number] Michoacano Chappell MD [address] , [place], [address] , [place] [facility] [facility] & [place] 3 13:56:32 Lumbosacra l spondylosi s without myelopathy [id number] [facility] [place], [address] , [place] [facility] & [place] 3 13:56:32 Chronic pain [id number] MD Michael Gloria , [place], [address] , [place] [facility] & [place] 3 13:56:32 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 04400660 Michoacano Chappell MD [address], [place], [address] , [place] [facility] & [place] 3 13:56:32 Cervical radiculopa thy [id number] MD [facility] [place], [address] , [place] [facility] & [place] 3 13:56:32 Opioid dependence [id number] MD Michael Gloria , [place], [address] , [place] [facility] & [place] 3 13:56:32 Hyperlipid emia [id number] MD Michael Gloria , [place], [address] , [place] [facility] & [place] 3 13:56:32 Cobalamin deficiency 952896606 MD Michael Gloria , [place], [address] , [place] [facility] & [place] 3 13:56:32 History of drug dependency [id number] MD Michael Gloria , [place], [address] , [place] [facility] & [place] 3 13:56:32 Seasonal allergy 357929879 Active 2022 Yemi Chappell MD [address], [place], [address] , [place] 3 14:03:26 Benign prostatic hyperplasi a 948106776 Active 2022 Yemi Chappell MD [address], [place], [address] , [place] & [place] 3 14:03:21 Problem Notes None recorded. Procedures Surgical History Date Name Laterality Status Provider Name and Address Organization Details Recorded Time 09/17/19 19 Head or Neck Surgery completed Alexia Rothamer [place] 06/16/2023 16:42:55 08/30/19 16 Vasectomy completed Alexia [place] 06/16/2023 16:42:45 05/19/19 11 Colonoscopy completed Alexia [place] 06/16/2023 16:41:00 05/19/19 08 ENT Surgery completed Sary Michael [place] 10/21/2022 18:27:38 05/19/19 08 Sinus Surgery [place] Sary Michael [place] 10/21/2022 18:27:38 05/19/18 99 Splenectomy completed Sary Michael [place] 10/21/2022 18:27:38 immunological therapy completed Alexia [place] 06/16/2023 16:34:00 operation for glaucoma completed Alexia [place] 06/16/2023 16:41:32 procedure on wrist completed Alexia [place] 06/16/2023 16:41:49 excision of lesion of skin completed Alexia [place] 06/16/2023 16:42:08 manipulation of displaced nasal septum completed Alexia [place] 06/16/2023 16:42:30 Imaging Results Imaging Date Name Status LastModified by Ynes sanches Details LastModified Time 07/03/2023 XR, foot completed [address], [place], [address], 07/04/2023 12:03:14 07/03/2023 XR, foot, 3 or more view completed [address], [place], [address], 07/04/2023 12:04:44 12/16/2023 XR, foot, 3 or more view completed [place] [address], [place], [address], 12/20/2023 11:46:27 12/16/2023 XR, foot, 3 or more view completed [address], [place], [address], 12/20/2023 11:44:11 04/05/2024 XR, wrist + hand completed [address], [place], [address], 04/06/2024 08:20:15 04/05/2024 XR, forearm, [address], [place], [address], 04/06/2024 08:20:37 04/05/2024 XR, wrist + hand completed [address], [place], [address], 04/06/2024 08:21:20 04/05/2024 imaging/diagn ostic result completed [address], [place], [address], 04/06/2024 08:18:07 04/05/2024 imaging/diagn ostic result completed [email or web address] [facility] [address], [place], [address], 04/06/2024 08:17:32 04/12/2024 CT, chest, w/o contrast completed [email or web address] [facility] [address], [place], [address], 04/13/2024 15:05:25 Procedure Notes None recorded. Medical Equipment None Reported. 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 Not available 10/21/2022 68139 UNK SaryWADE Rodas Christine ZHANG [facility] & [place] 18:27:13 59024 latex environme nt,medica tion rash Not available low 10/23/20222021 27137 91 RxNorm Hoang conde [place] Christine ZHANG [facility] & [place] 18:02:51 Medications Name Sig Start Date Stop Date Status Note LastModified by Organization Details LastModified Time Prescriptio n - Change 11/13 completed Not Available Not Available Not Available Prescriptio n - Prior Authorizati on Request 11/13 completed Not Available Not Available Not Available allergy relf d 12 5-120mg tab TAKE 1 TABLET BY MOUTH TWICE DAILY active Not Available Not Available No t Available cetirizine 5 mg-pseudoep hedrine ER 120 [...] Address Organization Details Last Updated DateTime 11/13/2022 95442.4 2 g 98.1 [degF] 67 /min 139 mm[Hg] 91 mm[Hg] Sary Rodriguez [facility] & [place] 3 13:43:34 Date Recorded Body weight Body temperature Heart rate Systolic blood pressure Diastolic blood pressure Provider Name and Address Organization Details Last Updated DateTime 4 69225.2 9 g 97.4 [degF] 81 /min 129 mm[Hg] 83 mm[Hg] Robyn Younger [facility] & [place] 4 14:35:44 Date Recorded Body weight Body temperature Heart rate Oxygen saturation Oxygen saturation in Arterial blood by Pulse oximetry Systolic blood pressure Diastolic blood pressure Provider Name and Address Organization Details Last Updated DateTime 4 08301.8 4 g 98.1 [degF] 80 /min 97 % 97 % 134 mm[Hg] 85 mm[Hg] Sary Rodriguez [facility] & [place] 4 13:20:55 Date Recorded Body weight Body temperature Oxygen saturation Oxygen saturation in Arterial blood by Pulse oximetry Heart rate Systolic blood pressure Diastolic blood pressure Provider Name and Address Organization Details Last Updated DateTime 5 78202.7 7 g 96.8 [degF] 98 % 98 % 73 /min 140 mm[Hg] 99 mm[Hg] Ivy Burrell [facility] & [place] 09:54:30 Social History Question Answer Notes LastModified by Organizat ion Details LastModified Time Tobacco Smoking Status Current Every Day Smoker Sary Rodriguez [facility], [facility] & [place] 10/21/2022 18:27:31 Do You Have An Advance Directive? No Information not available 10/21/2022 What Is Your Level Of Alcohol Consumption? None [email or web address] Information not available 10/21/2022 Do You Wear A Helmet When Biking? Yes [email or web address] Information not available 11/14/2023 Are You Blind Or Do You Have Difficulty Seeing? No Information not available 10/21/2022 Is Blood Transfusion Acceptable In An Emergency? Yes [email or web address] Information not available 11/14/2023 In The 14 Days Before Symptom Onset, Have You Had Close Contact With A Laboratory-confir med COVID-19 While That Case Was Ill? No [email or web address] Information not available 11/14/2023 In The 14 Days Before Symptom Onset, Have You Had Close Contact With A Person Who Is Under Investigation For COVID-19 While That Person Was Ill? No [email or web address] Information not available 11/14/2023 Have You Been To An Area Known To Be High Risk For COVID-19? No [email or web address] Information not available 11/14/2023 Are You Deaf Or Do You Have Serious Difficulty Hearing? No [email or web address] Information not available 11/14/2023 Have You Processed Blood Or Body Fluids From An Ebola Virus Disease Patient Without Appropriate PPE? No [email or web address] Information not available 11/14/2023 Do You Reside In Or Have You Traveled To An Area Where Ebola Virus Transmission Is Active? No [email or web address] Information not available 11/14/2023 Have There Been Any Changes To Your Family Or Social Situation? No [email or web address] Information no t available 11/14/2023 What Is The Fluoride Status Of Your Home? Fluoridated Information not available 11/14/2023 Are There Any Guns Present In Your Home? No [email or web address] Information not available 11/14/2023 Have You Recently Or Are You Planning To Travel To An Area With Zika Virus? No [email or web address] Information not available 11/14/2023 Do You Use Insect Repellent Routinely? No [email or web address] Information not available 11/14/2023 In General, Would You Say Your Health Is Good [email or web address] Information not available 11/14/2023 How Would You Describe The Condition Of Your Mouth And Teeth? including False Teeth Or Dentures? Good [email or web address] Information not available 11/14/2023 In The Past 7 Days, How Many Servings Of Fruits And Vegetables Did You Typically Eat Each Day? (1 Serving = 1 Cup Of Fresh Vegetables, 1? 2 Cup Of Cooked Vegetables, Or 1 Medium Piece Of Fruit. 1 Cup = Size Of A Baseball.) 1-2 Servings Per Day [email or web address] Information not available 11/14/2023 In The Past 7 Days, How Many Servings Of High Fiber Or Whole Grain Foods Did You Typically Eat Each Day? (1 Serving = 1 Slice Of 100% Whole Wheat Bread, 1 Cup Of Whole-grain Or High-fiber Qzfkc-rk-piu Cereal, 1? 2 Cup Of Cooked Cereal Such As Oatmeal, Or 1? 2 Cup Of Cooked Brown Rice Or Whole Wheat Pasta.) 1-2 Servings Per Day Information not available 11/14/2023 In The Past 7 Days, How Many Servings Of Fried Or High-fat Foods Did You Typically Eat Each Day? (Examples Include Fried Chicken, Fried Fish, Mckeon, Omani Wilmer, Potato Chips, [place] Chips, Doughnuts, Creamy Salad Dressings, And Foods Made With Whole Milk, Cream, Cheese, Or Mayonnaise.) 3-4 Servings Per Day [email or web address] Information not available 11/14/2023 In The Past 7 Days, How Many Sugar-sweetened (not Diet) Beverages Did You Typically Consume Each Day 7 Or More Drinks Per Day [email or web address] Information not available 11/14/2023 Each Night, How Many Hours Of Sleep Do You Usually Get? 5-6 Hours [email or web address] Information not available 11/14/2023 Do You Snore Or Has Anyone Told You That You Snore? Yes [email or web address] Information not available 11/14/2023 In The Past 7 Days, How Often Have You [place] Sleepy During The Daytime? Usually [email or web address] Information not available 11/14/2023 Do You Have Chronic Pain? Yes [email or web address] Information not available 11/14/2023 If Yes, Location Of Pain Feet [email or web address] Information not available 11/14/2023 In The Past 7 Days, How Would You Rate Your Pain? Moderate Pain(4-6) [email or web address] Information not available 11/14/2023 Are You In A Pain Management Program? No [email or web address] Information not available 11/14/2023 Do You Take Opioids For Your Pain? No [email or web address] Information not available 11/14/2023 How Often Is Stress A Problem For You In Handling Such Things As: Your Health, Your Finances, Your Family And Social Relationships, Your Work? Never Or Rarely [email or web address] Information not available 11/14/2023 How Often Do You Get The Social And Emotional Support You Need: Always [email or web address] Information no t available 11/14/2023 In The Past 7 Days, Did You Need Help From Others To Take Care Of Things Such As Laundry And Housekeep- Ing, Banking, Shopping, Using The Telephone, Food Preparation, Transportation, Or Taking Your Own Medications? No [email or web address] Information not available 11/14/2023 Do You Live Alone? No Information not available 11/14/2023 Does Your Home Have Any Fall Risks (un-level Floors, Unfastened Rugs, Poor Lighting, Etc)? No [email or web address] Information not available 11/14/2023 Do You Feel Safe At Home? Yes [email or web address] Information not available 11/14/2023 Do You Have A Medical Power Of Recording Studio Setup Worker? No [email or web address] Information not available 11/14/2023 What Was The Date Of Your Most Recent Tobacco Screening? 11/14/2023 [email or web address] Information not available 11/14/2023 What Is Your Current Pack Years? 30ormorepackyea rs [email or web address] Information not available 11/14/2023 Do You Have Any Pets? Yes [email or web address] Information not available 11/14/2023 Do You Use Your Seat Belt Or Car Seat Routinely? Yes [email or web address] Information not available 11/14/2023 Do You Have Smoke And Carbon Monoxide Detectors In Your Home? Yes [email or web address] Information not available 11/14/2023 At What Age Did You Start Smoking Tobacco? 13 [email or web address] Information not available 11/14/2023 Are You Passively Exposed To Smoke? Yes [email or web address] Information no t available 10/21/2022 Do You Or Have You Ever Used Smokeless Tobacco? Never Used Smokeless Tobacco [email or web address] Information not available 10/21/2022 How Much Tobacco Do You Smoke? 1 PPD [email or web address] Information not available 11/14/2023 Do You Feel Stressed (tense, Restless, Nervous, Or Anxious, Or Unable To Sleep At Night)? [id number] [email or web address] Information not available 10/21/2022 Do You Use Any Illicit Or Recreational Drugs? No Information not available 10/21/2022 Do You Use Sunscreen Routinely? No [email or web address] Information not available 11/14/2023 Has Tobacco Cessation Counseling Been Provided? Yes [email or web address] Information not available 11/14/2023 On What Date Was Tobacco Cessation Counseling Provided? 11/14/2023 [email or web address] Information not available 11/14/2023 How Many Years Have You Smoked Tobacco? 34 [email or web address] Information not available 10/21/2022 Are You Currently In School? No [email or web address] Information not available 11/14/2023 Do You Or Have You Ever Used Any Other Forms Of Tobacco Or Nicotine? No [email or web address] Information not available 11/14/2023 Sex: Unknown Functional Status Question Answer Note LastModified by Organizat ion Details LastModified Time Do you have difficulty walking or climbing stairs? No [email or web address] Information not available 11/14/2023 Do you have transportation difficulties? No [email or web address] Information not available 11/14/2023 Are you able to walk? YESWOREST [email or web address] Information not available 11/14/2023 Do you have difficulty doing errands alone? No [email or web address] Information not available 11/14/2023 Are you able to care for yourself? Yes [email or web address] Information n ot available 11/14/2023 Do you have difficulty dressing or bathing? No [email or web address] Information not available 11/14/2023 What is your exercise level? Occasional [email or web address] Information not available 10/21/2022 Mental Status Question Answer Note LastModified by Organization D etails LastModified Time Do you have difficulty concentrating, remembering or making decisions? No Information no t available 11/14/2023 Family History Relationship Description Onset Age of this Age Resolved Age Notes LastModified by Organization Details LastModified Time Maternal Grandfather Bilateral cataracts [email or web address] Not available 07/2024 09:46:02 Maternal Grandfather Heart disease [email or web address] Not available 2022 18:03:18 Maternal Grandmother Heart disease [email or web address] Not available 2022 18:03:23 Mother Hypertensive disorder [email or web address] Not available 2023 16:43:20 Notes:1 son Medical History Condition Response Depression Y History of STI Y Spine Problems Y Arthritis Y Cancer Y High Cholesterol Y Anemia Y Neurological Problems Y Back Problems Y Asthma Y Immunizations Vaccine Type Date Status Note Provider Nam e and Address Organization Details Recorded Time Tdap 3 completed Tanya conde, [place] - [facility] & [place] 07/16/2022 16:25:44 Influenza, split virus, quadrivalent, preservative 6 completed Hoang Miramontes null, [place] [facility] & [place] 10/23/2022 18:01:16 COVID-19, mRNA, LNP-S, PF, 100 mcg/0.5mL dose or 50 mcg/0.25mL dose 1 completed Hoang Miramontes null, [place] [facility] & [place] 10/23/2022 18:01:16 COVID-19, mRNA, LNP-S, PF, 100 mcg/0.5mL dose or 50 mcg/0.25mL dose 1 completed Hoang Miraomntes null, [place] [facility] [place] [facility] [place] 10/23/2022 18:01:16 COVID-19, mRNA, LNP-S, PF, 100 mcg/0.5mL dose or 50 mcg/0.25mL dose 1 completed Hoang conde, [place] [facility] & [place] 10/23/2022 18:01:16 COVID-19 vaccine, vector-nr, [id number], PF, 0.5 mL 1 completed Jaa Kulwinder null, [place] [facility] [place] [facility] [place] 10/23/2022 18:01:16 COVID-19, mRNA, LNP-S, bivalent, PF, 30 mcg/0.3 mL dose 2 completed Jaa Kulwinder [place] [facility] [place] [facility] [place] 10/23/2022 18:01:16 Influenza, split virus, trivalent, preservative 1 completed Jaa Kulwinder [place] [facility] [place] [facility] [place] 10/23/2022 18:01:16 Influenza, split virus, trivalent, PF 2 completed Jaa Kulwinder [place] [facility] [place] [facility] [place] 10/23/2022 18:01:16 Influenza, split virus, trivalent, PF 3 completed Jaa Kulwinder [place] [facility] [place] [facility] [place] 10/23/2022 18:01:16 Influenza, split virus, trivalent, PF 1 completed Jaa Kulwinder [place] [facility] [place] [facility] [place] 10/23/2022 18:01:16 Influenza, split virus, trivalent, PF 4 completed Jaa Kulwinder [place] [facility] [place] [facility] [place] 10/23/2022 18:01:16 Influenza, split virus, quadrivalent, PF 2 completed Jaa Kulwinder [place] [facility] [place] [facility] [place] 10/23/2022 18:01:16 Influenza, split virus, quadrivalent, PF 7 completed Jaa Kulwinder [place] [facility] [place] [facility] [place] 10/23/2022 18:01:16 Influenza, MDCK, trivalent, PF 5 completed Jaa Kulwinder [place] [facility] [place] [facility] [place] 10/23/2022 18:01:16 Influenza, split virus, quadrivalent, PF 3 completed Kristal In[place] [facility] [place] [facility] [place] 11/03/2023 11:49:20 pneumococcal polysaccharide PPV23 1 completed Hoang Miramontes null, [place] - [facility] & [place] 10/23/2022 18:01:16 Tdap 0 completed Alexa Dimas null, [place] [facility] [place] & [place] 02/07/2022 12:05:57 Influenza, split virus, trivalent, PF 5 completed [facility] 11/13/2022 13:20:04 Influenza, split virus, quadrivalent, PF 8 completed Alexa Dimas null, [place] - [facility] - [place] & [place] 02/07/2022 12:05:57 Influenza, MDCK, quadrivalent, preservative 0 completed Alexa Dimas null, [place] - [facility] & [place] 02/07/2022 12:05:57 Influenza, MDCK, trivalent, PF 4 completed Debby Pinto null, [place] - [facility] & [place] 08/23/2024 13:13:02 Past Encounters Encounter ID Performer Location Encounter Start Date Encounter Closed Date Diagnosis/Indication Diagnosis SNOMED-CT Code Diagnosis ICD10 Code Diagnosis Note [id number] Diane Espino, CHRISTINA, HVAC TECHNICIAN RESIDENTIAL-[employer], [employer] [address] [place] [address] 07/16/2022 14:51:12 07/16/2022 15:21:03 Animal bite wound 578298367 W55.81XA [id number] Yemi Chappell MD [facility] [address] [place] [address] 11/13/2022 13:19:03 11/13/2022 14:35:11 Chronic pain syndrome 125792580 G89.4 Cont with pain management Cobalamin deficiency 190 606742 E53.8 Hyperlipidemia 71913299 E78.5 Pt is counselled on routine dietary and lifestyle changes including low fat and low carb diets. Routine lipid panels yearly. Cardiac risk discussed with patient as well today. No changes to lipid regimen today. Pt will work on lifestyle changes to modify risk factors and lipid levels Mild recur rent major depression 70448495 F33.0 Stable on current regimen today. Continue the current prescribed regimen with no changes today. HIV screening 145018369 Z11.4 Hepatitis C screening 41 6109269 Z11.59 Adult heal th examination 600357679 Z00.01 We have discussed routine anticipato ry guidance based on the patient's age. Routine screening exams have been discussed in ordered appropriat e to the patient's age. I have recommende d routine health measures including a regular exercise regimen, healthy balanced diet, and routine safety measures including but not limited to seat belt use and sunscreen use. Seasonal allergy 4833739 04 J30.2 Stable on current regimen today. Continue the current prescribed regimen with no changes today. Benign pro static hyperplasia 508398337 N40.1 FU with urology Screening for malignant neoplasm of colon 392198530 Z12.11 [id number] MD Sharon Sheppard and DEANA peacock [address] [place] [address] 07/01/2023 14:13:25 07/01/2023 14:51:59 Essential hypertension 96449324 I10 BP is in a good range on today's visit. Continue Lisinopril 2.5mg daily at this time. Recommend patient bring his home BP cuff in for comparison with the office cuff to ensure similar readings. He will continue monitoring his BP at home. [id number] MD Sharon Mcdonald and [address] [place] [address] 11/14/2023 13:01:43 11/14/2023 14:05:25 Adult health examination 724718048 Z00.01 We have discussed routine anticipato ry guidance based on the patient's age. Routine screening exams have been discussed in ordered appropriat e to the patient's age. I have recommende d routine health measures including a regular exercise regimen, healthy balanced diet, and routine safety measures including but not limited to seat belt use and sunscreen use. Benign pro static hyperplasia 241294925 N40.1 FU with urology Cervical d isc disorder 610404989 M50.90 Chronic pain syndrome 37 8080390 G89.4 Cont with pain management Cobalamin deficiency 190 012727 E53.8 Hyperlipidemia 22011582 E78.5 Pt is counselled on routine dietary and lifestyle changes including low fat and low carb diets. Routine lipid panels yearly. Cardiac risk discussed with patient as well today. No changes to lipid regimen today. Pt will work on lifestyle changes to modify risk factors and lipid levels Mild recur rent major depression 71888778 F33.0 Stable on current regimen today. Continue the current prescribed regimen with no changes today. Seasonal allergy 8368712 04 J30.2 Stable on current regimen today. Continue the current prescribed regimen with no changes today. Acute sinusitis 93521551 J01.90 Start abx that was given by [facility] [id number] MD Sharon Mcdonald and Autumn peacock [address] [place] [address] 12/09/2023 14:49:44 12/09/2023 15:03:50 Laboratory test result abnormal 402619893 R89.9 [id number] MD Sharon Mcdonald and Autumn n [address] [place] [address] 05/21/2024 09:45:46 05/21/2024 10:24:45 Essential hypertension 18969623 I10 Recently started lisinopril Titrate meds today bc BP still elevatedAs ymptomatic . Benign pro static hyperplasia 486836145 N40.1 FU with urology Cervical d isc disorder 483641913 M50.90 Stable on current regimen today. Continue the current prescribed regimen with no changes today. Chronic pain syndrome 37 6239577 G89.4 Cont with pain management Cobalamin deficiency 190 552087 E53.8 Stable on current regimen today. Continue the current prescribed regimen with no changes today. Hyperlipidemia 02259635 E78.5 Pt is counselled on routine dietary and lifestyle changes including low fat and low carb diets. Routine lipid panels yearly. Cardiac risk discussed with patient as well today. No changes to lipid regimen today. Pt will work on lifestyle changes to modify risk factors and lipid levels Mild recur rent major depression 05007144 F33.0 Stable on current regimen today. Continue the current prescribed regimen with no changes today. Seasonal allergy 6738643 04 J30.2 Stable on current regimen today. [...] Guarantor Name 11/13/2022 2 [place] [facility] - FFS/TRADITION AL Yonathan Gallo [id number] Yonathan Gallo 11/13/2022 1 [place]AC[place] H[place] [id number] Yonathan Gallo [id number] Yonathan Gallo 07/01/2023 2 [place] [facility] [place] FFS/TRADITION [place] Yonathan Gallo [id number] Yonathan Gallo 07/01/2023 1 [place] [id number] Yonathan Gallo [id number] Yonathan Gallo 11/14/2023 2 [place] [facility] [place]FS/TRADITION [place] Yonathan Gallo [id number] Yonathan Gallo 11/14/2023 1 [place] [id number] Yonathan Gallo [id number] Yonathan Gallo 12/09/2023 2 [place] [facility] - FFS/TRADITION [place] Yonathan Gallo [id number] Yonathan Gallo 12/09/2023 1 [place] [id number] Yonathan Gallo [id number] Yonathan Gallo 05/21/2024 2 [place] [facility] [place]FS/TRADITION [place] Yonathan Gallo [id number] Yonathan Gallo 05/21/2024 1 [place] [id number] Yonathan Gallo [id number] Yonathan Sabino Notes Date Note Type Note [...] PSA last done 11/2021 Yemi Chappell MD [address] [facility], [place], [address], [place] [facility] - [place] & [place] 11/13/2022 21:37:46 07/01/2023 text/html Here with concer [...] Was started on the Lisinopril at the [facility] about a week ago. James Mcdonald MD [address], [place], [address], [facility] [place] & [place] 07/01/2023 14:59:08 11/14/2023 text/html Here for routine [...] on drops.--Last seen with eye doc in [place]; just done August 2023, see's every 6 [...] on left heel. Has seen podiatry in [place] recently. Follow up scheduled. At this point just watch and wait on symptoms. FU Scheduled soon. 10.) Acute sinusitis: Has been present x 1 week. Was seen by [facility] about 2-3 days ago and started on amox-clav and had some left over steroidroids. Yemi Chappell MD [address], [place], [address], [place] [facility] - [place] & [place] 11/14/2023 13:57:05 05/21/2024 text/html Here for routine yearly physical 1.) HL: On statin and fenofibrate; capo this well; Due for labs today. No known CAD. No stress, no echo; Does premature heart disease in the family--aunt and grandfather. He has no sxs.2.) ALEXANDER: On flonase, azelastine, singulair and zyrtec-D. Sxs stable. Follows with allergists. Gets allergy shots. sxs much better overall. 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 Denies SI.5.) Ophtho: Glaucoma; follows with ophtho, but not seen in 2-3 years; still on drops.--Last seen with eye doc in [place]; just done August 2023, see's every 6 [...] on left heel. Has seen podiatry in [place] recently. Follow up scheduled. At this point [...] YANCEY, juan josé, AUGUSTIN. Yemi Chappell MD [address], [place], [address], [facility] - [place] & [place] 05/21/2024 21:19:19
--- OUTSIDE RECORDS SUMMARY | 2024-09-05 12:22 | XMS_ITS | Data Portability ---
Author Organization [facility] Address [address] [place] [address] Care Team Providers Care Public Health Policy Analyst Name Role Phone FANNY ROBERTS Primary Care Provider [phone] Assessment No assessment recorded. Plan of Treatment Reminders Order Date Submit Date Provider Last Modified By Organization Details Last Modified Time Details Appointments RECHECK 2025 01:15P M DORINA BURROUGHS MD Not available Not available Not available Lab PSA, serum or plasma 2024 025 [email or web address] [facility], [address], [address], [place], [address], 06/12/2024 14:30:14 urinalysi s panel, auto 2021 022 [email or web address] [facility], [address], [address], [place], [address], 03/25/2022 11:31:37 urinalysi s panel, auto 2020 021 [facility], [address], [address], [place], [address], 02/27/2021 15:08:07 urinalysi s panel, auto 2020 021 [facility], [address], [address], [place], [address], 12/11/2020 11:57:27 PSA, serum or plasma 2020 021 [email or web address] [facility], [address], [address], [place], [address], 12/11/2020 11:57:27 Referral None recorded. Procedures None recorded. Surgeries None recorded. Imaging None recorded. Medication Orders tadalafil 5 mg tablet 2024 025 [facility], [address], [address], 06/09/2024 14:47:40 tadalafil 5 mg tablet 2022 023 [facility], [address], [address], 05/01/2023 23:04:49 tadalafil 5 mg tablet 2021 022 [facility], [address], [address], 03/25/2022 11:31:45 Bactrim DS 800 mg-160 mg tablet [address] [facility], [address], [address], 02/27/2021 14:28:31 tadalafil 5 mg tablet 2020 021 [facility], [address], [address], 12/11/2020 11:57:37 Patient TargetsNo targets recorded. Patient Instructions Encounter Date Encounter Id Patient Instructions Last Modified By Organization Details Last Modified Time 02/27/2021 [id number] learning about healthy weight [email or web address] Not available 02/27/2021 15:08:07 Reason for Referral None Reported. Results Created Date Observation Date Name Description Value Unit Range Abnormal Flag Note LastModifiedBy Organization Detail LastModifiedTime 02/28/2002/27/2021 urina lysis panel , auto Unknown Analyte Clean Catch Not Available [facility] [address], [place], [address], 02/27/2021 14:29:00 02/28/2002/27/2021 urina lysis panel , auto Unknown Analyte Yellow Not Available [facility] [address], [place], [address], 02/27/2021 14:29:00 02/28/2002/27/2021 urina lysis panel , auto Unknown Analyte Slight ly Hazy Not Available [facility] [address], [place], [address], 02/27/2021 14:29:00 02/28/2002/27/2021 urina lysis panel , auto Unknown Analyte 1.010 Not Available [facility] [address], [place], [address], 02/27/2021 14:29:00 02/28/20 21 02/27/2021 urina lysis panel , auto Unknown Analyte 1.003- 1.035 Not Available [facility] [address], [place], [address], 02/27/2021 14:29:00 02/28/20 21 02/27/2021 urina lysis panel , auto Unknown Analyte 7.0 Not Available [facility] [address], [place], [address], 02/27/2021 14:29:00 02/28/20 21 02/27/2021 urina lysis panel , auto Unknown Analyte 5.0-8. 0 Not Available [facility] [address], [place], [address], 02/27/2021 14:29:00 02/28/2002/27/2021 urina lysis panel , auto Unknown Analyte 75 Christianne/ul (+) Not Available [facility] [address], [place], [address], 02/27/2021 14:29:00 02/28/20 21 02/27/2021 urina lysis panel , auto Unknown Analyte Negati ve Not Available [facility] [address], [place], [address], 02/27/2021 14:29:00 02/28/2002/27/2021 urina lysis panel , auto Unknown Analyte Negati ve Not Available [facility] [address], [place], [address], 02/27/2021 14:29:00 02/28/2002/27/2021 urina lysis panel , auto Unknown Analyte Negati ve Not Available [facility] [address], [place], [address], 02/27/2021 14:29:00 02/28/20 21 02/27/2021 urina lysis panel , auto Unknown Analyte Negati ve Not Available [facility] [address], [place], [address], 02/27/2021 14:29:00 02/28/20 21 02/27/2021 urina lysis panel , auto Unknown Analyte Negati ve Not Available [facility] [address], [place], [address], 02/27/2021 14:29:00 02/28/2002/27/2021 urina lysis panel , auto Unknown Analyte Normal Not Available [facility] [address], [place], [address], 02/27/2021 14:29:00 02/28/20 21 02/27/2021 urina lysis panel , auto Unknown Analyte Normal Not Available [facility] [address], [place], [address], 02/27/2021 14:29:00 02/28/2002/27/2021 urina lysis panel , auto Unknown Analyte 15 mg/dl (Sm) Not Available [facility] [address], [place], [address], 02/27/2021 14:29:00 02/28/2002/27/2021 urina lysis panel , auto Unknown Analyte Negati ve Not Available [facility] [address], [place], [address], 02/27/2021 14:29:00 02/28/2002/27/2021 urina lysis panel , auto Unknown Analyte 1 mg/dl Not Available [facility] [address], [place], [address], 02/27/2021 14:29:00 02/28/20 21 02/27/2021 urina lysis panel , auto Unknown Analyte Normal 1 mg/dl Not Available [facility] [address], [place], [address], 02/27/2021 14:29:00 02/28/20 21 02/27/2021 urina lysis panel , auto Unknown Analyte Negati ve Not Available [facility] [address], [place], [address], 02/27/2021 14:29:00 02/28/20 21 02/27/2021 urina lysis panel , auto Unknown Analyte Negati ve Not Available [facility] [address], [place], [address], 02/27/2021 14:29:00 02/28/2002/27/2021 urina lysis panel , auto Unknown Analyte Negati ve Not Available [facility] [address], [place], [address], 02/27/2021 14:29:00 02/28/20 21 02/27/2021 urina lysis panel , auto Unknown Analyte Negati ve Not Available [facility] [address], [place], [address], 02/27/2021 14:29:00 12/12/19 21 12/11/2020 urina lysis panel , auto Unknown Analyte Clean Catch Not Available [facility] [address], [place], [address], 12/11/2020 11:04:19 12/12/19 21 12/11/2020 urina lysis panel , auto Unknown Analyte Yellow Not Available [facility] [address], [place], [address], 12/11/2020 11:04:19 12/12/19 21 12/11/2020 urina lysis panel , auto Unknown Analyte Clear Not Available [facility] [address], [place], [address], 12/11/2020 11:04:19 12/12/19 21 12/11/2020 urina lysis panel , auto Unknown Analyte 1.015 Not Available [facility] [address], [place], [address], 12/11/2020 11:04:19 12/12/19 21 12/11/2020 urina lysis panel , auto Unknown Analyte 1.003- 1.035 Not Available [facility] [address], [place], [address], 12/11/2020 11:04:19 12/12/1912/11/2020 urina lysis panel , auto Unknown Analyte 6.0 Not Available [facility] [address], [place], [address], 12/11/2020 11:04:19 12/12/19 21 12/11/2020 urina lysis panel , auto Unknown Analyte 5.0-8. 0 Not Available [facility] [address], [place], [address], 12/11/2020 11:04:19 12/12/19 21 12/11/2020 urina lysis panel , auto Unknown Analyte 25 Christianne/ul Trace Not Available [facility] [address], [place], [address], 12/11/2020 11:04:19 12/12/19 21 12/11/2020 urina lysis panel , auto Unknown Analyte Negati ve Not Available [facility] [address], [place], [address], 12/11/2020 11:04:19 12/12/19 21 12/11/2020 urina lysis panel , auto Unknown Analyte Negati ve Not Available [facility] [address], [place], [address], 12/11/2020 11:04:19 12/12/19 21 12/11/2020 urina lysis panel , auto Unknown Analyte Negati ve Not Available [facility] [address], [place], [address], 12/11/2020 11:04:19 12/12/1912/11/2020 urina lysis panel , auto Unknown Analyte Negati ve Not Available [facility] [address], [place], [address], 12/11/2020 11:04:19 12/12/19 21 12/11/2020 urina lysis panel , auto Unknown Analyte Negati ve Not Available [facility] [address], [place], [address], 12/11/2020 11:04:19 12/12/19 21 12/11/2020 urina lysis panel , auto Unknown Analyte Normal Not Available [facility] [address], [place], [address], 12/11/2020 11:04:19 12/12/19 21 12/11/2020 urina lysis panel , auto Unknown Analyte Normal Not Available [facility] [address], [place], [address], 12/11/2020 11:04:19 12/12/19 21 12/11/2020 urina lysis panel , auto Unknown Analyte 15 mg/dl (Sm) Not Available [facility] [address], [place], [address], 12/11/2020 11:04:19 12/12/19 21 12/11/2020 urina lysis panel , auto Unknown Analyte Negati ve Not Available [facility] [address], [place], [address], 12/11/2020 11:04:19 12/12/19 21 12/11/2020 urina lysis panel , auto Unknown Analyte 4 mg/dl Not Available [facility] [address], [place], [address], 12/11/2020 11:04:19 12/12/19 21 12/11/2020 urina lysis panel , auto Unknown Analyte Normal 1 mg/dl Not Available [facility] [address], [place], [address], 12/11/2020 11:04:19 12/12/19 21 12/11/2020 urina lysis panel , auto Unknown Analyte 1 mg/dl (+) Not Available [facility] [address], [place], [address], 12/11/2020 11:04:19 12/12/19 21 12/11/2020 urina lysis panel , auto Unknown Analyte Negati ve Not Available [facility] [address], [place], [address], 12/11/2020 11:04:19 12/12/19 21 12/11/2020 urina lysis panel , auto Unknown Analyte Negati ve Not Available [facility] [address], [place], [address], 12/11/2020 11:04:19 12/12/19 21 12/11/2020 urina lysis panel , auto Unknown Analyte Negati ve Not Available [facility] [address], [place], [address], 12/11/2020 11:04:19 12/12/19 21 12/11/2020 PSA, serum or plasm a PSA 0.15 NG/mL 0.0 - 4.0 Not Available [facility] [address], [place], [address], 12/11/2020 11:54:23 03/25/20 22 03/25/2022 urina lysis panel , auto Unknown Analyte Clean Catch Not Available [facility] [address], [place], [address], 03/25/2022 11:15:32 03/25/20 22 03/25/2022 urina lysis panel , auto Unknown Analyte Yellow Not Available [facility] [address], [place], [address], 03/25/2022 11:15:32 03/25/20 22 03/25/2022 urina lysis panel , auto Unknown Analyte Clear Not Available [facility] [address], [place], [address], 03/25/2022 11:15:32 03/25/20 22 03/25/2022 urina lysis panel , auto Unknown Analyte 1.020 Not Available [facility] [address], [place], [address], 03/25/2022 11:15:32 03/25/20 22 03/25/2022 urina lysis panel , auto Unknown Analyte 6.5 Not Available [facility] [address], [place], [address], 03/25/2022 11:15:32 03/25/20 22 03/25/2022 urina lysis panel , auto Unknown Analyte 25 Christianne/ul Trace Not Available [facility] [address], [place], [address], 03/25/2022 11:15:32 03/25/2003/25/2022 urina lysis panel , auto Unknown Analyte Negati ve Not Available [facility] [address], [place], [address], 03/25/2022 11:15:32 11/07/20 22 03/25/2022 urina lysis panel , auto Unknown Analyte Negati ve Not Available [facility] [address], [place], [address], 03/25/2022 11:15:32 03/25/20 22 03/25/2022 urina lysis panel , auto Unknown Analyte Normal Not Available [facility] [address], [place], [address], 03/25/2022 11:15:32 03/25/2003/25/2022 urina lysis panel , auto Unknown Analyte Negati ve Not Available [facility] [address], [place], [address], 03/25/2022 11:15:32 03/25/20 22 03/25/2022 urina lysis panel , auto Unknown Analyte 4 mg/dl Not Available [facility] [address], [place], [address], 03/25/2022 11:15:32 03/25/20 22 03/25/2022 urina lysis panel , auto Unknown Analyte 1 mg/dl (+) Not Available [facility] [address], [place], [address], 03/25/2022 11:15:32 03/25/2003/25/2022 urina lysis panel , auto Unknown Analyte Negati ve Not Available [facility] [address], [place], [address], 03/25/2022 11:15:32 03/26/20 22 03/26/2022 PSA, serum or plasm a PSA 0.16 NG/mL 0.0 - 4.0 Not Available [facility] [address], [place], [address], 03/26/2022 08:18:10 06/09/19 25 06/09/2024 PSA, serum or plasm a PSA 0.38 NG/mL 0.0 - 4.0 Not Available [facility] [address], [place], [address], 06/09/2024 14:59:13 Result Notes None recorded. Procedures Surgical History Date Name Laterality Status Provider Name and Address Organization Details Recorded Time 12/31/19 19 Interpretation completed JUAN VELÁSQUEZ PA-C [address] [place] [address], [address], [facility] 12/30/2018 15:20:01 operation for glaucoma completed [facility] 07/24/2018 10:16:38 Other completed [facility] 07/24/2018 10:16:57 Other completed [facility] 07/24/2018 10:17:24 Imaging Results None recorded. Procedure Notes None recorded. Medical Equipment None Reported. Allergies Allergen ID Allergen Name Allergen Category Reaction Reaction Severity Criticality Documentation Date Start Date Code Code System Note Provider Name and Address Organization Details Recorded Time 702745 latex environme nt,medica tion Not available Not available Not available 07/24/2018 37094 91 [facility] 10:14:05 Medications Name Sig Start Date [...] tablet Not Available Not Available Not Available [place] 7.5 mg-325 mg tablet Take 1 tablet every 6 hours by oral route. 12/11 completed Not Available Not Available Not Available [place] 5 mg-325 mg tablet Take 1 tablet [...] Updated DateTime 12/11/2020 175.26 cm 29.1 kg/m2 25688.7 [facility] 12/11/2020 11:03:22 Date Recorded Body height Body mass index (BMI) Body weight Provider Name and Address Organization Details Last Updated DateTime 02/27/2021 175.26 cm 29.1 kg/m2 61310.7 g Bryanjuancarlos [facility] 02/27/2021 14:28:26 Date Recorded Body height Body mass index (BMI) Body weight Provider Name and Address Organization Details Last Updated DateTime 03/25/2022 175.26 cm 24.4 kg/m2 04708.74 g Jesus Crisostomo [facility] 03/25/2022 11:26:46 Date Recorded Body height Body mass index (BMI) Body weight Provider Name and Address Organization Details Last Updated DateTime 04/30/2023 175.26 cm 24.4 kg/m2 25722.74 g Akila Jesse [facility] 04/30/2023 13:56:47 Date Recorded Body height Body mass index (BMI) Body weight Provider Name and Address Organization Details Last Updated DateTime 06/09/2024 175.26 cm 24.4 kg/m2 67419.74 g Paula Charles [facility] 06/09/2024 14:19:49 Social History Question Answer Notes LastModified by Organizat ion Details LastModified Time Tobacco Smoking Status Current Every Day [facility]/2018 10:15:53 What Is Your Level Of [...] available 2018 10:15:40 Medical History Condition Response Depression Y Arthritis Y Glaucoma Y Past Encounters Encounter ID Performer Location Encounter Start Date Encounter Closed Date Diagnosis/Indication Diagnosis SNOMED-CT Code Diagnosis ICD10 Code Diagnosis Note [id number] DORINA BURROUGHS MD [facility] [address] [place] [address] 07/24/2018 09:13:31 07/24/2018 10:11:57 Human papilloma virus infection 182107345 B97.7 we will arrange for CO2 laser fulguratio n of multiple genital condyloma [id number] CASTRO BOYD [facility] [address] [place] [address] 07/29/2018 08:43:01 07/30/2018 10:47:11 Cervical spondylosis without myelopathy 940575421 M47.812 -The patient presents with gradual onset [...] for evaluation of these complaints as well. [id number] CASTRO BOYD MD NE[facility]OS[facility] [address] [place] [id number] 08/04/2018 13:24:18 08/10/2018 09:53:13 Spinal stenosis in cervical region with myelopathy [id number] 105 M48.02 -The patient presents for evaluation [...] present for the conversati on ACDF C5-6,6-7 [id number] DORINA BURROUGHS MD SURGERY SCHEDULE [address] [place] [address] 08/26/2018 09:51:03 08/26/2018 09:53:46 [id number] CASTRO BOYD MD SURGERY SCHEDULE [address] [place] [address] 1 09/07/2018 07:34:23 09/07/2018 07:38:27 [id number] CASTRO BOYD MD [facility] [address] [place] [id number] 09/30/2018 15:25:42 10/01/2018 12:00:32 Postoperative care [id number] Z48.89 -1 month status post 2 level ACDF. Making expected progress. X-rays are stable. Increase activity as tolerates over the next 4 weeks. Plan repeat x-ray in 3 months. All questions regarding his care were answered. He is happy with his early response to the surgery. [id number] CASTRO BOYD MD [facility] [address] [place] [id number] 12/30/2018 14:47:26 01/04/2019 16:02:43 Postoperative care [id number] Z48.89 Doing great 4 months postop from [...] participat ing the care of Mr. Gallo. [id number] DORINA BURROUGHS MD [facility] [address] [place] [id number] 12/11/2020 10:42:42 12/11/2020 11:59:24 Benign prostatic hyperplasia with outflow obstruction [id number] N40.1 follow-up 2 months Chronic prostatitis 1990 5009 N41.1 [id number] DORINA BURROUGHS MD [facility] [address] [place] [address] 02/27/2021 14:12:01 02/27/2021 14:53:59 Benign prostatic hyperplasia with outflow obstruction [id number] N40.1 continue above. Follow-up 1 year [id number] MD [facility] [address] [place] [address] 03/25/2022 11:06:38 03/28/2022 10:50:55 Benign prostatic hyperplasia with outflow obstruction [id number] N40.1 continue above. Follow-up 1 year Primary er ectile dysfunction 240782453 N52.9 [id number] [facility] [address] [place] [address] 04/30/2023 13:18:02 04/30/2023 14:40:24 Benign prostatic hyperplasia with outflow obstruction [id number] N40.1 continue above. Follow-up 1 year [id number] [facility] [address] [place] [address] 06/09/2024 14:15:14 06/10/2024 05:29:41 Benign prostatic hyperplasia with outflow obstruction [id number] N40.1 continue above. Follow-up 1 year Health [...] PLUS (MEDICARE REPLACEMENT HMO) [id number] Yonathan Gallo [id number] Yonathan Gallo 02/27/2021 1 [place]AC[place] H[place] [id number] Yonathan Gallo [id number] Yonathan Gallo 03/25/2022 2 MEDICAID-[facility] - FFS/TRADITIONA L Yonathan Gallo [id number] Yonathan Gallo 03/25/2022 1 [place] H[place] [id number] Yonathan Gallo [id number] Yonathan Gallo 04/30/2023 2 MEDICAID-[facility] - FFS/TRADITIONA L Yonathan Rich Sabino [id number] Yonathan Rich Sabino 04/30/2023 1 [place]) [id number] Yonathan Burrowslan [id number] Yonathan Rich Sabino 06/09/2024 2 MEDICAID-[facility] - FFS/TRADITIONA L Yonathan Rich Sabino [id number] Yonathan Rich Sabino 06/09/2024 1 [place] H[place] [id number] Yonathan Rich Sabino [id number] Michael Sabino Notes Date Note Type Note [...] and it was 0.15. DORINA BURROUGHS MD [address] [place] [address], [phone], [facility] 12/11/2020 11:57:59 02/27/2021 text/html patient is here for 3 month follow-up after starting tadalafil 5 mg daily for obstructive urinary symptoms. He also took Bactrim for 1 month. He has history of BPH as well as chronic prostatitis. he really has no urologic complaints at this time. DORINA BURROUGHS MD [address] [place] [address], [phone], [facility] 02/27/2021 15:08:51 03/25/2022 text/html patient is [...] continue on current therapy. DORINA BURROUGHS MD [facility] [place], [phone], [facility] 03/25/2022 11:32:30 04/30/2023 text/html Patient is here for yearly follow-up. He has previous history of chronic prostatitis. He also has some obstructive symptoms and has done excellent on tadalafil 5 mg daily. He has PSA at his PCPs office in October of this year was 0.3. DORINA BURROUGHS MD [facility] [place], [phone], [facility] 05/01/2023 23:05:23 06/09/2024 text/html Patient continue s to do well so long as he takes tadalafil daily. He has nocturia x 2. He typically voids with a good stream so long as he takes tadalafil. PSA at last visit was 0.3. PSA today is pending. He would like to continue on current therapy. DORINA BURROUGHS MD [facility] [place], [phone], [facility] 06/12/2024 14:30:17
--- NOTE | 2024-09-05 12:24 | CT_ITS ---
PROCEDURE INFORMATION: Exam: CT Cervical Spine Without Contrast Exam date and time: 09/05/2024 12:39 PM Age: 49 years old Clinical indication: Neck pain; Prior surgery; Surgery date: 6+ months; Surgery type: Cervicle spine pain; Additional info: Neck pain / fall / prev surgery TECHNIQUE: Imaging protocol: Computed tomography of the cervical spine without contrast. Radiation optimization: All CT scans at this facility use at least one of these dose optimization techniques: automated exposure control; mA and/or kV adjustment per patient size (includes targeted exams where dose is matched to clinical indication); or iterative reconstruction. COMPARISON: CT HEAD/BRAIN WO CON 09/05/2024 12:36 PM FINDINGS: Bones: There is normal anatomic alignment of the cervical spine. No acute fracture or destructive bone lesion identified. Previous anterior interbody fusion of C5-C6-C7 with intervening disc space bone plugs. Normal-variant limbus vertebra of C3. Chronic degenerative disc space narrowing at multiple levels of the cervical spine. No evidence of an acute fracture. Paranasal sinuses: Trace chronic right maxillary sinus disease. Orbital cavities: Partially imaged surgical repair of the inferior orbital wall on the right. Lungs: Lung apices are normal. Soft tissues: Unremarkable. IMPRESSION: Prior fusion of the lower cervical spine and multilevel chronic degenerative changes in the cervical spine but no acute fracture identified.
--- NOTE | 2024-09-05 12:24 | XR_ITS ---
PROCEDURE INFORMATION: Exam: XR Chest Exam date and time: 09/05/2024 12:31 PM Age: 49 years old Clinical indication: Shortness of breath; Additional info: SOA / chills TECHNIQUE: Imaging protocol: Radiologic exam of the chest. Views: 2 views. COMPARISON: CT CHEST WO CON 04/12/2024 1:05 PM FINDINGS: Lungs: Low lung volumes with bronchovascular crowding . No focal consolidation. Pleural spaces: No pneumothorax or pleural effusion. Heart/Mediastinum: Cardiomediastinal silhouette is unremarkable. Bones/joints: No acute osseous or soft tissue abnormality. IMPRESSION: Low lung volumes with bronchovascular crowding.
--- NOTE | 2024-09-05 12:24 | CT_ITS ---
PROCEDURE INFORMATION: Exam: CT Head Without Contrast Exam date and time: 09/05/2024 12:36 PM Age: 49 years old Clinical indication: Pain; Headache; Additional info: Fall / headache TECHNIQUE: Imaging protocol: Computed tomography of the head without contrast. Radiation optimization: All CT scans at this facility use at least one of these dose optimization techniques: automated exposure control; mA and/or kV adjustment per patient size (includes targeted exams where dose is matched to clinical indication); or iterative reconstruction. COMPARISON: CT HEAD/BRAIN WO CON 09/05/2024 12:36 PM FINDINGS: Brain: There is bihemispheric white matter microangiopathic chronic ischemia. No CT evidence of acute infarct, hemorrhage, mass or mass effect. Old left basal ganglia lacunar infarct versus prominent Virchow Lenny spaces. Cerebral ventricles: No ventriculomegaly. Paranasal sinuses: No air-fluid levels in the paranasal sinuses. Mastoid air cells: Visualized mastoid air cells are well aerated. Bones: Prior ORIF of the anterior wall of the right maxillary sinus and inferior wall of the right orbit. No acute osseous lesions identified. Suspected old ernesto hole in the right frontoparietal skull. Soft tissues: Unremarkable. IMPRESSION: 1. Bihemispheric white matter microangiopathic chronic ischemia, slightly advanced for age. 2. No CT evidence of acute brain injury. 3. Old left basal ganglia lacunar infarcts versus prominent Virchow Lenny spaces.
--- NOTE | 2024-09-05 12:35 | ED_ITS ---
<Statement entered by Layla Sahu MD - 09/05/24 15:11> I was consulted by the LUIS ALBERTO, and we discussed the complexity of the problems being addressed. I approved the treatment and management plan for this patient's care in the emergency department, thus performing a substantive portion of the medical decision making. Layla Sahu MD, MALLY, FACEP Discharge Plan Disposition Patient Disposition: Home, Self-Care Condition: Good Prescriptions Prescriptions: No Action cyanocobalamin (vitamin B-12) 1,000 mcg/mL solution 1,000 mcg IM .BIWEEKLY Patient Comments: INJECT 1 ML INTRAMUSCULARLY EVERY TWO WEEKS DIRECTED epinephrine 0.3 mg/0.3 mL auto-injector 0.3 mg SQ ONCE PRN (Reason: Anaphylaxis) Patient Comments: INJECT CONTENTS OF 1 PEN NEEDED FOR ALLERGIC REACTION CALL 911 AFTER USE simvastatin 40 mg tablet 40 mg PO DAILY Patient Comments: TAKE ONE TABLET BY MOUTH EVERY DAY montelukast 10 mg tablet 10 mg PO DAILY Patient Comments: TAKE 1 TABLET BY MOUTH ONCE DAILY AT NIGHT timolol maleate 0.5 % drops 1 drp Eye-Both AM Patient Comments: instill 1 DROP IN EACH EYE EVERY MORNING tadalafil 5 mg tablet 5 mg PO DAILY Patient Comments: TAKE 1 TABLET BY MOUTH ONCE DAILY fenofibrate nanocrystallized 145 mg tablet 145 mg PO DAILY Patient Comments: TAKE ONE TABLET BY MOUTH EVERY DAY citalopram 20 mg tablet 30 mg PO DAILY Patient Comments: TAKE 1 & 1/2 (ONE & ONE-HALF) TABLETS BY MOUTH ONCE DAILY lisinopril 10 mg tablet 10 mg PO DAILY Patient Comments: TAKE 1 TABLET BY MOUTH ONCE DAILY Referrals Follow up/Referrals: Yemi Chappell [Primary Care Provider] - See instructions Activity Restrictions/Add. Instructions Additional Instructions/Restrictions: Today you were evaluated in the emergency department, you were given multimodal pain control. Please follow-up with your PCP as we discussed to reassess your AST and ALT enzymes. Please rest today, you are given IV medication that may make you drowsy. Please return to the emergency department for worsening of condition. Clinical Impressions Clinical Impression: Elevated liver enzymes Headache Qualifiers: Headache type: unspecified Headache chronicity pattern: acute headache I ntractability: not intractable Qualified Code(s): R51.9 - Headache, unspecified Instructions Patient Instructions: DI for Headache Print Language Print Language: Chinese Discharge ED Provider: Layla Sahu General Adult HPI General Chief complaint: Fall Stated complaint: head ache w/dizziness for abt. 4 days ba Time Seen by Provider: 09/05/24 12:14 Mode of Arrival: Ambulatory Source of Information: Patient and Spouse Description of Symptoms (Recalled from ER Triage Doc. by RN): Immediately bedded from registration. Patient presents with multiple concerns. Patient states he was playing football with his son last Friday when he was tripped and landed on his butt. Patient states he has a history of neck surgery. Patient states, I felt it from my tail bone up through my neck. Patient denies striking is head. Denies LOC. Patient also endorses a headache, shortness of breath, aches, chills, and subjective fevers. States he has been seen multiple times at the [facility]. States he was tested for influenza and COVID-19 but was negative. Patient's current blood pressure is 134/84. Patient's spouse says it has been this high at home and describes it as, terribly high. Provider at bedside. History of Present Illness HPI narrative: Patient is a 49 year old male with PMHx HTN, HLD, Tobacco use (1 pk x 38 years) who presents to the ED for headache x 1 week, dizziness x 2 days, a fall from standing on to his bottom x 8 days ago which caused his chronic neck pain to flare and SOA and chills x 3 days. Pt states that he has been evaluated at [facility] twice in the past 1 week for this without a diagnosis. He states when he fell 8 days ago, he did not hit his head, denies LOC. He states he had previous C-spine surgery and his pain has been worse since the fall although he did not hit his neck. Related Data Home Medications ?Medication ?Instructions ?Recorded ?Confirmed fenofibrate nanocrystallized 145 145 mg PO DAILY 02/27/24 09/05/24 mg tablet montelukast 10 mg tablet 10 mg PO DAILY 02/27/24 09/05/24 simvastatin 40 mg tablet 40 mg PO DAILY 02/27/24 09/05/24 tadalafil 5 mg tablet 5 mg PO DAILY 02/27/24 09/05/24 timolol maleate 0.5 % eye drops 1 drp Eye-Both AM 02/27/24 09/05/24 citalopram 20 mg tablet 30 mg PO DAILY 06/05/24 09/05/24 lisinopril 10 mg tablet 10 mg PO DAILY 06/05/24 09/05/24 cyanocobalamin (vitamin B-12) 1,000 mcg IM .BIWEEKLY 08/09/24 09/05/24 1,000 mcg/mL injection solution epinephrine 0.3 mg/0.3 mL 0.3 mg SQ ONCE PRN Anaphylaxis 08/09/24 09/05/24 injection, auto-injector Allergies Allergy/AdvReac Type Severity Reaction Status Date / Time tree nut (TREE NUT) Allergy Intermediate Unknown Verified 09/05/24 13:14 allergy reaction latex (LATEX) Allergy Unknown Unknown Verified 09/05/24 13:14 allergy reaction PFSH PFS Disclaimer: The information contained in this section may have been updated after the patient was seen, as this information can be updated by other users. Medical History (Updated 09/05/24 @ 14:05 by Josey Saravia APRN) Dizziness Viral syndrome Sinusitis Allergic rhinitis Anxiety Hyperlipidemia Tobacco abuse Surgical History No significant past surgical history Family History Other No significant family history Social History Smoking Status: Current every day smoker tobacco type: cigarettes packs per day: 1 alcohol intake: never substance use type: denies use current occupational status: other Travel in the last 8 weeks: None household members: family Have you lived/traveled outside US in past 30 days?: No Contact w/someone who lives/traveled outside US past 30 days?: No Exposure to someone with infectious disease in past 14 days?: No Do you have a fever (greater than 100.4 F or 38 C)?: No Have you tested positive for COVID-19: No Exposed to someone with COVID-19 in past 14 days?: No Do you have a sore throat?: No Do you have a cough?: No Do you have any weakness?: No Do you have any diarrhea?: No Are you experiencing any unusual bleeding?: No Do you have any muscle aches/pain?: No Do you have any abdominal pain?: No Are you experiencing loss of taste or smell?: No Other Medical History Have you received the Flu Vaccine for this season: Yes Have you received the Pneumonia Vaccine: Yes ROS Obtained: Yes Systems reviewed as appropriate & no additional complaints except as documented Physical Exam General General appearance: alert and in no apparent distress Head Head exam: atraumatic and normocephalic Eye Eye exam: Present normal appearance and PERRL; Absent nystagmus ENT ENT exam: Present normal exam Neck Neck exam: Present normal inspection, full ROM, trachea midline and tenderness (c-spine tenderness ) Chest Chest inspection: Present normal inspection and symmetric chest wall rise; Absent tenderness Respiratory Respiratory exam: Present normal lung sounds bilaterally; Absent respiratory distress or accessory muscle use Cardiovascular Cardiovascular exam: Present regular rate and normal rhythm Abdominal Exam Abdominal exam: Present soft and normal bowel sounds; Absent tenderness Extremities Exam Extremities exam: Present normal inspection and full ROM Back Exam Back exam: Present normal inspection and full ROM Neurological Exam Neurological exam: Present alert and oriented X3; Absent motor sensory deficit Psychiatric Psychiatric exam: Present normal affect and normal mood Skin Skin exam: Present warm and dry Medical Decision Making Medical Records Screening: Per USPSTF and CDC recommendations, given the prevalence of disease in our region, it is our hospital?s policy to screen for HIV and viral Hepatitis for all patients aged 18 and over and those with ongoing risk factors. Dave Inquiry Pt receiving controlled substance: No Vital Signs: 09/05/24 12:15 09/05/24 13:31 09/05/24 14:04 Temperature 98.6 F Temperature Source Oral Pulse Rate 59 L 52 L Pulse Rate [Radial] 65 Respiratory Rate 18 14 Blood Pressure 119/79 125/81 Blood Pressure [R Arm] 134/85 Blood Pressure Mean [R Arm] 101 Blood Pressure Position [R Arm] Supine 02 Sat by Pulse Oximetry 99 99 99 Oxygen Delivery Method Room Air Room Air Room Air 09/05/24 14:13 Temperature 98.2 F Temperature Source Oral Pulse Rate 52 L Pulse Rate [Radial] Respiratory Rate 16 Blood Pressure 125/81 Blood Pressure [R Arm] Blood Pressure Mean [R Arm] Blood Pressure Position [R Arm] 02 Sat by Pulse Oximetry Oxygen Delivery Method Lab Data Lab Results 09/05/24 12:30: WBC 7.1, RBC 4.30 L, Hgb 13.3 L, Hct 39.0 L, MCV 90.7, MCH 30.9, MCHC 34.1, RDW 15.5, Plt Count 329, MPV 10.0, Neut % (Auto) 44.5, Lymph % (Auto) 41.2, Williams % (Auto) 10.9 H, Eos % (Auto) 2.3, Baso % (Auto) 0.8, Neut # (Auto) 3.2, Lymph # (Auto) 2.9, Williams # (Auto) 0.8, Eos # (Auto) 0.2, Baso # (Auto) 0.1, Sodium 140, Potassium 3.6, Chloride 110 H, Carbon Dioxide 24, Anion Gap 9.6, BUN 7 L, Creatinine 0.70, Estimated Creat Clear 152, Estimated GFR 120, Est GFR ( Amer) 145, Glucose 105 H, Calcium 8.8, Total Bilirubin 0.4, AST 120 H, ALT 97 H, Alkaline Phosphatase 130 H, Total Protein 6.7, Albumin 3.5, Globulin 3.2, Albumin/Globulin Ratio 1.1, Acetaminophen < 10 L, HCV Ab EBONY w/Rflx PCR Qn Negative, HIV Ag/Ab Combo Qual Negative 09/05/24 12:30 09/05/24 12:30 Orders (Tests/Meds): ED MEDICATIONS Discontinued Medications Generic Name Dose Route Start Last Admin Trade Name Alexq PRN Reason Stop Dose Admin Acetaminophen 1,000 mg 09/05/24 12:24 09/05/24 12:45 Acetaminophen 500mg Tab PO 09/05/24 12:25 500 mg ONCE ONE Administration Diphenhydramine HCl 25 mg 09/05/24 12:24 09/05/24 12:45 Diphenhydramine 50mg/Ml Vial IV 09/05/24 12:25 25 mg ONCE ONE Administration Sodium Chloride 500 mls @ 999 mls/hr 09/05/24 12:24 09/05/24 12:46 Sod Chlor 0.9% 1000ml Bag IV 09/05/24 12:54 999 mls/hr .Q31M ONE Administration Prochlorperazine Edisylate 10 mg 09/05/24 12:28 09/05/24 12:44 Prochlorperazine 10mg/2ml Vial IV 09/05/24 12:29 10 mg ONCE ONE Administration ORDERS Category Date Time Status CT cervical spine wo con Stat Cat Scan 09/05/24 12:[address] head/brain wo con Stat Cat Scan 09/05/24 12:24 Completed CXR 2 view (NOT portable) [XR chest 2V] Stat Exams 09/05/24 12:24 Completed Acetaminophen Stat Lab 09/05/24 12:30 Completed CBC w/Auto Diff [Complete Blood Count Auto Diff] Stat Lab 09/05/24 12:30 Completed CMP [Comprehensive Metabolic Panel] Stat Lab 09/05/24 12:30 Completed HIV Combo Stat Lab 09/05/24 12:30 Completed Hepatitis C Ab Qual. W/ RFX Stat Lab 09/05/24 12:30 Completed Medical Decision Narrative: In summary, patient is a 49 year old male with PMHx HTN, HLD, Tobacco use (1 pk x 38 years) who presents to the ED for headache x 1 week, dizziness x 2 days, a fall from standing on to his bottom x 8 days ago which caused his chronic neck pain to flare and SOA and chills x 3 days. Pt states that he has been evaluated at [facility] twice in the past week for this without a diagnosis. He states when he fell 8 days ago, he did not hit his head, denies LOC. He states he had previous C-spine surgery and his pain has been worse since the fall although he did not hit his neck. He states that he has taken acetaminophen and ibuprofen [id number] for his headache which has not provided him any relief. Patient states his headache is a right sided, 8 out of 10 throbbing headache. Patient states this is the worst headache of his life. He denies any history of [place], DVT, PE, aneurysm. Denies fever, visual disturbances, chest pain, abdominal pain, nausea, vomiting, dysuria. Upon initial evaluation patient is alert, oriented and cooperative. He is hemodynamically stable. Physical exam is unremarkable, PERRLA, no nystagmus. No spinal deformity or step-offs. Discussed with patient and family that we will proceed with CT of the head, CT the C-spine, COVID and flu swab and hematologic labs. Will administer multimodal pain control. Upon my review, CBC unremarkable for any actionable abnormalities, normal WBC, stable H&H. CMP unremarkable for any actionable abnormalities. AST 120, ALT 97. CT of the cervical spine final read remarkable for prior fusion of the lower cervical spine and multilevel chronic degenerative changes in the cervical spine but no acute fracture identified. Head CT unremarkable for any acute brain injury. Final read of the chest x-ray unremarkable for any acute findings. Upon reassessment, patient states that his pain has completely resolved. Discussed with patient his liver enzymes will need rechecked by his PCP. Advised him to return to the ED for any worsening of his condition. Upon discharge, he was hemodynamically stable and ambulatory without difficulty. Critical Care Critical Care Time Critical Care Time: No
[2024-09-05 12:39] LABS: Basophils # 0.1 K/mm3 (0-0.2); Basophils % 0.8 % (0.1-2.0); Eosinophils # 0.2 Kmm3 (0.0-0.4); Eosinophils % 2.3 % (0.1-12.0); Hemoglobin 13.3 g/dL (14.1-18.0); Lymphocytes # 2.9 K/mm3 (0.7-4.5); Lymphocytes % 41.2 % (10-50); Mean Corpuscular HGB Conc 34.1 g/dL (31.8-35.4); Mean Corpuscular Hemoglobin 30.9 pg (27.0-31.2); Mean Corpuscular Volume 90.7 fl (80-94); Monocytes # 0.8 K/mm3 (0.1-1.0); Monocytes % 10.9 % (1.7-9.3); Neutrophils # 3.2 K/mm3 (1.8-7.8); Neutrophils % 44.5 % (37.0-80.0); Nucleated Red Blood Cells # 0 10^3/uL; Nucleated Red Blood Cells % 0 %; Platelet Count 329 K/mm3 (142-424); Red Cell Distribution Width 15.5 % (11.5-17.5); Red Cell Distribution Width-SD 51.1 fL; White Blood Count 7.1 K/mm3 (4.8-10.8)
[2024-09-05 12:44] LABS: Albumin Level 3.5 g/dl (3.5-5.0); Chloride 110 mmol/L (98-107); Potassium 3.6 mmoL/L (3.5-5.1); Sodium 140 mmol/L (136-145)
[2024-09-05] MEDS: PROCHLORPERAZINE 10MG/2ML VIAL 10 MG IV (12:44)
--- NOTE | 2024-09-05 12:44 | PC.NURSE ---
Patient returned from CT. Connected to monitor. Medicated as documented. Voices no questions or concerns at time time.
[2024-09-05] MEDS: ACETAMINOPHEN 500MG TAB 1000 MG PO (12:45)
[2024-09-05] MEDS: diphenhydrAMINE 50MG/ML VIAL 25 MG IV (12:45)
[2024-09-05] MEDS: 0.9 % SODIUM CHLORIDE 1000ML 500 ML 999 ML IV (12:46)
[2024-09-05 12:47] LABS: Acetaminophen < 10 ug/ml (10-30); Alanine Aminotransferase 97 U/L (12-78); Albumin/Globulin Ratio 1.1 (1.1-1.8); Alkaline Phosphatase 130 U/L (38-126); Anion Gap 9.6 mEq/L (5-15); Aspartate Amino Transferase 120 U/L (17-59); Bilirubin,Total 0.4 mg/dl (0.2-1.3); Blood Urea Nitrogen 7 mg/dl (9-20); Calcium 8.8 mg/dl (8.4-10.2); Carbon Dioxide 24 mmol/L (22.0-30.0); Creatinine Clearance Estimated 152 mL/min (50-200); Estimated Glomerular Filt Rate 120 ml/min (>60); GFR (African American) 145 ML/MIN (>60); Globulin 3.2 g/dL (1.3-3.2); Glucose 105 mg/dl (74-100); Total Protein,Serum 6.7 g/dl (6.3-8.2)
[2024-09-05 13:31] VITALS: BP 119/79; PULSE 59; RESP 14; O2SAT 99
[2024-09-05 13:34] LABS: HIV Combo NEGATIVE (Negative)
[2024-09-05 13:41] LABS: Hepatitis C Ab Qual. W/ RFX NEGATIVE (Negative)
[2024-09-05 14:04] VITALS: BP 125/81; PULSE 52; O2SAT 99
[2024-09-05 14:13] VITALS: BP 125/81; PULSE 52; RESP 16; TEMP 36.8; O2SAT 99
== END 2024-09-05 14:14 | disposition home or self-care (01) ==
PROVIDERS: Nurse Practitioner; Emergency Provider Student in an Organized Health Care Education/Training Program; PCP Pediatrics
DX: R51.9 Headache, unspecified (principal); R94.5 Abnormal results of liver function studies; M54.2 Cervicalgia; R42 Dizziness and giddiness; Z11.59 Encounter for screening for other viral diseases; Z11.4 Encounter for screening for human immunodeficiency virus [HIV]
CPT/HCPCS: 70450; 71046; 72125; 80053; 80329; 85025; 86803; 87389; 96374; 96375; 99285; J0780; J1200; J7030

== ENCOUNTER 2025-03-14 14:20 | Emergency (ER) | payer MEDICARE, MEDICAID, SELFPAY ==
[2025-03-14 14:22] VITALS: BP 151/99; PULSE 89; RESP 18; TEMP 36.7; O2SAT 99; BMI 25.4
--- NOTE | 2025-03-14 14:39 | XR_ITS ---
FINAL REPORT TECHNIQUE: 2 views left foot CLINICAL HISTORY: chainsaw injury, left 4th and 5th toe COMPARISON: 12/16/2023 FINDINGS: LEFT FOOT: There is no acute fracture or dislocation. The joint spaces are intact. There is no soft tissue abnormality. IMPRESSION: No acute fracture or soft tissue laceration noted. Reviewed, Interpreted and Dictated by Ritchie Hobbs MD Transcribed by Nohemy Charles Authenticated and . [facility]
[2025-03-14 14:45] VITALS: BP 131/88; PULSE 73; O2SAT 97
--- NOTE | 2025-03-14 15:00 | HMH.EDGENADL ---
Discharge Plan Disposition Patient Disposition: Home, Self-Care Prescriptions Prescriptions: New cephalexin 500 mg capsule 500 mg PO QID 7 Days Qty: 28 0RF No Action cyanocobalamin (vitamin B-12) 1,000 mcg/mL solution 1,000 mcg IM .BIWEEKLY Patient Comments: INJECT 1 ML INTRAMUSCULARLY EVERY TWO WEEKS DIRECTED epinephrine 0.3 mg/0.3 mL auto-injector 0.3 mg SQ ONCE PRN (Reason: Anaphylaxis) Patient Comments: INJECT CONTENTS OF 1 PEN NEEDED FOR ALLERGIC REACTION CALL 911 AFTER USE cetirizine-pseudoephedrine 5-120 mg tablet extended release 12 hr PO Patient Comments: TAKE 1 TABLET BY MOUTH TWICE DAILY lisinopril 20 mg tablet PO Patient Comments: TAKE 1 TABLET BY MOUTH ONCE DAILY azelastine 137 mcg (0.1 %) spray,non-aerosol intranasal Patient Comments: USE 1 TO 2 SPRAY(S) IN EACH NOSTRIL TWICE DAILY fluticasone propionate 50 mcg/actuation spray,suspension intranasal Patient Comments: USE 2 SPRAY(S) IN EACH NOSTRIL ONCE DAILY polymyxin B sulf-trimethoprim 10,000 unit- 1 mg/mL drops 1 drp ophthalmic (eye) Q3H 7 Days Qty: 10 0RF Rx Instructions: while awake; do not exceed 6 doses in 24 hours doxycycline monohydrate 100 mg capsule 100 mg PO BID 7 Days Qty: 14 0RF simvastatin 40 mg tablet 40 mg PO DAILY Patient Comments: TAKE ONE TABLET BY MOUTH EVERY DAY montelukast 10 mg tablet 10 mg PO DAILY Patient Comments: TAKE 1 TABLET BY MOUTH ONCE DAILY AT NIGHT timolol maleate 0.5 % drops 1 drp Eye-Both AM Patient Comments: instill 1 DROP IN EACH EYE EVERY MORNING tadalafil 5 mg tablet 5 mg PO DAILY Patient Comments: TAKE 1 TABLET BY MOUTH ONCE DAILY fenofibrate nanocrystallized 145 mg tablet 145 mg PO DAILY Patient Comments: TAKE ONE TABLET BY MOUTH EVERY DAY citalopram 20 mg tablet 30 mg PO DAILY Patient Comments: TAKE 1 & 1/2 (ONE & ONE-HALF) TABLETS BY MOUTH ONCE DAILY Referrals Follow up/Referrals: James Mcdonald MD [Primary Care Provider, Medical] - See instructions Sun Torres DPM [Staff Physician, Podiatry] - See instructions Activity Restrictions/Add. Instructions Additional Instructions/Restrictions: Please keep the area clean with soap and water and wet to dry dressings meaning keep a petroleum based ointment or moist gauze on top of this and change once the dressing becomes dry. Take your antibiotics as prescribed. Follow-up closely with Dr. Torres as discussed. Clinical Impressions Clinical Impression: Laceration of toe, Laceration of toe involving extensor tendon Print Language Print Language: Sudanese Discharge ED Provider: Gentry Wells General Adult HPI <Gentry Wells MD - Last Filed: 03/14/25 16:06> General Chief complaint: Extremity Injury, Lower Stated complaint: [id number] L foot Time Seen by Provider: 03/14/25 14:35 Mode of Arrival: Wheelchair Source of Information: Patient Description of Symptoms (Recalled from ER Triage Doc. by RN): Pt was cutting wood with a cahinsaw when the wood slipped and the chainsaw hit his foot. Pt states he does not feel any pain. Pt has open wound on his left pinky toe and the toes right next to it. History of Present Illness HPI narrative: Yonathan Gallo is a 49-year-old male who presents to the emergency department for chainsaw injury to his left foot. Patient states that he was cutting wood with a chainsaw 30 minutes prior to arrival when the chainsaw slipped and jumped and cut his left foot along the top of his 4th and 5th toes. He states that his tetanus shot is up-to-date. He has no pain currently. Bleeding is controlled. He takes a daily aspirin but is not on any anticoagulation. Related Data Home Medications ?Medication ?Instructions ?Recorded ?Confirmed fenofibrate nanocrystallized 145 145 mg PO DAILY 02/27/24 02/26/25 mg tablet montelukast 10 mg tablet 10 mg PO DAILY 02/27/24 02/26/25 simvastatin 40 mg tablet 40 mg PO DAILY 02/27/24 02/26/25 tadalafil 5 mg tablet 5 mg PO DAILY 02/27/24 02/26/25 timolol maleate 0.5 % eye drops 1 drp Eye-Both AM 02/27/24 02/26/25 citalopram 20 mg tablet 30 mg PO DAILY 06/05/24 02/26/25 cyanocobalamin (vitamin B-12) 1,000 mcg IM .BIWEEKLY 08/09/24 02/26/25 1,000 mcg/mL injection solution epinephrine 0.3 mg/0.3 mL 0.3 mg SQ ONCE PRN Anaphylaxis 08/09/24 02/26/25 injection, auto-injector azelastine 137 mcg (0.1 %) nasal intranasal 01/12/25 02/26/25 spray cetirizine 5 mg-pseudoephedrine ER tab PO 01/12/25 02/26/25 120 mg tablet,extended release,12hr fluticasone propionate 50 intranasal 01/12/25 02/26/25 mcg/actuation nasal spray,suspension lisinopril 20 mg tablet mg PO 01/12/25 02/26/25 Previous Rx's ?Medication ?Instructions ?Recorded polymyxin B sulfate 10,000 1 drp ophthalmic (eye) Q3H 7 days 02/23/25 unit-trimethoprim 1 mg/mL eye drops #10 mL doxycycline monohydrate 100 mg 100 mg PO BID 7 days #14 caps 02/26/25 capsule cephalexin 500 mg capsule 500 mg PO QID 7 days #28 caps 03/14/25 Allergies Allergy/AdvReac Type Severity Reaction Status Date / Time tree nut (TREE NUT) Allergy Intermediate Unknown Verified 02/26/25 14:46 allergy reaction latex (LATEX) Allergy Unknown Unknown Verified 02/26/25 14:46 allergy reaction PFSH <Gentry Wells MD - Last Filed: 03/14/25 16:06> [facility] Disclaimer: The information contained in this section may have been updated after the patient was seen, as this information can be updated by other users. Medical History Dizziness Viral syndrome Sinusitis Allergic rhinitis Anxiety Hyperlipidemia Tobacco abuse Surgical History No significant past surgical history Family History Other No significant family history Social History Smoking Status: Current every day smoker tobacco type: cigarettes packs per day: 1 alcohol intake: never substance use type: denies use current occupational status: other Travel in the last 8 weeks?: None household members: family Have you lived/traveled outside [place] in past 30 days?: No Contact w/someone who lives/traveled outside [place] past 30 days?: No Exposure to someone with infectious disease in past 14 days?: No Do you have a fever (greater than 100.4 F or 38 C)?: No Have you tested positive for COVID-19?: No Exposed to someone with COVID-19 in past 14 days?: No Do you have a sore throat?: No Do you have a cough?: No Do you have any weakness?: No Do you have any diarrhea?: No Are you experiencing any unusual bleeding?: No Do you have any muscle aches/pain?: No Do you have any abdominal pain?: No Are you experiencing loss of taste or smell?: No Other Medical History Have you received the Flu Vaccine for this season: Yes Have you received the Pneumonia Vaccine: Yes <Gentry Wells MD - Last Filed: 03/14/25 16:06> ROS Obtained: Yes Systems reviewed as appropriate & no additional complaints except as documented Physical Exam <Gentry Wells MD - Last Filed: 03/14/25 16:06> General General appearance: alert and in no apparent distress Head Head exam: atraumatic Eye Eye exam: Present normal appearance ENT ENT exam: Present normal external ear exam Neck Neck exam: Present full ROM Chest Chest inspection: Present symmetric chest wall rise Respiratory Respiratory exam: Present normal lung sounds bilaterally; Absent respiratory distress Cardiovascular Cardiovascular exam: Present regular rate and normal rhythm Abdominal Exam Abdominal exam: Present soft; Absent tenderness or guarding exam: Present deferred Extremities Exam Extremities exam: Present normal inspection Expanded Lower Extremity Exam Left: Top foot image:  1. macerated injury, no active bleeding. 2. laceration Comment: LLE: Toe held in flexion with poor extensor function. Large macerated wound to the dorsal of the fifth toe. Flexor function intact. Small laceration over the dorsal aspect of the fourth toe. 2+ DP and PT pulses Back Exam Back exam: Present normal inspection Neurological Exam Neurological exam: Present alert and oriented X3 Psychiatric Psychiatric exam: Present normal affect Skin Skin exam: Present warm and dry Medical Decision Making <Gentry Wells MD - Last Filed: 03/14/25 16:06> Medical Records Screening: Per USPSTF and CDC recommendations, given the prevalence of disease in our region, it is our hospital?s policy to screen for HIV and viral Hepatitis for all patients aged 18 and over and those with ongoing risk factors. Dave Inquiry Pt receiving controlled substance: No Vital Signs: 03/14/25 14:22 03/14/25 14:45 Temperature 98.0 F Temperature Source Temporal Artery Scan Pulse Rate 73 Pulse Rate [Right] 89 Respiratory Rate 18 Blood Pressure 131/88 Blood Pressure [Right Arm] 151/99 H Blood Pressure Mean [Right Arm] 116 Blood Pressure Source [Right Arm] Automatic Cuff Blood Pressure Position [Right Arm] Sitting 02 Sat by Pulse Oximetry 99 97 Oxygen Delivery Method Room Air Orders (Tests/Meds): ED MEDICATIONS Discontinued Medications Generic Name Dose Route Start Last Admin Trade Name Freq PRN Reason Stop Dose Admin Cefazolin Sodium 2 gm/ Sodium 100 mls @ 200 mls/hr 03/14/25 15:00 03/14/25 15:24 Chloride IV 03/14/25 15:29 Infused PREOP ONE Infusion Tetanus/Reduced Diphtheria/Acell Pertussis 0.5 ml 03/14/25 15:01 03/14/25 15:20 Tet/Diphth/Pert-Adult 0.5ml Syringe IM 03/14/25 15:02 0.5 ml .ONCE ONE Administration ORDERS Category Date Time Status Foot XR left 2 views [XR foot LT 2V] Stat Exams 03/14/25 14:39 Taken Medical Decision Narrative: Yonathan Gallo is a 49-year-old male who presents to the emergency department for chainsaw injury to his left foot. Patient states that he was cutting wood with a chainsaw 30 minutes prior to arrival when the chainsaw slipped and jumped and cut his left foot along the top of his 4th and 5th toes. He states that his tetanus shot is up-to-date. He has no pain currently. Bleeding is controlled. He takes a daily aspirin but is not on any anticoagulation. On arrival, patient is hemodynamically stable, in no acute distress, breathing comfortably on room air. Physical exam, stated above, revealed an overall well-appearing male in no distress. He has a large macerated wound to the dorsum of his left fifth toe with limited extension function. Flexor function is still intact. Laceration over the dorsum of the base of the fourth digit. Flexor and extension function intact to those digits. Patient states that he does not have any pain currently has decree sensation to the toe. Differential diagnosis includes, but is not limited to: Open fracture, extensor tendon injury, soft tissue injury, neurovascular injury, among others. The most morbid conditions were considered and workup was based on these. Due to possibility of open fracture, patient was given 2 g of IV Ancef and x-ray imaging of the foot was obtained. Patient's tetanus shot was updated. At this time, patient's x-ray imaging is pending. Patient's care was handed off to the oncoming physician, Dr. Sahu, for further management. <Layla Sahu MD - Last Filed: 03/14/25 16:14> Vital Signs: 03/14/25 14:22 03/14/25 14:45 Temperature 98.0 F Temperature Source Temporal Artery Scan Pulse Rate 73 Pulse Rate [Right] 89 Respiratory Rate 18 Blood Pressure 131/88 Blood Pressure [Right Arm] 151/99 H Blood Pressure Mean [Right Arm] 116 Blood Pressure Source [Right Arm] Automatic Cuff Blood Pressure Position [Right Arm] Sitting 02 Sat by Pulse Oximetry 99 97 Oxygen Delivery Method Room Air Orders (Tests/Meds): ED MEDICATIONS Discontinued Medications Generic Name Dose Route Start Last Admin Trade Name Freq PRN Reason Stop Dose Admin Cefazolin Sodium 2 gm/ Sodium 100 mls @ 200 mls/hr 03/14/25 15:00 03/14/25 15:24 Chloride IV 03/14/25 15:29 Infused PREOP ONE Infusion Tetanus/Reduced Diphtheria/Acell Pertussis 0.5 ml 03/14/25 15:01 03/14/25 15:20 Tet/Diphth/Pert-Adult 0.5ml Syringe IM 03/14/25 15:02 0.5 ml .ONCE ONE Administration ORDERS Category Date Time Status Foot XR left 2 views [XR foot LT 2V] Stat Exams 03/14/25 14:39 Taken Medical Decision Narrative: Yonathan Gallo is a 49-year-old male who presents to the emergency department for chainsaw injury to his left foot. Patient states that he was cutting wood with a chainsaw 30 minutes prior to arrival when the chainsaw slipped and jumped and cut his left foot along the top of his 4th and 5th toes. He states that his tetanus shot is up-to-date. He has no pain currently. Bleeding is controlled. He takes a daily aspirin but is not on any anticoagulation. On arrival, patient is hemodynamically stable, in no acute distress, breathing comfortably on room air. Physical exam, stated above, revealed an overall well-appearing male in no distress. He has a large macerated wound to the dorsum of his left fifth toe with limited extension function. Flexor function is still intact. Laceration over the dorsum of the base of the fourth digit. Flexor and extension function intact to those digits. Patient states that he does not have any pain currently has decree sensation to the toe. Differential diagnosis includes, but is not limited to: Open fracture, extensor tendon injury, soft tissue injury, neurovascular injury, among others. The most morbid conditions were considered and workup was based on these. Due to possibility of open fracture, patient was given 2 g of IV Ancef and x-ray imaging of the foot was obtained. Patient's tetanus shot was updated. At this time, patient's x-ray imaging is pending. Patient's care was handed off to the oncoming physician, Dr. Sahu, for further management. This is Dr. Sahu I took over from Dr. Salmon personally examined the patient patient does have evidence of an extensor tendon injury on the fifth toe significant tissue loss in that area. Wound was cleaned and Xeroform dressing was placed on the wound and a hard soled shoe was given to the patient after discussing case with Dr. Garcia. No emergent intervention or attempt to reapproximate the extensor tendon is necessary at the moment. He will follow-up closely with Dr. Hernandez. Prophylactic antibiotics also sent to his pharmacy. X-ray was performed which I personally interpreted shows no evidence of any fracture or dislocation radiology read is consistent with this as well. Critical Care <Gentry Wells MD - Last Filed: 03/14/25 16:06> Critical Care Time Critical Care Time: No
[2025-03-14] MEDS: TET/DIPHTH/PERT-ADULT 0.5ML SYRINGE 0.5 ML IM (15:20)
--- OUTSIDE RECORDS SUMMARY | 2025-03-14 15:23 | XMS_ITS | Data Portability ---
Author Organization JANEL - VICENTE - Luis Antonio & VICENTE Nair ADMIN Address [address] [place] [id number] Care Team Providers Care Home Energy Consultant Name Role Phone YEMI CHAPPELL Primary Care Provider Unavailable Core Dipper [phone] Assessment Encounter Date Assessment Date Assessment LastModified by Organization Details LastModified Time 11/14/2023 11/14/2023 PERSONALIZED HEALTH PLAN (COPY PROVIDED TO PATIENT) 1) Vaccines: (a) Pneumococcal Vaccine - not needed (b) Influenza vaccine - Get yearly flu shot (c) Hepatitis B vaccine - Not needed (d) Shingrix Vaccine - Not needed until ge 50 (e) COVID -Recommended yearly (f) Tetanus Vaccine - Every 10 years 2) Colorectal Cancer Screening for aged 45 75 years: Last service: Due 2025 Plan: [...] Visit will be due in 1 year. [email or web address] Not available 11/14/2023 13:41:23 09/20/2024 09/20/2024 ASSESSMENT: - Follow-up for medication refills and routine check-up. - History of chest pain, cold chills, aches, and vertigo two weeks ago. 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 - History of bone spur on the heel, currently asymptomatic. - Regular follow-up with a consumer marketing specialist for blood pressure monitoring. - Status post wrist surgery with hardware removal. PLAN: I refilled Yonathan's prescriptions for fenofibrate, simvastatin, and citalopram. I recommended continuing his allergy medications as they help with his sinus infections. I ordered routine yearly blood work to be done today. I advised Yonathan to schedule a six-month follow-up appointment to monitor his condition and ensure his medications are effective. I also reminded him to follow up with his eye doctor and consumer marketing specialist as needed. Please note this report was created using voice recognition/text compilation software with [employer] documentation services during the encounter with the patient; Please excuse any errors due to the metal or wood blocker process. [email or web address] Not available 09/20/2024 14:25:44 Plan of Treatment Reminders Order Date Submit Date Provider Last Modified By Organization Details Last Modified Time Details Appointments OV EST 20 2024 01:30P M Yemi Chappell MD Not available Not available Not available Lab CMP, serum or plasma 2024 025 [facility], [address], [address], [place], [address], 09/21/2024 09:54:57 CBC w/ auto diff 2024 025 [facility], [address], [address], [place], [address], 09/21/2024 09:54:56 TSH + free T4, serum 2024 025 [facility], [address], [address], [place], [address], 09/21/2024 09:54:55 lipid panel, serum 2024 025 [facility], [address], [address], [place], [address], 09/21/2024 09:54:58 PSA, total, serum or plasma 2024 025 [facility], [address], [address], [place], [address], 09/21/2024 09:54:59 CBC w/ auto diff 2023 024 [facility], [address], [address], [place], [address], 12/10/2023 06:38:09 lipid panel, serum 2023 024 [facility], [address], [address], [place], [address], 11/15/2023 16:11:19 CMP, serum or plasma 2023 024 [facility], [address], [address], [place], [address], 11/15/2023 16:11:18 CBC w/ auto diff 2023 024 [facility], [address], [address], [place], [address], 11/15/2023 16:11:18 PSA, serum or plasma 2023 024 [facility], [address], [address], [place], [address], 11/15/2023 16:11:20 vitamin B12 + folate, serum or blood 2023 024 [facility], [address], [address], [place], [address], 11/15/2023 16:11:19 Referral None recorded. Procedures None recorded. Surgeries None recorded. Imaging None recorded. Medication Orders citalopra m 20 mg tablet 2024 025 [facility], [address], [address], 09/20/2024 14:32:48 fenofibra te nanocryst allized 145 mg tablet 2024 025 [facility], [address], [address], 09/20/2024 14:32:50 simvastat in 40 mg tablet 2024 025 [facility], [address], [address], 09/20/2024 14:32:54 lisinopri l 10 mg tablet 2024 025 [facility], [address], [address], 06/30/2024 08:41:14 amoxicill in 875 mg-potass ium clavulana te 125 mg tablet [email or web address] [place] [address] [facility], [address], [address], 09/20/2024 14:19:58 Patient TargetsNo targets recorded. Patient Instructions Encounter Date Encounter Id Patient Instructions Last Modified By Organization Details Last Modified Time 11/14/2023 [id number] advance directives: care instructions [email or web address] Not available 11/14/2023 13:48:06 well visit, over 65: care instructions [email or web address] Not available 11/14/2023 13:48:05 Health Maintenance Recommendations: (5-10 year screening/prevent ion plan) [email or web address] Not available 11/14/2023 13:07:58 Reason for Referral None Reported. Results Created Date Observation Date Name Description Value Unit Range Abnormal Flag Note LastModifiedBy Organization Detail LastModifiedTime 11/14/19 24 11/15/2023 CBC WITH DIFFE RENTI AL/PL ATELE T WBC 20.9 x10e3 /uL 3.4-10 .8 alert high Not Available [facility] ([facility]) [address] [place], [address], 11/15/2023 16:11:18 11/14/19 24 11/15/2023 CBC WITH DIFFE RENTI AL/PL ATELE T RBC 4.69 x10e6 /uL 4.14-5 .80 Not Available [facility] ([facility]) [address] [place], [address], 11/15/2023 16:11:18 11/14/19 24 11/15/2023 CBC WITH DIFFE RENTI AL/PL ATELE T hemoglobin 14.8 g/dL 13.0-1 7.7 Not Available [facility] ([facility]) [address] [place], [address], 11/15/2023 16:11:18 11/14/19 24 11/15/2023 CBC WITH DIFFE RENTI AL/PL ATELE T hematocrit 43.3 % 37.5-5 1.0 Not Available [facility] ([facility]) [address] [place], [address], 11/15/2023 16:11:18 11/14/19 24 11/15/2023 CBC WITH DIFFE RENTI AL/PL ATELE T MCV 92 fL 79-97 Not Available [facility] ([facility]) [address] [place], [address], 11/15/2023 16:11:18 11/14/19 24 11/15/2023 CBC WITH DIFFE RENTI AL/PL ATELE T MCH 31.6 pg 26.6-3 3.0 Not Available [facility] ([facility]) [address] [facility], [place], [address], 11/15/2023 16:11:18 11/14/19 24 11/15/2023 CBC WITH DIFFE RENTI AL/PL ATELE T MCHC 34.2 g/dL 31.5-3 5.7 Not Available [facility] ([facility]) [address] [place], [address], 11/15/2023 16:11:18 11/14/19 24 11/15/2023 CBC WITH DIFFE RENTI AL/PL ATELE T RDW 13.6 % 11.6-1 5.4 Not Available [facility] ([facility]) [address] [place], [address], 11/15/2023 16:11:18 11/14/19 24 11/15/2023 CBC WITH DIFFE RENTI AL/PL ATELE T platelets 407 x10e3 /uL 150-45 0 Not Available [facility] ([facility]) [address] [facility], [place], [address], 11/15/2023 16:11:18 11/14/19 24 11/15/2023 CBC WITH DIFFE RENTI AL/PL ATELE T neutrophils 73 % not estab. Not Available [facility] ([facility]) [address] [place], [address], 11/15/2023 16:11:18 11/14/19 24 11/15/2023 CBC WITH DIFFE RENTI AL/PL ATELE T lymphs 17 % not estab. Not Available [facility] ([facility]) [address] [facility], [place], [address], 11/15/2023 16:11:18 11/14/19 24 11/15/2023 CBC WITH DIFFE RENTI AL/PL ATELE T monocytes 9 % not estab. Not Available [facility] ([facility]) [address] [facility], [place], [address], 11/15/2023 16:11:18 11/14/19 24 11/15/2023 CBC WITH DIFFE RENTI AL/PL ATELE T eos 0 % not estab. Not Available [facility] ([facility]) [address] [facility], [place], [address], 11/15/2023 16:11:18 11/14/19 24 11/15/2023 CBC WITH DIFFE RENTI AL/PL ATELE T basos 0 % not estab. Not Available [facility] ([facility]) [address] [facility], [place], [address], 11/15/2023 16:11:18 11/14/19 24 11/15/2023 CBC WITH DIFFE RENTI AL/PL ATELE T immature cells ASSEMBLY MACHINE TENDER Not Available [facility] ([facility]) [address] [facility], [place], [address], 11/15/2023 16:11:18 11/14/19 24 11/15/2023 CBC WITH DIFFE RENTI AL/PL ATELE T neutrophils (absolute) 15.3 x10e3 /uL 1.4-7. 0 above high normal Not Available [facility] ([facility]) [address] [place], [address], 11/15/2023 16:11:18 11/14/19 24 11/15/2023 CBC WITH DIFFE RENTI AL/PL ATELE T lymphs (absolute) 3.6 x10e3 /uL 0.7-3. 1 above high normal Not Available [facility] ([facility]) [address] [facility], [place], [address], 11/15/2023 16:11:18 11/14/19 24 11/15/2023 CBC WITH DIFFE RENTI AL/PL ATELE T monocytes(ab solute) 1.9 x10e3 /uL 0.1-0. 9 above high normal Not Available [facility] ([facility]) [address] [facility], [place], [address], 11/15/2023 16:11:18 11/14/19 24 11/15/2023 CBC WITH DIFFE RENTI AL/PL ATELE T eos (absolute) 0.0 x10e3 /uL 0.0-0. 4 Not Available [facility] ([facility]) [address] [facility], [place], [address], 11/15/2023 16:11:18 11/14/19 24 11/15/2023 CBC WITH DIFFE RENTI AL/PL ATELE T baso (absolute) 0.0 x10e3 /uL 0.0-0. 2 Not Available [facility] ([facility]) [address] [facility], [place], [address], 11/15/2023 16:11:18 11/14/19 24 11/15/2023 CBC WITH DIFFE RENTI AL/PL ATELE T immature granulocytes 1 % not estab. Not Available [facility] ([facility]) [address] [place], [address], 11/15/2023 16:11:18 11/14/19 24 11/15/2023 CBC WITH DIFFE RENTI AL/PL ATELE T immature grans (abs) 0.1 x10e3 /uL 0.0-0. 1 Not Available [facility] ([facility]) [address] [facility], [place], [address], 11/15/2023 16:11:18 11/14/19 24 11/15/2023 CBC WITH DIFFE RENTI AL/PL ATELE T NRBC ASSEMBLY MACHINE TENDER Not Available [facility] ([facility]) [address] [facility], [place], [address], 11/15/2023 16:11:18 11/14/19 24 11/15/2023 CBC WITH DIFFE RENTI AL/PL ATELE T hematology comments: ASSEMBLY MACHINE TENDER Not Available [facility] ([facility]) [address] [facility], [place], [address], 11/15/2023 16:11:18 11/14/19 24 11/15/2023 COMP. METAB OLIC PANEL (14) glucose 86 mg/dL 70-99 Not Available [facility] ([facility]) [address] [facility] [place], [address], 11/15/2023 16:11:18 11/14/19 24 11/15/2023 COMP. METAB OLIC PANEL (14) BUN 9 mg/dL 6-24 Not Available [facility] ([facility]) [address] [facility], [place], [address], 11/15/2023 16:11:18 11/14/19 24 11/15/2023 COMP. METAB OLIC PANEL (14) creatinine 1.00 mg/dL 0.76-1 .27 Not Available [facility] ([facility]) [address] [facility] [place], [address], 11/15/2023 16:11:18 11/14/19 24 11/15/2023 COMP. METAB OLIC PANEL (14) BUN/creatini ne ratio 9 9-20 Not Available [facility] ([facility]) [address] [facility] [place], [address], 11/15/2023 16:11:18 11/14/19 24 11/15/2023 COMP. METAB OLIC PANEL (14) sodium 144 mmol/ L 134-14 4 Not Available [facility] ([facility]) [address] [facility] [place], [address], 11/15/2023 16:11:18 11/14/19 24 11/15/2023 COMP. METAB OLIC PANEL (14) potassium 4.1 mmol/ L 3.5-5. 2 Not Available [facility] ([facility]) [address] [facility], [place], [address], 11/15/2023 16:11:18 11/14/19 24 11/15/2023 COMP. METAB OLIC PANEL (14) chloride 107 mmol/ L 96-106 above high normal Not Available [facility] ([facility]) [address] [facility], [place], [address], 11/15/2023 16:11:18 11/14/19 24 11/15/2023 COMP. METAB OLIC PANEL (14) carbon dioxide, total 20 mmol/ L 20-29 Not Available [facility] ([facility]) [address] [facility] [place], [address], 11/15/2023 16:11:18 11/14/19 24 11/15/2023 COMP. METAB OLIC PANEL (14) calcium 9.7 mg/dL 8.7-10 .2 Not Available [facility] ([facility]) [address] [facility] [place], [address], 11/15/2023 16:11:18 11/14/19 24 11/15/2023 COMP. METAB OLIC PANEL (14) protein, total 7.7 g/dL 6.0-8. 5 Not Available [facility] ([facility]) [address] [facility] [place], [address], 11/15/2023 16:11:18 11/14/19 24 11/15/2023 COMP. METAB OLIC PANEL (14) albumin 4.6 g/dL 4.1-5. 1 Not Available [facility] ([facility]) [address] [facility] [place], [address], 11/15/2023 16:11:18 11/14/19 24 11/15/2023 COMP. METAB OLIC PANEL (14) globulin, total 3.1 g/dL 1.5-4. 5 Not Available [facility] ([facility]) [address] [facility] [place], [address], 11/15/2023 16:11:18 11/14/19 24 11/15/2023 COMP. METAB OLIC PANEL (14) bilirubin, total 0.3 mg/dL 0.0-1. 2 Not Available [facility] ([facility]) [address] [facility] [place], [address], 11/15/2023 16:11:18 11/14/19 24 11/15/2023 COMP. METAB OLIC PANEL (14) alkaline phosphatase 92 IU/L 44-121 Not Available [facility] ([facility]) [address] [facility] [place], [address], 11/15/2023 16:11:18 11/14/19 24 11/15/2023 COMP. METAB OLIC PANEL (14) AST (SGOT) 35 IU/L 0-40 Not Available [facility] ([facility]) [address] [place], [address], 11/15/2023 16:11:18 11/14/19 24 11/15/2023 COMP. METAB OLIC PANEL (14) ALT (SGPT) 41 IU/L 0-44 Not Available [facility] ([facility]) [address] [place], [address], 11/15/2023 16:11:18 11/14/19 24 11/15/2023 LIPID PANEL cholesterol, total 136 mg/dL 100-19 9 Not Available [facility] ([facility]) [address] [place], [address], 11/15/2023 16:11:19 11/14/19 24 11/15/2023 LIPID PANEL triglyceride s 173 mg/dL 0-149 above high normal Not Available [facility] ([facility]) [address] [facility] [place], [address], 11/15/2023 16:11:19 11/14/19 24 11/15/2023 LIPID PANEL HDL cholesterol 34 mg/dL >39 below low normal Not Available [facility] ([facility]) [address] [facility] [place], [address], 11/15/2023 16:11:19 11/14/19 24 11/15/2023 LIPID PANEL VLDL cholesterol saranya 30 mg/dL 5-40 Not Available [facility] ([facility]) [address] [facility] [place], [address], 11/15/2023 16:11:19 11/14/19 24 11/15/2023 LIPID PANEL LDL chol calc ([facility]) 72 mg/dL 0-99 Not Available [facility] ([facility]) [address] [facility], [place], [address], 11/15/2023 16:11:19 11/14/19 24 11/15/2023 LIPID PANEL LDL calc comment: ASSEMBLY MACHINE TENDER Not Available [facility] ([facility]) [address] [facility], [place], [address], 11/15/2023 16:11:19 11/14/19 24 11/15/2023 VITAM IN B12 AND FOLAT E vitamin B12 775 pg/mL 232-12 45 Not Available [facility] ([facility]) [address] [place], [address], 11/15/2023 16:11:19 11/14/19 24 11/15/2023 VITAM IN B12 AND FOLAT E folate (folic acid), serum 9.7 NG/mL >3.0 A serum folat e bridgette ntrat ion of less than 3.1 ng/mL is consi dered to repre sent clini saranya defic iency . Not Available [facility] ([facility]) [address] [facility] [place], [address], 11/15/2023 16:11:19 11/14/19 24 11/14/2023 PSA TOTAL (REFL EX TO FREE) reflex criteria COMMEN T The perce nt free PSA is perfo rmed on a refle x basis only when the total PSA is betwe en 4.0 and 10.0 ng/mL . Not Available [facility] ([facility]) [address] [facility], [place], [address], 11/15/2023 16:11:20 11/14/19 24 11/15/2023 PSA TOTAL [...] t be inter prete d as absol [place] evide nce of the prese nce or absen [facility]. Not Available [facility] ([facility]) [address] [facility], [place], [address], 11/15/2023 16:11:20 11/14/19 24 11/14/2023 PLEAS E NOTE please note Commen t The date and/o r time of colle ction was not indic ated on the requi sitio n as requi red by state and [place] law. The date of recei pt of the speci men was used as the colle ction date if not suppl ied. Not Available [facility] ([facility]) [address] [facility], [place], [address], 11/15/2023 16:11:20 12/09/19 24 12/10/2023 CBC WITH DIFFE RENTI AL/PL ATELE T WBC 10.1 x10e3 /uL 3.4-10 .8 normal Not Available [facility] ([facility]) [address] [facility], [place], [address], 12/10/2023 06:38:09 12/09/1912/10/2023 CBC WITH DIFFE RENTI AL/PL ATELE T RBC 4.63 x10e6 /uL 4.14-5 .80 normal Not Available [facility] ([facility]) [address] [place], [address], 12/10/2023 06:38:09 12/09/1912/10/2023 CBC WITH DIFFE RENTI AL/PL ATELE T hemoglobin 14.1 g/dL 13.0-1 7.7 normal Not Available [facility] ([facility]) [address] [place], [address], 12/10/2023 06:38:09 12/09/1912/10/2023 CBC WITH DIFFE RENTI AL/PL ATELE T hematocrit 43.2 % 37.5-5 1.0 normal Not Available [facility] ([facility]) [address] [place], [address], 12/10/2023 06:38:09 12/09/1912/10/2023 CBC WITH DIFFE RENTI AL/PL ATELE T MCV 93 fL 79-97 normal Not Available [facility] ([facility]) [address] [place], [address], 12/10/2023 06:38:09 12/09/19 24 12/10/2023 CBC WITH DIFFE RENTI AL/PL ATELE T MCH 30.5 pg 26.6-3 3.0 normal Not Available [facility] ([facility]) [address] [place], [address], 12/10/2023 06:38:09 12/09/19 24 12/10/2023 CBC WITH DIFFE RENTI AL/PL ATELE T MCHC 32.6 g/dL 31.5-3 5.7 normal Not Available [facility] ([facility]) [address] [facility], [place], [address], 12/10/2023 06:38:09 12/09/1912/10/2023 CBC WITH DIFFE RENTI AL/PL ATELE T RDW 13.7 % 11.6-1 5.4 Not Available [facility] ([facility]) [address] [facility], [place], [address], 12/10/2023 06:38:09 12/09/1912/10/2023 CBC WITH DIFFE RENTI AL/PL ATELE T platelets 384 x10e3 /uL 150-45 0 normal Not Available [facility] ([facility]) [address] [facility], [place], [address], 12/10/2023 06:38:09 12/09/1912/10/2023 CBC WITH DIFFE RENTI AL/PL ATELE T neutrophils 38 % not estab. normal Not Available [facility] ([facility]) [address] [facility], [place], [address], 12/10/2023 06:38:09 12/09/19 24 12/10/2023 CBC WITH DIFFE RENTI AL/PL ATELE T lymphs 44 % not estab. normal Not Available [facility] ([facility]) [address] [facility], [place], [address], 12/10/2023 06:38:09 12/09/19 24 12/10/2023 CBC WITH DIFFE RENTI AL/PL ATELE T monocytes 13 % not estab. normal Not Available [facility] ([facility]) [address] [facility], [place], [address], 12/10/2023 06:38:09 12/09/19 12/10/2023 CBC WITH DIFFE RENTI AL/PL ATELE T eos 4 % not estab. normal Not Available [facility] ([facility]) [address] [place], [address], 12/10/2023 06:38:09 12/09/19 24 12/10/2023 CBC WITH DIFFE RENTI AL/PL ATELE T basos 1 % not estab. normal Not Available [facility] ([facility]) [address] [facility], [place], [address], 12/10/2023 06:38:09 12/09/1912/10/2023 CBC WITH DIFFE RENTI AL/PL ATELE T immature cells ASSEMBLY MACHINE TENDER Not Available [facility] ([facility]) [address] [place], [address], 12/10/2023 06:38:09 12/09/19 24 12/10/2023 CBC WITH DIFFE RENTI AL/PL ATELE T neutrophils (absolute) 3.8 x10e3 /uL 1.4-7. 0 normal Not Available [facility] ([facility]) [address] [place], [address], 12/10/2023 06:38:09 12/09/19 24 12/10/2023 CBC WITH DIFFE RENTI AL/PL ATELE T lymphs (absolute) 4.5 x10e3 /uL 0.7-3. 1 above high normal Not Available [facility] ([facility]) [address] [place], [address], 12/10/2023 06:38:09 12/09/19 24 12/10/2023 CBC WITH DIFFE RENTI AL/PL ATELE T monocytes(ab solute) 1.3 x10e3 /uL 0.1-0. 9 above high normal Not Available [facility] ([facility]) [address] [place], [address], 12/10/2023 06:38:09 07/23/20 24 12/10/2023 CBC WITH DIFFE RENTI AL/PL ATELE T eos (absolute) 0.4 x10e3 /uL 0.0-0. 4 normal Not Available [facility] ([facility]) [address] [facility], [place], [address], 12/10/2023 06:38:09 12/09/19 24 12/10/2023 CBC WITH DIFFE RENTI AL/PL ATELE T baso (absolute) 0.1 x10e3 /uL 0.0-0. 2 normal Not Available [facility] ([facility]) [address] [facility], [place], [address], 12/10/2023 06:38:09 12/09/19 24 12/10/2023 CBC WITH DIFFE RENTI AL/PL ATELE T immature granulocytes 0 % not estab. Not Available [facility] ([facility]) [address] [facility], [place], [address], 12/10/2023 06:38:09 12/09/19 24 12/10/2023 CBC WITH DIFFE RENTI AL/PL ATELE T immature grans (abs) 0.0 x10e3 /uL 0.0-0. 1 Not Available [facility] ([facility]) [address] [facility], [place], [address], 12/10/2023 06:38:09 12/09/19 24 12/10/2023 CBC WITH DIFFE RENTI AL/PL ATELE T NRBC ASSEMBLY MACHINE TENDER Not Available [facility] ([facility]) [address] [facility], [place], [address], 12/10/2023 06:38:09 12/09/19 24 12/10/2023 CBC WITH DIFFE RENTI AL/PL ATELE T hematology comments: ASSEMBLY MACHINE TENDER Not Available [facility] ([facility]) [address] [facility], [place], [address], 12/10/2023 06:38:09 09/21/1909/21/2024 TSH+F REE T4 TSH 4.460 uIU/m L 0.450- 4.500 normal Not Available [facility] ([facility]) [address] [place], [address], 09/21/2024 09:54:55 09/21/19 25 09/21/2024 TSH+F REE T4 T4,free(dire ct) 0.92 NG/dL 0.82-1 .77 normal Not Available [facility] ([facility]) [address] [place], [address], 09/21/2024 09:54:55 09/21/1909/21/2024 CBC WITH DIFFE RENTI AL/PL ATELE T WBC 14.6 x10e3 /uL 3.4-10 .8 above high normal Not Available [facility] ([facility]) [address] [place], [address], 09/21/2024 09:54:56 09/21/19 25 09/21/2024 CBC WITH DIFFE RENTI AL/PL ATELE T RBC 4.81 x10e6 /uL 4.14-5 .80 normal Not Available [facility] ([facility]) [address] [place], [address], 09/21/2024 09:54:56 09/21/1909/21/2024 CBC WITH DIFFE RENTI AL/PL ATELE T hemoglobin 14.7 g/dL 13.0-1 7.7 normal Not Available [facility] ([facility]) [address] [place], [address], 09/21/2024 09:54:56 09/21/19 25 09/21/2024 CBC WITH DIFFE RENTI AL/PL ATELE T hematocrit 44.3 % 37.5-5 1.0 normal Not Available [facility] ([facility]) [address] [place], [address], 09/21/2024 09:54:56 09/21/19 25 09/21/2024 CBC WITH DIFFE RENTI AL/PL ATELE T MCV 92 fL 79-97 normal Not Available [facility] ([facility]) [address] [facility], [place], [address], 09/21/2024 09:54:56 09/21/19 25 09/21/2024 CBC WITH DIFFE RENTI AL/PL ATELE T MCH 30.6 pg 26.6-3 3.0 normal Not Available [facility] ([facility]) [address] [facility], [place], [address], 09/21/2024 09:54:56 09/21/19 25 09/21/2024 CBC WITH DIFFE RENTI AL/PL ATELE T MCHC 33.2 g/dL 31.5-3 5.7 normal Not Available [facility] ([facility]) [address] [facility], [place], [address], 09/21/2024 09:54:56 09/21/19 25 09/21/2024 CBC WITH DIFFE RENTI AL/PL ATELE T RDW 14.3 % 11.6-1 5.4 Not Available [facility] ([facility]) [address] [facility], [place], [address], 09/21/2024 09:54:56 09/21/1909/21/2024 CBC WITH DIFFE RENTI AL/PL ATELE T platelets 511 x10e3 /uL 150-45 0 above high normal Not Available [facility] ([facility]) [address] [facility], [place], [address], 09/21/2024 09:54:56 09/21/19 25 09/21/2024 CBC WITH DIFFE RENTI AL/PL ATELE T neutrophils 21 % not estab. normal Not Available [facility] ([facility]) [address] [place], [address], 09/21/2024 09:54:56 09/21/19 25 09/21/2024 CBC WITH DIFFE RENTI AL/PL ATELE T lymphs 66 % not estab. normal Not Available [facility] ([facility]) [address] [facility], [place], [address], 09/21/2024 09:54:56 09/21/19 25 09/21/2024 CBC WITH DIFFE RENTI AL/PL ATELE T monocytes 10 % not estab. normal Not Available [facility] ([facility]) [address] [facility], [place], [address], 09/21/2024 09:54:56 09/21/1909/21/2024 CBC WITH DIFFE RENTI AL/PL ATELE T eos 2 % not estab. normal Not Available [facility] ([facility]) [address] [facility], [place], [address], 09/21/2024 09:54:56 09/21/1909/21/2024 CBC WITH DIFFE RENTI AL/PL ATELE T basos 1 % not estab. normal Not Available [facility] ([facility]) [address] [place], [address], 09/21/2024 09:54:56 09/21/19 25 09/21/2024 CBC WITH DIFFE RENTI AL/PL ATELE T immature cells ASSEMBLY MACHINE TENDER Not Available [facility] ([facility]) [address] [place], [address], 09/21/2024 09:54:56 09/21/19 25 09/21/2024 CBC WITH DIFFE RENTI AL/PL ATELE T neutrophils (absolute) 3.0 x10e3 /uL 1.4-7. 0 normal Not Available [facility] ([facility]) [address] [place], [address], 09/21/2024 09:54:56 09/21/19 25 09/21/2024 CBC WITH DIFFE RENTI AL/PL ATELE T lymphs (absolute) 9.7 x10e3 /uL 0.7-3. 1 above high normal Not Available [facility] ([facility]) [address] [place], [address], 09/21/2024 09:54:56 09/21/19 25 09/21/2024 CBC WITH DIFFE RENTI AL/PL ATELE T monocytes(ab solute) 1.5 x10e3 /uL 0.1-0. 9 above high normal Not Available [facility] ([facility]) [address] [place], [address], 09/21/2024 09:54:56 09/21/19 25 09/21/2024 CBC WITH DIFFE RENTI AL/PL ATELE T eos (absolute) 0.3 x10e3 /uL 0.0-0. 4 normal Not Available [facility] ([facility]) [address] [place], [address], 09/21/2024 09:54:56 09/21/19 25 09/21/2024 CBC WITH DIFFE RENTI AL/PL ATELE T baso (absolute) 0.1 x10e3 /uL 0.0-0. 2 normal Not Available [facility] ([facility]) [address] [place], [address], 09/21/2024 09:54:56 09/21/1909/21/2024 CBC WITH DIFFE RENTI AL/PL ATELE T immature granulocytes 0 % not estab. Not Available [facility] ([facility]) [address] [place], [address], 09/21/2024 09:54:56 09/21/19 25 09/21/2024 CBC WITH DIFFE RENTI AL/PL ATELE T immature grans (abs) 0.0 x10e3 /uL 0.0-0. 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 METAB OLIC PANEL (14) glucose 82 mg/dL 70-99 normal Not Available [facility] ([facility]) [address] [place], [address], 09/21/2024 09:54:57 09/21/19 25 09/21/2024 COMP. METAB OLIC PANEL (14) BUN 9 mg/dL 6-24 normal Not Available [facility] ([facility]) [address] [place], [address], 09/21/2024 09:54:57 09/21/19 25 09/21/2024 COMP. METAB OLIC PANEL (14) creatinine 0.89 mg/dL 0.76-1 .27 normal Not Available [facility] ([facility]) [address] [place], [address], 09/21/2024 09:54:57 09/21/19 25 09/21/2024 COMP. METAB OLIC PANEL (14) BUN/creatini ne ratio 10 9-20 normal Not Available [facility] ([facility]) [address] [place], [address], 09/21/2024 09:54:57 09/21/19 25 09/21/2024 COMP. METAB OLIC PANEL (14) sodium 141 mmol/ L 134-14 4 normal Not Available [facility] ([facility]) [address] [place], [address], 09/21/2024 09:54:57 09/21/19 25 09/21/2024 COMP. METAB OLIC PANEL (14) potassium 4.4 mmol/ L 3.5-5. 2 normal Not Available [facility] ([facility]) [address] [place], [address], 09/21/2024 09:54:57 09/21/19 25 09/21/2024 COMP. METAB OLIC PANEL (14) chloride 106 mmol/ L 96-106 normal Not Available [facility] ([facility]) [address] [place], [address], 09/21/2024 09:54:57 09/21/19 25 09/21/2024 COMP. METAB OLIC PANEL (14) carbon dioxide, total 22 mmol/ L 20-29 normal Not Available [facility] ([facility]) [address] [place], [address], 09/21/2024 09:54:57 09/21/19 25 09/21/2024 COMP. METAB OLIC PANEL (14) calcium 9.5 mg/dL 8.7-10 .2 normal Not Available [facility] ([facility]) [address] [facility] [place], [address], 09/21/2024 09:54:57 09/21/19 25 09/21/2024 COMP. METAB OLIC PANEL (14) protein, total 7.7 g/dL 6.0-8. 5 normal Not Available [facility] ([facility]) [address] [facility] [place], [address], 09/21/2024 09:54:57 09/21/19 25 09/21/2024 COMP. METAB OLIC PANEL (14) albumin 4.3 g/dL 4.1-5. 1 normal Not Available [facility] ([facility]) [address] [place], [address], 09/21/2024 09:54:57 09/21/19 25 09/21/2024 COMP. METAB OLIC PANEL (14) globulin, total 3.4 g/dL 1.5-4. 5 Not Available [facility] ([facility]) [address] [facility] [place], [address], 09/21/2024 09:54:57 09/21/19 25 09/21/2024 COMP. METAB OLIC PANEL (14) bilirubin, total 0.5 mg/dL 0.0-1. 2 normal Not Available [facility] ([facility]) [address] [facility] [place], [address], 09/21/2024 09:54:57 09/21/19 25 09/21/2024 COMP. METAB OLIC PANEL (14) alkaline phosphatase 134 IU/L 44-121 above high normal Not Available [facility] ([facility]) [address] [facility] [place], [address], 09/21/2024 09:54:57 09/21/19 25 09/21/2024 COMP. METAB OLIC PANEL (14) AST (SGOT) 34 IU/L 0-40 normal Not Available [facility] ([facility]) [address] [facility] [place], [address], 09/21/2024 09:54:57 09/21/19 25 09/21/2024 COMP. METAB OLIC PANEL (14) ALT (SGPT) 28 IU/L 0-44 normal Not Available [facility] ([facility]) [address] [facility] [place], [address], 09/21/2024 09:54:57 09/21/19 25 09/21/2024 LIPID PANEL cholesterol, total 154 mg/dL 100-19 9 normal Not Available [facility] ([facility]) [address] [facility] [place], [address], 09/21/2024 09:54:58 09/21/19 25 09/21/2024 LIPID PANEL triglyceride s 349 mg/dL 0-149 above high normal Not Available [facility] ([facility]) [address] [place], [address], 09/21/2024 09:54:58 09/21/19 25 09/21/2024 LIPID PANEL HDL cholesterol 25 mg/dL >39 below low normal Not Available [facility] ([facility]) [address] [place], [address], 09/21/2024 09:54:58 09/21/19 25 09/21/2024 LIPID PANEL VLDL cholesterol saranya 56 mg/dL 5-40 above high normal Not Available [facility] ([facility]) [address] [place], [address], 09/21/2024 09:54:58 09/21/19 25 09/21/2024 LIPID PANEL LDL chol calc ([facility]) 73 mg/dL 0-99 Not Available [facility] ([facility]) [address] [place], [address], 09/21/2024 09:54:58 09/21/19 25 09/21/2024 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 0 normal Justo ECLIA metho dolog y. Accor ding [...] t be inter prete d as absol [place] evide nce of the prese nce or absen ce of ebony gonzalez se. Not Available [facility] ([facility]) [address] [facility], [place], [address], 09/21/2024 09:54:59 12/16/19 24 12/16/2023 XR, foot, 3 or more view No observ ation record ed. [address], [place], [place], [address], 12/20/2023 11:46:27 12/17/19 24 12/16/2023 XR, foot, 3 or more view No observ ation record ed. [address], [place], [place], [address], 12/20/2023 11:44:11 04/05/20 24 04/05/2024 XR, wrist + hand No observ ation record ed. [address], [place], [place], [address], 04/06/2024 08:20:15 04/05/20 24 04/05/2024 XR, forea rm, 2 view No observ ation record ed. [address], [place], [place], [address], 04/06/2024 08:20:37 04/05/20 24 04/05/2024 XR, wrist + hand No observ ation record ed. [place] [id number], [place], [place], [address], 04/06/2024 08:21:20 04/05/20 24 04/05/2024 imagi ng/di agnos tic resul t No observ ation record ed. [email or web address] [place] [address], [place], [address], 04/06/2024 08:18:07 04/05/20 24 04/05/2024 imagi ng/di agnos tic resul t No observ ation record ed. [address], [place], [address], 04/06/2024 08:17:32 04/12/20 24 04/12/2024 CT, chest , w/o contr ast No observ ation record ed. [email or web address] [facility] [address], [place], [address], 04/13/2024 15:05:25 09/06/19 25 09/05/2024 XR, chest , 2 view No observ ation record ed. [address], [place], [address], 09/06/2024 16:53:35 09/06/19 25 09/05/2024 CT, cervi saranya spine , w/ contr ast No observ ation record ed. [address], [place], [address], 09/06/2024 16:53:22 09/06/19 25 09/05/2024 CT, head + brain , w/ contr ast No observ ation record ed. [address], [place], [address], 09/06/2024 16:53:03 Result Notes None recorded. Problems Name Problem SNOMED Code Status Onset Date Resolution Date Notes Provider Name and Address Organization Details Recorded Time Degenerati on of lumbar interverte bral disc 84024392 Active Yemi Chappell MD [address] [facility], [place], [address] , [facility] & [place] 3 13:56:32 Mild recurrent major depression 98606487 Active Yemi Chappell MD [address] 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 [address] , [facility] & [place] 3 13:56:32 Allergic dispositio n 367598101 Active Yemi Chappell MD [address] [facility] [address] [facility] & [place] 3 13:56:32 Muscle spasm of cervical muscle of neck 518212352837 Active Yemi Chappell MD [address] [facility] [address] , [facility] & [place] 3 13:56:32 Cervical disc disorder 324482932 Active Yemi Chappell MD [address] [facility] [address] [facility] 3 13:56:32 Myofascial pain 539792487 Michoacano Chappell MD [address] [place], [address] , [facility] & [place] 3 13:56:32 Chronic pain syndrome 061331533 Michoacano Chappell MD [address] 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 00127418 Active Yemi Chappell MD [address] [facility], [place], [address] , [place] - [facility] & [place] 3 13:56:32 Cervical radiculopa thy 03358329 Active Yemi Chappell MD [address] [facility], [place], [address] , [place] - [facility] & [place] 3 13:56:32 Opioid dependence 53149443 Active Yemi Chappell MD [address] [facility], [place], [address] , [place] - [facility] & [place] 3 13:56:32 Hyperlipid emia 19962329 Active Yemi Chappell MD [address] [facility], [place], [address] , [place] - [facility] & [place] 3 13:56:32 Cobalamin deficiency 762671993 Active Yemi Chappell MD [address] [facility], [place], [address] , [place] - [facility] & [place] 3 13:56:32 History of drug dependency 018060246 Active Yemi Chappell MD [address] [facility], [place], [address] , [place] - [facility] & [place] 3 13:56:32 Seasonal allergy 200171871 Active 2022 Yemi Chappell MD [address] [facility], [place], [address] , [place] - [facility] & [place] 3 14:03:26 Benign prostatic hyperplasi a 555617048 Active 2022 [facility] [place], [address] , [place] - [facility] - [place] & [place] 3 14:03:21 Essential hypertensi on 69426945 Active 2024 Yemi Chappell MD [address] [facility], [place], [address] , [place] - [facility] [place] & [place] 14:32:38 Problem Notes None recorded. Procedures Surgical History Date Name Laterality Status Provider Name and Address Organization Details Recorded Time 09/17/19 19 Head or Neck Surgery completed Alexia [place]amer [place] - [facility] - [place] & [place] 06/16/2023 16:42:55 08/30/19 16 Vasectomy completed Alexia [place] [facility] [place] & [place] 06/16/2023 16:42:45 05/19/19 11 Colonoscopy completed Alexia [place] [facility] [place] & [place] 06/16/2023 16:41:00 05/19/19 08 ENT Surgery completed Sary Michael [place] - [facility] [place] & [place] 10/21/2022 18:27:38 05/19/19 08 Sinus Surgery completed Sary Michael [place] [facility] [place] & [place] 10/21/2022 18:27:38 05/19/18 99 Splenectomy completed Sary Michael [place] [facility] [place] & [place] 10/21/2022 18:27:38 immunological therapy completed Alexia Rothamer [place] [facility] [place] & [place] 06/16/2023 16:34:00 operation for glaucoma completed Alexia [place]amer [place] [facility] [place] & [place] 06/16/2023 16:41:32 procedure on wrist completed Alexia [place]amer [place] [facility] [place] & [place] 06/16/2023 16:41:49 excision of lesion of skin completed Alexia [place]amer [place] [facility] [place] & [place] 06/16/2023 16:42:08 manipulation of displaced nasal septum completed Alexia [place]amer [place] [facility] [place] & [place] 06/16/2023 16:42:30 Imaging Results None recorded. Procedure Notes None recorded. Medical Equipment None Reported. 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 Not available 10/21/2022 JANEL Bhatia [facility] & [place] 3 18:27:13 40314 latex environme nt,medica tion rash Not available low 10/23/20222021 49106 91 RxNorm JANEL Cook [facility] & [place] 3 18:02:51 Medications Name Sig Start Date [...] Not Available simvastatin 40 mg tablet TAKE 1 TABLET BY MOUTH [...] ML INTRAMUSC ULARLY EVERY TWO WEEKS DIRECTED 2024 active Not Available Not Available Not [...] BY MOUTH DIRECTED ON INSIDE OF PACKAGE FOR 6 DAYS 09/20 completed Not Available Not Available Not Available [...] 875 mg-potevangelistiu m clavulanate 125 mg tablet TAKE 1 TABLET BY MOUTH TWICE DAILY FOR 10 DAYS 09/20 completed Not Available Not Available Not Available oxycodone 5 mg tablet TAKE 1 TABLET BY MOUTH EVERY 6 HOURS NEEDED FOR SEVERE PAIN active Not Available Not Available No t Available tadalafil 5 mg tablet TAKE 1 TABLET BY MOUTH ONCE DAILY active Not Available Not Available No t Available fenofibrate nanocrystal lized 145 mg tablet TAKE 1 TABLET BY MOUTH [...] Vitals Date Recorded Body weight Body temperature Oxygen saturation Oxygen saturation in Arterial blood by Pulse oximetry Heart rate Systolic And Diastolic Provider Name and Address Organization Details Last Updated DateTime 5 72760.7 7 g 96.8 [degF] 98 % 98 % 73 /min 140/99 mm[Hg] Ivy Burrell [facility] & [place] 5 09:54:30 Date Recorded Body weight Body temperature Heart rate Systolic And Diastolic Provider Name and Address Organization Details Last Updated DateTime 09/20/2024 75700.4 g 96.7 [degF] 81 /min 126/80 mm[Hg] Yesenia Schilling [facility] & [place] 09/20/2024 13:34:27 Date Recorded Body weight Body temperature Heart rate Oxygen saturation Oxygen saturation in Arterial blood by Pulse oximetry Systolic And Diastolic Provider Name and Address Organization Details Last Updated DateTime 4 71827.8 4 g 98.1 [degF] 80 /min 97 % 97 % 134/85 mm[Hg] Sary Rodriguez [facility] & [place] 4 13:20:55 Social History Question Answer Notes LastModified by Organizat ion Details LastModified Time Tobacco Smoking Status Current Every Day Smoker Sary Rodriguez [facility] & [place] 10/21/2022 18:27:31 Do You Have An Advance Directive? No [email or web address] Information not available 10/21/2022 Do You Wear A Helmet When Biking? Yes [email or web address] Information not available 11/14/2023 Are You Blind Or Do You Have Difficulty Seeing? No Information not available 10/21/2022 Is Blood Transfusion Acceptable In An Emergency? Yes Information not available 11/14/2023 In The 14 Days Before Symptom Onset, Have You Had Close Contact With A Laboratory-confir med COVID-19 While That Case Was Ill? No [email or web address] Information not available 11/14/2023 In The 14 Days Before Symptom Onset, Have You Had Close Contact With A Person Who Is Under Investigation For COVID-19 While That Person Was Ill? No [email or web address] Information not available 11/14/2023 Have You Been To An Area Known To Be High Risk For COVID-19? No [email or web address] Information not available 11/14/2023 Are You Deaf Or Do You Have Serious Difficulty Hearing? No [email or web address] Information not available 11/14/2023 Have You Processed Blood Or Body Fluids From An Ebola Virus Disease Patient Without Appropriate PPE? No [email or web address] Information not available 11/14/2023 Do You Reside In Or Have You Traveled To An Area Where Ebola Virus Transmission Is Active? No [email or web address] Information not available 11/14/2023 Have There Been Any Changes To Your Family Or Social Situation? No [email or web address] Information no t available 11/14/2023 What Is The Fluoride Status Of Your Home? Fluoridated Information not available 11/14/2023 Are There Any Guns Present In Your Home? No [email or web address] Information not available 11/14/2023 Have You Recently Or Are You Planning To Travel To An Area With Zika Virus? No [email or web address] Information not available 11/14/2023 Do You Use Insect Repellent Routinely? No [email or web address] Information not available 11/14/2023 In General, Would You Say Your Health Is Good [email or web address] Information not available 11/14/2023 How Would You Describe The Condition Of Your Mouth And Teeth i ncluding False Teeth Or Dentures? Good [email or web address] Information not available 11/14/2023 In The Past 7 Days, How Many Servings Of Fruits And Vegetables Did You Typically Eat Each Day? (1 Serving = 1 Cup Of Fresh Vegetables, 1 2 Cup Of Cooked Vegetables, Or 1 Medium Piece Of Fruit. 1 Cup = Size Of A Baseball.) 1-2 Servings Per Day [email or web address] Information not available 11/14/2023 In The Past 7 Days, How Many Servings Of High Fiber Or Whole Grain Foods Did You Typically Eat Each Day? (1 Serving = 1 Slice Of 100% Whole Wheat Bread, 1 Cup Of Whole-grain Or High-fiber Delxq-aa-dwq Cereal, 1 2 Cup Of Cooked Cereal Such As Oatmeal, Or 1 2 Cup Of Cooked Brown Rice Or Whole Wheat Pasta.) 1-2 Servings Per Day [email or web address] Information not available 11/14/2023 In The Past 7 Days, How Many Servings Of Fried Or High-fat Foods Did You Typically Eat Each Day? (Examples Include Fried Chicken, Fried Fish, [place], Nepali [place], Potato Chips, [place] Chips, Doughnuts, Creamy Salad Dressings, And Foods Made With Whole Milk, Cream, Cheese, Or Mayonnaise.) 3-4 Servings Per Day [email or web address] Information not available 11/14/2023 In The Past 7 Days, How Many Sugar-sweetened (not Diet) Beverages Did You Typically Consume Each Day 7 Or More Drinks Per Day [email or web address] Information not available 11/14/2023 Each Night, How Many Hours Of Sleep Do You Usually Get? 5-6 Hours [email or web address] Information not available 11/14/2023 Do You Snore Or Has Anyone Told You That You Snore? Yes Information not available 11/14/2023 In The Past 7 Days, How Often Have You [place] Sleepy During The Daytime? Usually [email or web address] Information not available 11/14/2023 Do You Have Chronic Pain? Yes [email or web address] Information not available 11/14/2023 If Yes, Location Of Pain Feet [email or web address] Information not available 11/14/2023 In The Past 7 Days, How Would You Rate Your Pain? Moderate Pain(4-6) [email or web address] Information not available 11/14/2023 Are You In A Pain Management Program? No [email or web address] Information not available 11/14/2023 Do You Take Opioids For Your Pain? No [email or web address] Information not available 11/14/2023 How Often Is Stress A Problem For You In Handling Such Things As: Your Health, Your Finances, Your Family And Social Relationships, Your Work? Never Or Rarely [email or web address] Information not available 11/14/2023 How Often Do You Get The Social And Emotional Support You Need: Always [email or web address] Information no t available 11/14/2023 In The Past 7 Days, Did You Need Help From Others To Take Care Of Things Such As Laundry And Housekeep- Ing, Banking, Shopping, Using The Telephone, Food Preparation, Transportation, Or Taking Your Own Medications? No [email or web address] Information not available 11/14/2023 Do You Live Alone? No [email or web address] Information not available 11/14/2023 Does Your Home Have Any Fall Risks (un-level Floors, Unfastened Rugs, Poor Lighting, Etc)? No [email or web address] Information not available 11/14/2023 Do You Feel Safe At Home? Yes [email or web address] Information not available 11/14/2023 Do You Have A Medical Power Of Allopathic Doctor? No [email or web address] Information not available 11/14/2023 What Was The Date Of Your Most Recent Tobacco Screening? 11/14/2023 Information not available 11/14/2023 What Is Your Current Pack Years? [email or web address] rs [email or web address] Information not available 11/14/2023 Do You Have Any Pets? Yes [email or web address] Information not available 11/14/2023 Do You Use Your Seat Belt Or Car Seat Routinely? Yes [email or web address] Information not available 11/14/2023 Do You Have Smoke And Carbon Monoxide Detectors In Your Home? Yes [email or web address] Information not available 11/14/2023 At What Age Did You Start Smoking Tobacco? 13 [email or web address] Information not available 11/14/2023 Are You Passively Exposed To Smoke? Yes [email or web address] Information no t available 10/21/2022 How Much Tobacco Do You Smoke? 0.5 PPD [email or web address] Information not available 02/23/2025 Do You Use Sunscreen Routinely? No [email or web address] Information not available 11/14/2023 Has Tobacco Cessation Counseling Been Provided? Yes [email or web address] Information not available 11/14/2023 On What Date Was Tobacco Cessation Counseling Provided? 11/14/2023 [email or web address] Information not available 11/14/2023 How Many Years Have You Smoked Tobacco? 34 [email or web address] Information not available 10/21/2022 Do You Have Difficulty Walking Or Climbing Stairs? No [email or web address] Information not available 11/14/2023 Are You Currently In School? No [email or web address] Information not available 11/14/2023 Sex: Unknown Functional Status Question Answer Note LastModified by Organizat ion Details LastModified Time Do you use any illicit or recreational drugs? No [email or web address] Information not available 10/21/2022 Do you or have you ever used any other forms of tobacco or nicotine? No [email or web address] Information not available 11/14/2023 What is your level of alcohol consumption? None [email or web address] Information not available 10/21/2022 Do you or have you ever used smokeless tobacco? Never used smokeless tobacco [email or web address] Information not available 10/21/2022 Do you have transportation difficulties? No [email or web address] Information not available 11/14/2023 Are you able to walk independently without assistance or assistive devices? YESWOREST Information not available 11/14/2023 Do you have difficulty doing errands alone? No [email or web address] Information not available 11/14/2023 Are you able to care for yourself independently? Yes [email or web address] Information not available 11/14/2023 Do you have difficulty dressing, bathing, grooming, or toileting? No [email or web address] Information not available 11/14/2023 What is your exercise level? Occasional [email or web address] Information not available 10/21/2022 Mental Status Question Answer Note LastModified by Organizat ion Details LastModified Time Do you feel stressed (tense, restless, nervous, or anxious, or unable to sleep at night)? [id number] [email or web address] Information not available 10/21/2022 Do you have difficulty concentrating, remembering or making decisions? No [email or web address] Information no t available 11/14/2023 Family History Relationship Description Onset Age of this Age Resolved Age Notes LastModified by Organization Details LastModified Time Maternal Grandfather Bilateral cataracts [email or web address] Not available 2024 13:21:34 Maternal Grandfather Heart disease Not available 2022 18:03:18 Maternal Grandmother Heart disease [email or web address] Not available 2022 18:03:23 Mother Hypertensive disorder [email or web address] Not available 2023 16:43:20 Mother Malignant neoplasm of breast [email or web address] Not available 02/23 07:42:23 Maternal Aunt Malignant neoplasm of liver [email or web address] Not available 02/23 07:42:37 Notes:1 son Medical History Condition Response Depression Y Anemia Y History of STI Y Spine Problems Y Neurological Problems Y Arthritis Y Cancer Y Back Problems Y Asthma Y High Cholesterol Y Immunizations Vaccine Type Date Status Note Provider Zaki bauer and Address Organization Details Recorded Time Tdap 3 completed Tanya conde, [place] - [facility] [place] 07/16/2022 16:25:44 Influenza, split virus, quadrivalent, preservative 6 completed Hoang conde, [place] [facility] [place] 10/23/2022 18:01:16 COVID-19, mRNA, LNP-S, PF, 100 mcg/0.5mL dose or 50 mcg/0.25mL dose 1 completed Hoang Miramontes null, [place] - [facility] [place] 10/23/2022 18:01:16 COVID-19, mRNA, LNP-S, PF, 100 mcg/0.5mL dose or 50 mcg/0.25mL dose 1 completed Hoang conde, [place] - [facility] [place] 10/23/2022 18:01:16 COVID-19, mRNA, LNP-S, PF, 100 mcg/0.5mL dose or 50 mcg/0.25mL dose 1 completed Marcellusrene Miramontes [facility], [place] - [facility] [place] 10/23/2022 18:01:16 COVID-19 vaccine, vector-nr, [id number], PF, 0.5 mL 1 completed Hoang Miramontes [facility], [place] - [facility] [place] 10/23/2022 18:01:16 COVID-19, mRNA, LNP-S, bivalent, PF, 30 mcg/0.3 mL dose 2 completed Marcellusrene Kulwindershea conde, [place] - [facility] [place] 10/23/2022 18:01:16 Influenza, split virus, trivalent, preservative 1 completed Marcellusrene GundersonKulwinder amaya, [place] - [facility] [place] 10/23/2022 18:01:16 Influenza, split virus, trivalent, PF 2 completed Hoang Miramontes null, [place] [facility] [place] 10/23/2022 18:01:16 Influenza, split virus, trivalent, PF 3 completed Jaa Kulwinder null, [place] [facility] [place] & [place] 10/23/2022 18:01:16 Influenza, split virus, trivalent, PF 1 completed Jaa Kulwinder [place] [facility] [place] [facility] [place] 10/23/2022 18:01:16 Influenza, split virus, trivalent, PF 4 completed Jaa Kulwinder [place] [facility] [place] [facility] [place] 10/23/2022 18:01:16 Influenza, split virus, quadrivalent, PF 2 completed Jaa Kulwinder [place] [facility] [place] [facility] [place] 10/23/2022 18:01:16 Influenza, split virus, quadrivalent, PF 7 completed Marcellusa Kulwinder [place] [facility] [place] [facility] [place] 10/23/2022 18:01:16 Influenza, MDCK, trivalent, PF 5 completed Hoang Gundersonong null, [place] [facility] [place] [facility] [place] 10/23/2022 18:01:16 Influenza, split virus, quadrivalent, PF 3 completed Kristal Inman [place] [facility] [place] [facility] [place] 11/03/2023 11:49:20 pneumococcal polysaccharide PPV23 1 completed Hoang Gundersonong [place], [place] [facility] [place] [facility] [place] 10/23/2022 18:01:16 Tdap 0 completed Alexa Dimas [place] [facility] [place] [facility] [place] 02/07/2022 12:05:57 Influenza, split virus, trivalent, PF 5 completed Not Available [facility] 11/13/2022 13:20:04 Influenza, split virus, quadrivalent, PF 8 completed Alexa Dimas [place] [facility] [place] [facility] [place] 02/07/2022 12:05:57 Influenza, MDCK, quadrivalent, preservative 0 completed Alexa Dim[place] [facility] [place] [facility] [place] 02/07/2022 12:05:57 Influenza, MDCK, trivalent, PF 4 completed Debby Pinto [place] [facility] [place] [facility] [place] 08/23/2024 13:13:02 Influenza, split virus, trivalent, PF 5 completed Ivy conde, [place] [facility] [place] [facility] [place] 02/10/2025 14:35:50 Past Encounters Encounter ID Performer Location Encounter Start Date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
--- OUTSIDE RECORDS SUMMARY | 2025-03-14 15:23 | XMS_ITS | Continuity of Care Document ---
Author Organization [facility] & [place], [facility] Address [address] [place] [address] Care Team Providers Care Occupational Analyst Name Role Phone YEMI CHAPPELL Primary Care Provider Unavailable Metal Buffer Assessment No assessment recorded. Plan of Treatment Reminders Order Date Submit Date Provider Last Modified By Organization Details Last Modified Time Details Appointments OV EST 20 025 01:30PM Yemi Chappell MD Not available Not available Not available Lab None record ed. Referral None record ed. Procedures None record ed. Surgeries None record ed. Imaging None record ed. Medication Orders None record ed. Patient TargetsNo targets recorded. Patient InstructionsNo instructions recorded. Reason for Referral None Reported. Problems Name Problem SNOMED Code Status Onset Date Resolution Date Notes Provider Name and Address Organization Details Recorded Time Degenerati on of lumbar interverte bral disc 62667191 Active Yemi Chappell MD [address], [place], [address] , [facility] & [place] 3 13:56:32 Mild recurrent major depression 83263266 Active Yemi Chappell MD [address], [place], [address] , [facility] 3 13:56:32 Megaloblas tic anemia due to vitamin B>12< deficiency 80045439 Active Yemi Chappell MD [address], [place], [address] , [facility] & [place] 3 13:56:32 Allergic dispositio n 804380346 Active Yemi Chappell MD [address], [place], [address] , [place] - [facility] & [place] 3 13:56:32 Muscle spasm of cervical muscle of neck 079519676958 Active Yemi Chappell MD [address] , [place], [address] , [place] - [facility] & [place] 3 13:56:32 Cervical disc disorder 124732249 [facility] [place], [address] , [place] - [facility] & [place] 3 13:56:32 Myofascial pain [id number] MD Michael Gloria , [place], [address] , [place] [facility] & [place] 3 13:56:32 Chronic pain syndrome [id number] MD Michael Gloria , [place], [address] , [place] [facility] & [place] 3 13:56:32 Lumbosacra l spondylosi s without myelopathy 57221398 MD Michael Gloria , [place], [address] , [place] - [facility] & [place] 3 13:56:32 Chronic pain [id number] Michoacano Chappell MD [address] [place], [address] , [place] [facility] & [place] 3 13:56:32 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 33360223 MD Michael Gloria , [place], [address] , [place] - [facility] & [place] 3 13:56:32 Cervical radiculopa thy 72957529 [place], [address] [facility] - [facility] & [place] 3 13:56:32 Opioid dependence 95023921 Active Yemi Chappell MD [address] [facility] [address] , [place] - [facility] & [place] 3 13:56:32 Hyperlipid emia 00406511 Active Yemi Chappell MD [address] , [facility] [address] , [place] - [facility] & [place] 3 13:56:32 Cobalamin deficiency 656063956 Active MD Michael Mcdonald [facility] [address] [place] [address] - [facility] & [place] 3 13:56:32 History of drug dependency 669485071 Active MD Michael Mcdonald [place] [id number] - [facility] & [place] 3 13:56:32 Seasonal allergy 085648042 Active 2022 Yemi Chappell MD [address] [facility] [address] , [place] - [facility] & [place] 3 14:03:26 Benign prostatic hyperplasi a 612379920 Active 2022 MD Michael Mcdonald [facility] [address] , [place] - [facility] & [place] 3 14:03:21 Essential hypertensi on 06189619 Active 2024 [facility] [address] , [place] - [facility] & [place] 5 14:32:38 Problem Notes None recorded. Procedures Surgical History Date Name Laterality Status Provider Name and Address Organization Details Recorded Time 09/17/19 19 Head or Neck Surgery completed Alexia Zamora [place] - [facility] & [place] 06/16/2023 16:42:55 08/30/19 16 Vasectomy completed Alexia Rothamer [place] - [place] - [place] & [place] 06/16/2023 16:42:45 05/19/19 11 Colonoscopy completed Alexia [place]amer [place] - [place] & [place] 06/16/2023 16:41:00 05/19/19 08 ENT Surgery completed Sary Michael [place] - [place] - [place] & [place] 10/21/2022 18:27:38 05/19/19 08 Sinus Surgery [place] Sary Michael [place] - [place] & [place] 10/21/2022 18:27:38 05/19/18 99 Splenectomy [place] Sary Michael [place] & [place] 10/21/2022 18:27:38 immunological therapy completed Alexia [place]amer [place] - [place] & [place] 06/16/2023 16:34:00 operation for glaucoma completed Alexia [place] & [place] 06/16/2023 16:41:32 procedure on wrist completed Alexia [place] & [place] 06/16/2023 16:41:49 excision of lesion of skin completed Alexia [place] & [place] 06/16/2023 16:42:08 manipulation of displaced nasal septum completed Alexia [place]amer [place] & [place] 06/16/2023 16:42:30 Imaging Results None recorded. Procedure Notes None recorded. Medical Equipment None Reported. 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 Not available 10/21/2022 Sary conde [place] - [facility] & [place] 18:27:13 05480 latex environme nt,medica tion rash Not available low 10/23/20222021 41759 91 RxNorm Hoang conde [place] - [facility] & [place] 18:02:51 Medications Name Sig Start Date Stop [...] 875 mg-potassiu m clavulanate 125 mg tablet TAKE 1 [...] Not Available Not Available Not Available Vitals None Recorded Social History Question Answer Notes LastModified by Organizat ion Details LastModified Time Tobacco Smoking Status Current Every Day Smoker Sary Rodriguez [facility], [place] - [place] - [place] & [place] 10/21/2022 18:27:31 Do You Have An Advance Directive? No [email or web address] Information not available 10/21/2022 Do You Wear A Helmet When Biking? Yes uryksbnax62 Information not available 11/14/2023 Are You Blind Or Do You Have Difficulty Seeing? No ppjcnrnax73 Information not available 10/21/2022 Is Blood Transfusion Acceptable In An Emergency? Yes Information not available 11/14/2023 In The 14 Days Before Symptom Onset, Have You Had Close Contact With A Laboratory-confir med COVID-19 While That Case Was Ill? No yxbxrtenu71 Information not available 11/14/2023 In The 14 Days Before Symptom Onset, Have You Had Close Contact With A Person Who Is Under Investigation For COVID-19 While That Person Was Ill? No fevyzrppw38 Information not available 11/14/2023 Have You Been To An Area Known To Be High Risk For COVID-19? No rjgfgcweb72 Information not available 11/14/2023 Are You Deaf Or Do You Have Serious Difficulty Hearing? No rwylxuerl05 Information not available 11/14/2023 Have You Processed Blood Or Body Fluids From An Ebola Virus Disease Patient Without Appropriate PPE? No dtbcvhiqi03 Information not available 11/14/2023 Do You Reside In Or Have You Traveled To An Area Where Ebola Virus Transmission Is Active? No ktdvibuhy27 Information not available 11/14/2023 Have There Been Any Changes To Your Family Or Social Situation? No edywsxsrk87 Information no t available 11/14/2023 What Is The Fluoride Status Of Your Home? Fluoridated sohnyuxro66 Information not available 11/14/2023 Are There Any Guns Present In Your Home? No rusgpgmyh35 Information not available 11/14/2023 Have You Recently Or Are You Planning To Travel To An Area With Zika Virus? No mdmjgmelc34 Information not available 11/14/2023 Do You Use Insect Repellent Routinely? No oyngakxfs58 Information not available 11/14/2023 In General, Would You Say Your Health Is Good [email or web address] Information not available 11/14/2023 How Would You Describe The Condition Of Your Mouth And Teeth i ncluding False Teeth Or Dentures? Good xghcymacy43 Information not available 11/14/2023 In The Past 7 Days, How Many Servings Of Fruits And Vegetables Did You Typically Eat Each Day? (1 Serving = 1 Cup Of Fresh Vegetables, 1 2 Cup Of Cooked Vegetables, Or 1 Medium Piece Of Fruit. 1 Cup = Size Of A Baseball.) 1-2 Servings Per Day eocethkrr97 Information not available 11/14/2023 In The Past 7 Days, How Many Servings Of High Fiber Or Whole Grain Foods Did You Typically Eat Each Day? (1 Serving = 1 Slice Of 100% Whole Wheat Bread, 1 Cup Of Whole-grain Or High-fiber Ffcnc-aa-epu Cereal, 1 2 Cup Of Cooked Cereal Such As Oatmeal, Or 1 2 Cup Of Cooked Brown Rice Or Whole Wheat Pasta.) 1-2 Servings Per Day xlaanouuj88 Information not available 11/14/2023 In The Past 7 Days, How Many Servings Of Fried Or High-fat Foods Did You Typically Eat Each Day? (Examples Include Fried Chicken, Fried Fish, [place]ke[place], [place], Potato Chips, [place] Chips, Doughnuts, Creamy Salad Dressings, And Foods Made With Whole Milk, Cream, Cheese, Or Mayonnaise.) 3-4 Servings Per Day uaedboxme18 Information not available 11/14/2023 In The Past 7 Days, How Many Sugar-sweetened (not Diet) Beverages Did You Typically Consume Each Day 7 Or More Drinks Per Day sdeulnegh74 Information not available 11/14/2023 Each Night, How Many Hours Of Sleep Do You Usually Get? 5-6 Hours vslqpneqg28 Information not available 11/14/2023 Do You Snore Or Has Anyone Told You That You Snore? Yes eeriiqfbj09 Information not available 11/14/2023 In The Past 7 Days, How Often Have You [place] Sleepy During The Daytime? Usually yksjmkwmi50 Information not available 11/14/2023 Do You Have Chronic Pain? Yes umcmqqslm23 Information not available 11/14/2023 If Yes, Location Of Pain Feet ubvoeilia85 Information not available 11/14/2023 In The Past 7 Days, How Would You Rate Your Pain? Moderate Pain(4-6) cmqreobmj80 Information not available 11/14/2023 Are You In A Pain Management Program? No ihobpesgo05 Information not available 11/14/2023 Do You Take Opioids For Your Pain? No ytvjmfcyw07 Information not available 11/14/2023 How Often Is Stress A Problem For You In Handling Such Things As: Your Health, Your Finances, Your Family And Social Relationships, Your Work? Never Or Rarely eiwugxbor43 Information not available 11/14/2023 How Often Do You Get The Social And Emotional Support You Need: Always hwgivnqxk78 Information no t available 11/14/2023 In The Past 7 Days, Did You Need Help From Others To Take Care Of Things Such As Laundry And Housekeep- Ing, Banking, Shopping, Using The Telephone, Food Preparation, Transportation, Or Taking Your Own Medications? No ayzvltfxy22 Information not available 11/14/2023 Do You Live Alone? No xoutcbmfs09 Information not available 11/14/2023 Does Your Home Have Any Fall Risks (un-level Floors, Unfastened Rugs, Poor Lighting, Etc)? No xvnxiisql02 Information not available 11/14/2023 Do You Feel Safe At Home? Yes juryuejyk96 Information not available 11/14/2023 Do You Have A Medical Power Of Deputy Sheriff Civil Division? No Information not available 11/14/2023 What Was The Date Of Your Most Recent Tobacco Screening? 11/14/2023 xanzveq852 Information not available 11/14/2023 What Is Your Current Pack Years? 30ormorepackyea rs Information not available 11/14/2023 Do You Have Any Pets? Yes guiqdobvy14 Information not available 11/14/2023 Do You Use Your Seat Belt Or Car Seat Routinely? Yes ksflexbqf58 Information not available 11/14/2023 Do You Have Smoke And Carbon Monoxide Detectors In Your Home? Yes nskpkebmm38 Information not available 11/14/2023 At What Age Did You Start Smoking Tobacco? 13 Information not available 11/14/2023 Are You Passively Exposed To Smoke? Yes rmhxfevof34 Information no t available 10/21/2022 How Much Tobacco Do You Smoke? 0.5 PPD uycfyxog43 Information not available 02/23/2025 Do You Use Sunscreen Routinely? No pwnicwfol71 Information not available 11/14/2023 Has Tobacco Cessation Counseling Been Provided? Yes rdmugxj753 Information not available 11/14/2023 On What Date Was Tobacco Cessation Counseling Provided? 11/14/2023 atdorif596 Information not available 11/14/2023 How Many Years Have You Smoked Tobacco? 34 udnudtfih32 Information not available 10/21/2022 Do You Have Difficulty Walking Or Climbing Stairs? No emvmvgiwj03 Information not available 11/14/2023 Are You Currently In School? No Information not available 11/14/2023 Sex: Unknown Functional Status Question Answer Note LastModified by Organizat ion Details LastModified Time Do you use any illicit or recreational drugs? No nhcrmaajk50 Information not available 10/21/2022 Do you or have you ever used any other forms of tobacco or nicotine? No dnkeobk530 Information not available 11/14/2023 What is your level of alcohol consumption? None xsantwvfm90 Information not available 10/21/2022 Do you or have you ever used smokeless tobacco? Never used smokeless tobacco kdfmijoqc73 Information not available 10/21/2022 Do you have transportation difficulties? No Information not available 11/14/2023 Are you able to walk independently without assistance or assistive devices? YESWOREST fqidpgipm76 Information not available 11/14/2023 Do you have difficulty doing errands alone? No srsxlaihr92 Information not available 11/14/2023 Are you able to care for yourself independently? Yes iapkezmhv91 Information not available 11/14/2023 Do you have difficulty dressing, bathing, grooming, or toileting? No jqvjsezsy23 Information not available 11/14/2023 What is your exercise level? Occasional tnvkuairt61 Information not available 10/21/2022 Mental Status Question Answer Note LastModified by Organizat ion Details LastModified Time Do you feel stressed (tense, restless, nervous, or anxious, or unable to sleep at night)? [id number] ozsmxajul38 Information not available 10/21/2022 Do you have difficulty concentrating, remembering or making decisions? No ujbjcrwyt15 Information no t available 11/14/2023 Family History Relationship Description Onset Age of this Age Resolved Age Notes LastModified by Organization Details LastModified Time Maternal Grandfather Bilateral cataracts bcomley Not available 2024 13:21:34 Maternal Grandfather Heart disease ivhjxu24 Not available 2022 18:03:18 Maternal Grandmother Heart disease fujisk24 Not available 2022 18:03:23 Mother Hypertensive disorder mrothamer Not available 2023 16:43:20 Mother Malignant neoplasm of breast kbnwjruo78 Not available 02/23 07:42:23 Maternal Aunt Malignant neoplasm of liver sdysvmlb80 Not available 02/23 07:42:37 Notes:1 son Medical History Condition Response Anemia Y Arthritis Y High Cholesterol Y History of STI Y Spine Problems Y Cancer Y Back Problems Y Depression Y Asthma Y Neurological Problems Y Immunizations Vaccine Type Date Status Note Provider Nam e and Address Organization Details Recorded Time Tdap 3 completed Tanya Cruz null, [place] - [facility] & [place] 07/16/2022 16:25:44 Influenza, split virus, quadrivalent, preservative 6 completed Hoang conde, JANEL - [facility] & [place] 10/23/2022 18:01:16 COVID-19, mRNA, LNP-S, PF, 100 mcg/0.5mL dose or 50 mcg/0.25mL dose 1 completed Hoang conde [place] - [facility] & [place] 10/23/2022 18:01:16 COVID-19, mRNA, LNP-S, PF, 100 mcg/0.5mL dose or 50 mcg/0.25mL dose 1 completed Hoang Miramontes amaya, JANEL - [facility] & [place] 10/23/2022 18:01:16 COVID-19, mRNA, LNP-S, PF, 100 mcg/0.5mL dose or 50 mcg/0.25mL dose 1 completed Hoang conde JANEL - [facility] & [place] 10/23/2022 18:01:16 COVID-19 vaccine, vector-nr, rS-Ad26, PF, 0.5 mL 1 completed Hoang Miramontes [facility], [place] - [facility] & [place] 10/23/2022 18:01:16 COVID-19, mRNA, LNP-S, bivalent, PF, 30 mcg/0.3 mL dose 2 completed Hoang conde JANEL [facility] & [place] 10/23/2022 18:01:16 Influenza, split virus, trivalent, preservative 1 completed Jaa Kulwinder null, [place] & [place] 10/23/2022 18:01:16 Influenza, split virus, trivalent, PF 2 completed Jaa Kulwinder [place] [facility] [place] 10/23/2022 18:01:16 Influenza, split virus, trivalent, PF 3 completed Jaa Kulwinder [place] [facility] [place] 10/23/2022 18:01:16 Influenza, split virus, trivalent, PF 1 completed Jaa Kulwinder [place] [facility] [place] 10/23/2022 18:01:16 Influenza, split virus, trivalent, PF 4 completed Jaa Kulwinder [place] [facility] [place] 10/23/2022 18:01:16 Influenza, split virus, quadrivalent, PF 2 completed Jaa Kulwinder [place] [facility] [place] 10/23/2022 18:01:16 Influenza, split virus, quadrivalent, PF 7 completed Jaa [place]ulwinder [place] [facility] [place] 10/23/2022 18:01:16 Influenza, MDCK, trivalent, PF 5 completed Jaa Kulwinder [place] [facility] [place] 10/23/2022 18:01:16 Influenza, split virus, quadrivalent, PF 3 completed Kristal In[place] [facility] [place] 11/03/2023 11:49:20 pneumococcal polysaccharide PPV23 1 completed Jaa Kulwinder [place] [facility] [place] 10/23/2022 18:01:16 Tdap 0 completed Alexa [place] [facility] [place] 02/07/2022 12:05:57 Influenza, split virus, trivalent, PF 5 completed Not Available [facility] 11/13/2022 13:20:04 Influenza, split virus, quadrivalent, PF 8 completed Alexa Dimas null, [facility] & [place] 02/07/2022 12:05:57 Influenza, MDCK, quadrivalent, preservative 0 completed [facility] [place] 02/07/2022 12:05:57 Influenza, MDCK, trivalent, PF 4 completed Debby Pinto null, [facility] & [place] 08/23/2024 13:13:02 Influenza, split virus, trivalent, PF 5 completed Ivy Indra null, [facility] & [place] 02/10/2025 14:35:50 Past Encounters Encounter ID Performer Location Encounter Start Date Encounter Closed Date Diagnosis/Indication Diagnosis SNOMED-CT Code Diagnosis ICD10 Code Diagnosis IMO Codes Diagnosis Note [id number] Yemi Chappell MD [facility] [address] [place] [address] 02/08/2025 10:33:57 02/08/2025 10:42:42 Influenza vaccination given [id number] 9109 Z23 [id number] Health Concerns Section Related Observation LastModified by Organization Detai ls LastModified Time None Recorded Concern Status LastModified by Organization Details LastModified Time None Recorded Payers Encounter Date Sequence Insurance Name Policy Number Policy Conteh Covered Member ID Conteh Member ID Guarantor Name 02/08/2025 2 [place] [place] FFS/TRADITI ONAL Yonathan Gallo [id number] Yonathan Gallo 02/08/2025 1 [employer] (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
--- OUTSIDE RECORDS SUMMARY | 2025-03-14 15:23 | XMS_ITS | Patient Health Record ---
Author Organization [facility] Address [address] [place] [address] Care Team Providers Care Wick And Base Assembler Name Role Phone Luis DICKINSONYonathan Unavailable Self, Referral Unavailable Unavailable Allergies No Known Allergies Reason For Referral No Information Medications Medication SIG (Take, Route, Frequency, Duration) Notes Start Date End Date Status simvastatin 40 mg 1 tab(s) orally once a day (at bedtime); Duration: 30 day(s) Active fenofibrate 145 mg 1 tab(s) orally once a day; Duration: 30 day(s) Active azelastine nasal 137 mcg/inh 2 spray(s) intranasally 2 times a day; Duration: 30 day(s) Active ZyrTEC-D 5 mg-120 mg 1 tab(s) orally 2 t imes a day Active TraMADol Hydrochloride 50 mg 1 tab(s) orally 4 times a day; Duration: 30 days Active timolol ophthalmic hemihydrate 0.5% 1 gtt in each affected eye 2 times a day; Duration: 30 day(s) Active citalopram 20 mg 1 tab(s) orally once a day; Duration: 30 day(s) Active Singulair 10 mg 1 tab(s) orally once a day; Duration: 30 day(s) Active Problems Problem Type SNOMED Code ICD Code Onset Dates Problem Status W/U Status Risk Notes Problem Pain in left foot (87126905090092 7) Pain in left foot (M79.672) Active confirmed Problem Post-laminectom y syndrome (54717197) Postlaminectomy syndrome, not elsewhere classified (M96.1) Active confirmed Problem Long-term current use of drug therapy (931273921) 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) Active confirmed Problem Lumbar spondylosis (313249884) lumbar spondylosis (M47.816) Active confirmed Problem Cervical spondylosis (315535836) cervical spondylosis (M47.812) Active confirmed Plan Of Treatment No Information Insurance Providers Payer Name Payer Address Payer Phone Subscriber Number Group Number Insured Name Patient Relationship to Insured Coverage Start Date Coverage End Date [employer] [address] [place] [address] [id number] Yonathan Gallo Self - patient is the insured 1 [place] Medicaid [address] [place] [address] [id number] Yonathan Gallo Self - patient is the insured 1 Medical (General) History Medical History History ICD Code Depression / managed by Dr. Cyr t: Asthma / managed by Dr. Beach-Onset: Hemorrhoids / managed by Dr. Soriano et: Surgical History Surgery Date(Month/Year) Neck surgery- Dr. Mcgowan / sara ayala / (OP) 2019 Hospitalization History Reason Date(Month/Year)
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
--- OUTSIDE RECORDS SUMMARY | 2025-03-14 15:23 | XMS_ITS | Encounter Summary ---
Author Organization [facility] Address [address] [place] [address] Care Team Providers Care [employer] Assistant Name Role Phone Angie Beach MD Primary Care Provider [phone] Reason for Visit * Reason Comments Med Refill Encounter Details Date Type Department Care Team (Late st Contact Info) Description 12/29/2021 Refill [facility] [address] [place] [address] Jennifer Young MD [address] [address] Social History Tobacco Use Types Packs/Day Years Used Date Smoking Tobacco: Every Day Sex and Gender Information Value Date Recorded Sex Assigned at Male 04/14/2024 5:54 AM EST Legal Sex Male 8:41 PM EDT Gender Identity Male 04/14/2024 5:54 AM EST Sexual Orientation Not on file documented as of this encounter Plan of Treatment Not on file documented as of this encounter Visit Diagnoses Not on filedocumented in this encounter Care Teams [employer] Assistant Relationship Specialty Start Date End Date Angie Beach MD [address] [place] [id number] PCP - General 09/29/20 documented as of this encounter
--- NOTE | 2025-03-14 15:26 | PC.NURSE ---
DR SANDS AT BEDSIDE
--- NOTE | 2025-03-14 15:35 | PC.NURSE ---
DR SANDS SPEAKING WITH DR CARRERA
[2025-03-14 16:12] VITALS: BP 126/92; PULSE 56; RESP 18; TEMP 36.8; O2SAT 99
--- NOTE | 2025-03-14 16:20 | PC.NURSE ---
Called 's office to get the patient a f/u appointment, front desk manager states they will talk to and then will call the patient with a date and time. Messaged relayed to patient and MD.
== END 2025-03-14 16:18 | disposition home or self-care (01) ==
PROVIDERS: Emergency Provider Student in an Organized Health Care Education/Training Program; PCP Pediatrics
DX: S91.115A Laceration without foreign body of left lesser toe(s) without damage to nail, initial encounter (principal); S96.122A Laceration of muscle and tendon of long extensor muscle of toe at ankle and foot level, left foot, initial encounter; F17.210 Nicotine dependence, cigarettes, uncomplicated; W29.3XXA Contact with powered garden and outdoor hand tools and machinery, initial encounter
CPT/HCPCS: 73620; 90471; 90715; 96365; 99284; 99285

== ENCOUNTER 2025-04-29 00:18 | Emergency (ER) | payer MEDICARE, MEDICAID, SELFPAY ==
[2025-04-29 00:21] VITALS: BP 151/94; PULSE 64; RESP 18; TEMP 37.1; O2SAT 99; BMI 26.6
--- NOTE | 2025-04-29 00:23 | ECG_ITS ---
APPROVED REPORT Exam: Resting ECG HR:58 bpm ECG Measurements Heart Rate 58 AXES TN 183 P 49 QRSd 94 QRS 31 QT 434 T 43 QTc 431 Conclusion SINUS BRADYCARDIA BORDERLINE ECG No STEMI Electronically signed by : ANISH CRYSTAL, 04/29/2025 06:40:27
[2025-04-29 00:26] VITALS: PULSE 58
--- OUTSIDE RECORDS SUMMARY | 2025-04-29 00:28 | XMS_ITS | Data Portability ---
Author Organization [facility] Address [address] [place] [address] Care Team Providers Care Conductor Freight Name Role Phone FANNY ROBERTS Primary Care Provider Assessment No assessment recorded. Plan of Treatment Reminders Order Date Submit Date Provider Last Modified By Organization Details Last Modified Time Details Appointments RECHECK 2025 11:30A M DORINA BURROUGHS MD Not available Not available Not available Lab PSA, serum or plasma 2024 025 [email or web address] [facility], [address] [place], [place] [address], [address], 06/12/2024 14:30:14 urinalysi s panel, auto 2021 022 [email or web address] [facility], [address] [place], [place] [address], [address], 03/25/2022 11:31:37 urinalysi s panel, auto 2020 021 [email or web address] [facility], [address] [address] [address], [address], 02/27/2021 15:08:07 urinalysi s panel, auto 2020 021 [email or web address] [facility], [address], [address], [place], [address], 12/11/2020 11:57:27 PSA, serum or plasma 2020 021 [email or web address] [facility], [address], [address], [place], [address], 12/11/2020 11:57:27 Referral None recorded. Procedures None recorded. Surgeries None recorded. Imaging None recorded. Medication Orders tadalafil 5 mg tablet [address] [facility], [address], [address], 06/09/2024 14:47:40 tadalafil 5 mg tablet [address] [facility], [address], [address], 05/01/2023 23:04:49 tadalafil 5 mg tablet [address] [facility], [address], [address], 03/25/2022 11:31:45 Bactrim DS 800 mg-160 mg tablet [address] [facility], [address], [address], 02/27/2021 14:28:31 tadalafil 5 mg tablet [address] [facility], [address], [address], 12/11/2020 11:57:37 Patient TargetsNo targets recorded. Patient Instructions Encounter Date Encounter Id Patient Instructions Last Modified By Organization Details Last Modified Time 02/27/2021 [id number] learning about healthy weight [email or web address] Not available 02/27/2021 15:08:07 Reason for Referral None Reported. Results Created Date Observation Date Name Description Value Unit Range Abnormal Flag Note LastModifiedBy Organization Detail LastModifiedTime 02/28/2002/27/2021 urina lysis panel , auto Unknown Analyte Clean Catch Not Available [facility] [address], [address], 02/27/2021 14:29:00 02/28/2002/27/2021 urina lysis panel , auto Unknown Analyte Yellow Not Available [facility] [address], [address], 02/27/2021 14:29:00 02/28/2002/27/2021 urina lysis panel , auto Unknown Analyte Slight ly Hazy Not Available [facility] [address], [place], [address], 02/27/2021 14:29:00 02/28/2002/27/2021 urina lysis panel , auto Unknown Analyte 1.010 Not Available [facility] [address], [address], 02/27/2021 14:29:00 02/28/2002/27/2021 urina lysis panel , auto Unknown Analyte 1.003- 1.035 Not Available [facility] [address], [place], [address], 02/27/2021 14:29:00 02/28/20 21 02/27/2021 urina lysis panel , auto Unknown Analyte 7.0 Not Available [facility] [address], [place], [address], 02/27/2021 14:29:00 02/28/2002/27/2021 urina lysis panel , auto Unknown Analyte 5.0-8. 0 Not Available [facility] [address], [place], [address], 02/27/2021 14:29:00 02/28/2002/27/2021 urina lysis panel , auto Unknown Analyte 75 Christianne/ul (+) Not Available [facility] [address], [place], [address], 02/27/2021 14:29:00 02/28/2002/27/2021 urina lysis panel , auto Unknown Analyte Negati ve Not Available [facility] [address], [place], [address], 02/27/2021 14:29:00 02/28/2002/27/2021 urina lysis panel , auto Unknown Analyte Negati ve Not Available [facility] [address], [place], [address], 02/27/2021 14:29:00 02/28/2002/27/2021 urina lysis panel , auto Unknown Analyte Negati ve Not Available [facility] [address], [place], [address], 02/27/2021 14:29:00 02/28/20 21 02/27/2021 urina lysis panel , auto Unknown Analyte Negati ve Not Available [facility] [address], [place], [address], 02/27/2021 14:29:00 02/28/2002/27/2021 urina lysis panel , auto Unknown Analyte Negati ve Not Available [facility] [address], [place], [address], 02/27/2021 14:29:00 02/28/2002/27/2021 urina lysis panel , auto Unknown Analyte Normal Not Available [facility] [address], [place], [address], 02/27/2021 14:29:00 02/28/2002/27/2021 urina lysis panel , auto Unknown Analyte Normal Not Available [facility] [address], [place], [address], 02/27/2021 14:29:00 02/28/2002/27/2021 urina lysis panel , auto Unknown Analyte 15 mg/dl (Sm) Not Available [facility] [address], [place], [address], 02/27/2021 14:29:00 02/28/2002/27/2021 urina lysis panel , auto Unknown Analyte Negati ve Not Available [facility] [address], [place], [address], 02/27/2021 14:29:00 02/28/20 21 02/27/2021 urina lysis panel , auto Unknown Analyte 1 mg/dl Not Available [facility] [address], [place], [address], 02/27/2021 14:29:00 02/28/2002/27/2021 urina lysis panel , auto Unknown Analyte Normal 1 mg/dl Not Available [facility] [address], [place], [address], 02/27/2021 14:29:00 02/28/2002/27/2021 urina lysis panel , auto Unknown Analyte Negati ve Not Available [facility] [address], [place], [address], 02/27/2021 14:29:00 02/28/2002/27/2021 urina lysis panel , auto Unknown Analyte Negati ve Not Available [facility] [address], [place], [address], 02/27/2021 14:29:00 02/28/2002/27/2021 urina lysis panel , auto Unknown Analyte Negati ve Not Available [facility] [address], [place], [address], 02/27/2021 14:29:00 02/28/2002/27/2021 urina lysis panel , auto Unknown Analyte Negati ve Not Available [facility] [address], [place], [address], 02/27/2021 14:29:00 12/12/19 21 12/11/2020 urina lysis panel , auto Unknown Analyte Clean Catch Not Available [facility] [address], [place], [address], 12/11/2020 11:04:19 12/12/19 21 12/11/2020 urina lysis panel , auto Unknown Analyte Yellow Not Available [facility] [address], [place], [address], 12/11/2020 11:04:19 12/12/19 21 12/11/2020 urina lysis panel , auto Unknown Analyte Clear Not Available [facility] [address], [place], [address], 12/11/2020 11:04:19 12/12/19 21 12/11/2020 urina lysis panel , auto Unknown Analyte 1.015 Not Available [facility] [address], [place], [address], 12/11/2020 11:04:19 12/12/19 21 12/11/2020 urina lysis panel , auto Unknown Analyte 1.003- 1.035 Not Available [facility] [address], [place], [address], 12/11/2020 11:04:19 12/12/1912/11/2020 urina lysis panel , auto Unknown Analyte 6.0 Not Available [facility] With [address], [place], [address], 12/11/2020 11:04:19 12/12/19 21 12/11/2020 urina lysis panel , auto Unknown Analyte 5.0-8. 0 Not Available [facility] [address], [place], [address], 12/11/2020 11:04:19 12/12/19 21 12/11/2020 urina lysis panel , auto Unknown Analyte 25 Christianne/ul Trace Not Available [facility] [address], [place], [address], 12/11/2020 11:04:19 12/12/19 21 12/11/2020 urina lysis panel , auto Unknown Analyte Negati ve Not Available [facility] [address], [place], [address], 12/11/2020 11:04:19 12/12/1912/11/2020 urina lysis panel , auto Unknown Analyte Negati ve Not Available [facility] [address], [place], [address], 12/11/2020 11:04:19 12/12/1912/11/2020 urina lysis panel , auto Unknown Analyte Negati ve Not Available [facility] [address], [place], [address], 12/11/2020 11:04:19 12/12/1912/11/2020 urina lysis panel , auto Unknown Analyte Negati ve Not Available [facility] [address], [place], [address], 12/11/2020 11:04:19 12/12/1912/11/2020 urina lysis panel , auto Unknown Analyte Negati ve Not Available [facility] [address], [place], [address], 12/11/2020 11:04:19 12/12/19 21 12/11/2020 urina lysis panel , auto Unknown Analyte Normal Not Available [facility] With [address], [place], [address], 12/11/2020 11:04:19 12/12/19 21 12/11/2020 urina lysis panel , auto Unknown Analyte Normal Not Available [facility] [address], [place], [address], 12/11/2020 11:04:19 12/12/1912/11/2020 urina lysis panel , auto Unknown Analyte 15 mg/dl (Sm) Not Available [facility] [address], [place], [address], 12/11/2020 11:04:19 12/12/1912/11/2020 urina lysis panel , auto Unknown Analyte Negati ve Not Available [facility] [address], [place], [address], 12/11/2020 11:04:19 12/12/1912/11/2020 urina lysis panel , auto Unknown Analyte 4 mg/dl Not Available [facility] [address], [place], [address], 12/11/2020 11:04:19 12/12/1912/11/2020 urina lysis panel , auto Unknown Analyte Normal 1 mg/dl Not Available [facility] [address], [place], [address], 12/11/2020 11:04:19 12/12/19 21 12/11/2020 urina lysis panel , auto Unknown Analyte 1 mg/dl (+) Not Available [facility] [address], [place], [address], 12/11/2020 11:04:19 12/12/19 21 12/11/2020 urina lysis panel , auto Unknown Analyte Negati ve Not Available [facility] [address], [address], 12/11/2020 11:04:19 12/12/19 21 12/11/2020 urina lysis panel , auto Unknown Analyte Negati ve Not Available [facility] [address], [place], [address], 12/11/2020 11:04:19 12/12/19 21 12/11/2020 urina lysis panel , auto Unknown Analyte Negati ve Not Available [facility] [address], [address], 12/11/2020 11:04:19 12/12/1912/11/2020 PSA, serum or plasm a PSA 0.15 NG/mL 0.0 - 4.0 Not Available [facility] [address], [address], 12/11/2020 11:54:23 03/25/20 22 03/25/2022 urina lysis panel , auto Unknown Analyte Clean Catch Not Available [facility] [address], [address], 03/25/2022 11:15:32 03/25/20 22 03/25/2022 urina lysis panel , auto Unknown Analyte Yellow Not Available [facility] [address], [place], [address], 03/25/2022 11:15:32 03/25/20 22 03/25/2022 urina lysis panel , auto Unknown Analyte Clear Not Available [facility] [address], [place], [address], 03/25/2022 11:15:32 03/25/20 22 03/25/2022 urina lysis panel , auto Unknown Analyte 1.020 Not Available [facility] [address], [place], [address], 03/25/2022 11:15:32 03/25/20 22 03/25/2022 urina lysis panel , auto Unknown Analyte 6.5 Not Available [facility] [address], [place], [address], 03/25/2022 11:15:32 03/25/20 22 03/25/2022 urina lysis panel , auto Unknown Analyte 25 Christianne/ul Trace Not Available [facility] [address] [place] [address] Rd [address], [place], [address], 03/25/2022 11:15:32 03/25/20 22 03/25/2022 urina lysis panel , auto Unknown Analyte Negati ve Not Available [facility] [address], [place], [address], 03/25/2022 11:15:32 03/25/20 22 03/25/2022 urina lysis panel , auto Unknown Analyte Negati ve Not Available [facility] [address], [place], [address], 03/25/2022 11:15:32 03/25/20 22 03/25/2022 urina lysis panel , auto Unknown Analyte Normal Not Available [facility] [address], [place], [address], 03/25/2022 11:15:32 03/25/2003/25/2022 urina lysis panel , auto Unknown Analyte Negati ve Not Available [facility] [address] [address], [place], [address], 03/25/2022 11:15:32 03/25/20 22 03/25/2022 urina lysis panel , auto Unknown Analyte 4 mg/dl Not Available [facility] [address] [address] [address], [place], [address], 03/25/2022 11:15:32 03/25/20 22 03/25/2022 urina lysis panel , auto Unknown Analyte 1 mg/dl (+) Not Available [facility] [address] [address] [address], [place], [address], 03/25/2022 11:15:32 03/25/20 22 03/25/2022 urina lysis panel , auto Unknown Analyte Negati ve Not Available [facility] [address] [address] [address], [place], [address], 03/25/2022 11:15:32 03/26/20 22 03/26/2022 PSA, serum or plasm a PSA 0.16 NG/mL 0.0 - 4.0 Not Available [facility] [address] [facility] [address], [address], 03/26/2022 08:18:10 06/09/19 25 06/09/2024 PSA, serum or plasm a PSA 0.38 NG/mL 0.0 - 4.0 Not Available [facility] [address] [facility] [address], [address], 06/09/2024 14:59:13 Result Notes None recorded. Procedures Surgical History Date Name Laterality Status Provider Name and Address Organization Details Recorded Time 12/31/19 19 Interpretation completed JUAN VELÁSQUEZ PA-C [address] [place] [address], [address] 12/30/2018 15:20:01 operation for glaucoma completed [facility] 07/24/2018 10:16:38 Other completed [facility] 07/24/2018 10:16:57 Other completed [facility] 07/24/2018 10:17:24 Imaging Results None recorded. Procedure Notes None recorded. Medical Equipment None Reported. Allergies Allergen ID Allergen Name Allergen Category Reaction Reaction Severity Criticality Documentation Date Start Date Code Code System Note Provider Name and Address Organization Details Recorded Time 765224 latex environme nt,medica tion Not available Not available Not available 07/24/2018 27503 91 [facility] 10:14:05 Medications Name Sig Start Date [...] tablet Not Available Not Available Not Available Arnold 7.5 mg-325 mg tablet Take 1 tablet every 6 hours by oral route. 12/11 completed Not Available Not Available Not Available Arnold 5 mg-325 mg tablet Take 1 tablet [...] Updated DateTime 06/09/2024 175.26 cm 24.4 kg/m2 23054.74 g Paula Melvin [facility] 06/09/2024 14:19:49 Date Recorded Body height Body mass index (BMI) Body weight Provider Name and Address Organization Details Last Updated DateTime 12/11/2020 175.26 cm 29.1 kg/m2 38319.7 g Kiel Elizabeth [facility] 12/11/2020 11:03:22 Date Recorded Body height Body mass index (BMI) Body weight Provider Name and Address Organization Details Last Updated DateTime 02/27/2021 175.26 cm 29.1 kg/m2 53580.[address] [facility] 02/27/2021 14:28:26 Date Recorded Body height Body mass index (BMI) Body weight Provider Name and Address Organization Details Last Updated DateTime 03/25/2022 175.26 cm 24.4 kg/m2 11131.74 g Jesus Crisostomo [facility] 03/25/2022 11:26:46 Date Recorded Body height Body mass index (BMI) Body weight Provider Name and Address Organization Details Last Updated DateTime 04/30/2023 175.26 cm 24.4 kg/m2 78356.74 g Akila Lemonspherd [facility] 04/30/2023 13:56:47 Social History Question Answer Notes LastModified by Organizat ion Details LastModified Time Tobacco Smoking Status Current Every Day Smoker [facility] 07/24/2018 10:15:53 How Much Tobacco Do You Chew? None Information not available 07/24/2018 Marital Status Single Informatio n not available 07/24/2018 What Was The Date Of Your Most Recent Tobacco Screening? 03/25/2022 [email or web address] Information not available 03/25/2022 Has Tobacco Cessation Counseling Been Provided? Yes Information not available 07/24/2018 On What Date Was Tobacco Cessation Counseling Provided? 12/11/2020 [email or web address] Information not available 12/11/2020 Sex: Male Functional Status Question Answer Note LastModified by Organization D etails LastModified Time What is your level of alcohol consumption? None Information not available 07/24/2018 What is your occupation? Disabled Information not available 07/24/2018 Mental Status None recorded. Family History Relationship Description Onset Age of this Age Resolved Age Notes LastModified by Organization Details LastModified Time Mother Family history of malignant neoplasm Breast Not available 2018 10:15:40 Maternal Aunt Family history of malignant neoplasm Liver Not available 2018 10:15:40 Medical History Condition Response Arthritis Y Glaucoma Y Depression Y Past Encounters Encounter ID Performer Location Encounter Start Date Encounter Closed Date Diagnosis/Indication Diagnosis SNOMED-CT Code Diagnosis ICD10 Code Diagnosis IMO Codes Diagnosis Note [id number] DORINA BURROUGHS MD [facility] [address] [place] [address] 07/24/2018 09:13:31 07/24/2018 10:11:57 Human papilloma virus infection 695835640 B97.7 we will arrange for CO2 laser fulguratio n of multiple genital condyloma [id number] [facility] [address] [place] [address] 07/29/2018 08:43:01 07/30/2018 10:47:11 Cervical spondylosis without myelopathy [id number] M47.812 -The patient presents with gradual onset [...] for evaluation of these complaints as well. [id number] CASTR[facility]D [facility] [address] [facility] [address] [address] [place] [address] 08/04/2018 13:24:18 08/10/2018 09:53:13 Spinal stenosis in cervical region with myelopathy [id number] 105 M48.02 -The patient presents for evaluation for cervical stenosis. Severe spinal stenosis at C5-6, 6 7 . C6-7 is more pronounced . Flattening of [...] present for the conversati on ACDF C5-6,6-7 [id number] DORINA BURROUGHS MD SURGERY SCHEDULE [address] [place] [address] 08/26/2018 09:51:03 08/26/2018 09:53:46 [id number] CASTRO BOYD MD SURGERY SCHEDULE [facility] [place] [address] 09/07/2018 07:34:23 09/07/2018 07:38:27 [id number] CASTRO BOYD MD [facility] [address] [place] [address] 09/30/2018 15:25:42 10/01/2018 12:00:32 Postoperative care [id number] Z48.89 -1 month status post 2 level ACDF. Making expected progress. X-rays are stable. Increase activity as tolerates over the next 4 weeks. Plan repeat x-ray in 3 months. All questions regarding his care were answered. He is happy with his early response to the surgery. [id number] CASTRO BOYD MD [facility] [address] [place] [address] 12/30/2018 14:47:26 01/04/2019 16:02:43 Postoperative care [id number] Z48.89 Doing great 4 months postop from [...] participat ing the care of Mr. Gallo. [id number] DORINA BURROUGHS MD [facility] [address] [place] [address] 12/11/2020 10:42:42 12/11/2020 11:59:24 Benign prostatic hyperplasia with outflow obstruction [id number] N40.1 follow-up 2 months Chronic prostatitis 1990 5009 N41.1 [id number] DORINA BURROUGHS MD [facility] [address] [place] [address] 02/27/2021 14:12:01 02/27/2021 14:53:59 Benign prostatic hyperplasia with outflow obstruction [id number] N40.1 continue above. Follow-up 1 year [id number] DORINA BURROUGHS MD [facility] [address] [place] [address] 03/25/2022 11:06:38 03/28/2022 10:50:55 Benign prostatic hyperplasia with outflow obstruction [id number] N40.1 continue above. Follow-up 1 year Primary er ectile dysfunction [id number] N52.9 [id number] DORINA BURROUGHS MD [facility] [address] [place] [address] 04/30/2023 13:18:02 04/30/2023 14:40:24 Benign prostatic hyperplasia with outflow obstruction [id number] N40.1 continue above. Follow-up 1 year [id number] DORINA BURROUGHS MD [facility] [address] [place] [address] 06/09/2024 14:15:14 06/10/2024 05:29:41 Benign prostatic hyperplasia with outflow obstruction [id number] N40.1 continue above. Follow-up 1 year Health Concerns Section Related Observation LastModified by Organization Detai ls LastModified Time None Recorded Concern Status LastModified by Organization Details LastModified Time None Recorded Advance Directives Directive None Recorded Payers Insurance Date Sequence Insurance Name Policy Number Policy Conteh Covered Member ID Conteh Member ID Guarantor Name 06/06/2024 2 [facility]ICA[facility] - FFS/TRADITIONA L Yonathan Gallo [id number] Yonathan Gallo 02/25/2022 1 [place] Yonathan Gallo [id number] Yonathan Gallo 06/06/2024 1 [place]MEDICARE REPLACEMENT HMO) [id number] Yonathan Gallo [id number] Yonathan Gallo 03/21/2018 PAYMENT PLAN Yonathan Gallo 07/20/2018 1 *SELF PAY* Steven Gallo Notes Date Note Type Note Provider [...] and it was 0.15. DORINA BURROUGHS MD [address] [place] [address] [place], [address], [facility] 12/11/2020 11:57:59 02/27/2021 text/html patient is here for 3 month follow-up after starting tadalafil 5 mg daily for obstructive urinary symptoms. He also took Bactrim for 1 month. He has history of BPH as well as chronic prostatitis. he really has no urologic complaints at this time. DORINA BURROUGHS MD [facility], [facility] [place], [address], [facility] 02/27/2021 15:08:51 03/25/2022 text/html patient is here follow-up of BPH with lower urinary tract symptoms as well as erectile dysfunction. He takes tadalafil 5 mg nightly with good response on both accounts. He drinks copious fluids in the evening still having nocturia 3 but is very satisfied. He has remote history of chronic prostatitis present no flareups in several years. I suggest we obtain a PSA today and continue on current therapy. DORINA BURROUGHS MD [facility], [facility] [place], [address], [facility] 03/25/2022 11:32:30 04/30/2023 text/html Patient is here for yearly follow-up. He has previous history of chronic prostatitis. He also has some obstructive symptoms and has done excellent on tadalafil 5 mg daily. He has PSA at his PCPs office in October of this year was 0.3. DORINA [facility], [address], [facility] 05/01/2023 23:05:23 06/09/2024 text/html Patient continues to do well so long as he takes tadalafil daily. He has nocturia x 2. He typically voids with a good stream so long as he takes tadalafil. PSA at last visit was 0.3. PSA today is pending. He would like to continue on current therapy. DORINA BURROUGHS MD [address], [place], [address], [facility] 06/12/2024 14:30:17
--- OUTSIDE RECORDS SUMMARY | 2025-04-29 00:28 | XMS_ITS | Clinical Summary ---
Author Organization [facility] Address [address] 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 to Occupational Therapy No Grisel Issa STG OT ROM: Patient will demonstrate ability complete wrist flexion to 45, DC to 30 by 4 weeks. Occupational Therapy No Grisel Issa Medical Devices Implanted Type [facility] Device Identifier Shelf Expiration Date Model / Serial / Lot Geminus Volar Dist Rad Plate Std 4h Lt - Sn/A - [id number] Implanted:Qty: 1 on 04/14/2024 by Yogesh Noyola MD at [facility] Left: Wrist [id number] L / N/A / Screw 3.5mm Geminus Ti Cortical Non Lock 14mm - Sn/A - [id number] Implanted:Qty: 1 on 04/14/2024 by Yogesh Noyola MD at [facility] Left: Wrist [id number] -TS / N/A / Screw 3.5mm Geminus Ti Cortical Non Lock 16mm - Sn/A - [id number] Implanted:Qty: 2 on 04/14/2024 by Yogesh Noyola MD at [facility] Left: Wrist [id number] -TS / N/A / Screw 3.5mm Geminus Ti Cortical Lock 10mm - Sn/A - [id number] Implanted:Qty: 1 on 04/14/2024 by Yogesh Noyola MD at [facility] Left: Wrist [id number] -TS / N/A / Screw Peg Threaded Locking 2.7sas21ob - Sn/A - [id number] Implanted:Qty: 2 on 04/14/2024 by Yogesh Noyola MD at [facility] Left: Wrist [id number] -TS / N/A / Screw Peg Threaded Locking 2.0shb53ar - Sn/A - [id number] Implanted:Qty: 1 on 04/14/2024 by Yogesh Noyola MD at [facility] Left: Wrist [id number] [id number] -TS / N/A / Screw Peg Threaded Locking 2.0alc17ar - Sn/A - [id number] Implanted:Qty: 1 on 04/14/2024 by Yogesh Noyola MD at [facility] Left: Wrist [id number] [id number]-[id number] -TS / N/A / Screw Peg Threaded Locking 2.4dug08ji - Sn/A - [id number] Implanted:Qty: 2 on 04/14/2024 by Yogesh Noyola MD at [facility] Left: Wrist [id number] [id number]-[id number] -TS / N/A / Insurance [place]ICA[place] [employer] MEDICARE Care Teams Public Affairs Officer Relationship Specialty Start Date End Date Angie Beach MD [address] [place], [place] [phone] PCP - General 09/29/20
--- OUTSIDE RECORDS SUMMARY | 2025-04-29 00:28 | XMS_ITS | Encounter Summary ---
Author Organization Healthcare Address [address] [place] [address] Care Team Providers Care Insurance Adjuster Name Role Phone Angie Beach MD Primary Care Provider [phone] Reason for Visit * Reason Comments Med Refill Encounter Details Date Type Department Care Team (Late st Contact Info) Description 12/29/2021 Refill [facility] [address] [place] [address] Jennifer Young MD [address] [address] Social History Tobacco Use Types [...] on filedocumented in this encounter Care Teams Insurance Adjuster Relationship Specialty Start Date End Date Angie Beach MD [address] [place] [id number] PCP - General 09/29/20 documented as of this encounter
--- OUTSIDE RECORDS SUMMARY | 2025-04-29 00:28 | XMS_ITS | Patient Health Record ---
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) Active confirmed Problem Lumbar spondylosis (116577990) lumbar spondylosis (M47.816) Active confirmed Problem Cervical spondylosis (924929166) cervical spondylosis (M47.812) Active confirmed Plan Of Treatment No Information Insurance Providers Payer Name Payer Address Payer Phone Subscriber Number Group Number Insured Name Patient Relationship to Insured Coverage Start Date Coverage End Date [employer]age [address] [place] [address] [id number] Yonathan Gallo Self - patient is the insured 1 [place] Medicaid [address] [place] [address] [id number] Yonathan Gallo Self - patient is the insured 1 Medical (General) History Medical History History ICD Code Depression / managed by Dr. Cyr t: Asthma / managed by Dr. Beach-Onset: Hemorrhoids / managed by Dr. Soriano et: Surgical History Surgery Date(Month/Year) Neck surgery- Dr. Mcgowan / sara ayala / (OP) 2019 Hospitalization History Reason Date(Month/Year)
[2025-04-29 00:30] VITALS: BP 136/91; PULSE 63; RESP 17; O2SAT 96
--- NOTE | 2025-04-29 00:33 | XR_ITS ---
PROCEDURE INFORMATION: Exam: XR Chest Exam date and time: 04/29/2025 12:35 AM Age: 49 years old Clinical indication: Pain; Chest pressure; Additional info: Chest pain TECHNIQUE: Imaging protocol: Radiologic exam of the chest. Views: 2 views. COMPARISON: CR XR CHEST 2V 09/05/2024 12:31 PM FINDINGS: Lungs: There is increased bronchovascular markings with peribronchial cuffing. There are scattered reticular and suspected minimal airspace opacities in both lungs, particularly in the right upper and left lower lobes. Pleural spaces: No large pleural effusions. No pneumothorax the Heart/Mediastinum: The cardiomediastinal silhouette is stable in appearance. Bones/joints: There are degenerative changes of the spine. Stable postsurgical changes of lower cervical fixation hardware. There are mild degenerative changes of the shoulder joints, right more than left. IMPRESSION: 1. Findings concerning for inflammatory changes in the chest, possibly bronchitis /bronchiolitis. Early pneumonia can not be excluded however, no large consolidative opacities to suggest beau pneumonia. If there is clinical concern, CT of the chest could be obtained for further evaluation. Clinical correlation is recommended. 2. No large pleural effusions. No pneumothorax.
[2025-04-29 00:43] LABS: Hematocrit 40.8 % (42.0-52.0); Hemoglobin 13.8 g/dL (14.1-18.0); Immature Granulocytes % 0.3 %; Mean Corpuscular HGB Conc 33.8 g/dL (31.8-35.4); Mean Corpuscular Hemoglobin 31.2 pg (27.0-31.2); Mean Corpuscular Volume 92.3 fl (80-94); Nucleated Red Blood Cells % 0 %; Platelet Count 385 K/mm3 (142-424); Red Blood Count 4.42 M/mm3 (4.60-6.20); Red Cell Distribution Width-SD 48.4 fL; White Blood Count 15.6 K/mm3 (4.8-10.8)
[2025-04-29 00:45] LABS: Lactate Venous 1.2 mmol/L (0.4-2.0); VBG HCO3 23.7 mmol/L (23-30); VBG PCO2 46.7 mmol/L (35-51); VBG PH 7.32 mmol/L (7.31-7.41); VBG PO2 44.5 mmol/L (28-40)
[2025-04-29 00:48] LABS: Albumin Level 4.8 g/dl (3.5-5.0); Chloride 107 mmol/L (98-107); Sodium 146 mmol/L (136-145)
[2025-04-29 00:49] LABS: Potassium 3.7 mmoL/L (3.5-5.1)
[2025-04-29 00:50] LABS: INR 0.98 (0.9-1.1); Prothrombin Time 10.9 seconds (10.1-12.5)
[2025-04-29 00:51] LABS: Alanine Aminotransferase 25 U/L (12-78); Albumin/Globulin Ratio 1.5 (1.1-1.8); Alkaline Phosphatase 73 U/L (38-126); Anion Gap 14.7 mEq/L (5-15); Aspartate Amino Transferase 32 U/L (17-59); Bilirubin,Total 0.3 mg/dl (0.2-1.3); Blood Urea Nitrogen 11 mg/dl (9-20); Carbon Dioxide 28 mmol/L (22.0-30.0); Creatinine Clearance Estimated 103 mL/min (50-200); Creatinine,Serum 1.00 mg/dl (0.66-1.25); Estimated Glomerular Filt Rate 79 ml/min (>60); GFR (African American) 96 ML/MIN (>60); Globulin 3.3 g/dL (1.3-3.2); Total Protein,Serum 8.1 g/dl (6.3-8.2)
[2025-04-29] MEDS: NITROGLYCERIN 0.4MG SL TABLET 0.4 MG SL (00:51)
[2025-04-29 00:52] LABS: Calcium 9.0 mg/dl (8.4-10.2); Glucose 94 mg/dl (74-100)
[2025-04-29] MEDS: ASPIRIN 81MG CHEWABLE TABLET 324 MG PO (00:52)
[2025-04-29] MEDS: BELLADONNA ALKALOIDS 60 ML ML PO (00:52)
[2025-04-29 00:56] LABS: Lipase 168 U/L (23-300)
--- NOTE | 2025-04-29 00:59 | [facility].EDCP ---
Discharge Plan Disposition Patient Disposition: Home, Self-Care Condition: Good Prescriptions Prescriptions: No Action doxycycline hyclate 100 mg capsule 100 mg PO BID 14 Days Qty: 28 0RF mupirocin 2 % ointment 1 applic topical BID 14 Days Qty: 22 1RF cyanocobalamin (vitamin B-12) 1,000 mcg/mL solution 1,000 mcg IM .BIWEEKLY Patient Comments: INJECT 1 ML INTRAMUSCULARLY EVERY TWO WEEKS DIRECTED epinephrine 0.3 mg/0.3 mL auto-injector 0.3 mg SQ ONCE PRN (Reason: Anaphylaxis) Patient Comments: INJECT CONTENTS OF 1 PEN NEEDED FOR ALLERGIC REACTION CALL 911 AFTER USE cetirizine-pseudoephedrine 5-120 mg tablet extended release 12 hr PO Patient Comments: TAKE 1 TABLET BY MOUTH TWICE DAILY lisinopril 20 mg tablet PO Patient Comments: TAKE 1 TABLET BY MOUTH ONCE DAILY azelastine 137 mcg (0.1 %) spray,non-aerosol intranasal Patient Comments: USE 1 TO 2 SPRAY(S) IN EACH NOSTRIL TWICE DAILY fluticasone propionate 50 mcg/actuation spray,suspension intranasal Patient Comments: USE 2 SPRAY(S) IN EACH NOSTRIL ONCE DAILY polymyxin B sulf-trimethoprim 10,000 unit- 1 mg/mL drops 1 drp ophthalmic (eye) Q3H 7 Days Qty: 10 0RF Rx Instructions: while awake; do not exceed 6 doses in 24 hours aspirin [Sharri Low Dose Aspirin] 81 mg tablet,delayed release (DR/EC) 81 mg PO DAILY ibuprofen 800 mg tablet 800 mg PO Q8H PRN (Reason: pain) Qty: 42 0RF simvastatin 40 mg tablet 40 mg PO DAILY Patient Comments: TAKE ONE TABLET BY MOUTH EVERY DAY montelukast 10 mg tablet 10 mg PO DAILY Patient Comments: TAKE 1 TABLET BY MOUTH ONCE DAILY AT NIGHT timolol maleate 0.5 % drops 1 drp Eye-Both AM Patient Comments: instill 1 DROP IN EACH EYE EVERY MORNING tadalafil 5 mg tablet 5 mg PO DAILY Patient Comments: TAKE 1 TABLET BY MOUTH ONCE DAILY fenofibrate nanocrystallized 145 mg tablet 145 mg PO DAILY Patient Comments: TAKE ONE TABLET BY MOUTH EVERY DAY citalopram 20 mg tablet 30 mg PO DAILY Patient Comments: TAKE 1 & 1/2 (ONE & ONE-HALF) TABLETS BY MOUTH ONCE DAILY cephalexin 500 mg capsule 500 mg PO QID 7 Days Qty: 28 0RF Referrals Follow up/Referrals: Yemi Chappell [Primary Care Provider, Medical] - See instructions Activity Restrictions/Add. Instructions Additional Instructions/Restrictions: You were evaluated in the ER and are believed to be appropriate for discharge at this time. Continue taking your home medications as prescribed. As discussed, when you take your doxycycline drink a full glass of water after taking it and stay sitting up for 30 minutes to avoid esophageal irritation. Make an appointment with your primary care doctor for reevaluation in 2 to 3 days and to discuss your symptoms. Return to the ER with any new, worsening, or otherwise concerning symptoms. Clinical Impressions Clinical Impression: Chest pain, Esophagitis due to doxycycline Print Language Print Language: Iranian Discharge ED Provider: Yamileth Oglesby General Chief Complaint: Chest Pain Stated Complaint: Chest Pain Time Seen by Provider: 04/29/25 00:33 Mode of Arrival: Ambulatory Source of Information: Patient Description of Symptoms (Recalled from ER Triage Doc. by RN): Pt reports left side CP that radiates into back with nausea that began approx 2100 on 04/28/2025. Pt rates pain 12/26 and is a constant burn. History of Present Illness HPI narrative: 49-year-old male with history of hyperlipidemia, hypertension presents to the ER with burning sensation in the chest. Patient reports symptoms began approximately 3 hours prior to arrival. He states it is in the middle of the chest and radiates somewhat to the left. He states he is also having back pain but the back pain has been on both the left and right side for about 1 week. He states the back pain is not new or changed since the chest pain started. Patient takes daily aspirin as well as blood pressure medications, he states he took a Prilosec for his symptoms without significant relief. He was having nausea but no vomiting, he is not nauseous at this time. He states his burning chest pain is unchanged from prior. He denies diarrhea, fevers, difficulty breathing, no pain radiating into the arm or jaw. Denies lightheadedness or dizziness, denies headache, numbness, tingling, or weakness. No other complaints or concerns. Related Data Home Medications ?Medication ?Instructions ?Recorded ?Confirmed fenofibrate nanocrystallized 145 145 mg PO DAILY 02/27/24 04/28/25 mg tablet montelukast 10 mg tablet 10 mg PO DAILY 02/27/24 04/28/25 simvastatin 40 mg tablet 40 mg PO DAILY 02/27/24 04/28/25 tadalafil 5 mg tablet 5 mg PO DAILY 02/27/24 04/28/25 timolol maleate 0.5 % eye drops 1 drp Eye-Both AM 02/27/24 04/28/25 citalopram 20 mg tablet 30 mg PO DAILY 06/05/24 04/28/25 cyanocobalamin (vitamin B-12) 1,000 mcg IM .BIWEEKLY 08/09/24 04/28/25 1,000 mcg/mL injection solution epinephrine 0.3 mg/0.3 mL 0.3 mg SQ ONCE PRN Anaphylaxis 08/09/24 04/28/25 injection, auto-injector azelastine 137 mcg (0.1 %) nasal intranasal 01/12/25 04/28/25 spray cetirizine 5 mg-pseudoephedrine ER tab PO 01/12/25 04/28/25 120 mg tablet,extended release,12hr fluticasone propionate 50 intranasal 01/12/25 04/28/25 mcg/actuation nasal spray,suspension lisinopril 20 mg tablet mg PO 01/12/25 04/28/25 aspirin 81 mg tablet,delayed 81 mg PO DAILY 03/15/25 04/28/25 release (Sharri Low Dose Aspirin) Previous Rx's ?Medication ?Instructions ?Recorded polymyxin B sulfate 10,000 1 drp ophthalmic (eye) Q3H 7 days 02/23/25 unit-trimethoprim 1 mg/mL eye drops #10 mL cephalexin 500 mg capsule 500 mg PO QID 7 days #28 caps 03/14/25 ibuprofen 800 mg tablet 800 mg PO Q8H PRN pain #42 tabs 03/15/25 doxycycline hyclate 100 mg capsule 100 mg PO BID 14 days #28 caps 04/28/25 mupirocin 2 % topical ointment 1 applic topical BID infection 14 04/28/25 days #22 grams Allergies Allergy/AdvReac Type Severity Reaction Status Date / Time tree nut (TREE NUT) Allergy Intermediate Unknown Verified 04/28/25 09:16 allergy reaction latex (LATEX) Allergy Unknown Unknown Verified 04/28/25 09:16 allergy reaction PFSH PFSH Disclaimer: The information contained in this section may have been updated after the patient was seen, as this information can be updated by other users. Medical History Dizziness Viral syndrome Sinusitis Allergic rhinitis Anxiety Hyperlipidemia Tobacco abuse Surgical History No significant past surgical history Family History Other No significant family history Social History Smoking Status: Current every day smoker tobacco type: cigarettes packs per day: 1 alcohol intake: never substance use type: denies use current occupational status: other Travel in the last 8 weeks?: None household members: family Other Medical History Have you received the Flu Vaccine for this season: Yes Have you received the Pneumonia Vaccine: Yes ROS Obtained: Yes Systems reviewed as appropriate & no additional complaints except as documented Per HPI Physical Exam General General appearance: alert and in no apparent distress Head Head exam: atraumatic and normocephalic Eye Eye exam: Present PERRL and EOMI ENT ENT exam: Present mucous membranes moist Neck Neck exam: Present normal inspection and full ROM Chest Chest inspection: Present symmetric chest wall rise; Absent tenderness Respiratory Respiratory exam: Present normal lung sounds bilaterally; Absent respiratory distress, wheezes or stridor Cardiovascular Cardiovascular exam: Present regular rate and normal rhythm Abdominal Exam Abdominal exam: Present soft; Absent distention or tenderness Extremities Exam Extremities exam: Present full ROM and normal capillary refill; Absent edema Neurological Exam Neurological exam: Present alert and oriented X3; Absent motor sensory deficit Psychiatric Psychiatric exam: Present normal affect and normal mood Skin Skin exam: Present warm and dry HEART Score HEART Score HEART Score assessment performed?: Yes History (anamnesis): Slightly suspicious ECG: Non-specific disturbance Age: 45-65 years Risk factors: 1-2 risk factors Troponin: </= normal limit HEART Score: 3 Critical Care Critical Care Time Critical Care Time: No Medical Decision Making Medical Records Medical records reviewed: Yes I reviewed the patient's medical records. Dave Inquiry Pt receiving controlled substance: No Vital Signs Vital Signs: 04/29/25 00:21 04/29/25 00:26 04/29/25 00:30 Temperature 98.7 F Temperature Source Oral Pulse Rate 58 L 63 Pulse Rate [Left] 64 Respiratory Rate 18 17 Blood Pressure 136/91 H Blood Pressure [Right Arm] 151/94 H Blood Pressure Mean [Right Arm] 113 Blood Pressure Source [Right Arm] Automatic Cuff Blood Pressure Position [Right Arm] Sitting 02 Sat by Pulse Oximetry 99 96 Oxygen Delivery Method Room Air 04/29/25 01:00 04/29/25 02:00 Temperature Temperature Source Pulse Rate 60 58 L Pulse Rate [Left] Respiratory Rate 16 14 Blood Pressure 140/96 H 123/79 Blood Pressure [Right Arm] Blood Pressure Mean [Right Arm] Blood Pressure Source [Right Arm] Blood Pressure Position [Right Arm] 02 Sat by Pulse Oximetry 97 96 Oxygen Delivery Method Lab Data Labs: Lab Results 04/29/25 00:20: WBC 15.6 H, RBC 4.42 L, Hgb 13.8 L, Hct 40.8 L, MCV 92.3, MCH 31.2, MCHC 33.8, RDW 14.1, Plt Count 385, MPV 10.0, Neut % (Auto) 33.2 L, Lymph % (Auto) 50.1 H, [place] % (Auto) 12.0 H, Eos % (Auto) 3.9, Baso % (Auto) 0.5, Neut # (Auto) 5.2, Lymph # (Auto) 7.8 H, [place] # (Auto) 1.9 H, Eos # (Auto) 0.6 H, Baso # (Auto) 0.1, Total Counted 100, Neutrophils % (Manual) 39 L, Lymphocytes % (Manual) 53 H, Monocytes % (Manual) 4, Eosinophils % (Manual) 4 H, Platelet Estimate Normal, Stomatocytes 1+, PT 10.9, INR 0.98, VBG pH 7.32, VBG pCO2 46.7, VBG pO2 44.5 H, VBG HCO3 23.7, VBG Total CO2 25.2, VBG O2 Saturation 79.6 H, VBG Base Excess -2.3, VBG Lactic Acid 1.2, Sodium 146 H, Potassium 3.7, Chloride 107, Carbon Dioxide 28, Anion Gap 14.7, BUN 11, Creatinine 1.00, Estimated Creat Clear 103, Estimated GFR 79, Est GFR ( Amer) 96, Glucose 94, Calcium 9.0, Total Bilirubin 0.3, AST 32, ALT 25, Alkaline Phosphatase 73, Troponin I < 0.01, NT-Pro-B Natriuret Pep < 20.0, Total Protein 8.1, Albumin 4.8, Globulin 3.3 H, Albumin/Globulin Ratio 1.5, Lipase 168 04/29/25 00:20 04/29/25 00:20 Response Orders (Tests/Meds): ED MEDICATIONS Generic Name Dose Route Start Last Admin Trade Name Freq PRN Reason Stop Dose Admin Nitroglycerin 0.4 mg 04/29/25 00:33 04/29/25 00:51 Nitroglycerin 0.4mg Sl Tablet SL 04/30/25 00:33 0.4 mg Q5MINP PRN Administration Chest Pain Discontinued Medications Generic Name Dose Route Start Last Admin Trade Name Freq PRN Reason Stop Dose Admin Aspirin 324 mg 04/29/25 00:33 04/29/25 00:52 Aspirin 81mg Chewable Tablet PO 04/29/25 00:34 324 mg ONCE ONE Administration Belladonna Alkaloids 60 ml 04/29/25 00:33 04/29/25 00:52 Belladonna Alkaloids 60 Ml Ml PO 04/29/25 00:34 60 ml ONCE ONE Administration ORDERS Category Date Time Status XR chest 2V Stat Exams 04/29/25 00:33 Completed Complete Blood Count Auto Diff Stat Lab 04/29/25 00:20 Completed Comprehensive Metabolic Panel Stat Lab 04/29/25 00:20 Completed Lipase Stat Lab 04/29/25 00:20 Completed NT Pro Brain Natriuretic Pep. Stat Lab 04/29/25 00:20 Completed Prothrombin Time INR Stat Lab 04/29/25 00:20 Completed Troponin I Q3H Lab 04/29/25 03:45 Ordered Troponin I Q3H Lab 04/29/25 06:45 Ordered Troponin I Stat Lab 04/29/25 00:20 Completed Venous Blood Gas Stat RT 04/29/25 00:20 Completed MDM Narrative Medical Decision Narrative: In summary, this 49-year-old male with comorbidities described in the HPI presents to the emergency department today with burning chest pain that started tonight as well as 1 week of upper back pain without traumatic history but he does state he has been working out. Denies shortness of breath or pain with breathing. On initial evaluation patient is hemodynamically stable, afebrile, GCS 15, no reproducible pain on exam, he has no tenderness of the chest wall or back, clear lungs, no peripheral edema, benign abdomen, no neurologic deficits. Differential diagnosis includes but is not limited to ACS, I considered PE but patient is PERC negative, considered electrolyte abnormality, dehydration, esophageal spasm, pneumothorax, pneumonia, muscle spasm, overuse injury, among others. Based on these concerns, I ordered hematologic and serum labs, cardiac workup, chest x-ray. ECG personally interpreted demonstrates sinus bradycardia, rate 58, normal axis, normal LA and QTc, no STEMI. Patient received aspirin, GI cocktail for treatment. Labs personally reviewed demonstrate leukocytosis WBC 15.6 is nonspecific and nonactionable at this time, he does have lymphocyte and monocyte predominance which could be viral related, slight anemia nonactionable, normal platelets, PT/INR normal, VBG with normal pH, no hypercarbia, normal lactic on VBG, CMP with slight hyponatremia but nonactionable, otherwise unremarkable and nonactionable CMP. Initial troponin undetectably low less than 0.01, undetectable BNP. Lipase normal at 168 reassuring against pancreatitis. XR personally interpreted demonstrates no lobar infiltrate, see radiology read for final interpretation. Patient was placed into ED observation at 0115 for serial troponin to rule out evolving [place] and preclude unnecessary admission. He remains on the court monitor and has been frequently reassessed. I went to discuss the radiology read of the chest x-ray with the patient. Radiology read included concerns of possible inflammatory change like bronchitis or other early infection. I discussed this with the patient and he states he has not had any cough or fevers, I do not believe this correlates clinically. I mentioned that if he had been sick recently we could consider starting him on antibiotics and he stated he was started on antibiotics for cellulitis in his left pinky toe today by his PCP. On further discussion, he states he was started on doxycycline and took his first dose tonight approximately 10 to 15 minutes before he started having burning chest pain. I became concerned for doxycycline esophagitis especially because patient reported that after receiving the GI cocktail he had immediate relief and resolution of symptoms. He states he took the doxycycline with only a sip of water and then went and laid down. He did not drink a full glass of water with the doxycycline and did not stay sitting up. It is likely that the pill stayed in his esophagus causing irritation. He has no evidence of esophageal perforation and is asymptomatic at this time. I discussed indication for serial troponin with him but he believes with the discussion of doxycycline esophagitis that this is likely what caused his symptoms. I tend to agree. I discussed risks and benefits of going home without second troponin. With shared decision making discussion he preferred to be discharged at this time which I believe is reasonable since he has a low heart score, asymptomatic, and we do have an event that specifically likely cause to his symptoms though he knows without second troponin we cannot definitively rule out cardiac abnormality. Patient is reasonable and has the insight and capacity to make this decision. I believe he is appropriate for discharge at this time. I counseled and educated the patient on continued use of doxycycline with recommendations to drink a full glass of water after taking it and stay sitting up for 30 minutes to avoid esophagitis. I examined the affected toe which does have evidence of mild cellulitis and an ulcerating wound but no fluctuance. I believe continued doxycycline treatment is appropriate. Patient was given instructions on symptomatic monitoring and management, follow up instructions, and return precautions for the emergency department. Patient indicated understanding and was discharged in stable condition.
[2025-04-29 01:00] VITALS: BP 140/96; PULSE 60; RESP 16; O2SAT 97
[2025-04-29 01:07] LABS: Troponin I < 0.01 ng/ml (0.00-0.034)
[2025-04-29 01:35] LABS: Total Cells Counted 100
[2025-04-29 01:36] LABS: Stomatocytes 1+
[2025-04-29 01:40] LABS: NT Pro Brain Natriuretic Pep. < 20.0 pg/mL (0-125)
[2025-04-29 02:00] VITALS: BP 123/79; PULSE 58; RESP 14; O2SAT 96
[2025-04-29 02:44] VITALS: BP 110/74; PULSE 63; RESP 16; TEMP 36.6; O2SAT 98
== END 2025-04-29 02:59 | disposition home or self-care (01) ==
PROVIDERS: Emergency Provider Emergency Medicine; PCP Pediatrics
DX: R07.9 Chest pain, unspecified (principal); K20.80 Other esophagitis without bleeding; T36.4X5A Adverse effect of tetracyclines, initial encounter; R00.1 Bradycardia, unspecified; R11.0 Nausea; F17.210 Nicotine dependence, cigarettes, uncomplicated; I10 Essential (primary) hypertension
CPT/HCPCS: 71046; 80053; 82803; 83690; 83880; 84484; 85007; 85025; 85610; 93005; 99285